=== PATIENT | female | born 1955 | race Caucasian/White ===

== ENCOUNTER → 2017-01-01 | Outpatient (CLI) | payer BC ==
[~2017-01-01] MED LIST: ALBU18002; ERGO500037 PO; GABA-113 PO; GABA1CAP5 PO; LISI-725 PO; METO100T14 PO; MOME200A INH; MULT-506 PO; NAPR1TAB9 PO
--- NOTE | 2017-01-01 17:14 | DIAGNOSTIC IMAGING REPORT ---
MRI OF THE CERVICAL SPINE WITHOUT IV CONTRAST CLINICAL HISTORY: Cervical radiculopathy. COMPARISON STUDY: No priors. TECHNIQUE: MRI of the cervical spine is performed utilizing various T1 and T2-weighted sequences in the axial and sagittal planes. IV contrast was not administered for this examination. FINDINGS: Cervical spine: Vertebral body height is maintained throughout the cervical spine. Alignment is preserved. There is straightening of cervical lordosis with reversal centered at C4-C5. Anterior osteophytes are seen throughout. The atlantodental articulation appears maintained. The spinous processes appear intact. Chronic degenerative endplate change is seen from C4-C5 through C6-C7. No destructive bony lesion is identified. Intervertebral discs: There is degenerative disc desiccation throughout the cervical spine. Mild loss of height is seen from C4-C5 through C6-C7. Spinal cord: The cervical spinal cord is normal in morphology. There is slightly increased signal within the cervical cord from C5-C7, likely representing mild edema secondary to spinal stenosis. C2-C3: Facet arthropathy is of no consequence. The central canal and neural foramina are patent. C3-C4: A posterior disc osteophyte complex eccentric to the left effaces the subarachnoid space. Uncovertebral and facet arthropathy cause moderate to severe left and mild to moderate right neural foraminal stenosis. C4-C5: A posterior disc osteophyte complex abuts the ventral cord. Uncovertebral and facet arthropathy cause severe left and mild to moderate right neural foraminal stenosis. C5-C6: A posterior disc osteophyte complex effaces the ventral cord. The minimum AP canal diameter at this level measures 5.5 mm. Uncovertebral and facet arthropathy cause severe bilateral neural foraminal stenosis, left greater than right. C6-C7: A posterior disc osteophyte complex effaces the ventral cord. Uncovertebral and facet arthropathy cause severe bilateral neural foraminal stenosis. C7-T1: Unremarkable. Soft tissues: The prevertebral and paraspinous soft tissues are normal as visualized. Brain parenchyma: Partially imaged brain parenchyma at the skull base is within normal limits. Trace fluid is noted within the sphenoid sinuses. IMPRESSION: 1. Multilevel cervical spondylosis as above, greatest at C5-C6 and C6-C7. See discussion for detailed level by level analysis. 2. There is slightly increased signal within the cervical cord from C5-C7. This likely represents mild cord edema secondary to severe spinal stenosis at this level. Orthopedic surgical follow-up is recommended. 3. No destructive bony lesion is identified. Dictated: 01/01/2017 4:44 PM Transcribed: 01/01/2017 5:13 PM [email or web address] Electronically signed by: Rickey Montoya M.D. 01/01/2017 5:22 PM Dictated Date/Time: 01/01/2017 4:44 PM
== END | disposition home or self-care (01) ==
LOC: C.MRI 16:03
DX: M54.12 Radiculopathy, cervical region (principal); M47.892 Other spondylosis, cervical region

== ENCOUNTER → 2017-10-17 | Outpatient (CLI) | payer BC ==
[~2017-10-17] MED LIST changes: -GABA-113 PO
== END | disposition home or self-care (01) ==
LOC: C.PATHSPEC 15:58
PROVIDERS: ATTEND Dentist Oral and Maxillofacial Pathology
DX: D18.09 Hemangioma of other sites (principal)

== ENCOUNTER 2018-03-15 21:11 | Emergency (ER) | payer BC, OTHER ==
[~2018-03-15] VITALS: Ht 165.1 cm; Wt 50.7 kg
[~2018-03-15 21:11] MED LIST changes: -ALBU18002; +ALBU18002 INH; +GABA-1220 PO; -GABA1CAP5 PO
[2018-03-15 21:16] VITALS: TEMP 36.8
[2018-03-15] MEDS ORDERED: SODIUM CHLORIDE 0.9% 1000ML 1,000 ML IV STA (21:32)
[2018-03-15] MEDS ORDERED: METOCLOPRAMIDE HCL INJ 5 MG/ML 2 ML VIAL IV STA (21:32)
[2018-03-15] MEDS ORDERED: DiphenhydrAMINE HCL 50 MG/ML VIAL IV STA (21:32)
[2018-03-15 21:43] VITALS: Ht 165.1 cm; Wt 50.7 kg
[2018-03-15 21:50] LABS: BASO % 0.2 %; BASO ABS # 0.01 K/uL (0-0.2); EOS % 2.8 %; EOS ABS # 0.16 K/uL (0-0.5); HEMATOCRIT 42.3 % (37-47); HEMOGLOBIN 14.9 g/dL (12.0-16.0); IG# 0.01 K/uL (0.00-0.02); LYMPH % 42.8 %; LYMPH ABS # 2.41 K/uL (1.2-3.4); MEAN CORPUSCULAR HEMOGLOBIN 35.6 pg (25-34); MEAN CORPUSCULAR HGB CONC 35.2 g/dl (32-36); MEAN PLATELET VOLUME 9.7 fL (7.4-10.4); MONO % 6.9 %; MONO ABS # 0.39 K/uL (0.11-0.59); NEUT % 47.1 %; NEUT ABS # 2.65 K/uL (1.4-6.5); PLATELET COUNT 203 K/uL (130-400); RED CELL DISTRIBUTION WIDTH CV 14.3 % (11.5-14.5); RED CELL DISTRIBUTION WIDTH SD 52.5 fL (36.4-46.3); WHITE BLOOD COUNT 5.63 K/uL (4.8-10.8)
[2018-03-15 21:58] LABS: ISTAT CREATININE 1.2 mg/dl (0.6-1.3); ISTAT IONIZED CALCIUM 1.1 mmol/l (1.12-1.32); ISTAT POTASSIUM 4.1 mEq/L (3.3-5.0)
--- NOTE | 2018-03-15 22:01 | DIAGNOSTIC IMAGING REPORT ---
HEAD WITHOUT CONTRAST (CT) CLINICAL HISTORY: 62 years-old Female presenting with fall, head/facial injury. TECHNIQUE: Multidetector CT imaging of the head was performed without the use of intravenous contrast. IV contrast: None. A dose lowering technique was used consistent with the principles of ALARA (as low as reasonably achievable). COMPARISON: None. CT DOSE (mGy.cm): The estimated cumulative dose is 1047.[address] scans. FINDINGS: Tobacco Cutter topogram: Unremarkable. Ventricles and sulci normal in size. Brain parenchyma normal in appearance with preserved morin-white differentiation. No mass effect or midline shift. No hemorrhage or acute territorial infarct. No extra-axial fluid collection. Opacification of the right maxillary sinus. Right orbital floor fracture. Gas in the right orbit. Extensive soft tissue emphysema along the right premaxillary region. Calvarium intact. IMPRESSION: 1. No acute intracranial abnormality. 2. Right orbital floor fracture with intraorbital gas and extensive soft tissue emphysema in the right premaxillary region. Calvarium intact. Electronically signed by: Colton Mcguire M.D. 03/15/2018 9:59 PM Dictated Date/Time: 03/15/2018 9:57 PM
[2018-03-15 22:03] LABS: INR 0.9 (0.9-1.1); PTT PATIENT 26.4 SECONDS (21.0-31.0)
--- NOTE | 2018-03-15 22:06 | DIAGNOSTIC IMAGING REPORT ---
CERVICAL SPINE W/O CLINICAL HISTORY: 62 years-old Female presenting with fall, head/facial injury. TECHNIQUE: Multidetector CT of the cervical spine was performed without the use of intravenous contrast. IV contrast: None. A dose lowering technique was used consistent with the principles of ALARA (as low as reasonably achievable). COMPARISON: MR from 01/01/2017. CT DOSE (mGy.cm): The estimated cumulative dose is 1047.69 mGy.cm. FINDINGS: Toby Maker topogram: Unremarkable. 3 mm of grade 1 anterolisthesis of C7 on T1 likely due to degenerative change. Otherwise normal cervical lordosis. No acute fracture or acute subluxation. Vertebral bodies maintain normal height and alignment. Intervertebral disc height loss noted mildly at C6-7. Small disc osteophyte complexes noted from C3-4 through C6-7. Facet arthropathy noted to varying degrees at multiple levels. Degenerative change results in osseous neural foraminal narrowing at C3-4, on the left at C4-5, the right at C5-6, and bilaterally at C6-7. No significant osseous spinal canal narrowing. Paraspinal soft tissues notable for soft tissue emphysema in the premaxillary region with hemorrhage in the right maxillary sinus and a right orbital floor fracture with intraorbital gas and herniation of fat. There is also slight contraction of the inferior rectus muscle which is drawn towards the orbital floor defect. IMPRESSION: 1. No acute osseous injury of the cervical spine. 2. Multilevel degenerative changes. 3. Right orbital floor fracture with herniation of fat and traction on the inferior rectus muscle. Correlate clinically for entrapment. 4. Right intraorbital gas. 5. Right maxillary sinus hemorrhage. Electronically signed by: Colton Mcguire M.D. 03/15/2018 10:04 PM Dictated Date/Time: 03/15/2018 9:59 PM
[2018-03-15 22:12] LABS: CREATININE 1.17 mg/dl (0.60-1.20)
--- NOTE | 2018-03-15 22:20 | DIAGNOSTIC IMAGING REPORT ---
FACIAL BONES-MXILLOFAC WITHOUT CLINICAL HISTORY: 62 years-old Female presenting with fall, head/facial injury. TECHNIQUE: Multidetector CT of the face was performed without the use of intravenous contrast. IV contrast: None. A dose lowering technique was used consistent with the principles of ALARA (as low as reasonably achievable). COMPARISON: None. CT DOSE (mGy.cm): The estimated cumulative dose is 1047.[address] scans. FINDINGS: Appliances Sample Maker topogram: Unremarkable. Acute fracture of the medial floor of the right orbit with herniation of orbital fat. There is also downward traction on the inferior rectus muscle, which is minimally pulled into the bony defect. The herniated soft tissue, however, is largely fat. Hemorrhage noted in the right maxillary sinus. Right intraorbital extraconal gas noted. Extensive soft tissue emphysema in the right periorbital and premaxillary region. A nondisplaced fracture of the lateral wall of the right orbit may also be present. The medial right orbital wall is intact. Mandible intact. Temporomandibular joints intact. IMPRESSION: Acute fracture of the floor of the right orbit with herniation of fat and traction on the inferior rectus muscle. Correlate clinically for entrapment. Additional nondisplaced fracture of the lateral right orbital wall suspected. Soft tissue and right intraorbital gas with right maxillary sinus hemorrhage. Electronically signed by: Colton Mcguire M.D. 03/15/2018 10:19 PM Dictated Date/Time: 03/15/2018 10:15 PM
[2018-03-15 22:22] LABS: TOTAL PROTEIN 7.7 gm/dl (6.4-8.2)
[2018-03-15] MEDS ORDERED: METO50TA16 PO (22:42)
[2018-03-15] MEDS ORDERED: NRN600 PO (22:42)
[2018-03-15] MEDS ORDERED: PANTOprazole SOD 40 MG TAB PO STA (22:43)
[2018-03-15] MEDS ORDERED: DOXYCYCLINE HYCLATE 100 MG CAP PO STA (22:43)
[2018-03-15 23:15] VITALS: BP 135/76; PULSE 68; O2SAT 96
[2018-03-15] MEDS ORDERED: PANT40TA PO (23:29)
[2018-03-15] MEDS ORDERED: DOXY100C2 PO (23:29)
--- NOTE | 2018-03-16 05:06 | EMERGENCY ROOM VISIT NOTE ---
History First contact with patient: 21:24 Chief Complaint: HEAD INJURY (MINOR) Stated Complaint: HEADACHE, DOUBLE VISION, NAUSEA History of Present Illness The patient is a 62 year old female who presents to the Emergency Room with complaints of headache, difficulty focusing and nausea for the past day who fell 2 days ago and hit her face off the end table who sustained a right orbital contusion. Patient states she has been drinking wine today but has not been overly intoxicated. She states she has a couple drinks a day. Patient does smoke. She describes the headache as throbbing, ranging in severity 5 out of 10 throughout the head. Nothing makes it better or worse. She complains of nausea without vomiting or diarrhea. Patient states she has increased pain with her eye when she moves it. Patient denies loss of vision, eyeball pain itself, chest pain, dyspnea, neck pain, sore throat, dental pain, abdominal pain or any other medical complaints. Review of Systems An 10 system review of systems was completed with positives and pertinent negatives listed in the HPI. Past Medical/Surgical History Hypertension, back pain, neck pain Social History Smoking Status: Current Every Day Smoker Alcohol Use: heavy Drug Use: none Marital Status: Occupation Status: employed Current/Historical Medications Scheduled Doxycycline Hyclate (Vibramycin), 100 MG PO BID Gabapentin (Gabapentin), 600 MG PO BID Metoprolol Tartrate (Lopressor) (Lopressor), 50 MG PO DAILY Multivitamin (Multivitamin), 1 TAB PO DAILY Pantoprazole (Protonix), 40 MG PO DAILY Scheduled PRN Albuterol Sulfate (Proair Respiclick), 2 PUFFS INH Q4H PRN for Shortness of Breath Naproxen (Aleve), 220 MG PO BID PRN for Pain Physical Exam Vital Signs Date Time Temp Pulse Resp B/P (MAP) Pulse Ox O2 Delivery O2 Flow Rate FiO2 03/15/18 23:15 68 16 135/76 96 Room Air 03/15/18 22:05 83 16 133/66 96 Room Air 86 135/78 72 109/73 03/15/18 22:05 67 03/15/18 21:43 Room Air 03/15/18 21:16 36.8 78 18 128/72 95 Room Air Physical Exam PHYSICAL EXAM: VITALS: Vitals are noted on the nurse's note and reviewed by myself. Vital signs stable. GENERAL: Pleasant female with EtOH odor, in no acute distress, nondiaphoretic, well-developed well-nourished. SKIN: Right orbital contusion, the rest of the skin was without obvious lacerations or abrasions. Capillary reflex less than 2 seconds. HEAD: Normocephalic. EARS: External auditory canals clear, tympanic membranes pearly morin without erythema or effusion bilaterally. No hemotympanums. No cade sign. No mastoid tenderness. EYES: Pupils equal round and reactive to light and accommodation. Right conjunctiva with hemorrhage to the right lower quadrant less than a fourth of the conjunctiva. Left conjunctivae with injection, sclerae without icterus. Extraocular movements intact but painful in all directions in the right eye. No pain with the left eye. NOSE: Patent, turbinates without inflammation or discharge. No sinus tenderness. No septal hematoma or bleeding. FACE: Right orbital facial bone tenderness. Full range of motion of the jaw without tenderness. MOUTH: Mucous membranes moist. Pharynx without erythema or exudate. Uvula midline. Airway patent. Tongue does not deviate. NECK: Supple without nuchal rigidity. Cervical spine is nontender. Full range of motion of the neck without tenderness. No JVD. HEART: Regular rate and rhythm without murmurs gallops or rubs. LUNGS: Clear to auscultation bilaterally without wheezes, rales or rhonchi. No dullness to percussion. No retractions or accessory muscle use. No chest wall tenderness. ABDOMEN: Positive bowel sounds x 4. Normal tympanic percussion. Soft, nontender, without masses or organomegaly. No guarding or rebound tenderness. MUSCULOSKELETAL: No tenderness of the thoracic or lumbar spine. No tenderness with pelvic rocking. Full range of motion without tenderness to palpation in all extremities. Normal gait. Strength 5/5 throughout. Peripheral pulses 2+. NEURO: Patient was alert and oriented to person place and time. Normal Mini- Mental status exam. Normal sensation to light and sharp touch. Negative Romberg and pronator drift. Cerebellar function intact. No focal neurological deficits. Medical Decision & Procedures Laboratory Results 03/15/18 21:38 Red Blood Count 4.19, Mean Corpuscular Volume 101.0, Mean Corpuscular Hemoglobin 35.6, Mean Corpuscular Hemoglobin Concent 35.2, Mean Platelet Volume 9.7, Neutrophils (%) (Auto) 47.1, Lymphocytes (%) (Auto) 42.8, Monocytes (%) ( Auto) 6.9, Eosinophils (%) (Auto) 2.8, Basophils (%) (Auto) 0.2, Neutrophils # ( Auto) 2.65, Lymphocytes # (Auto) 2.41, Monocytes # (Auto) 0.39, Eosinophils # ( Auto) 0.16, Basophils # (Auto) 0.01 03/15/18 21:38 Test 03/15/18 21:38 03/15/18 21:47 White Blood Count 5.63 K/uL (4.8-10.8) Red Blood Count 4.19 M/uL (4.2-5.4) Hemoglobin 14.9 g/dL (12.0-16.0) Hematocrit 42.3 % (37-47) Mean Corpuscular Volume 101.0 fL (80-100) Mean Corpuscular Hemoglobin 35.6 pg (25-34) Mean Corpuscular Hemoglobin Concent 35.2 g/dl (32-36) Platelet Count 203 K/uL (130-400) Mean Platelet Volume 9.7 fL (7.4-10.4) Neutrophils (%) (Auto) 47.1 % Lymphocytes (%) (Auto) 42.8 % Monocytes (%) (Auto) 6.9 % Eosinophils (%) (Auto) 2.8 % Basophils (%) (Auto) 0.2 % Neutrophils # (Auto) 2.65 K/uL (1.4-6.5) Lymphocytes # (Auto) 2.41 K/uL (1.2-3.4) Monocytes # (Auto) 0.39 K/uL (0.11-0.59) Eosinophils # (Auto) 0.16 K/uL (0-0.5) Basophils # (Auto) 0.01 K/uL (0-0.2) RDW Standard Deviation 52.5 fL (36.4-46.3) RDW Coefficient of Variation 14.3 % (11.5-14.5) Immature Granulocyte % (Auto) 0.2 % Immature Granulocyte # (Auto) 0.01 K/uL (0.00-0.02) Prothrombin Time 9.5 SECONDS (9.0-12.0) Prothromb Time International Ratio 0.9 (0.9-1.1) Activated Partial Thromboplast Time 26.4 SECONDS (21.0-31.0) Partial Thromboplastin Ratio 1.0 Est Creatinine Clear Calc Drug Dose 40.9 ml/min Estimated GFR () 58.7 Estimated GFR (Non- 50.6 BUN/Creatinine Ratio 16.7 (10-20) Calcium Level 9.0 mg/dl (8.5-10.1) Total Bilirubin 0.4 mg/dl (0.2-1) Direct Bilirubin 0.1 mg/dl (0-0.2) Aspartate Amino Transf (AST/SGOT) 28 U/L (15-37) Alanine Aminotransferase (ALT/SGPT) 29 U/L (12-78) Alkaline Phosphatase 87 U/L (45-117) Total Protein 7.7 gm/dl (6.4-8.2) Albumin 4.0 gm/dl (3.4-5.0) Thyroid Stimulating Hormone (TSH) 1.040 uIu/ml (0.300-4.500) Ethyl Alcohol mg/dL 173.6 mg/dl (0-3) Bedside Hemoglobin 15.3 g/dl (12.0-16.0) Bedside Hematocrit 45 % (37-47) Bedside Sodium 135 mEq/L (135-144) Bedside Potassium 4.1 mEq/L (3.3-5.0) Bedside Chloride 101 mEq/L (101-112) Bedside Total CO2 20 mEq/l (24-31) Anion Gap 19.0 mmol/L (16-25) Bedside Blood Urea Nitrogen 22 mg/dl (7-18) Bedside Creatinine 1.2 mg/dl (0.6-1.3) Bedside Glucose (other) 84 mg/dl (70-99) Bedside Ionized Calcium (Sebastian) 1.10 mmol/l (1.12-1.32) Medications Administered Medications (Trade) Dose Ordered Sig/Mary Route Start Time Stop Time Status Last Admin Dose Admin Sodium Chloride 1,000 ml @ 999 mls/hr Q1H1M STAT IV 03/15/18 21:32 03/15/18 22:32 DC 03/15/18 22:09 999 MLS/HR Metoclopramide HCl (Reglan Inj) 5 mg NOW STAT IV 03/15/18 21:32 03/15/18 21:34 DC 03/15/18 22:09 5 MG Diphenhydramine HCl (Benadryl Inj) 12.5 mg NOW STAT IV 03/15/18 21:32 03/15/18 21:34 DC 03/15/18 22:09 12.5 MG Doxycycline Hyclate (Vibramycin Cap) 100 mg NOW STAT PO 03/15/18 22:43 03/15/18 22:45 DC 03/15/18 23:09 100 MG Pantoprazole Sodium (Protonix Tab) 40 mg NOW STAT PO 03/15/18 22:43 03/15/18 22:45 DC 03/15/18 23:09 40 MG ED Course Prior records/ancillary studies reviewed. Triage Nursing notes reviewed. Additional history obtained from family The patient's history was concerning for traumatic head injury Differential diagnosis: Etiologies such as concussion, contusion, fracture, subdural hematoma, epidural hematoma, intraparenchymal hemorrhage, as well as other traumatic pathologies were entertained. Physical examination findings: As above. ER treatment provided: Doxycycline, Protonix On reassessment the patient felt better. Diagnostics interpreted by me: ECG: Normal sinus, normal intervals, no acute ST-T wave changes. Impression normal sinus rhythm interpreted by myself The labs revealed stable H&H. Elevated alcohol Imaging studies: FACIAL BONES-MXILLOFAC WITHOUT CLINICAL HISTORY: 62 years-old Female presenting with fall, head/facial injury. TECHNIQUE: Multidetector CT of the face was performed without the use of intravenous contrast. IV contrast: None. A dose lowering technique was used consistent with the principles of ALARA (as low as reasonably achievable). COMPARISON: None. CT DOSE (mGy.cm): The estimated cumulative dose is 1047.[address] scans. FINDINGS: Payroll Accountant topogram: Unremarkable. Acute fracture of the medial floor of the right orbit with herniation of orbital fat. There is also downward traction on the inferior rectus muscle, which is minimally pulled into the bony defect. The herniated soft tissue, however, is largely fat. Hemorrhage noted in the right maxillary sinus. Right intraorbital extraconal gas noted. Extensive soft tissue emphysema in the right periorbital and premaxillary region. A nondisplaced fracture of the lateral wall of the right orbit may also be present. The medial right orbital wall is intact. Mandible intact. Temporomandibular joints intact. IMPRESSION: Acute fracture of the floor of the right orbit with herniation of fat and traction on the inferior rectus muscle. Correlate clinically for entrapment. Additional nondisplaced fracture of the lateral right orbital wall suspected. Soft tissue and right intraorbital gas with right maxillary sinus hemorrhage. Electronically signed by: Colton Mcguire M.D. 03/15/2018 10:[address] negative for fracture or bleed per radiology Consultation: A consultation was placed with the commissions manager Dr. Ratliff who recommends follow-up with him and orofacial/ENT for the facial trauma. He also recommends no forceful blowing of the nose, elevating the head and do not withhold his knees. I consulted Dr. Rodas who states he does not do trauma and recommends referral to ENT who does trauma or to oral facial plastics. He does recommend that antibiotics are a good idea. The case was discussed and diagnostics were reviewed. It appears the patient has a concussion with orbital fracture with possible entrapment of the eye muscle but patient had full EOMI. patient was neurovascularly and neurologically intact. She was counseled on conservative measures for her facial injury and advised no withholding a sneeze, forceful blowing of her nose and to sleep with her head elevated at 45. She is advised no alcohol until her symptoms resolve and has finished antibiotics. She was allergic to penicillin so she is given doxycycline and advised to take Protonix with this. She is advised to stand up and take this with a full glass of water. She is advised to follow-up with ophthalmology and oral facial surgery this week for further evaluation treatment for her facial injuries. She is advised to follow-up concussion clinic of headache and head injury symptoms persist or here in the ER sooner for headache, fevers, confusion, vomiting, worsening signs or symptoms or as needed. Patient had no other injuries are noted. She is well-appearing. Injury happened 2 days ago. is willing to care for her feels comfortable taking her home. By the evaluation outlined above emergent etiologies such as fracture, subdural hematoma, epidural hematoma, intraparenchymal hemorrhage, as well as others were deemed relatively unlikely. The pt informed about the findings as listed above. All questions were answered and pleased with the treatment. Return instructions were outlined and the patient was discharged in stable condition. Outpatient Prescription Management: Doxycycline, Protonix Referral: The patient was referred ophthalmology and oral facial surgery for follow-up in 2 to 3 days for a recheck of the current condition. Case reviewed with my attending The chart was completed utilizing [employer] Speech voice recognition software. Grammatical errors, random word insertions, pronoun errors, and incomplete sentences are an occassional consequence of this system due to software limitations, ambient noise, and hardware issues. Any formal questions or concerns about the content, text, or information contained within the body of this dictation should be directly addressed to the physician business office assistant for clarification. Medical Decision As above Head Trauma GCS Score: 15 Medication Reconcilliation Current Medication List: was personally reviewed by me Blood Pressure Screening Patient's blood pressure: Normal blood pressure Impression Primary Impression: Right orbital fracture Additional Impressions: Subconjunctival hemorrhage of right eye Facial contusion Head injury Departure Information Dispostion Home / Self-Care Condition GOOD Prescriptions Pantoprazole (Protonix) 40 Mg Tab 40 MG PO DAILY for 14 Days, #14 TAB Prov: Madyson Deleon .HARDEEP 03/15/18 Doxycycline Hyclate (VIBRAMYCIN) 100 Mg Cap 100 MG PO BID for 10 Days, #20 CAP Prov: Madyson Deleon .HARDEEP 03/15/18 Referrals Chandler Augustine D.D.SJohnathan Armas D.O. Forms HOME CARE DOCUMENTATION FORM, Work Instructions, Return To Work: 3 days IMPORTANT VISIT INFORMATION Patient Instructions Subconjunctival Hemorrhage, My [facility], ED Fx Face, ED Head Injury Closed Additional Instructions Facial fracture: DO NOT drive, drink alcohol, operate machinery, or perform dangerous activities today. You were given medications in the ER that can affect your ability to safely function or operate a vehicle. Doxycycline 100mg: Take one pill twice daily for 10 days. Take with food, but avoid dairy. Avoid prolonged sun exposure since this medication makes you temporarily more susceptible to sunburns. All antibiotics can cause diarrhea. If this occurs and you feel worse or it does not resolve in 1-2 days follow up with your doctor or return to the Emergency Department as this could be signs of serious underlying problems. Any medication can cause an allergic reaction, stop the pills immediately and return to the ER for rash, hives, breathing difficulties, or swelling. Protonix 40 m tablet daily for the next 2 weeks. Acetaminophen(Tylenol) may be used for fever or pain. Use 1000mg every six hours as needed. Avoid using more than 3000mg in a 24 hour period. Recommend no alcohol until you finish all medications as above. Recommend that you take your medicine with a full glass of water standing up. Do not forcibly blow your nose, withhold a sneeze or increase any pressure to your face. You need to sleep with her head elevated at 45 until cleared by ophthalmology and orofacial surgery. Call oral facial surgery and ophthalmology tomorrow morning for follow-up appointment for a facial injuries. Return to ER sooner for headache, fevers, confusion, vomiting, vision problems, worsening signs or symptoms or as needed. Head injury: Read head injury handout and return for any symptoms. Tylenol 1000 mg as needed for pain (Maximum 3000 mg Tylenol in 24 hr period). Avoid alcohol and contact sports/activities for one week and follow up with family doctor prior to returning to these activities if still symptomatic. Ice and elevate head. If your symptoms persist more than a week then follow up with the concussion clinic. Call [phone]. Return to ER sooner for headache, fevers, confusion, worsening signs or symptoms or as needed. Work Instructions Return To Work: 3 days Problem Qualifiers Primary Impression: Right orbital fracture Encounter type: initial encounter Fracture type: closed Qualified Codes: S02.81XA - Fracture of other specified skull and facial bones, right side, initial encounter for closed fracture
== END 2018-03-15 23:47 | disposition home or self-care (01) ==
LOC: C.EDB 21:12 → C.EDC 23:47
DX: S02.81XA Fracture of other specified skull and facial bones, right side, initial encounter for closed fracture (principal); S06.0X9A Concussion with loss of consciousness of unspecified duration, initial encounter; W19.XXXA Unspecified fall, initial encounter; W22.09XA Striking against other stationary object, initial encounter; R78.0 Finding of alcohol in blood; F17.200 Nicotine dependence, unspecified, uncomplicated; Z88.0 Allergy status to penicillin

== ENCOUNTER → 2018-07-17 | Outpatient (CLI) | payer OTHER ==
[~2018-07-17] MED LIST changes: +DOXY100C2 PO; -ERGO500037 PO; -GABA-1220 PO; -LISI-725 PO; -METO100T14 PO; +METO50TA16 PO; -MOME200A INH; +NRN600 PO
--- NOTE | 2018-07-17 14:10 | DIAGNOSTIC IMAGING REPORT ---
(CHEST) THORAX WITHOUT CT DOSE: 209.79 mGy.cm HISTORY: Tobacco use CURRENT SMOKER, 1.5 PACKS PER DAY TECHNIQUE: Multiaxial CT images of the chest were performed without contrast. A dose lowering technique was utilized adhering to the principles of ALARA. COMPARISON: None. FINDINGS: Mild emphysematous change. Several small scattered calcified benign granulomas. Poorly defined 5 x 3 mm lateral aspect right upper lobe image 102. Nodular density lateral aspect right upper lobe transaxial image 102. Lungs otherwise appear clear. There are no focal infiltrates. There is no significant hilar or mediastinal adenopathy. Several small calcified mediastinal and/or hilar nodes are noted. IMPRESSION: 1. Poorly defined 5 x 3 mm linear nodular density right upper lobe image 102. 2. Lungs otherwise are clear with several benign scattered calcified granulomas. 3. Mild emphysematous change. 4. Follow-up per Fleischner criteria. Please refer to below summary of Fleischner criteria recommendations for follow-up of incidental CT nodules (Mila Mclaughlin, Guidelines for management of small pulmonary nodules detected on CT scans: A statement from the Fleischner Society, Radiology 237: [phone].) SOLID NODULES Solitary nodule size: <6 mm * low risk patients: no follow-up needed * high risk patients: optional CT at 12 months Solitary nodule size: 6-8 mm * low risk patients: follow-up at 6-12 months, then consider further follow-up at 18-24 months * high risk patients: initial follow-up CT at 6-12 months and then at 18-24 months if no change Solitary nodule size: >8 mm * either low or high risk patients - consider follow-up CT at 3 months, and/or CT-PET, and/or biopsy Multiple nodules size: <6 mm * low risk patients: no routine follow-up * high risk patients: optional CT at 12 months Multiple nodules size: 6-8 mm * low risk patients: follow-up at 3-6 months, then consider further follow-up at 18-24 months * high risk patients: follow-up at 3-6 months, then at 18-24 months if no change Multiple nodules size: >8 mm * low risk patients: follow-up at 3-6 months, then consider further follow-up at 18-24 months * high risk patients: follow-up at 3-6 months, then at 18-24 months if no change Note: newly detected indeterminate nodule in persons 35 years of age or older. * low risk patients: minimal or absent history of smoking and/or other known risk factors * high risk patients: history of smoking or of other known risk factors (e.g. first degree relative with lung cancer, or exposure to asbestos, radon, uranium) * if a nodule up to 8 mm is partly solid or is ground glass further follow-up is required after 24 months to exclude possible slow growing adenocarcinoma (DERRICK) SUBSOLID NODULES Solitary pure ground-glass nodule * nodule size <6 mm - no CT follow-up required * nodule size >=6 mm - follow-up CT at 6-12 months, then every 2 years until 5 years Solitary part-solid nodule * nodule size <6 mm - no CT follow-up required * nodule size >=6 mm - follow-up CT at 3-6 months. If unchanged, and solid component remains <6 mm, then annual follow-up for 5 years Multiple subsolid nodules * nodule size <6 mm - follow-up CT at 3-6 months, consider further follow-up at 2 and 4 years if stable * nodule size >=6 mm - follow-up CT at 3-6 months, subsequent management based on the most suspicious nodule(s) . The above report was generated using voice recognition software. It may contain grammatical, syntax or spelling errors. Electronically signed by: Juarez Guy M.D. 07/17/2018 2:09 PM Dictated Date/Time: 07/17/2018 2:04 PM
== END | disposition home or self-care (01) ==
LOC: C.CTS 13:43
DX: Z87.891 Personal history of nicotine dependence (principal); R91.8 Other nonspecific abnormal finding of lung field

== ENCOUNTER 2021-03-02 14:22 | Observation (INO) ==
[2021-03-02] MEDS ORDERED: SODIUM CHLORIDE 0.9% 1000ML 1,000 ML IV SCH (14:45)
--- NOTE | 2021-03-02 15:15 | Emergency Department Note ---
Impression & Plan Anemia, Acute kidney injury, SANDOVAL (dyspnea on exertion) ED Provider Note NAME: ARISTIDES STRATTON AGE: 65 SEX: F : 1955 ARRIVES VIA: Walk-In INFORMANT: Patient, ED PROVIDER(S): Gio Chavis DO CHIEF COMPLAINT: Weakness HPI: The patient is a 65-year-old female who was diagnosed with lung cancer at the beginning of the year. She has been receiving chemotherapy. She has been experiencing generalized weakness as well as shortness of breath with exertion. She did have a follow-up appointment with her primary oncologist this week. She had laboratory studies drawn and was found to have an elevation in her creatinine compared to baseline. She was also found to have significant anemia. She was called today by her oncologist and sent to the emergency department for further evaluation. The patient states that she is had no lower extremity swelling. She notices no rectal bleeding or black stool. She has been noticing some chest pain but this is consistent with her diagnosis of lung cancer. She does notice that she is very short of breath especially with any exertion. She denies having any abdominal pain. She is had no fever or cough. She states her symptoms are moderate and worsened with any exertion. The patient is also been noticing some degree of constipation. She states that she is been taking o [id number] stool softeners with some relief. ROS: See above HPI for pertinent positives & negatives. A total of 10 systems reviewed and were otherwise negative. PAST MEDICAL HISTORY: See Below PAST SURGICAL HISTORY: See Below FAMILY HISTORY: See Below SOCIAL HISTORY: See Below HOME MEDICATIONS: See Below ALLERGIES: See Below VITALS: See Below PHYSICAL EXAMINATION: GENERAL: The patient is awake and alert. The patient is nonanxious appearing. EYES: The conjunctivae are pale. The pupils are round and reactive. EARS, NOSE, MOUTH AND THROAT: The nose is without any evidence of any deformity. NECK: The neck is nontender and supple. RESPIRATORY: Shallow respirations were noted. There were diminished breath sounds in the left lung field. There was no tachypnea or conversational dyspnea. CARDIOVASCULAR: Regular rate and rhythm noted there no murmurs rubs or gallops normal S1 normal S2. GASTROINTESTINAL: The abdomen is soft. Abdomen is nontender. Rectal exam revealed brown stool which was heme-negative. MUSCULOSKELETAL/EXTREMITIES: There is no evidence of gross deformity full range of motion is noted in the hips and shoulders. SKIN: Skin is warm and dry. There is no significant pedal edema. NEUROLOGIC: Patient is awake alert and oriented x3. MEDICAL DECISION MAKING: The patient is a 65-year-old female who has a history of lung cancer who presented to the emergency department for an evaluation of shortness of breath with exertion. The patient is currently receiving chemotherapy. She had laboratory studies done by her primary oncologist recently. She was told to come to the emergency department because of worsening anemia. The patient is symptomatic with her anemia but also was noted to have an elevation in her creatinine compared to baseline. She was treated with IV fluids in the emergen cy department. She was ordered for transfusion in the emergency department. I discussed the patient's laboratory and radiographic studies with her. Case was discussed with the on-call [facility] group. They have agreed to evaluate the patient in the emergency department for further management and disposition. Triage Nursing notes reviewed. Prior medical records reviewed Vital Signs: reviewed and remarkable for low blood pressure. Differential diagnosis: Infection, dehydration, metabolic abnormality, hypo/hyperglycemia, electrolyte disturbance, anemia, hypoxia, cardiac sources, intracerebral event, toxicologic, neurologic, as well as other pathologies. ER treatment provided: See below Diagnostics interpreted by me: ECG: EKG was obtained in the emergency department. My interpretation is normal sinus rhythm at 77 bpm. There is no ectopy. There is no acute ST segment abnormalities noted. This was compared to a tracing from March 152017. No significant changes were noted. Cardiac Monitoring: An order was placed for continuous cardiac monitoring. The monitor shows a rate of 85 beats per with sinus rhythm. Laboratory studies: As stated above and show below. Imaging studies: See below Consultation(s): Dr. Rosario, the [facility]ist was notified about the patient. He will evaluate the patient in the emergency department for further management and disposition. Past Med/Surg History Medical History (Updated 03/02/21 @ 16:13 by Rolan Rosario MD) Abnormal CT scan of lung Arthritis Avascular necrosis of left femur COPD (chronic obstructive pulmonary disease) Degenerative disc disease Ectopic Facial contusion Hip fracture, left Hypertension Lung cancer Migraines Pulmonary nodule Right orbital fracture Subconjunctival hemorrhage of right eye Tobacco abuse Transient osteoporosis of hip Surgical History History of appendectomy History of bronchoscopy Family History Mother Heart disease Hypertension Kidney disease Father , 73yo Emphysema lung Alcoholism Brother No problems noted. Sister Myocardial infarction Son No problems noted. Son No problems noted. 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 [employer] Feels Safe at Home: Yes caffeine: Yes (1 cup/day;2 cups/day) during the past year weight has: remained stable Allergies Allergies Allergy/AdvReac Type Severity Reaction Status Date / Time budesonide Allergy Severe SHORTNESS Verified 01/22/21 13:19 OF BREATH formoterol Allergy Severe SHORTNESS Verified 01/22/21 13:19 OF BREATH Sulfa (Sulfonamide Allergy Severe HIVES Verified 01/22/21 13:19 Antibiotics) erythromycin base Allergy Intermediate CAUSES HER Verified 01/22/21 13:19 EYES TO BURN Penicillins Allergy Unknown HAPPENED Verified 01/22/21 13:19 A CHILD thimerosol Allergy burning Uncoded 01/22/21 13:19 eyes Home Meds Home Medications Medication Instructions Recorded Confirmed albuterol sulfate 90 mcg/actuation 2 inh INHALATION Q4H PRN g 11/03/20 01/15/21 aerosol inhaler amlodipine 5 mg tablet 5 mg PO DAILY 11/03/20 01/15/21 butalbital 50 mg-acetaminophen 300 1 cap PO Q6H PRN cap 11/03/20 01/15/21 mg-caffeine 40 mg-codeine 30 mg cap diazepam 5 mg tablet 5 mg PO Q6H PRN tab 11/03/20 01/15/21 fluticasone furoate 200 1 inh INHALATION DAILY 11/03/20 01/15/21 mcg-vilanterol 25 mcg/dose inhalation powder fluticasone propionate 50 2 spray INTRANASAL BID ml 11/03/20 01/15/21 mcg/actuation nasal spray,suspension gabapentin 600 mg tablet 600 mg PO BID 11/03/20 01/15/21 losartan 50 mg tablet 50 mg PO DAILY 11/03/20 01/15/21 metoprolol tartrate 100 mg tablet 100 mg PO DAILY 11/03/20 01/15/21 terconazole 0.4 % vaginal cream VAGINAL 11/03/20 01/15/21 triamcinolone acetonide 0.1 % 1 applic TOPICAL BID 11/03/20 01/15/21 topical cream cephalexin 500 mg capsule 1,000 mg PO BID PRN cap 11/21/20 01/15/21 vitamin E (dl, acetate) 400 unit 400 unit PO DAILY 11/21/20 01/15/21 capsule multivitamin 1 tab PO DAILY 01/01/21 01/15/21 olanzapine 2.5 mg tablet 2.5 mg PO .as directed tab 01/08/21 01/08/21 ondansetron HCl 8 mg tablet 8 mg PO Q8H PRN 01/08/21 01/08/21 prochlorperazine maleate 10 mg 10 mg PO Q6H PRN 01/08/21 01/08/21 tablet Magic Mouthwash 15 ml PO QID 01/22/21 01/22/21 Previous Rx's Medication Instructions Recorded benzonatate 100 mg capsule 100 mg PO TID PRN #60 cap 01/05/21 sucralfate 1 gram tablet 1 g PO Q6H #120 tab 01/22/21 Results & Data (ED) Vital Signs Vital Signs - 24 hr 03/02/21 14:31 03/02/21 14:56 03/02/21 15:00 Temperature 36.2 C L Temperature Source Oral Oral Pulse Rate 85 76 Respiratory Rate 20 18 Blood Pressure 81/51 L Blood Pressure Mean 61 Pulse Oximetry 97 99 Oxygen Delivery Method Room Air Room Air Sepsis Recent Fever Within 48 Hours No Sepsis New/Unexplained Change in Mental Status N/A Sepsis Action Taken by Nursing No Action Required 03/02/21 15:10 03/02/21 15:20 03/02/21 15:30 Temperature Temperature Source Pulse Rate 79 81 78 Respiratory Rate 17 18 17 Blood Pressure Blood Pressure Mean Pulse Oximetry 100 99 100 Oxygen Delivery Method Sepsis Recent Fever Within 48 Hours Sepsis New/Unexplained Change in Mental Status Sepsis Action Taken by Nursing 03/02/21 15:40 03/02/21 15:50 03/02/21 16:00 Temperature Temperature Source Pulse Rate 75 78 80 Respiratory Rate 15 22 20 Blood Pressure Blood Pressure Mean Pulse Oximetry Oxygen Delivery Method Sepsis Recent Fever Within 48 Hours Sepsis New/Unexplained Change in Mental Status Sepsis Action Taken by Skilled Nursing Medications Current Medication List: was personally reviewed by me Laboratory Data Attestation: I reviewed the patient's lab results. Result diagrams: 03/02/21 15:18 03/02/21 15:18 Lab Results 03/02/21 03/02/21 03/02/21 Range/Units 15:18 15:18 15:18 WBC 3.35 L (4.8-10.8) K/uL RBC 1.75 L (4.2-5.4) M/uL Hgb 6.6 L* (12.0-16.0) g/dL Hct 18.9 L* (37-47) % MCV 108.0 H (80-100) fL MCH 37.7 H (25-34) pg MCHC 34.9 (32-36) g/dL RDW Std Deviation 67.4 H (36.4-46.3) fL RDW Coeff of Kiara 17.4 H (11.5-14.5) % Plt Count 50 L (130-400) K/uL MPV 12.3 H (7.4-10.4) fL Immature Gran % (Auto) 1.2 % Neut % (Auto) 49.8 % Lymph % (Auto) 26.6 % Caswell % (Auto) 16.7 % Eos % (Auto) 5.4 % Baso % (Auto) 0.3 % Neut # (Auto) 1.67 (1.4-6.5) K/uL Lymph # (Auto) 0.89 L (1.2-3.4) K/uL Caswell # (Auto) 0.56 (0.11-0.59) K/uL Eos # (Auto) 0.18 (0-0.5) K/uL Baso # (Auto) 0.01 (0-0.2) K/uL Immature Gran # (Auto) 0.04 H (0.00-0.02) K/uL Absolute Nucleated RBC 0.02 H (0-0) K/uL Nucleated RBC % (auto) 0.7 % Toxic Granulation 2+ Dohle Bodies 1+ Polychromasia 1+ Anisocytosis Present PT 9.5 (9.0-12.0) Seconds INR 0.9 (0.9-1.1) APTT 21.1 (21.0-31.0) Seconds PTT Ratio 0.8 Sodium 132 L (136-145) mmol/L Potassium 4.7 (3.5-5.1) mmol/L Chloride 103 (98-107) mmol/L Carbon Dioxide 23 (21-32) mmol/L Anion Gap 7.0 (3-11) BUN 57 H (7-18) mg/dl Creatinine 2.73 H (0.6-1.2) mg/dl Est Cr Clr Drug Dosing 15.0 ml/min Est GFR ( Amer) 20.6 Est GFR (Non-Af Amer) 17.8 BUN/Creatinine Ratio 20.8 H (10-20) Glucose 107 H (70-99) mg/dl Calcium 9.3 (8.5-10.1) mg/dl Magnesium 1.4 L (1.8-2.4) mg/dl Total Bilirubin 0.3 (0.2-1) mg/dl AST 13 L (15-37) U/L ALT 11 L (12-78) U/L Alkaline Phosphatase 91 (45-117) U/L Troponin I < 0.015 (0-0.045) ng/ml Total Protein 6.9 (6.4-8.2) gm/dl Albumin 3.2 L (3.4-5.0) gm/dl Globulin 3.7 (2.5-4.0) gm/dl Albumin/Globulin Ratio 0.9 (0.9-2) TSH 0.984 (0.300-4.500) uIu/ml COVID-19 Eval Order Crossmatch 03/02/21 03/02/21 Range/Units 15:35 15:55 WBC (4.8-10.8) K/uL RBC (4.2-5.4) M/uL Hgb (12.0-16.0) g/dL Hct (37-47) % MCV (80-100) fL MCH (25-34) pg MCHC (32-36) g/dL RDW Std Deviation (36.4-46.3) fL RDW Coeff of Kiara (11.5-14.5) % Plt Count (130-400) K/uL MPV (7.4-10.4) fL Immature Gran % (Auto) % Neut % (Auto) % Lymph % (Auto) % Caswell % (Auto) % Eos % (Auto) % Baso % (Auto) % Neut # (Auto) (1.4-6.5) K/uL Lymph # (Auto) (1.2-3.4) K/uL Caswell # (Auto) (0.11-0.59) K/uL Eos # (Auto) (0-0.5) K/uL Baso # (Auto) (0-0.2) K/uL Immature Gran # (Auto) (0.00-0.02) K/uL Absolute Nucleated RBC (0-0) K/uL Nucleated RBC % (auto) % Toxic Granulation Dohle Bodies Polychromasia Anisocytosis PT (9.0-12.0) Seconds INR (0.9-1.1) APTT (21.0-31.0) Seconds PTT Ratio Sodium (136-145) mmol/L Potassium (3.5-5.1) mmol/L Chloride (98-107) mmol/L Carbon Dioxide (21-32) mmol/L Anion Gap (3-11) BUN (7-18) mg/dl Creatinine (0.6-1.2) mg/dl Est Cr Clr Drug Dosing ml/min Est GFR ( Amer) Est GFR (Non-Af Amer) BUN/Creatinine Ratio (10-20) Glucose (70-99) mg/dl Calcium (8.5-10.1) mg/dl Magnesium (1.8-2.4) mg/dl Total Bilirubin (0.2-1) mg/dl AST (15-37) U/L ALT (12-78) U/L Alkaline Phosphatase (45-117) U/L Troponin I (0-0.045) ng/ml Total Protein (6.4-8.2) gm/dl Albumin (3.4-5.0) gm/dl Globulin (2.5-4.0) gm/dl Albumin/Globulin Ratio (0.9-2) TSH (0.300-4.500) uIu/ml COVID-19 Eval Order CovFluRsv at [facility] Crossmatch See Detail Administered Medications Discontinued Medications Sodium Chloride (Nss 1000ml) 1,000 mls @ 999 mls/hr IV .Q1H1M MICHA Stop: 03/02/21 15:45 Last Admin: 03/02/21 15:30 Dose: 999 mls/hr Documented by: [id number] Imaging Data Radiologist's Impression: Chest X-Ray 03/02/21 14:37 XR chest 1V portable CLINICAL HISTORY: weakness COMPARISON STUDY: January 2012, CT scan dated 10/13/2020 FINDINGS: The cardiac and mediastinal contours are normal. There is no evidence of focal pulmonary consolidation. There is no evidence of failure. No pleural effusions are visualized.[There are a few scattered calcified granulomas present. There is pulmonary emphysema. There is an ill-defined opacity at the r ight medial lung apex. IMPRESSION: 1. Ill-defined opacity at the right medial lung apex, smaller than on the prior CT scan dated 10/13/2020 2. Pulmonary emphysema 3. No evidence of acute parenchymal consolidation ACT 112: Negative or not required by law. Electronically signed by: Francisco Chappell M.D. 03/02/2021 3:56 PM Discharge Plan Visit Data Chief Complaint: Referred by Doctor Stated Complaint: DR HANSON REFERRED ED Provider: Gio Chavis Discharge Problem: Anemia, Acute kidney injury, SANDOVAL (dyspnea on exertion) Patient Disposition: Being Evaluated by Hospitalist Condition: Good Forms Stand Alone Forms: My [employer] Prescriptions Prescriptions: No Action vitamin E (dl, acetate) 400 unit capsule 400 unit PO DAILY RF: 0 multivitamin Tablet 1 tab PO DAILY RF: 0 ondansetron HCl 8 mg tablet 8 mg PO Q8H PRN (Reason: nausea and vomiting) RF: 0 prochlorperazine maleate [Compazine] 10 mg tablet 10 mg PO Q6H PRNRF: 0 olanzapine [Zyprexa] 2.5 mg tablet 2.5 mg PO .as directed RF: 0 Magic Mouthwash 15 ml PO QID RF: 0 benzonatate [Tessalon Perles] 100 mg capsule 100 mg PO TID PRN (Reason: cough) Qty: 60 RF: 2 sucralfate [Carafate] 1 gram tablet 1 g PO Q6H Qty: 120 RF: 4 albuterol sulfate 90 mcg/actuation HFA aerosol inhaler 2 inh inhalation Q4H PRNRF: 0 amlodipine 5 mg tablet 5 mg PO DAILY RF: 0 [id number] [Fioricet with Codeine] 79-191-50-30 mg capsule 1 cap PO Q6H PRNRF: 0 diazepam 5 mg tablet 5 mg PO Q6H PRNRF: 0 Breo Ellipta 200-25 mcg/dose blister with device 1 inh inhalation DAILY RF: 0 fluticasone propionate 50 mcg/actuation spray,suspension 2 spray intranasal BID RF: 0 gabapentin 600 mg tablet 600 mg PO BID RF: 0 losartan 50 mg tablet 50 mg PO DAILY RF: 0 metoprolol tartrate 100 mg tablet 100 mg PO DAILY RF: 0 terconazole 0.4 % cream vaginal RF: 0 triamcinolone acetonide 0.1 % cream 1 applic topical BID RF: 0 cephalexin 500 mg capsule 1,000 mg PO BID PRNRF: 0 Referrals Referrals: Mario Rosales Jr, [Primary Care Provider] -
[2021-03-02 15:44] LABS: Hematocrit (blood only) 18.9 % (37-47); Hemoglobin 6.6 g/dL (12.0-16.0); Mean Corpuscular Hemoglobin 37.7 pg (25-34); Mean Corpuscular Hgb Conc 34.9 g/dL (32-36); Mean Platelet Volume 12.3 fL (7.4-10.4); Nucleated RBC # (auto) 0.02 K/uL (0-0); Nucleated RBC % (auto) 0.7 %; Platelet Count 50 K/uL (130-400); RDW Coefficient of Variation 17.4 % (11.5-14.5); RDW Standard Deviation 67.4 fL (36.4-46.3); Red Blood Count 1.75 M/uL (4.2-5.4); White Blood Count 3.35 K/uL (4.8-10.8)
[2021-03-02] MEDS ORDERED: SODIUM CHLORIDE 0.9% 250 ML IV PRN ×2 (15:44→19:43)
[2021-03-02 15:48] LABS: Alanine Aminotransferase 11 U/L (12-78); Albumin Level 3.2 gm/dl (3.4-5.0); Aspartate Aminotransferase 13 U/L (15-37); BUN Creatinine Ratio 20.8 (10-20); Blood Urea Nitrogen 57 mg/dl (7-18); Calcium 9.3 mg/dl (8.5-10.1); Carbon Dioxide 23 mmol/L (21-32); Chloride 103 mmol/L (98-107); Est GFR (African American) 20.6; Est GFR (Non-African American) 17.8; Glucose 107 mg/dl (70-99); INR 0.9 (0.9-1.1); Magnesium 1.4 mg/dl (1.8-2.4); Partial Thromboplastin Ratio 0.8; Partial Thromboplastin Time 21.1 Seconds (21.0-31.0); Potassium 4.7 mmol/L (3.5-5.1); Prothrombin Time 9.5 Seconds (9.0-12.0); Sodium 132 mmol/L (136-145)
[2021-03-02 15:49] LABS: Anisocytosis Present; Basophils # (auto) 0.01 K/uL (0-0.2); Basophils % (auto) 0.3 %; Dohle Bodies 1+; Eosinophils # (auto) 0.18 K/uL (0-0.5); Eosinophils % (auto) 5.4 %; Immature Granulocytes # (auto) 0.04 K/uL (0.00-0.02); Immature Granulocytes % (auto) 1.2 %; Lymphocytes # (auto) 0.89 K/uL (1.2-3.4); Lymphocytes % (auto) 26.6 %; Monocytes # (auto) 0.56 K/uL (0.11-0.59); Monocytes % (auto) 16.7 %; Neutrophils # (auto) 1.67 K/uL (1.4-6.5); Neutrophils % (auto) 49.8 %; Polychromasia 1+; Toxic Granulation 2+
--- NOTE | 2021-03-02 15:57 | XRay Report ---
XR chest 1V portable CLINICAL HISTORY: weakness COMPARISON STUDY: January 2012, CT scan dated 10/13/2020 FINDINGS: The cardiac and mediastinal contours are normal. There is no evidence of focal pulmonary co nsolidation. There is no evidence of failure. No pleural effusions are visualized.[There are a few sc attered calcified granulomas present. There is pulmonary emphysema. There is an ill-defined opacity a t the right medial lung apex. IMPRESSION: 1. Ill-defined opacity at the right medial lung apex, smaller than on the prior CT scan dated 020 2. Pulmonary emphysema 3. No evidence of acute parenchymal consolidation ACT 112: Negative or not required by law. Electronically signed by: Francisco Chappell M.D. 03/02/2021 3:56 PM
[2021-03-02 15:58] LABS: Albumin Globulin Ratio 0.9 (0.9-2); Alkaline Phosphatase 91 U/L (45-117); Bilirubin,Total 0.3 mg/dl (0.2-1); Globulin 3.7 gm/dl (2.5-4.0); Thyroid Stimulating Hormone 0.984 uIu/ml (0.300-4.500); Total Protein 6.9 gm/dl (6.4-8.2); Troponin I < 0.015 ng/ml (0-0.045)
--- NOTE | 2021-03-02 16:05 | History & Physical Report ---
Date of Service March 02, 2021 Assessment & Plan (1) Acute kidney injury: Suspect multifactorial with hypertension, anemia, cisplatin use. Strict I's and O's consult nephrology per oncology request Hold losratan and amlodipine to help with BP IV fluids - 1L NSS bolus given in ER, 2 units blood transfusion overnight, repeat BMP in AM for reassessment of need for IV fluids (2) Macrocytic anemia: Hemoglobin 6.6. Suspect cisplatin induced. Fecal occult blood negative. Transferrin sats 24% suggestive of no blood loss B12 and folate no deficiency Transfuse 2 units packed red blood cells Repeat CBC following this (3) Symptomatic anemia: As above (4) Pancytopenia due to chemotherapy: No significant neutropenia (>1) to suggest need for Neupogen Transfuse packed RBCs as above Repeat CBC in AM (5) Small cell lung cancer: Follow-up oncology as an outpatient (6) Degenerative disc disease: Gabapentin 600 mg p.o. twice daily (7) COPD (chronic obstructive pulmonary disease): No acute exacerbation suspected Continue Breo Ellipta or hospital formulary equivalent Albuterol PRN (8) Hypertension: Hold losartan and amlodipine due to relative hypotension. Continue metoprolol tartrate 100 mg p.o. daily (9) Nausea: Olanzapine at night Ondansetron 8mg PO Prochlorperazine Q6H twice a day Sucralfate suspension QID Hard to eat due to radiation as it hurt. Improving (10) Radiation-induced esophagitis: Discussed possibility of amber esophagitis given her previous thrush however she reports this is improving and no recurrent thrush after treatment subsequently discontinued. Recommend patient follows up with gastroenterology if not improving or oropharyngeal thrush reoccurs. (11) Severe protein-calorie malnutrition: Consult dietary (12) DVT prophylaxis: SCDs Chemical prophylaxis deferred on admission until bleed rule out and hemoglobin stable Admission and Anticipated Discharge Date Admission Date: March 02, 2021 History of Present Illness Chief Complaint: Abnormal outpatient labs Primary Care Provider: Mario Rosales Jr, DO Liza Schwartz is a 65-year-old female who presents to the ER on advice of her oncologist due to anemia and ASYA on outpatient labs. She is currently undergoing treatment for small cell lung cancer with cisplatin 4 cycles finished in mid January. She was seen by oncologist yesterday due to shortness of breath and outpatient labs showed hemoglobin 7.5 from 9.4 and creatinine 2.72 from baseline 1.14 therefore was advised to come to the ER today after unable to directly admit to hospital. Requested nephrology consult. She reports two weeks of generalized fatigue and loss of appetite. However more acutely over the last 3-4 days she has been increasingly more short of breath and dizzy. She denies any chest pain. No melena, change in bowels or right red blood in stool. No hip flexion pain. Additional odynophagia. She denies any dysphagia. Start with radiation treatment in mid December but she also had oropharyngeal thrush at that time. This was treated with nystatin but no oral fluconazole. She declines any GI consult regarding possible esophageal thrush at this time as she feels it is improving. In the ER hemoglobin now 6.6 from 7.5 yesterday. BP 80/41 treated with NSS 1L bolus. 2 units packed RBCs ordered to be transfused. She was referred to medicine for admission and ongoing management of anemia. Allergies Allergy/AdvReac Type Severity Reaction Status Date / Time budesonide Allergy Severe SHORTNESS Verified 03/02/21 17:13 OF BREATH formoterol Allergy Severe SHORTNESS Verified 03/02/21 17:13 OF BREATH Sulfa (Sulfonamide Allergy Severe HIVES Verified 03/02/21 17:13 Antibiotics) erythromycin base Allergy Intermediate CAUSES HER Verified 03/02/21 17:13 EYES TO BURN Penicillins Allergy Unknown HAPPENED Verified 03/02/21 17:13 A CHILD thimerosol Allergy burning Uncoded 03/02/21 17:13 eyes Home Medications Medication Instructions Recorded Confirmed Type albuterol sulfate 90 mcg/actuation 2 inh INHALATION Q4H PRN g 11/03/20 03/02/21 History aerosol inhaler amlodipine 5 mg tablet 5 mg PO HS 11/03/20 03/02/21 History diazepam 5 mg tablet 5 mg PO Q6H PRN tab 11/03/20 03/02/21 History fluticasone furoate 200 1 inh INHALATION DAILY 11/03/20 03/02/21 History mcg-vilanterol 25 mcg/dose inhalation powder fluticasone propionate 50 2 spray INTRANASAL BID ml 11/03/20 03/02/21 History mcg/actuation nasal spray,suspension gabapentin 600 mg tablet 600 mg PO BID 11/03/20 03/02/21 History losartan 50 mg tablet 50 mg PO HS 11/03/20 03/02/21 History metoprolol tartrate 100 mg tablet 100 mg PO HS 11/03/20 03/02/21 History terconazole 0.4 % vaginal cream 1 applic VAGINAL UD PRN 11/03/20 03/02/21 History triamcinolone acetonide 0.1 % 1 applic TOPICAL BID PRN 11/03/20 03/02/21 History topical cream cephalexin 500 mg capsule 1,000 mg PO BID PRN cap 11/21/20 03/02/21 History benzonatate 100 mg capsule 100 mg PO TID PRN #60 cap 01/05/21 03/02/21 Rx olanzapine 2.5 mg tablet 2.5 mg PO HS tab 01/08/21 03/02/21 History prochlorperazine maleate 10 mg 10 mg PO Q6H PRN 01/08/21 03/02/21 History tablet cholecalciferol (vitamin D3) 0 mcg PO HS 03/02/21 03/02/21 History [Vitamin D3] [id number] 1 cap PO Q6H PRN 03/02/21 03/02/21 History [Fiorinal-Codeine #3] Past Med/Surg History Medical History (Updated 03/03/21 @ 09:06 by Rolan Rosario MD) Abnormal CT scan of lung Arthritis Avascular necrosis of left femur COPD (chronic obstructive pulmonary disease) Degenerative disc disease Ectopic Facial contusion Hip fracture, left Hypertension Lung cancer Migraines Pulmonary nodule Right orbital fracture Subconjunctival hemorrhage of right eye Tobacco abuse Transient osteoporosis of hip Surgical History History of appendectomy History of bronchoscopy Family History Mother Heart disease Hypertension Kidney disease Father , 73yo Emphysema lung Alcoholism Brother No problems noted. Sister Myocardial infarction Son No problems noted. Son No problems noted. 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 Other Information That Helps Us Care for You: No Feels Safe at Home: Yes Safety Concerns: Feels Safe At This Time caffeine: Yes (1 cup/day;2 cups/day) during the past year weight has: remained stable Assistive Devices: Glasses Review of Systems Review of Systems: All systems reviewed & are unremarkable except as noted in HPI & below Gastrointestinal: + nausea (Comes out of the blue or with cough. Sometimes worse with food.) Physical Exam Constitutional: well developed and + thin; + not well nourished and no acute distress Eyes: + conjunctival abnormality (pale); normal pupil size ENMT: Mouth: + dry oral mucous membranes; no oropharynx abnormality (no thrush) Neck: trachea midline Respiratory: normal respiratory effort, lungs clear to auscultation Cardiovascular: RRR, no murmur, no edema Gastrointestinal (Abdomen): normal bowel sounds, soft, nontender, no hepatosplenomegaly Musculoskeletal: no cyanosis or clubbing, extremities motor strength 5/5 Skin: + pallor; no mottling Neurologic: moves all extremities and awake; not confused Psychiatric: A+Ox3, euthymic affect Results & Data Results & Data ([facility]) Vital Signs (Past 12 Hours) Vital Signs Temp Pulse Resp BP Pulse Ox 03/02/21 14:31 36.2 C L 85 20 81/51 L 97 Diagnostic Findings XR chest 1V portable IMPRESSION: 1. Ill-defined opacity at the right medial lung apex, smaller than on the prior CT scan dated 10/13/2020 2. Pulmonary emphysema 3. No evidence of acute parenchymal consolidation Medications Administered ER Medications given: NSS 1L bolus ECG Indication: SOB/dyspnea Rate (beats per minute): 77 Rhythm: normal sinus Comparison ECG Date: from (March 15, 2018) Change: no significant change Code Status & VTE Plan Code Status Full VTE Prophylaxis Plan VTE Prophylaxis will be ordered: Yes PG Care Time/CCT Total # of Minutes Spent Total Time Spent with Patient: Total time spent is greater than 50% in coordination of care (as documented) at patient's floor/unit and/or counseling patient: Coding Level of Care Code 06580 Initial Inpt Care Lvl 3 Diagnoses Acute kidney injury N17.9 Macrocytic anemia D53.9 Symptomatic anemia D64.9 Pancytopenia due to chemotherapy D61.810 Small cell lung cancer C34.90 Degenerative disc disease COPD (chronic obstructive pulmonary disease) J44.9 Hypertension I10 Nausea R11.0 Radiation-induced esophagitis K20.80; T66.XXXA Severe protein-calorie malnutrition E43 DVT prophylaxis Z29.9
--- NOTE | 2021-03-02 16:21 | Electrocardiogram Report ---
Test Reason : Blood Pressure : / mmHG Vent. Rate : 077 BPM Atrial Rate : 077 BPM P-R Int : 168 ms QRS Dur : 080 ms QT Int : 386 ms P-R-T Axes : 072 060 067 degrees QTc Int : 436 ms Normal sinus rhythm Normal ECG When compared with ECG of 15-MAR-2018 22:00, No significant change was found Confirmed by Gio Salmeron ([id number]) on 03/02/2021 4:21:05 PM Referred By: Nav Mehta Confirmed By:Gio Salmeron
[2021-03-02 16:41] LABS: Influenza A virus by PCR Negative (Neg); Influenza B virus by PCR Negative (Neg); RSV by PCR Negative (Neg); SARS CoV2 RNA(COVID-19) InHosp NEGATIVE (Negative)
[2021-03-02] MEDS ORDERED: SODIUM CHLORIDE 0.9% 1000ML 1,000 ML IV PRN (16:49)
[2021-03-02 17:28] LABS: Reticulocyte % 2.9 % (0.5-2.0); Reticulocytes # 0.05 10^6/uL (0.02-0.10)
[2021-03-02 17:38] LABS: Iron 92 mcg/dl (35-150); Transferrin 267 mg/dl (200-360); Transferrin Percent Saturation 24 % (15-50)
[2021-03-02 18:46] LABS: Folate (Folic Acid) 18.9 ng/ml (>5.38)
[2021-03-02] MEDS ORDERED: ONDANSETRON INJ 2 MG/ML 2 ML VIAL IV PRN (19:37)
[2021-03-02] MEDS ORDERED: ACETAMINOPHEN 325 MG TAB PO PRN (19:37)
[2021-03-02] MEDS ORDERED: PROCHLORPERAZINE MALEATE 10 MG TAB PO PRN (19:37)
[2021-03-02 19:57] LABS: Appearance Urine Clear (Clear); Bacteria Urine Automated Negative (Negative); Bilirubin Urine Negative (Negative); Blood Urine 1+ (Negative); Color Urine Yellow; Epithelial Cell Urine Auto >30 /lpf (0-5); Glucose Urine UA Negative (Negative); Ketones Urine Negative (Negative); Leukocyte Esterase Urine Negative (Negative); Nitrite Urine Negative (Negative); Protein Urine Negative (Negative); Specific Gravity Urine 1.012 (1.000-1.030); Urobilinogen Urine Negative (Negative); pH Urine 5.5 (4.5-7.5)
[2021-03-02] MEDS ORDERED: Nursing to Pharmacy Communication SCH (20:00)
[2021-03-02] MEDS ORDERED: ALBUTEROL HFA 8 GM INHALER INH PRN (20:37)
[2021-03-02] MEDS ORDERED: BENZONATATE 100 MG CAPSULE PO PRN ×2 (20:37→20:58)
[2021-03-02] MEDS: GABAPENTIN 600 MG TAB PO SCH (20:51)
[2021-03-02] MEDS: FLUTICASONE PROPIONATE NA SPR 16 GM BTL NAE SCH (20:52)
[2021-03-02] MEDS: SUCRALFATE 1 GM/10 ML UDC PO SCH (20:52)
[2021-03-02] MEDS: FLUTICASONE/VILANTEROL 200/25MCG 14 PUFFS/INHALER INH SCH (20:53)
[2021-03-02] MEDS ORDERED: CHOLECALCIFEROL 1,000 UNITS 25 MCG TAB PO SCH (21:00)
[2021-03-02] MEDS ORDERED: METOPROLOL TARTRATE 100 MG TAB PO SCH (21:00)
[2021-03-02] MEDS ORDERED: OLANZAPINE 2.5 MG TAB PO SCH (21:00)
[2021-03-02] MEDS ORDERED: BENZONATATE 100 MG CAPSULE PO STA (21:13)
[2021-03-03 06:26] LABS: Hematocrit (blood only) 28.9 % (37-47); Hemoglobin 9.9 g/dL (12.0-16.0); Mean Corpuscular Hemoglobin 33.8 pg (25-34); Mean Corpuscular Hgb Conc 34.3 g/dL (32-36); Mean Corpuscular Volume 98.6 fL (80-100); Mean Platelet Volume 10.8 fL (7.4-10.4); Platelet Count 36 K/uL (130-400); RDW Coefficient of Variation 20.7 % (11.5-14.5); RDW Standard Deviation 74.4 fL (36.4-46.3); Red Blood Count 2.93 M/uL (4.2-5.4); White Blood Count 2.47 K/uL (4.8-10.8)
[2021-03-03 06:28] LABS: Anisocytosis Present; Eosinophils # (auto) 0.11 K/uL (0-0.5); Eosinophils % (auto) 4.5 %; Immature Granulocytes # (auto) 0.03 K/uL (0.00-0.02); Immature Granulocytes % (auto) 1.2 %; Lymphocytes # (auto) 0.38 K/uL (1.2-3.4); Lymphocytes % (auto) 15.4 %; Monocytes # (auto) 0.78 K/uL (0.11-0.59); Monocytes % (auto) 31.6 %; Neutrophils # (auto) 1.17 K/uL (1.4-6.5); Neutrophils % (auto) 47.3 %; Platelet Estimate Decreased (Normal)
[2021-03-03 06:37] LABS: BUN Creatinine Ratio 21.1 (10-20); Calcium 8.2 mg/dl (8.5-10.1); Creatinine Clr Calc Pharmacy 19.3 ml/min; Est GFR (African American) 26.9; Est GFR (Non-African American) 23.2; Potassium 4.7 mmol/L (3.5-5.1)
[2021-03-03] MEDS: FLUTICASONE/VILANTEROL 200/25MCG 14 PUFFS/INHALER INH SCH (07:30)
[2021-03-03] MEDS: FLUTICASONE PROPIONATE NA SPR 16 GM BTL NAE SCH (07:30)
[2021-03-03] MEDS: SUCRALFATE 1 GM/10 ML UDC PO SCH ×2 (07:31→12:30)
[2021-03-03] MEDS: GABAPENTIN 600 MG TAB PO SCH (07:31)
[2021-03-03] MEDS ORDERED: FLUTICASONE/VILANTEROL 200/25MCG 14 PUFFS/INHALER INH SCH (09:00)
[2021-03-03] MEDS ORDERED: MAGNESIUM OXIDE 400 MG TAB PO SCH (09:00)
--- NOTE | 2021-03-03 11:12 | Nephrology Consultation ---
Date of Consultation March 03, 2021 Assessment & Plan (1) Acute kidney injury: * ASYA due to anemia and hypotension in the setting of ARB therapy. Recent cisplatin therapy may also have contributed. Patient reports UO. Cr is trending down following blood transfusion/stabilization of BP and stopping ARB * Urine microscopy was negative for cellular casts * Continue to hold Losartan and Amlodipine * Electrolyte balance is acceptable. No acute indication for HD at this time * Will order follow up PRP, urinalysis w/ microscopy for am * Consider renal US if renal recovery stalls * Recommend inpatient monitoring until Cr ~ 2.0 or less (2) Pancytopenia due to chemotherapy: * s/p 2 units PRBC * Advise checking FOBT and monitoring H&H (3) Small cell lung cancer: * 6.5 cm RUL mass. Histology c/w small cell CA. Patient has metastasis to subcarinal and L hilar lymph nodes. She has completed 4 cycles of etoposide and cisplatin 02/18. She has received radiation therapy History of Present Illness Reason for Consultation: ASYA Attending Physician: Pardeep Evans MD History of Present Illness Mrs. Schwartz is a 65 year old white female who is seen at the request of Dr. Evans for evaluation of ASYA. Medical records in the EMR were reviewed today and are summarized as follows: Ms. Schwartz has a h/o tobacco use, COPD, HTN, and small cell lung CA. She completed 4 cycles of cisplatin 02/18. Recently Dr. Mehta checked laboratory studies. Hgb had dropped from ~ 10 to 6.6 and Cr had risen from 1.1 to 2.7. ED evaluation was advised. In the ED SBP was ~ 80 mmHg. Mrs. Schwartz was transfused 2 units PRBC. Losartan and Amlodipine were stopped. She was admitted to the hospitalist service for ongoing medical management. This morning she is requesting discharge to home. Allergies Allergy/AdvReac Type Severity Reaction Status Date / Time budesonide Allergy Severe SHORTNESS Verified 03/02/21 17:13 OF BREATH formoterol Allergy Severe SHORTNESS Verified 03/02/21 17:13 OF BREATH Sulfa (Sulfonamide Allergy Severe HIVES Verified 03/02/21 17:13 Antibiotics) erythromycin base Allergy Intermediate CAUSES HER Verified 03/02/21 17:13 EYES TO BURN Penicillins Allergy Unknown HAPPENED Verified 03/02/21 17:13 A CHILD thimerosol Allergy burning Uncoded 04/02/21 17:13 eyes Home Medications Medication Instructions Recorded Confirmed Type albuterol sulfate 90 mcg/actuation 2 inh INHALATION Q4H PRN g 11/03/20 03/02/21 History aerosol inhaler amlodipine 5 mg tablet 5 mg PO HS 11/03/20 03/02/21 History diazepam 5 mg tablet 5 mg PO Q6H PRN tab 11/03/20 03/02/21 History fluticasone furoate 200 1 inh INHALATION DAILY 11/03/20 03/02/21 History mcg-vilanterol 25 mcg/dose inhalation powder fluticasone propionate 50 2 spray INTRANASAL BID ml 11/03/20 03/02/21 History mcg/actuation nasal spray,suspension gabapentin 600 mg tablet 600 mg PO BID 11/03/20 03/02/21 History losartan 50 mg tablet 50 mg PO HS 11/03/20 03/02/21 History metoprolol tartrate 100 mg tablet 100 mg PO HS 11/03/20 03/02/21 History terconazole 0.4 % vaginal cream 1 applic VAGINAL UD PRN 11/03/20 03/02/21 History triamcinolone acetonide 0.1 % 1 applic TOPICAL BID PRN 11/03/20 03/02/21 History topical cream cephalexin 500 mg capsule 1,000 mg PO BID PRN cap 11/21/20 03/02/21 History benzonatate 100 mg capsule 100 mg PO TID PRN #60 cap 01/05/21 03/02/21 Rx olanzapine 2.5 mg tablet 2.5 mg PO HS tab 01/08/21 03/02/21 History prochlorperazine maleate 10 mg 10 mg PO Q6H PRN 01/08/21 03/02/21 History tablet cholecalciferol (vitamin D3) 0 mcg PO HS 03/02/21 03/02/21 History [Vitamin D3] [id number]-caff 1 cap PO Q6H PRN 03/02/21 03/02/21 History [Fiorinal-Codeine #3] Patient History Medical History Abnormal CT scan of lung Arthritis Avascular necrosis of left femur COPD (chronic obstructive pulmonary disease) Degenerative disc disease Ectopic Facial contusion Hip fracture, left Hypertension Lung cancer Migraines Pulmonary nodule Right orbital fracture Subconjunctival hemorrhage of right eye Tobacco abuse Transient osteoporosis of hip Surgical History History of appendectomy History of bronchoscopy Family History Mother Heart disease Hypertension Kidney disease Father , 73yo Emphysema lung Alcoholism Brother No problems noted. Sister Myocardial infarction Son No problems noted. Son No problems noted. 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 Required: No Beliefs That Will Affect Care: None marital status: Current Living Situation: Spouse current occupational status: retired 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 [employer] Other Information That Helps Us Care for You: No Feels Safe at Home: Yes Safety Concerns: Feels Safe At This Time caffeine: Yes (1 cup/day;2 cups/day) during the past year weight has: remained stable Assistive Devices: Glasses Review of Systems Constitutional: no fever Eyes: no problem reported Ear, Nose, Mouth, Throat: no problem reported Respiratory: no cough and no dyspnea Cardiovascular: no chest pain, no palpitations and no edema Gastrointestinal: no abdominal pain, no vomiting and no diarrhea/loose stools Genitourinary: no dysuria and no hematuria Musculoskeletal: no back pain Integumentary: no rash Neurologic: no dizziness and no confusion Physical Exam Constitutional: + thin and + frail appearing Eyes: PERRL, conjunctivae normal, anicteric sclerae ENMT: external ear and nose normal, oropharynx normal Neck: trachea midline, no thyromegaly Respiratory: normal respiratory effort, lungs clear to auscultation Cardiovascular: RRR, no murmur, no edema Gastrointestinal (Abdomen): normal bowel sounds, soft, nontender, no hepatosplenomegaly Musculoskeletal: Extremities: no cyanosis Skin: no rashes, warm and dry Neurologic: awake; not confused Results & Data ([facility]) Vital Signs (Past 12 Hours) Vital Signs Temp Pulse Pulse Resp BP BP Pulse Ox 03/03/21 08:30 79 03/03/21 06:59 36.7 C 73 16 134/69 92 03/03/21 03:32 36.8 C 75 16 123/77 91 03/03/21 03:00 36.7 C 73 16 121/75 90 03/03/21 02:21 82 03/03/21 02:00 36.9 C 74 18 138/75 90 03/03/21 01:00 37.0 C 83 16 122/72 92 03/03/21 00:30 37.3 C 83 16 121/71 92 03/03/21 00:15 37.1 C 83 16 112/72 92 03/02/21 23:54 37.0 C 81 16 125/73 94 03/02/21 23:23 37.1 C 88 18 103/67 90 Laboratory Tests 02/05/21 02/12/21 02/12/21 11:54 11:34 11:34 WBC Hgb 10.2 L 9.4 L Hct Plt Count Sodium Potassium Chloride Carbon Dioxide BUN Creatinine 1.14 Glucose Calcium Transferrin % Sat Urine Color Urine Appearance Urine pH Ur Specific Christine Urine Protein Urine Glucose (UA) Urine Blood Urine RBC (Auto) U Hyaline Cast (Auto) 03/01/21 03/01/21 03/02/21 13:56 13:56 15:18 WBC Hgb 7.5 L 6.6 L* Hct Plt Count Sodium Potassium Chloride Carbon Dioxide BUN Creatinine 2.72 H Glucose Calcium Transferrin % Sat Urine Color Urine Appearance Urine pH Ur Specific Christine Urine Protein Urine Glucose (UA) Urine Blood Urine RBC (Auto) U Hyaline Cast (Auto) 03/02/21 03/02/21 03/02/21 15:18 15:18 19:21 WBC Hgb Hct Plt Count Sodium Potassium Chloride Carbon Dioxide BUN Creatinine 2.73 H Glucose Calcium Transferrin % Sat 24 Urine Color Yellow Urine Appearance Clear Urine pH 5.5 Ur Specific Christine 1.012 Urine Protein Negative Urine Glucose (UA) Negative Urine Blood 1+ H Urine RBC (Auto) 5-10 H U Hyaline Cast (Auto) 1-5 03/03/21 03/03/21 05:41 05:41 WBC 2.47 L Hgb 9.9 L D Hct 28.9 L Plt Count 36 L Sodium 138 Potassium 4.7 Chloride 109 H Carbon Dioxide 22 BUN 46 H Creatinine 2.19 H D Glucose 97 Calcium 8.2 L Transferrin % Sat Urine Color Urine Appearance Urine pH Ur Specific Christine Urine Protein Urine Glucose (UA) Urine Blood Urine RBC (Auto) U Hyaline Cast (Auto) PG Care Time/CCT Total # of Minutes Spent Total Time Spent with Patient: Total time spent is greater than 50% in coordination of care (as documented) at patient's floor/unit and/or counseling patient: Coding Level of Care Code 63619 Office/OBS Consult Lvl 5 Diagnoses Acute kidney injury N17.9 Pancytopenia due to chemotherapy D61.810 Small cell lung cancer C34.90
[2021-03-03 11:14] VITALS: PULSE 73; TEMP 98.4; O2SAT 90
[2021-03-03 14:38] VITALS: BP 112/65
--- NOTE | 2021-03-03 18:21 | Discharge Summary ---
Date of Service March 03, 2021 Admission HPI Per Admitting Provider Liza Schwartz is a 65-year-old female who presents to the ER on advice of her oncologist due to anemia and ASYA on outpatient labs. She is currently undergoing treatment for small cell lung cancer with cisplatin 4 cycles finished in mid January. She was seen by oncologist yesterday due to shortness of breath and outpatient labs showed hemoglobin 7.5 from 9.4 and creatinine 2.72 from baseline 1.14 therefore was advised to come to the ER today after unable to directly admit to hospital. Requested nephrology consult. She reports two weeks of generalized fatigue and loss of appetite. However more acutely over the last 3-4 days she has been increasingly more short of breath and dizzy. She denies any chest pain. No melena, change in bowels or right red blood in stool. No hip flexion pain. Additional odynophagia. She denies any dysphagia. Start with radiation treatment in mid December but she also had oropharyngeal thrush at that time. This was treated with nystatin but no oral fluconazole. She declines any GI consult regarding possible esophageal thrush at this time as she feels it is improving. In the ER hemoglobin now 6.6 from 7.5 yesterday. BP 80/41 treated with NSS 1L bolus. 2 units packed RBCs ordered to be transfused. She was referred to medicine for admission and ongoing management of anemia. Principal Diagnosis Chemotherapy-related anemia Acute kidney injury Discharge Exam Constitutional WD/WN, vitals as above Eyes EOM intact bilaterally; no conjunctival abnormality ENMT external ear and nose normal, oropharynx normal Neck trachea midline, no thyromegaly normal visual inspection Respiratory normal respiratory effort, lungs clear to auscultation no respiratory distress Cardiovascular RRR, no murmur, no edema Gastrointestinal (Abdomen) Inspection/Auscultation: abdomen normal to inspection; abdomen not distended Musculoskeletal no cyanosis or clubbing, extremities motor strength 5/5 Skin no rashes, warm and dry Neurologic moves all extremities and awake Psychiatric Orientation: alert, oriented to person and cooperative Discharge Data Allergies Allergy/AdvReac Type Severity Reaction Status Date / Time budesonide Allergy Severe SHORTNESS Verified 03/02/21 17:13 OF BREATH formoterol Allergy Severe SHORTNESS Verified 03/02/21 17:13 OF BREATH Sulfa (Sulfonamide Allergy Severe HIVES Verified 03/02/21 17:13 Antibiotics) erythromycin base Allergy Intermediate CAUSES HER Verified 03/02/21 17:13 EYES TO BURN Penicillins Allergy Unknown HAPPENED Verified 03/02/21 17:13 A CHILD thimerosol Allergy burning Uncoded 03/02/21 17:13 eyes Consultations 03/02/21 15:46 ED Decision to Admit Stat 03/02/21 19:37 Consult Nephrology Routine Hospital Course (1) Acute kidney injury: Suspect multifactorial with hypotension, anemia, cisplatin use, and dehydration. Baseline Cr appears to be ~1.1 - 1.5. - Hold losartan and amlodipine to help with BP - Cr was down to 2.2 from 2.7 on admission. Nephrology recommended further IV fluids and continued admission, but the patient reported she could not spend another night in the hospital. We discussed possible outcomes of leaving early, including worsening kidney function. We discussed red flag issues (darkening urine, loss of urine output, and inability to take in enough fluids to keep up urine OP) and that she would have to come back if those occurred. She was in agreement and still wanted to leave the hospital. - Will follow up with [facility] next week for a repeat BMP. (2) Macrocytic anemia: Hemoglobin 6.6. Suspect cisplatin-induced. Fecal occult blood negative. Transferrin sats 24% suggestive of no blood loss. B12 and folate no deficiency. - Transfused 2 units packed red blood cells - Hgb back to 9.9 on 03/03. As above, the patient requested discharge. (3) Symptomatic anemia: As above (4) Pancytopenia due to chemotherapy: No significant neutropenia (>1) to suggest need for Neupogen Transfuse packed RBCs as above Repeat CBC in AM (5) Small cell lung cancer: Follow-up oncology as an outpatient (6) Degenerative disc disease: Gabapentin 600 mg p.o. twice daily (7) COPD (chronic obstructive pulmonary disease): No acute exacerbation suspected Continue Breo Ellipta or hospital formulary equivalent Albuterol PRN (8) Hypertension: Hold losartan and amlodipine due to relative hypotension. Continue metoprolol tartrate 100 mg p.o. daily (9) Nausea: Olanzapine at night Ondansetron 8mg PO Prochlorperazine Q6H twice a day Sucralfate suspension QID Hard to eat due to radiation as it hurt. Improving (10) Radiation-induced esophagitis: Discussed possibility of amber esophagitis given her previous thrush however she reports this is improving and no recurrent thrush after treatment subsequently discontinued. Recommend patient follows up with gastroenterology if not improving or oropharyngeal thrush reoccurs. (11) Severe protein-calorie malnutrition: Consult dietary (12) DVT prophylaxis: SCDs Chemical prophylaxis deferred on admission until bleed rule out and hemoglobin stable Total Time Total Time Spent Total Time Spent (In Minutes): 35 Discharge Plan Discharge Items Patient Disposition: Home - Self-Care Reason For Visit: CHEMOTHERAPY-INDUCED ANEMIA, ASYA, HYPOTENSION Discharge Diagnosis: Same Condition on Discharge: Good Activity: Resume your previous activity Non-emergency contact: Primary Care Provider and Oncologist Call non-emergency contact if: your symptoms worsen and your temperature is above 101 Follow-up/Referrals: Nav Mehta V., [Physician] - (Please call [facility] on Friday to schedule an appointment next week.) Mario Rosales Jr, DO [Primary Care Provider] - Diet: Regular Addtl Attending Provider Instructions: You were admitted to the hospital with anemia related to your chemotherapy. After transfusion, you are doing well. Please continue to drink plenty of fluids (Pedialyte, as we discussed) to target light yellow urine which will help reassure us that you are adequately hydrated. Please hold both your amlodipine and your losartan until you are seen by Dr. Mehta and make sure your kidney function has returned to normal. Please see Dr. Mehta or another cancer provider this week for a test of your red blood cells as well as your kidney function. Pending Studies at Discharge: No Stand-Alone Forms: My [facility], Smoking Cessation Medications and DC Order Prescriptions: Continued prochlorperazine maleate [Compazine] 10 mg tablet 10 mg PO Q6H PRN (Reason: Nausea) RF: 0 olanzapine [Zyprexa] 2.5 mg tablet 2.5 mg PO HS RF: 0 benzonatate [Tessalon Perles] 100 mg capsule 100 mg PO TID PRN (Reason: cough) Qty: 60 RF: 2 albuterol sulfate 90 mcg/actuation HFA aerosol inhaler 2 inh inhalation Q4H PRN (Reason: Shortness Of Breath) RF: 0 diazepam 5 mg tablet 5 mg PO Q6H PRN (Reason: Anxiety) RF: 0 Breo Ellipta 200-25 mcg/dose blister with device 1 inh inhalation DAILY RF: 0 fluticasone propionate 50 mcg/actuation spray,suspension 2 spray intranasal BID RF: 0 gabapentin 600 mg tablet 600 mg PO BID RF: 0 metoprolol tartrate 100 mg tablet 100 mg PO HS RF: 0 terconazole 0.4 % cream 1 applic vaginal UD PRN (Reason: Unknown) RF: 0 triamcinolone acetonide 0.1 % cream 1 applic topical BID PRN (Reason: Skin Irritation) RF: 0 cephalexin 500 mg capsule 1,000 mg PO BID PRN (Reason: Prophylaxis) RF: 0 szszfmy-ejarrilizx-HRH-caff [id number] mg Capsule 1 cap PO Q6H PRN (Reason: Headache) RF: 0 cholecalciferol (vitamin D3) [Vitamin D3] 25 mcg (1,000 unit) Tablet 0 mcg PO HS RF: 0 Discontinued amlodipine 5 mg tablet 5 mg PO HS RF: 0 losartan 50 mg tablet 50 mg PO HS RF: 0 Discharge Orders: Discharge Order (Routine); Ordered 03/03/21 Ordered By: Pardeep Evans Admission Data Admit Date/Time: 03/02/21 16:01 Attending Provider: Pardeep Evans Admit Provider: Rolan Rosario Primary Care Provider: Mario Rosales Jr Other Providers: Chandler Loya ; Pardeep Evans Other Interventions: Discharge Summary Assessment (RN) Last Done: 03/03/21 14:36 Coding Level of Care Code D/C Day Management >30 mins Diagnoses Acute kidney injury N17.9 Macrocytic anemia D53.9 Symptomatic anemia D64.9 Pancytopenia due to chemotherapy D61.810 Small cell lung cancer C34.90 Degenerative disc disease COPD (chronic obstructive pulmonary disease) J44.9 Hypertension I10 Nausea R11.0 Radiation-induced esophagitis K20.80; T66.XXXA Severe protein-calorie malnutrition E43 DVT prophylaxis Z29.9
== END 2021-03-03 15:15 | disposition home or self-care (01) | DRG 682 ==
LOC: ED 14:22 → SUATTDRO 16:01 → 2N 16:01 → INTOOBSV 16:01 → 2N 19:10

== ENCOUNTER 2021-04-24 15:36 | Inpatient (IN) ==
[2021-04-24] MEDS ORDERED: CEFEPIME 2,000 MG/20 ML VIAL IV STA (16:13)
[2021-04-24] MEDS ORDERED: ONDANSETRON INJ 2 MG/ML 2 ML VIAL IV STA (16:13)
[2021-04-24] MEDS ORDERED: SODIUM CHLORIDE 0.9% 1000ML 1,000 ML IV SCH (16:15)
--- NOTE | 2021-04-24 16:21 | Emergency Department Note ---
Impression & Plan Hypotension, ASYA (acute kidney injury), Pneumonia, Flu-like symptoms ED Provider Note NAME: ARISTIDES STRATTON AGE: 65 SEX: F : 1955 ARRIVES VIA: Walk-In INFORMANT: [Patient][family] ED PROVIDER(S): [Rickey Tavarez MD] CHIEF COMPLAINT: Fever HISTORY OF PRESENT ILLNESS: The patient is a 65-year-old female presents to the ER with a fever and body aches. She states her temperature has been quite high and her aches have been severe. She actually feels somewhat better today compared to yesterday. She has not been more short of breath, there has been no increased cough. No sore throat or stuffy nose. She has had some vomiting but, this is pretty typical for her. She does have lung cancer. The patient has not had urinary complaints, no diarrhea. She does feel quite washed out. Of note, the patient is vaccinated for Covid. The patient has small cell lung cancer. She finished chemo in January, 2 months ago. The patient states that she is still receiving prophylactic brain radiation, the last dose was last Friday, 4 days ago. REVIEW OF SYSTEMS: See HPI for pertinent positives and negatives. A total of ten systems were reviewed and were otherwise negative. PMHx/PSHx: See Below SOCIAL HISTORY: See Below. PHYSICAL EXAM: GENERAL: Patient is in no acute distress. Thin and frail. HEENT: No acute trauma, normocephalic atraumatic, mucous membranes moist, no nasal congestion, no scleral icterus. NECK: No stridor, no adenopathy, no meningismus, trachea is midline. LUNGS: Clear to auscultation bilaterally but diminished bilaterally, no wheeze, no rhonchi, breath sounds equal. HEART: Without murmurs gallops or rubs, regular rate and rhythm. ABDOMEN: Soft, nontender, bowel sounds positive, no hernias, no peritonitis. EXTREMITIES: No cyanosis or edema, full range of motion of all the joints without pain or difficulty, no signs for acute trauma. NEUROLOGIC: Oriented x 3, no acute motor or sensory deficits, no focal weakness. SKIN: No rash, no jaundice, no diaphoresis. DIFFERENTIAL DIAGNOSIS: Sepsis, UTI, pneumonia, metabolic abnormality, electrolyte abnormalities, influenza, COVID-19, cardiac sources, cellulitis, UTI, bacteremia, intracerebral event, toxicologic etiology, neurologic event, as well as other pathologies. EMERGENCY DEPARTMENT COURSE/PROCEDURES: ECG: Indication was weakness. The ECG shows a normal sinus rhythm with a rate of 82. The QTc is 436. There is no ST elevation, no PVCs. Continuous Cardiac Monitoring: An order was placed for continuous cardiac monitoring. The monitor shows a rate of 92 with normal sinus rhythm. Critical Care Note: I have personally spent 39 minutes of critical care time in the direct management of this patient. This includes bedside care, interpretation of diagnostic studies, and testing, discussion with consultants, patient, and family members, and other required patient management activities. This 39 minutes is in excess of all separately billable procedures. MEDICAL DECISION MAKING: There is no leukocytosis. No worrisome anemia. Platelet count mildly low. There was no coagulopathy. Sodium was low at 130. Creatinine was high at 3.07, there was some acute kidney injury. Magnesium is somewhat low at 1.7. No w orrisome liver enzyme elevation. Lactic acid level was not elevated making severe sepsis less likely. ECG shows a sinus rhythm, no acute ischemia. Cardiac enzyme testing x1 is not consistent with acute cardiac injury. Influenza and Covid testing returned negative. Chest film does show a right s ided pneumonia. The patient presented hypotensive. She was given IV saline 1.5 L. She received IV Zofran for nausea. She was given IV cefepime as empiric antibiotic coverage. The patient presents with flulike symptoms. She appears to have pneumonia as the cause for her symptoms. She is dehydrated, hypotensive and suffering from acute kidney injury. The patient requires a hospital stay. Her blood pressure has improved with treatment here in the ED. I did speak with the patient and case management. The on-call hospitalist was consulted. Past Med/Surg History Medical History Abnormal CT scan of lung Arthritis Avascular necrosis of left femur COPD (chronic obstructive pulmonary disease) Degenerative disc disease Ectopic Facial contusion Hip fracture, left Hypertension Lung cancer Migraines Pulmonary nodule Right orbital fracture Subconjunctival hemorrhage of right eye Tobacco abuse Transient osteoporosis of hip Surgical History History of appendectomy History of bronchoscopy Family History Mother Heart disease Hypertension Kidney disease Father , 73yo Emphysema lung Alcoholism Brother No problems noted. Sister Myocardial infarction Son No problems noted. Son No problems noted. Social History Smoking Status: Current every day smoker Tobacco Type: Cigarettes packs per day: 2; Years Smoked: 40; Cigarettes Per Day: 30; Second Hand Exposure: Yes; Do You Dip or Chew Tobacco: No; Tobacco Cessation Education Requested by Patient: No Hx Alcohol Use: Yes Alcohol type: wine and hard liquor Hx Substance Use: No Preferred Language: Bulgarian Communication Ability: Effective Visual Impairment: No Limitations Hearing Ability: Normal Environment Coordinator Required: No Beliefs That Will Affect Care: None marital status: Current Living Situation: Spouse current occupational status: retired 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 Other Information That Helps Us Care for You: No Feels Safe at Home: Yes Safety Concerns: Feels Safe At This Time caffeine: Yes (1 cup/day;2 cups/day) during the past year weight has: remained stable Assistive Devices: Glasses Allergies Allergies Allergy/AdvReac Type Severity Reaction Status Date / Time budesonide Allergy Severe SHORTNESS Verified 04/24/21 18:31 OF BREATH formoterol Allergy Severe SHORTNESS Verified 04/24/21 18:31 OF BREATH Sulfa (Sulfonamide Allergy Severe HIVES Verified 04/24/21 18:31 Antibiotics) erythromycin base Allergy Intermediate CAUSES HER Verified 04/24/21 18:31 EYES TO BURN Penicillins Allergy Unknown HAPPENED Verified 04/24/21 18:31 A CHILD thimerosol Allergy burning Uncoded 04/24/21 18:31 eyes Home Meds Home Medications Medication Instructions Recorded Confirmed albuterol sulfate 90 mcg/actuation 2 inh INHALATION Q4H PRN g 11/03/20 04/24/21 aerosol inhaler diazepam 5 mg tablet 5 mg PO Q6H PRN tab 11/03/20 04/24/21 fluticasone furoate 200 1 inh INHALATION DAILY 11/03/20 04/24/21 mcg-vilanterol 25 mcg/dose inhalation powder fluticasone propionate 50 2 spray INTRANASAL BID ml 11/03/20 04/24/21 mcg/actuation nasal spray,suspension gabapentin 600 mg tablet 600 mg PO BID 12/04/20 05/25/21 metoprolol tartrate 100 mg tablet 100 mg PO HS 11/03/20 04/24/21 terconazole 0.4 % vaginal cream 1 applic VAGINAL UD PRN 11/03/20 04/24/21 triamcinolone acetonide 0.1 % 1 applic TOPICAL BID PRN 11/03/20 04/24/21 topical cream olanzapine 2.5 mg tablet 2.5 mg PO HS PRN tab 01/08/21 04/24/21 cholecalciferol (vitamin D3) 25 mcg PO HS 03/02/21 04/24/21 [Vitamin D3] losartan 50 mg tablet 50 mg PO DAILY 04/03/21 04/24/21 amlodipine 5 mg PO DAILY 04/24/21 04/24/21 bikxvasqzq-zvekfop-cocedeey 1 cap PO Q6 PRN 04/24/21 04/24/21 ondansetron 8 mg PO Q8 PRN 04/24/21 04/24/21 Previous Rx's Medication Instructions Recorded benzonatate 100 mg capsule 100 mg PO TID PRN #60 cap 01/05/21 Flutter Valve See Rx Instructions .ROUTE 04/13/21 .COMPLEX #1 ea guaifenesin 1,200 mg tablet, 1,200 mg PO BID #60 tab 04/13/21 extended release 12 hr sodium chloride 3.5 % for 4 ml INHALATION BID #240 ml 04/13/21 nebulization prochlorperazine maleate 10 mg 10 mg PO Q6H PRN #30 tab 04/16/21 tablet Results & Data (ED) Vital Signs Vital Signs - 24 hr 04/24/21 15:54 04/24/21 15:58 04/24/21 16:45 Temperature 36.7 C Temperature Source Temporal Artery Scan Pulse Rate 92 H 76 Pulse Rate from SpO2 Sensor 76 Pulse Rhythm Respiratory Rate 20 24 Respiratory Effort / Characteristics Non-Labored Spontaneous Respiratory Depth Normal Respiratory Pattern Regular Blood Pressure 74/50 L Blood Pressure [Left Arm] 70/47 L Blood Pressure Mean 58 Blood Pressure Mean [Left Arm] 54 Pulse Oximetry 95 95 Oxygen Delivery Method Room Air Room Air Sepsis Recent Fever Within 48 Hours Yes Sepsis New/Unexplained Change in Mental Status No Sepsis Action Taken by Nursing No Action Required 04/24/21 17:00 04/24/21 17:02 04/24/21 17:15 Temperature Temperature Source Pulse Rate 78 77 76 Pulse Rate from SpO2 Sensor 77 76 Pulse Rhythm Regular Respiratory Rate 22 22 20 Respiratory Effort / Characteristics Non-Labored Spontaneous Respiratory Depth Respiratory Pattern Blood Pressure 81/46 L 94/56 L Blood Pressure [Left Arm] Blood Pressure Mean 57 68 Blood Pressure Mean [Left Arm] Pulse Oximetry 96 96 95 Oxygen Delivery Method Room Air Room Air Sepsis Recent Fever Within 48 Hours Sepsis New/Unexplained Change in Mental Status Sepsis Action Taken by Nursing 04/24/21 17:30 04/24/21 17:45 04/24/21 17:53 Temperature 37.3 C Temperature Source Oral Pulse Rate 78 79 Pulse Rate from SpO2 Sensor 78 79 Pulse Rhythm Respiratory Rate 22 17 Respiratory Effort / Characteristics Respiratory Depth Respiratory Pattern Blood Pressure 98/60 L 95/60 L Blood Pressure [Left Arm] Blood Pressure Mean 72 71 Blood Pressure Mean [Left Arm] Pulse Oximetry 96 97 Oxygen Delivery Method Sepsis Recent Fever Within 48 Hours Sepsis New/Unexplained Change in Mental Status Sepsis Action Taken by Nursing 04/24/21 18:00 04/24/21 18:15 04/24/21 18:30 Temperature Temperature Source Pulse Rate 80 82 82 Pulse Rate from SpO2 Sensor 81 82 82 Pulse Rhythm Respiratory Rate 22 18 20 Respiratory Effort / Characteristics Respiratory Depth Respiratory Pattern Blood Pressure 94/60 L 89/54 L 92/55 L Blood Pressure [Left Arm] Blood Pressure Mean 71 65 67 Blood Pressure Mean [Left Arm] Pulse Oximetry 93 92 94 Oxygen Delivery Method Sepsis Recent Fever Within 48 Hours Sepsis New/Unexplained Change in Mental Status Sepsis Action Taken by Nursing 04/24/21 18:45 04/24/21 19:00 04/24/21 19:15 Temperature Temperature Source Pulse Rate 83 81 84 Pulse Rate from SpO2 Sensor 83 83 86 Pulse Rhythm Respiratory Rate 24 24 25 H Respiratory Effort / Characteristics Respiratory Depth Respiratory Pattern Blood Pressure 91/58 L 93/57 L 95/59 L Blood Pressure [Left Arm] Blood Pressure Mean 69 69 71 Blood Pressure Mean [Left Arm] Pulse Oximetry 91 89 L 92 Oxygen Delivery Method Sepsis Recent Fever Within 48 Hours Sepsis New/Unexplained Change in Mental Status Sepsis Action Taken by Jail Medications Current Medication List: was personally reviewed by me Laboratory Data Attestation: I reviewed the patient's lab results. Result diagrams: 04/24/21 16:29 04/24/21 16:29 Lab Results 04/24/21 04/24/21 04/24/21 Range/Units 16:29 16:29 16:29 WBC 6.83 (4.8-10.8) K/uL RBC 3.37 L (4.2-5.4) M/uL Hgb 11.8 L (12.0-16.0) g/dL Hct 35.0 L (37-47) % MCV 103.9 H (80-100) fL MCH 35.0 H (25-34) pg MCHC 33.7 (32-36) g/dL RDW Std Deviation 64.7 H (36.4-46.3) fL RDW Coeff of Kiara 16.8 H (11.5-14.5) % Plt Count 124 L (130-400) K/uL MPV 11.2 H (7.4-10.4) fL Immature Gran % (Auto) 0.0 % Neut % (Auto) 81.7 % Lymph % (Auto) 9.4 % Kidder % (Auto) 7.3 % Eos % (Auto) 1.5 % Baso % (Auto) 0.1 % Neut # (Auto) 5.58 (1.4-6.5) K/uL Lymph # (Auto) 0.64 L (1.2-3.4) K/uL Kidder # (Auto) 0.50 (0.11-0.59) K/uL Eos # (Auto) 0.10 (0-0.5) K/uL Baso # (Auto) 0.01 (0-0.2) K/uL Immature Gran # (Auto) 0.00 (0.00-0.02) K/uL PT 9.8 (9.0-12.0) Seconds INR 1.0 (0.9-1.1) APTT 28.1 (21.0-31.0) Seconds PTT Ratio 1.1 Sodium 130 L (136-145) mmol/L Potassium 4.2 (3.5-5.1) mmol/L Chloride 100 (98-107) mmol/L Carbon Dioxide 24 (21-32) mmol/L Anion Gap 6.0 (3-11) BUN 47 H (7-18) mg/dl Creatinine 3.07 H (0.6-1.2) mg/dl Est Cr Clr Drug Dosing 13.3 ml/min Est GFR ( Amer) 17.9 ml/min Est GFR (Non-Af Amer) 15.4 ml/min BUN/Creatinine Ratio 15.4 (10-20) Glucose 124 H (70-99) mg/dl Lactate (0.4-2.0) mmol/L Calcium 9.3 (8.5-10.1) mg/dl Magnesium 1.7 L (1.8-2.4) mg/dl Total Bilirubin 0.4 (0.2-1) mg/dl AST 14 L (15-37) U/L ALT 14 (12-78) U/L Alkaline Phosphatase 95 (45-117) U/L Troponin I < 0.015 (0-0.045) ng/ml Total Protein 7.8 (6.4-8.2) gm/dl Albumin 3.1 L (3.4-5.0) gm/dl Globulin 4.7 H (2.5-4.0) gm/dl Albumin/Globulin Ratio 0.7 L (0.9-2) Procalcitonin (0-0.5) ng/ml COVID-19 Eval Order SARS-CoV-2 (PCR) (Negative) Influ A Molecular Assay (Negative) Influ B Molecular Assay (Negative) 04/24/21 04/24/21 04/24/21 Range/Units 16:29 16:33 16:33 WBC (4.8-10.8) K/uL RBC (4.2-5.4) M/uL Hgb (12.0-16.0) g/dL Hct (37-47) % MCV (80-100) fL MCH (25-34) pg MCHC (32-36) g/dL RDW Std Deviation (36.4-46.3) fL RDW Coeff of Kiara (11.5-14.5) % Plt Count (130-400) K/uL MPV (7.4-10.4) fL Immature Gran % (Auto) % Neut % (Auto) % Lymph % (Auto) % Kidder % (Auto) % Eos % (Auto) % Baso % (Auto) % Neut # (Auto) (1.4-6.5) K/uL Lymph # (Auto) (1.2-3.4) K/uL Kidder # (Auto) (0.11-0.59) K/uL Eos # (Auto) (0-0.5) K/uL Baso # (Auto) (0-0.2) K/uL Immature Gran # (Auto) (0.00-0.02) K/uL PT (9.0-12.0) Seconds INR (0.9-1.1) APTT (21.0-31.0) Seconds PTT Ratio Sodium (136-145) mmol/L Potassium (3.5-5.1) mmol/L Chloride (98-107) mmol/L Carbon Dioxide (21-32) mmol/L Anion Gap (3-11) BUN (7-18) mg/dl Creatinine (0.6-1.2) mg/dl Est Cr Clr Drug Dosing ml/min Est GFR ( Amer) ml/min Est GFR (Non-Af Amer) ml/min BUN/Creatinine Ratio (10-20) Glucose (70-99) mg/dl Lactate 1.5 (0.4-2.0) mmol/L Calcium (8.5-10.1) mg/dl Magnesium (1.8-2.4) mg/dl Total Bilirubin (0.2-1) mg/dl AST (15-37) U/L ALT (12-78) U/L Alkaline Phosphatase (45-117) U/L Troponin I (0-0.045) ng/ml Total Protein (6.4-8.2) gm/dl Albumin (3.4-5.0) gm/dl Globulin (2.5-4.0) gm/dl Albumin/Globulin Ratio (0.9-2) Procalcitonin (0-0.5) ng/ml COVID-19 Eval Order Covid19 at [facility] SARS-CoV-2 (PCR) (Negative) Influ A Molecular Assay Negative (Negative) Influ B Molecular Assay Negative (Negative) 04/24/21 04/24/21 Range/Units 16:33 17:05 WBC (4.8-10.8) K/uL RBC (4.2-5.4) M/uL Hgb (12.0-16.0) g/dL Hct (37-47) % MCV (80-100) fL MCH (25-34) pg MCHC (32-36) g/dL RDW Std Deviation (36.4-46.3) fL RDW Coeff of Kiara (11.5-14.5) % Plt Count (130-400) K/uL MPV (7.4-10.4) fL Immature Gran % (Auto) % Neut % (Auto) % Lymph % (Auto) % Kidder % (Auto) % Eos % (Auto) % Baso % (Auto) % Neut # (Auto) (1.4-6.5) K/uL Lymph # (Auto) (1.2-3.4) K/uL Kidder # (Auto) (0.11-0.59) K/uL Eos # (Auto) (0-0.5) K/uL Baso # (Auto) (0-0.2) K/uL Immature Gran # (Auto) (0.00-0.02) K/uL PT (9.0-12.0) Seconds INR (0.9-1.1) APTT (21.0-31.0) Seconds PTT Ratio Sodium (136-145) mmol/L Potassium (3.5-5.1) mmol/L Chloride (98-107) mmol/L Carbon Dioxide (21-32) mmol/L Anion Gap (3-11) BUN (7-18) mg/dl Creatinine (0.6-1.2) mg/dl Est Cr Clr Drug Dosing ml/min Est GFR ( Amer) ml/min Est GFR (Non-Af Amer) ml/min BUN/Creatinine Ratio (10-20) Glucose (70-99) mg/dl Lactate (0.4-2.0) mmol/L Calcium (8.5-10.1) mg/dl Magnesium (1.8-2.4) mg/dl Total Bilirubin (0.2-1) mg/dl AST (15-37) U/L ALT (12-78) U/L Alkaline Phosphatase (45-117) U/L Troponin I (0-0.045) ng/ml Total Protein (6.4-8.2) gm/dl Albumin (3.4-5.0) gm/dl Globulin (2.5-4.0) gm/dl Albumin/Globulin Ratio (0.9-2) Procalcitonin 4.88 H (0-0.5) ng/ml COVID-19 Eval Order SARS-CoV-2 (PCR) NEGATIVE (Negative) Influ A Molecular Assay (Negative) Influ B Molecular Assay (Negative) Administered Medications Gabapentin (Gabapentin 600 Mg Tab) 600 mg PO BID MICHA Stop: 05/24/21 22:14 Last Admin: 04/24/21 22:50 Dose: 600 mg Documented by: [id number] Guaifenesin (Guaifenesin 600 Mg Tabcr) 1,200 mg PO BID MIHCA Stop: 05/24/21 20:59 Last Admin: 04/24/21 21:33 Dose: 1,200 mg Documented by: [id number] Heparin Sodium (Porcine) (Heparin Sod 5,000 Unit/0.5 Ml Vial) 5,000 units SQ Q8 MICHA Stop: 05/24/21 21:59 Last Admin: 04/24/21 21:34 Dose: 5,000 units Documented by: [id number] Vitamin D (Cholecalciferol 1,000 Units 25 Mcg Tab) 1,000 units PO HS MICHA Stop: 05/24/21 20:59 Last Admin: 04/24/21 21:34 Dose: 1,000 units Documented by: [id number] Discontinued Medications Sodium Chloride (Nss 1000ml) 1,000 mls @ 999 mls/hr IV .Q1H1M MICHA Stop: 04/24/21 17:15 Last Infusion: 04/24/21 19:15 Dose: 0 mls/hr Documented by: [id number] Admin: 04/24/21 16:50 Dose: 999 mls/hr Documented by: [id number] Cefepime HCl (Maxipime) 2,000 mg in 20 mls @ 5 mls/min IV NOW STA; Protocol Stop: 04/24/21 16:16 Last Admin: 04/24/21 17:45 Dose: 5 mls/min Documented by: [id number] Sodium Chloride (Nss 1000ml) 500 mls @ 999 mls/hr IV .Q31M ONE Stop: 04/24/21 18:49 Last Infusion: 04/24/21 20:05 Dose: 0 mls/hr Documented by: [id number] Admin: 04/24/21 19:13 Dose: 999 mls/hr Documented by: [id number] Ondansetron HCl (Ondansetron Inj 2 Mg/Ml 2 Ml Vial) 4 mg IV NOW STA Stop: 04/24/21 16:14 Last Admin: 04/24/21 19:04 Dose: Not Given Documented by: [id number] Imaging Data Radiologist's Impression: Chest X-Ray 04/24/21 16:13 XR chest 1V portable CLINICAL HISTORY: SEPSIS COMPARISON STUDY: 03/02/2021 FINDINGS: The cardiac and mediastinal contours remain stable.[Since the prior study, the patient has developed a right lung airspace opacities, most pronounced within the right apex. Pneumonia favored over radiation pneumonitis. Correlation with recent therapy márquez would be of benefit. There is no failure. There are no significant pleural effusions. IMPRESSION: 1. Interval development of right lung airspace opacities most pronounced in the right lung apex. Pneumonia favored over radiation pneumonitis. Clinical and radiographic follow-up are recommended. ACT 112: Negative or not required by law. Electronically signed by: Francisco Chappell M.D. 04/24/2021 5:14 PM Discharge Plan Visit Data Chief Complaint: Illness Stated Complaint: HEADACHE, FEVER, CHILLS, BODYACHES ED Provider: Rickey Tavarez Discharge Problem: Hypotension, ASYA (acute kidney injury), Pneumonia, Flu-like symptoms Patient Disposition: Admitted As Inpatient Condition: Fair Discharge Instructions Interventions: ED Discharge Assessment Last Done: 04/24/21 20:21 Discharge Problem: Hypotension Qualifiers: Hypotension type: unspecified hypotension type Qualified Code(s): I95.9 - Hypotension, unspecified Pneumonia Qualifiers: Pneumonia type: due to unspecified organism Laterality: right Lung location: unspecified part of lung Qualified Code(s): J18.9 - Pneumonia, unspecified organism
[2021-04-24 16:53] LABS: Partial Thromboplastin Ratio 1.1; Partial Thromboplastin Time 28.1 Seconds (21.0-31.0); Prothrombin Time 9.8 Seconds (9.0-12.0)
--- NOTE | 2021-04-24 17:15 | XRay Report ---
XR chest 1V portable CLINICAL HISTORY: SEPSIS COMPARISON STUDY: 03/02/2021 FINDINGS: The cardiac and mediastinal contours remain stable.[Since the prior study, the patient has developed a right lung airspace opacities, most pronounced within the right apex. Pneumonia favored o hernandez radiation pneumonitis. Correlation with recent therapy márquez would be of benefit. There is no fa ilure. There are no significant pleural effusions. IMPRESSION: 1. Interval development of right lung airspace opacities most pronounced in the right lung apex. Pneu monia favored over radiation pneumonitis. Clinical and radiographic follow-up are recommended. ACT 112: Negative or not required by law. Electronically signed by: Francisco Chappell M.D. 04/24/2021 5:14 PM
[2021-04-24 17:22] LABS: Alanine Aminotransferase 14 U/L (12-78); Albumin Globulin Ratio 0.7 (0.9-2); Albumin Level 3.1 gm/dl (3.4-5.0); Alkaline Phosphatase 95 U/L (45-117); BUN Creatinine Ratio 15.4 (10-20); Bilirubin,Total 0.4 mg/dl (0.2-1); Blood Urea Nitrogen 47 mg/dl (7-18); Calcium 9.3 mg/dl (8.5-10.1); Carbon Dioxide 24 mmol/L (21-32); Chloride 100 mmol/L (98-107); Creatinine Clr Calc Pharmacy 13.3 ml/min; Est GFR (African American) 17.9 ml/min; Est GFR (Non-African American) 15.4 ml/min; Globulin 4.7 gm/dl (2.5-4.0); Glucose 124 mg/dl (70-99); Sodium 130 mmol/L (136-145); Total Protein 7.8 gm/dl (6.4-8.2); Troponin I < 0.015 ng/ml (0-0.045)
[2021-04-24 17:31] LABS: Influenza A virus by PCR Negative (Negative); Influenza B virus by PCR Negative (Negative)
[2021-04-24 17:50] LABS: Aspartate Aminotransferase 14 U/L (15-37); Potassium 4.2 mmol/L (3.5-5.1)
[2021-04-24 17:51] LABS: Magnesium 1.7 mg/dl (1.8-2.4)
[2021-04-24 18:04] LABS: Basophils # (auto) 0.01 K/uL (0-0.2); Basophils % (auto) 0.1 %; Eosinophils % (auto) 1.5 %; Hemoglobin 11.8 g/dL (12.0-16.0); Lymphocytes # (auto) 0.64 K/uL (1.2-3.4); Lymphocytes % (auto) 9.4 %; Mean Corpuscular Hgb Conc 33.7 g/dL (32-36); Mean Corpuscular Volume 103.9 fL (80-100); Mean Platelet Volume 11.2 fL (7.4-10.4); Monocytes % (auto) 7.3 %; Neutrophils # (auto) 5.58 K/uL (1.4-6.5); Neutrophils % (auto) 81.7 %; Platelet Count 124 K/uL (130-400); RDW Coefficient of Variation 16.8 % (11.5-14.5); RDW Standard Deviation 64.7 fL (36.4-46.3); Red Blood Count 3.37 M/uL (4.2-5.4); White Blood Count 6.83 K/uL (4.8-10.8)
[2021-04-24] MEDS ORDERED: SODIUM CHLORIDE 0.9% 1000ML 500 ML IV ONE (18:19)
--- NOTE | 2021-04-24 18:58 | History & Physical Report ---
Date of Service April 24, 2021 Assessment & Plan (1) HCAP (healthcare-associated pneumonia): Likely source of her sepsis, present on admission Admit to a monitored bed Start broad-spectrum antibiotics with cefepime Blood and sputum cultures Albuterol nebs as needed PT/OT Will need assessment for home oxygen prior to discharge (2) Acute kidney injury: Likely secondary to dehydration, hypotension Gentle hydration with normal saline Okay for p.o. fluids ad brianna. Hold losartan Continue to monitor, if no improvement may need nephrology evaluation (3) Small cell lung cancer: Patient finished chemotherapy in January Currently receiving prophylactic brain radiation, can continue this once discharged (4) Hypertension: Hypotensive, will hold hypertensive meds for now including amlodipine, losartan, metoprolol (5) COPD (chronic obstructive pulmonary disease): O2 sat is 92% Continue as needed albuterol nebs Continue Breo History of Present Illness Chief Complaint: fever Primary Care Provider: Mario Rosales Jr, DO This is a 65-year-old female with past medical history of small cell lung carcinoma, finished chemotherapy 02/18 that presents today complaining of fever. Patient is accompanied by her and both very pleasant good historians. Patient states that she was doing well, had followed up with her windows security engineer on 04/13 without any issues. Reviewed that documentation and were no acute issues at that time. On Friday, 04/21, the patient and her spouse went to dinner at 7 else's house. At the time, the patient had bad chills and rigors. She denies any shortness of breath at that time. This persisted the next day she felt worse. The tried to get her to come to the hospital but the patient was stubborn. Today she continued to weaken and had high fever which prompted her to present to the emergency room. On presentation, her blood pressure was found to be 70/47. This is improved with fluids but still is in the mid 90s. Temp was 36.7 C. Patient was denying significant shortness of breath and seems to be comfortable on room air. Patient is now being admitted for likely right lower lobe pneumonia and sepsis, present on admission. Allergies Allergy/AdvReac Type Severity Reaction Status Date / Time budesonide Allergy Severe SHORTNESS Verified 04/24/21 18:31 OF BREATH formoterol Allergy Severe SHORTNESS Verified 04/24/21 18:31 OF BREATH Sulfa (Sulfonamide Allergy Severe HIVES Verified 04/24/21 18:31 Antibiotics) erythromycin base Allergy Intermediate CAUSES HER Verified 04/24/21 18:31 EYES TO BURN Penicillins Allergy Unknown HAPPENED Verified 04/24/21 18:31 A CHILD thimerosol Allergy burning Uncoded 04/24/21 18:31 eyes Home Medications Medication Instructions Recorded Confirmed Type albuterol sulfate 90 mcg/actuation 2 inh INHALATION Q4H PRN g 11/03/20 04/24/21 History aerosol inhaler diazepam 5 mg tablet 5 mg PO Q6H PRN tab 11/03/20 04/24/21 History fluticasone furoate 200 1 inh INHALATION DAILY 11/03/20 04/24/21 History mcg-vilanterol 25 mcg/dose inhalation powder fluticasone propionate 50 2 spray INTRANASAL BID ml 11/03/20 04/24/21 History mcg/actuation nasal spray,suspension gabapentin 600 mg tablet 600 mg PO BID 11/03/20 04/24/21 History metoprolol tartrate 100 mg tablet 100 mg PO HS 11/03/20 04/24/21 History terconazole 0.4 % vaginal cream 1 applic VAGINAL UD PRN 11/03/20 04/24/21 History triamcinolone acetonide 0.1 % 1 applic TOPICAL BID PRN 11/03/20 04/24/21 History topical cream benzonatate 100 mg capsule 100 mg PO TID PRN #60 cap 01/05/21 04/24/21 Rx olanzapine 2.5 mg tablet 2.5 mg PO HS PRN tab 01/08/21 04/24/21 History cholecalciferol (vitamin D3) 25 mcg PO HS 03/02/21 04/24/21 History [Vitamin D3] losartan 50 mg tablet 50 mg PO DAILY 04/03/21 04/24/21 History Flutter Valve See Rx Instructions .ROUTE 04/13/21 04/24/21 Rx .COMPLEX #1 ea guaifenesin 1,200 mg tablet, 1,200 mg PO BID #60 tab 04/13/21 04/24/21 Rx extended release 12 hr sodium chloride 3.5 % for 4 ml INHALATION BID #240 ml 04/13/21 04/24/21 Rx nebulization prochlorperazine maleate 10 mg 10 mg PO Q6H PRN #30 tab 04/16/21 04/24/21 Rx tablet amlodipine 5 mg PO DAILY 04/24/21 04/24/21 History kqksmecbue-ecvyyve-fcfjrsed 1 cap PO Q6 PRN 04/24/21 04/24/21 History ondansetron 8 mg PO Q8 PRN 04/24/21 04/24/21 History Past Med/Surg History Medical History Abnormal CT scan of lung Arthritis Avascular necrosis of left femur COPD (chronic obstructive pulmonary disease) Degenerative disc disease Ectopic Facial contusion Hip fracture, left Hypertension Lung cancer Migraines Pulmonary nodule Right orbital fracture Subconjunctival hemorrhage of right eye Tobacco abuse Transient osteoporosis of hip Surgical History History of appendectomy History of bronchoscopy Family History Mother Heart disease Hypertension Kidney disease Father , 73yo Emphysema lung Alcoholism Brother No problems noted. Sister Myocardial infarction Son No problems noted. Son No problems noted. 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 [employer] Feels Safe at Home: Yes caffeine: Yes (1 cup/day;2 cups/day) during the past year weight has: remained stable Assistive Devices: Glasses Review of Systems Constitutional: + fever, + chills, + body aches, + fatigue and + weakness; no weight loss, no weight gain and no increased appetite Respiratory: + dyspnea on exertion; no chest congestion, no pain on inspiration, no pain with cough, no stopping breathing during sleep and no sputum production Cardiovascular: no chest pain, no chest pain at rest, no radiating jaw, neck or arm pain, no dyspnea, no dyspnea on exertion and no orthopnea Gastrointestinal: no abdominal pain, no nausea, no vomiting, no constipation, no diarrhea/loose stools and no melena Genitourinary: no dysuria, no difficulty urinating, no urinary hesitancy and no urinary urgency Musculoskeletal: no back pain, no neck pain, no loss of height and no joint pain Integumentary: no rash and no lesions Neurologic: + generalized weakness; no unsteadiness and no falls Psychiatric: as per Subjective / HPI Physical Exam Constitutional: cooperative, comfortable and + underweight; no acute distress Neck: trachea midline, no thyromegaly Respiratory: normal respiratory effort Auscultation: + diminished lung sounds and + rales (bases) Cardiovascular: Rate/Rhythm: regular rate and regular rhythm Vessels: no JVD and no carotid bruit Extremities: no edema Gastrointestinal (Abdomen): normal bowel sounds, soft, nontender, no hepatosplenomegaly Musculoskeletal: no cyanosis or clubbing, extremities motor strength 5/5 Skin: no rashes, warm and dry Neurologic: PERRL, EOMI, accommodation nl, no face palsy, no dysarthria Results & Data Results & Data ([facility]) Vital Signs (Past 12 Hours) Vital Signs Temp Pulse Resp BP BP Pulse Ox 04/24/21 17:53 37.3 C 04/24/21 17:45 79 17 95/60 L 97 04/24/21 17:30 78 22 98/60 L 96 04/24/21 17:15 76 20 94/56 L 95 04/24/21 17:02 77 22 96 04/24/21 17:00 78 22 81/46 L 96 04/24/21 16:45 76 24 74/50 L 95 04/24/21 15:58 70/47 L 04/24/21 15:54 36.7 C 92 H 20 95 Diagnostic Findings XR chest 1V portable CLINICAL HISTORY: SEPSIS COMPARISON STUDY: 03/02/2021 FINDINGS: The cardiac and mediastinal contours remain stable.[Since the prior study, the patient has developed a right lung airspace opacities, most pronounced within the right apex. Pneumonia favored over radiation pneumonitis. Correlation with recent therapy márquez would be of benefit. There is no failure. There are no significant pleural effusions. IMPRESSION: 1. Interval development of right lung airspace opacities most pronounced in the right lung apex. Pneumonia favored over radiation pneumonitis. Clinical and radiographic follow-up are recommended. PG Care Time/CCT Total # of Minutes Spent Total Time Spent with Patient: Total time spent is greater than 50% in coordination of care (as documented) at patient's floor/unit and/or counseling patient: Coding Level of Care Code 46936 Initial Inpt Care Lvl 3 Diagnoses HCAP (healthcare-associated pneumonia) J18.9 Acute kidney injury N17.9 Small cell lung cancer C34.90 Hypertension I10 COPD (chronic obstructive pulmonary disease) J44.9
[2021-04-24] MEDS ORDERED: PROCHLORPERAZINE MALEATE 10 MG TAB PO PRN (20:47)
[2021-04-24] MEDS ORDERED: ALBUTEROL HFA 8 GM INHALER INH PRN (20:47)
[2021-04-24] MEDS ORDERED: ONDANSETRON INJ 2 MG/ML 2 ML VIAL IV PRN (20:47)
[2021-04-24] MEDS ORDERED: diazePAM 5 MG TABLET PO PRN (20:47)
[2021-04-24] MEDS ORDERED: OLANZAPINE 2.5 MG TAB PO PRN (20:47)
[2021-04-24] MEDS ORDERED: BENZONATATE 100 MG CAPSULE PO PRN (20:47)
[2021-04-24] MEDS ORDERED: GABAPENTIN 600 MG TAB PO SCH (21:00)
[2021-04-24] MEDS: guaiFENesin 600 MG TABCR PO SCH (21:33)
[2021-04-24] MEDS: CHOLECALCIFEROL 1,000 UNITS 25 MCG TAB PO SCH (21:34)
[2021-04-24] MEDS: HEPARIN SOD 5,000 UNIT/0.5 ML VIAL SQ SCH (21:34)
[2021-04-24] MEDS: GABAPENTIN 600 MG TAB PO SCH (22:50)
[2021-04-25] MEDS: HEPARIN SOD 5,000 UNIT/0.5 ML VIAL SQ SCH ×3 (05:44→21:19)
[2021-04-25 07:04] LABS: Hematocrit (blood only) 29.9 % (37-47); Hemoglobin 10.2 g/dL (12.0-16.0); Mean Corpuscular Hemoglobin 34.9 pg (25-34); Mean Corpuscular Hgb Conc 34.1 g/dL (32-36); Mean Corpuscular Volume 102.4 fL (80-100); RDW Coefficient of Variation 16.6 % (11.5-14.5); RDW Standard Deviation 63.2 fL (36.4-46.3); Red Blood Count 2.92 M/uL (4.2-5.4); White Blood Count 5.22 K/uL (4.8-10.8)
[2021-04-25 07:27] LABS: Calcium 8.6 mg/dl (8.5-10.1); Creatinine Clr Calc Pharmacy 19.5 ml/min; Est GFR (African American) 27.5 ml/min; Est GFR (Non-African American) 23.7 ml/min; Magnesium 1.5 mg/dl (1.8-2.4); Potassium 4.1 mmol/L (3.5-5.1)
[2021-04-25 07:33] LABS: Platelet Count 97 K/uL (130-400)
[2021-04-25 07:35] LABS: Basophils # (auto) 0.01 K/uL (0-0.2); Basophils % (auto) 0.2 %; Eosinophils # (auto) 0.35 K/uL (0-0.5); Eosinophils % (auto) 6.7 %; Lymphocytes # (auto) 0.59 K/uL (1.2-3.4); Lymphocytes % (auto) 11.3 %; Monocytes # (auto) 0.42 K/uL (0.11-0.59); Neutrophils # (auto) 3.85 K/uL (1.4-6.5); Neutrophils % (auto) 73.8 %; Platelet Estimate Decreased (Normal)
[2021-04-25] MEDS: GABAPENTIN 600 MG TAB PO SCH ×2 (08:12→21:19)
[2021-04-25] MEDS: guaiFENesin 600 MG TABCR PO SCH ×2 (08:12→21:19)
[2021-04-25] MEDS: FLUTICASONE/VILANTEROL 200/25MCG 14 PUFFS/INHALER INH SCH (08:13)
--- NOTE | 2021-04-25 10:51 | Hospitalist Progress Note ---
Date of Service April 25, 2021 Assessment & Plan (1) Pneumonia: Ms. Schwartz is a 65y/o F with PMH significant for recent small cell lung carcinoma s/p chemotherapy; who presented for concerns of chills and rigors found to have a new-onset pneumonia Pneumonia: -CXR concern for right upper lobe, however rhonchi noted over left lower lobe -new oxygen requirement from previous baseline of no requirement -procal elevated on admission -negative nasal MRSA -continue cefepime, with the addition of Doxycycline -continue to wean supplemental oxygen as required -may require supplemental oxygen at baseline given COPD and history of small cell lung carcinoma Acute Kidney Injury: -likely secondary to dehydration in the setting of pneumonia as above -improved Cr to 2.15 this AM -continue to monitor daily HTN: -holding home anti-hypertensives in the setting of hypotension COPD: -continue home inhaler regimen at this time -will require 2 step as infection continues to clear Code Status: Full code Diet: Regular DVT ppx: Heparin SQ (2) ASYA (acute kidney injury): (3) COPD (chronic obstructive pulmonary disease): (4) Hypertension: (5) Small cell lung cancer: Admission and Anticipated Discharge Date Admission Date: April 24, 2021 Supervising Physician Co-Signing Physician Notes I personally examined the patient and verified all mathis points of history and exam, discussed case, and agree with decision making with Dr Duron Feeling much better than when she came in. Breathing easier. Still weak, but improved. Answered all questions to the best my ability. Vitals noted, in general she is fatigued but no distress. HEENT normocephalic atraumatic mucous membranes moist. Lungs very quiet on the right some rhonchi on the left, no accessory muscle use good effort. Skin shows no rashes no pallor or icterus. Neuro shows no focal deficits. Severe pneumonia with severe sepsis (as manifested by her acute renal failure present on admission) and septic shock also present on admission-now improving. MRSA nares negative, continue cefepime. Given the diffuse appearance on x-ray, also will add atypical coverage, this will also likely help with the COPD portion of this. Is showing improvement, ongoing close vigilance current treatment and supportive care. DVT proph - SCDs for now, follow platelets, hopefully won't continue to drop - then would start SQ heparin Subjective Feeling ok this morning, just worn out. Has been unable to get off supplemental oxygen. Recognizes that she just waited too long before coming into the hospital for concerns about her breathing, but does feel better than she had the previous couple days. Review of Systems Review of Systems: All systems reviewed & are unremarkable except as noted in Subjective Physical Exam Constitutional: WD/WN, vitals as above Eyes: PERRL, conjunctivae normal, anicteric sclerae Respiratory: Auscultation: + rhonchi (Left lower lobe) and + wheezes (Mild whole field b/l); no crackles and no rales Cardiovascular: Rate/Rhythm: regular rate and regular rhythm Heart Sounds: normal S1 and normal S2; no gallop, no murmur and no cardiac rub Vessels: normal peripheral pulses; no JVD Extremities: no calf tenderness and no edema Gastrointestinal (Abdomen): normal bowel sounds, soft, nontender, no hepatosplenomegaly Neurologic: deep tendon reflexes 2+ bilaterally and moves all extremities Psychiatric: Orientation: alert and oriented x 3 Results & Data Results & Data ([facility]) Vital Signs (Past 12 Hours) Vital Signs Temp Pulse Pulse Resp BP Pulse Ox 04/25/21 08:24 37.3 C 90 20 105/64 87 L 04/25/21 08:18 91 04/25/21 08:15 89 04/25/21 04:00 37.2 C 94 H 18 97/56 L 91 04/25/21 01:10 89 04/24/21 23:46 37.1 C 84 18 99/58 L 91 Laboratory Results 04/25/21 04/25/21 04/25/21 Range/Units 13:45 09:15 06:33 WBC (4.8-10.8) K/uL RBC (4.2-5.4) M/uL Hgb (12.0-16.0) g/dL Hct (37-47) % MCV (80-100) fL MCH (25-34) pg MCHC (32-36) g/dL RDW Std Deviation (36.4-46.3) fL RDW Coeff of Kiara (11.5-14.5) % Plt Count (130-400) K/uL MPV (7.4-10.4) fL Immature Gran % (Auto) % Neut % (Auto) % Lymph % (Auto) % [place] % (Auto) % Eos % (Auto) % Baso % (Auto) % Neut # (Auto) (1.4-6.5) K/uL Lymph # (Auto) (1.2-3.4) K/uL [place] # (Auto) (0.11-0.59) K/uL Eos # (Auto) (0-0.5) K/uL Baso # (Auto) (0-0.2) K/uL Immature Gran # (Auto) (0.00-0.02) K/uL Platelet Estimate (Normal) PT (9.0-12.0) Seconds INR (0.9-1.1) APTT (21.0-31.0) Seconds PTT Ratio Sodium 137 D (136-145) mmol/L Potassium 4.1 (3.5-5.1) mmol/L Chloride 109 H (98-107) mmol/L Carbon Dioxide 19 L (21-32) mmol/L Anion Gap 9.0 (3-11) BUN 41 H (7-18) mg/dl Creatinine 2.15 H D (0.6-1.2) mg/dl Est Cr Clr Drug Dosing 19.5 ml/min Est GFR ( Amer) 27.5 ml/min Est GFR (Non-Af Amer) 23.7 ml/min BUN/Creatinine Ratio 19.0 (10-20) Glucose 95 (70-99) mg/dl Lactate (0.4-2.0) mmol/L Calcium 8.6 (8.5-10.1) mg/dl Magnesium 1.5 L (1.8-2.4) mg/dl Total Bilirubin (0.2-1) mg/dl AST (15-37) U/L ALT (12-78) U/L Alkaline Phosphatase (45-117) U/L Troponin I (0-0.045) ng/ml Total Protein (6.4-8.2) gm/dl Albumin (3.4-5.0) gm/dl Globulin (2.5-4.0) gm/dl Albumin/Globulin Ratio (0.9-2) Procalcitonin (0-0.5) ng/ml Urine Color Yellow Urine Appearance Clear (Clear) Urine pH 5.0 (4.5-7.5) Ur Specific [place] 1.015 (1.000-1.030) Urine Protein Trace H (Negative) Urine Glucose (UA) Negative (Negative) Urine Ketones Negative (Negative) Urine Blood Negative (Negative) Urine Nitrite Negative (Negative) Urine Bilirubin Negative (Negative) Urine Urobilinogen Negative (Negative) Ur Leukocyte Esterase Trace H (Negative) Urine WBC (Auto) 5-10 H (0-5) /hpf Urine RBC (Auto) 0-4 (0-4) /hpf U Hyaline Cast (Auto) 1-5 (0-5) /lpf U Epithel Cells (Auto) >30 H (0-5) /lpf Urine Bacteria (Auto) Negative (Negative) Nasal Screen MRSA (PCR) Negative (Negative) COVID-19 Eval Order SARS-CoV-2 (PCR) (Negative) Influ A Molecular Assay (Negative) Influ B Molecular Assay (Negative) 04/25/21 04/24/21 04/24/21 Range/Units 06:33 17:05 16:33 WBC 5.22 (4.8-10.8) K/uL RBC 2.92 L (4.2-5.4) M/uL Hgb 10.2 L (12.0-16.0) g/dL Hct 29.9 L (37-47) % MCV 102.4 H (80-100) fL MCH 34.9 H (25-34) pg MCHC 34.1 (32-36) g/dL RDW Std Deviation 63.2 H (36.4-46.3) fL RDW Coeff of Kiara 16.6 H (11.5-14.5) % Plt Count 97 L (130-400) K/uL MPV 11.0 H (7.4-10.4) fL Immature Gran % (Auto) 0.0 % Neut % (Auto) 73.8 % Lymph % (Auto) 11.3 % [place] % (Auto) 8.0 % Eos % (Auto) 6.7 % Baso % (Auto) 0.2 % Neut # (Auto) 3.85 (1.4-6.5) K/uL Lymph # (Auto) 0.59 L (1.2-3.4) K/uL [place] # (Auto) 0.42 (0.11-0.59) K/uL Eos # (Auto) 0.35 (0-0.5) K/uL Baso # (Auto) 0.01 (0-0.2) K/uL Immature Gran # (Auto) 0.00 (0.00-0.02) K/uL Platelet Estimate Decreased L (Normal) PT (9.0-12.0) Seconds INR (0.9-1.1) APTT (21.0-31.0) Seconds PTT Ratio Sodium (136-145) mmol/L Potassium (3.5-5.1) mmol/L Chloride (98-107) mmol/L Carbon Dioxide (21-32) mmol/L Anion Gap (3-11) BUN (7-18) mg/dl Creatinine (0.6-1.2) mg/dl Est Cr Clr Drug Dosing ml/min Est GFR ( Amer) ml/min Est GFR (Non-Af Amer) ml/min BUN/Creatinine Ratio (10-20) Glucose (70-99) mg/dl Lactate (0.4-2.0) mmol/L Calcium (8.5-10.1) mg/dl Magnesium (1.8-2.4) mg/dl Total Bilirubin (0.2-1) mg/dl AST (15-37) U/L ALT (12-78) U/L Alkaline Phosphatase (45-117) U/L Troponin I (0-0.045) ng/ml Total Protein (6.4-8.2) gm/dl Albumin (3.4-5.0) gm/dl Globulin (2.5-4.0) gm/dl Albumin/Globulin Ratio (0.9-2) Procalcitonin 4.88 H (0-0.5) ng/ml Urine Color Urine Appearance (Clear) Urine pH (4.5-7.5) Ur Specific [place] (1.000-1.030) Urine Protein (Negative) Urine Glucose (UA) (Negative) Urine Ketones (Negative) Urine Blood (Negative) Urine Nitrite (Negative) Urine Bilirubin (Negative) Urine Urobilinogen (Negative) Ur Leukocyte Esterase (Negative) Urine WBC (Auto) (0-5) /hpf Urine RBC (Auto) (0-4) /hpf U Hyaline Cast (Auto) (0-5) /lpf U Epithel Cells (Auto) (0-5) /lpf Urine Bacteria (Auto) (Negative) Nasal Screen MRSA (PCR) (Negative) COVID-19 Eval Order SARS-CoV-2 (PCR) NEGATIVE (Negative) Influ A Molecular Assay (Negative) Influ B Molecular Assay (Negative) 04/24/21 04/24/21 04/24/21 Range/Units 16:33 16:33 16:29 WBC (4.8-10.8) K/uL RBC (4.2-5.4) M/uL Hgb (12.0-16.0) g/dL Hct (37-47) % MCV (80-100) fL MCH (25-34) pg MCHC (32-36) g/dL RDW Std Deviation (36.4-46.3) fL RDW Coeff of Kiara (11.5-14.5) % Plt Count (130-400) K/uL MPV (7.4-10.4) fL Immature Gran % (Auto) % Neut % (Auto) % Lymph % (Auto) % [place] % (Auto) % Eos % (Auto) % Baso % (Auto) % Neut # (Auto) (1.4-6.5) K/uL Lymph # (Auto) (1.2-3.4) K/uL [place] # (Auto) (0.11-0.59) K/uL Eos # (Auto) (0-0.5) K/uL Baso # (Auto) (0-0.2) K/uL Immature Gran # (Auto) (0.00-0.02) K/uL Platelet Estimate (Normal) PT (9.0-12.0) Seconds INR (0.9-1.1) APTT (21.0-31.0) Seconds PTT Ratio Sodium (136-145) mmol/L Potassium (3.5-5.1) mmol/L Chloride (98-107) mmol/L Carbon Dioxide (21-32) mmol/L Anion Gap (3-11) BUN (7-18) mg/dl Creatinine (0.6-1.2) mg/dl Est Cr Clr Drug Dosing ml/min Est GFR ( Amer) ml/min Est GFR (Non-Af Amer) ml/min BUN/Creatinine Ratio (10-20) Glucose (70-99) mg/dl Lactate 1.5 (0.4-2.0) mmol/L Calcium (8.5-10.1) mg/dl Magnesium (1.8-2.4) mg/dl Total Bilirubin (0.2-1) mg/dl AST (15-37) U/L ALT (12-78) U/L Alkaline Phosphatase (45-117) U/L Troponin I (0-0.045) ng/ml Total Protein (6.4-8.2) gm/dl Albumin (3.4-5.0) gm/dl Globulin (2.5-4.0) gm/dl Albumin/Globulin Ratio (0.9-2) Procalcitonin (0-0.5) ng/ml Urine Color Urine Appearance (Clear) Urine pH (4.5-7.5) Ur Specific [place] (1.000-1.030) Urine Protein (Negative) Urine Glucose (UA) (Negative) Urine Ketones (Negative) Urine Blood (Negative) Urine Nitrite (Negative) Urine Bilirubin (Negative) Urine Urobilinogen (Negative) Ur Leukocyte Esterase (Negative) Urine WBC (Auto) (0-5) /hpf Urine RBC (Auto) (0-4) /hpf U Hyaline Cast (Auto) (0-5) /lpf U Epithel Cells (Auto) (0-5) /lpf Urine Bacteria (Auto) (Negative) Nasal Screen MRSA (PCR) (Negative) COVID-19 Eval Order Covid19 at [facility] SARS-CoV-2 (PCR) (Negative) Influ A Molecular Assay Negative (Negative) Influ B Molecular Assay Negative (Negative) 04/24/21 04/24/21 04/24/21 Range/Units 16:29 16:29 16:29 WBC 6.83 (4.8-10.8) K/uL RBC 3.37 L (4.2-5.4) M/uL Hgb 11.8 L (12.0-16.0) g/dL Hct 35.0 L (37-47) % MCV 103.9 H (80-100) fL MCH 35.0 H (25-34) pg MCHC 33.7 (32-36) g/dL RDW Std Deviation 64.7 H (36.4-46.3) fL RDW Coeff of Kiara 16.8 H (11.5-14.5) % Plt Count 124 L (130-400) K/uL MPV 11.2 H (7.4-10.4) fL Immature Gran % (Auto) 0.0 % Neut % (Auto) 81.7 % Lymph % (Auto) 9.4 % [place] % (Auto) 7.3 % Eos % (Auto) 1.5 % Baso % (Auto) 0.1 % Neut # (Auto) 5.58 (1.4-6.5) K/uL Lymph # (Auto) 0.64 L (1.2-3.4) K/uL [place] # (Auto) 0.50 (0.11-0.59) K/uL Eos # (Auto) 0.10 (0-0.5) K/uL Baso # (Auto) 0.01 (0-0.2) K/uL Immature Gran # (Auto) 0.00 (0.00-0.02) K/uL Platelet Estimate (Normal) PT 9.8 (9.0-12.0) Seconds INR 1.0 (0.9-1.1) APTT 28.1 (21.0-31.0) Seconds PTT Ratio 1.1 Sodium 130 L (136-145) mmol/L Potassium 4.2 (3.5-5.1) mmol/L Chloride 100 (98-107) mmol/L Carbon Dioxide 24 (21-32) mmol/L Anion Gap 6.0 (3-11) BUN 47 H (7-18) mg/dl Creatinine 3.07 H (0.6-1.2) mg/dl Est Cr Clr Drug Dosing 13.3 ml/min Est GFR ( Amer) 17.9 ml/min Est GFR (Non-Af Amer) 15.4 ml/min BUN/Creatinine Ratio 15.4 (10-20) Glucose 124 H (70-99) mg/dl Lactate (0.4-2.0) mmol/L Calcium 9.3 (8.5-10.1) mg/dl Magnesium 1.7 L (1.8-2.4) mg/dl Total Bilirubin 0.4 (0.2-1) mg/dl AST 14 L (15-37) U/L ALT 14 (12-78) U/L Alkaline Phosphatase 95 (45-117) U/L Troponin I < 0.015 (0-0.045) ng/ml Total Protein 7.8 (6.4-8.2) gm/dl Albumin 3.1 L (3.4-5.0) gm/dl Globulin 4.7 H (2.5-4.0) gm/dl Albumin/Globulin Ratio 0.7 L (0.9-2) Procalcitonin (0-0.5) ng/ml Urine Color Urine Appearance (Clear) Urine pH (4.5-7.5) Ur Specific [place] (1.000-1.030) Urine Protein (Negative) Urine Glucose (UA) (Negative) Urine Ketones (Negative) Urine Blood (Negative) Urine Nitrite (Negative) Urine Bilirubin (Negative) Urine Urobilinogen (Negative) Ur Leukocyte Esterase (Negative) Urine WBC (Auto) (0-5) /hpf Urine RBC (Auto) (0-4) /hpf U Hyaline Cast (Auto) (0-5) /lpf U Epithel Cells (Auto) (0-5) /lpf Urine Bacteria (Auto) (Negative) Nasal Screen MRSA (PCR) (Negative) COVID-19 Eval Order SARS-CoV-2 (PCR) (Negative) Influ A Molecular Assay (Negative) Influ B Molecular Assay (Negative) Resident Activity Tracking Resident Involvement: Resident Care Provided Care Provided: Adult Hospital Medicine (1) Pneumonia Laterality: right Lung location: unspecified part of lung Pneumonia type: due to unspecified organism Qualified Code(s): J18.9 - Pneumonia, unspecified organism
--- NOTE | 2021-04-25 13:23 | Electrocardiogram Report ---
Test Reason : Blood Pressure : / mmHG Vent. Rate : 082 BPM Atrial Rate : 082 BPM P-R Int : 158 ms QRS Dur : 084 ms QT Int : 374 ms P-R-T Axes : 070 064 065 degrees QTc Int : 436 ms Poor data quality, interpretation may be adversely affected Normal sinus rhythm Possible Left atrial enlargement Borderline ECG When compared with ECG of 02-MAR-2021 15:23, No significant change was found Confirmed by Gio Salmeron ([id number]) on 04/25/2021 1:23:31 PM Referred By: REFERRED SELF Confirmed By:Gio Salmeron
[2021-04-25 14:58] LABS: Appearance Urine Clear (Clear); Bacteria Urine Automated Negative (Negative); Bilirubin Urine Negative (Negative); Blood Urine Negative (Negative); Color Urine Yellow; Epithelial Cell Urine Auto >30 /lpf (0-5); Glucose Urine UA Negative (Negative); Ketones Urine Negative (Negative); Leukocyte Esterase Urine Trace (Negative); Nitrite Urine Negative (Negative); Protein Urine Trace (Negative); RBC Urine Automated 0-4 /hpf (0-4); Specific Gravity Urine 1.015 (1.000-1.030); Urobilinogen Urine Negative (Negative)
[2021-04-25] MEDS: DOXYCYCLINE HYCLATE 100 MG in DEXTROSE 5% 100 ML IV SCH (15:34)
[2021-04-25] MEDS ORDERED: CEFEPIME 2,000 MG in SYRINGE 0 ML IV SCH (18:00)
--- NOTE | 2021-04-25 18:26 | Billing Data ---
Date of Service April 25, 2021 Coding Level of Care Code 73188 Subseq Hosp Care Lvl 3
[2021-04-25] MEDS: CHOLECALCIFEROL 1,000 UNITS 25 MCG TAB PO SCH (21:19)
[2021-04-26] MEDS: ACETAMINOPHEN 325 MG TAB PO PRN ×3 (03:25→12:43)
[2021-04-26] MEDS: DOXYCYCLINE HYCLATE 100 MG in DEXTROSE 5% 100 ML IV SCH (03:25)
[2021-04-26] MEDS: HEPARIN SOD 5,000 UNIT/0.5 ML VIAL SQ SCH (06:25)
[2021-04-26 06:58] LABS: Eosinophils % (auto) 9.3 %; Hematocrit (blood only) 28.6 % (37-47); Hemoglobin 9.7 g/dL (12.0-16.0); Lymphocytes # (auto) 0.46 K/uL (1.2-3.4); Lymphocytes % (auto) 10.7 %; Mean Corpuscular Hemoglobin 34.9 pg (25-34); Mean Corpuscular Hgb Conc 33.9 g/dL (32-36); Mean Corpuscular Volume 102.9 fL (80-100); Mean Platelet Volume 11.2 fL (7.4-10.4); Monocytes # (auto) 0.22 K/uL (0.11-0.59); Monocytes % (auto) 5.1 %; Neutrophils # (auto) 3.22 K/uL (1.4-6.5); Neutrophils % (auto) 74.9 %; Platelet Count 107 K/uL (130-400); RDW Coefficient of Variation 16.5 % (11.5-14.5); RDW Standard Deviation 63.1 fL (36.4-46.3); Red Blood Count 2.78 M/uL (4.2-5.4)
[2021-04-26 07:28] LABS: BUN Creatinine Ratio 21.4 (10-20); Calcium 9.4 mg/dl (8.5-10.1); Creatinine Clr Calc Pharmacy 26.7 ml/min; Est GFR (African American) 40.6 ml/min; Magnesium 1.4 mg/dl (1.8-2.4); Phosphorus 3.3 mg/dl (2.5-4.9); Potassium 4.1 mmol/L (3.5-5.1)
--- NOTE | 2021-04-26 07:43 | Hospitalist Progress Note ---
Date of Service April 26, 2021 Assessment & Plan (1) Pneumonia: Ms. Schwartz is a 65y/o F with PMH significant for recent small cell lung carcinoma s/p chemotherapy; who presented for concerns of chills and rigors found to have a new-onset pneumonia Pneumonia: -CXR concern for right upper lobe, however rhonchi noted over left lower lobe -new oxygen requirement from previous baseline of no requirement -procal elevated on admission -negative nasal MRSA -continue cefepime, with the addition of Doxycycline -continue to wean supplemental oxygen as required -may require supplemental oxygen at baseline given COPD and history of small cell lung carcinoma Acute Kidney Injury: -likely secondary to dehydration in the setting of pneumonia as above -improved Cr to 2.15 this AM -continue to monitor daily HTN: -holding home anti-hypertensives in the setting of hypotension COPD: -continue home inhaler regimen at this time -will require 2 step as infection continues to clear Code Status: Full code Diet: Regular DVT ppx: Heparin SQ (2) ASYA (acute kidney injury): (3) COPD (chronic obstructive pulmonary disease): (4) Hypertension: (5) Small cell lung cancer: Admission and Anticipated Discharge Date Admission Date: April 24, 2021 Review of Systems Review of Systems: All systems reviewed & are unremarkable except as noted in Subjective Physical Exam Constitutional: WD/WN, vitals as above Eyes: PERRL, conjunctivae normal, anicteric sclerae Respiratory: Auscultation: + rhonchi (Left lower lobe) and + wheezes (Mild whole field b/l); no crackles and no rales Cardiovascular: Rate/Rhythm: regular rate and regular rhythm Heart Sounds: normal S1 and normal S2; no gallop, no murmur and no cardiac rub Vessels: normal peripheral pulses; no JVD Extremities: no calf tenderness and no edema Gastrointestinal (Abdomen): normal bowel sounds, soft, nontender, no hepatosplenomegaly Neurologic: deep tendon reflexes 2+ bilaterally and moves all extremities Psychiatric: Orientation: alert and oriented x 3 Results & Data Results & Data ([facility]) Vital Signs (Past 12 Hours) Vital Signs Temp Pulse Pulse Resp BP Pulse Ox 04/26/21 07:10 36.6 C 73 20 98/60 L 94 04/26/21 03:40 37.0 C 79 20 105/61 94 04/25/21 23:26 81 04/25/21 23:25 37.0 C 86 20 101/59 L 92 (1) Pneumonia Laterality: right Lung location: unspecified part of lung Pneumonia type: due to unspecified organism Qualified Code(s): J18.9 - Pneumonia, unspecified organism
[2021-04-26] MEDS: FLUTICASONE/VILANTEROL 200/25MCG 14 PUFFS/INHALER INH SCH (08:07)
[2021-04-26] MEDS: guaiFENesin 600 MG TABCR PO SCH (08:08)
[2021-04-26] MEDS: GABAPENTIN 600 MG TAB PO SCH (08:08)
[2021-04-26] MEDS: MAGNESIUM SULFATE / D5W 1 GM/100 ML BAG IV SCH ×2 (08:38→10:31)
[2021-04-26 11:35] VITALS: BP 82/52; PULSE 85; TEMP 97.5; O2SAT 91
[2021-04-26] MEDS ORDERED: levoFLOXacin 750 MG TAB PO ONE (12:00)
--- NOTE | 2021-04-26 12:40 | Discharge Summary ---
Date of Service April 26, 2021 Admission HPI Per Admitting Provider This is a 65-year-old female with past medical history of small cell lung carcinoma, finished chemotherapy 02/18 that presents today complaining of fever. Patient is accompanied by her and both very pleasant good historians. Patient states that she was doing well, had followed up with her christian science healer on 04/13 without any issues. Reviewed that documentation and were no acute issues at that time. On Friday, 04/21, the patient and her spouse went to dinner at 7 else's house. At the time, the patient had bad chills and rigors. She denies any shortness of breath at that time. This persisted the next day she felt worse. The tried to get her to come to the hospital but the patient was stubborn. Today she continued to weaken and had high fever which prompted her to present to the emergency room. On presentation, her blood pressure was found to be 70/47. This is improved with fluids but still is in the mid 90s. Temp was 36.7 C. Patient was denying significant shortness of breath and seems to be comfortable on room air. Patient is now being admitted for likely right lower lobe pneumonia and sepsis, present on admission. Principal Diagnosis Pneumonia Discharge Exam Constitutional WD/WN, vitals as above Eyes PERRL, conjunctivae normal, anicteric sclerae Respiratory Auscultation: + rhonchi (Left lower lobe) and + wheezes (Mild whole field b/l); no crackles and no rales Cardiovascular Rate/Rhythm: regular rate and regular rhythm Heart Sounds: normal S1 and normal S2; no gallop, no murmur and no cardiac rub Vessels: normal peripheral pulses; no JVD Extremities: no calf tenderness and no edema Gastrointestinal (Abdomen) normal bowel sounds, soft, nontender, no hepatosplenomegaly Neurologic deep tendon reflexes 2+ bilaterally and moves all extremities Psychiatric Orientation: alert and oriented x 3 Discharge Data Allergies Allergy/AdvReac Type Severity Reaction Status Date / Time budesonide Allergy Severe SHORTNESS Verified 04/24/21 18:31 OF BREATH formoterol Allergy Severe SHORTNESS Verified 04/24/21 18:31 OF BREATH Sulfa (Sulfonamide Allergy Severe HIVES Verified 04/24/21 18:31 Antibiotics) erythromycin base Allergy Intermediate CAUSES HER Verified 04/24/21 18:31 EYES TO BURN Penicillins Allergy Unknown HAPPENED Verified 04/24/21 18:31 A CHILD thimerosol Allergy burning Uncoded 04/24/21 18:31 eyes Hospital Course (1) Pneumonia: Ms. Schwartz is a 65y/o F with PMH significant for recent small cell lung carcinoma s/p chemotherapy; who presented for concerns of chills and rigors found to have a new-onset pneumonia Pneumonia: -CXR concern for right upper lobe, however rhonchi noted over left lower lobe -new oxygen requirement from previous baseline of no requirement -procal elevated on admission -negative nasal MRSA -blood cultures with no growth at 36 hours -received Levofloxacin 750mg x1 prior to discharge as transition from Cefepime/Doxycycline -continue levofloxacin 500mg q48h for 14 additional days (7 additional doses) based off renal dosing Acute Kidney Injury: -likely secondary to dehydration in the setting of pneumonia as above -improved Cr to 1.56 this AM -encourage oral fluid intake HTN: -hold anti-hypertensives (amlodipine 5mg, Losartan 50mg, and metoprolol tartrate 100mg) in the setting of hypotension -likely secondary to infection, however patient asymptomatic and tolerated 6 minute walk without difficulty -encouraged oral fluid intake of at least 60 ounces daily -recheck BP over the next week and restart COPD: -continue home inhaler regimen at this time -2 Step Oxygen test demonstrated no maintained oxygen requirement (2) ASYA (acute kidney injury): (3) COPD (chronic obstructive pulmonary disease): (4) Hypertension: (5) Small cell lung cancer: Total Time Total Time Spent Total Time Spent (In Minutes): <30 Discharge Plan Discharge Items Patient Disposition: Home - Self-Care Reason For Visit: PNEUMONIA Discharge Diagnosis: Pneumonia Condition on Discharge: Fair Activity: Per Instructions section Non-emergency contact: Primary Care Provider Call non-emergency contact if: you have any medication questions, your symptoms worsen, your pain is worsening and you have a fever Follow-up/Referrals: Mario Rosales Jr, [Primary Care Provider] - 05/02/21 11:00 am Diet: Regular Fluids: 2000ml (8 cups) Addtl Attending Provider Instructions: You were seen and admitted for concerns of fevers and chills, and ultimately found to have a pneumonia that had created a larger/systemic infection. Fortunately you continued to have improvement following the start of antibiotics, and we were able to test that you do not require additional oxygen support going forward. With your infection, it will be important that you be continued on antibiotics over the next two weeks; the main stay of your continued treatment will be through an antibiotic called levofloxacin that you will take every other day. We are holding your blood pressure medications for the time being, as your blood pressure as a result of the infection you are dealing with. Over the next week you should have your blood pressure measured in order to have conversations on restarting your medications. Pending Studies at Discharge: No Stand-Alone Forms: [facility], Smoking Cessation Medications and DC Order Prescriptions: New levofloxacin 500 mg tablet 500 mg PO Q48H 14 Days Qty: 7 RF: 0 Continued olanzapine [Zyprexa] 2.5 mg tablet 2.5 mg PO HS PRN (Reason: Nausea) RF: 0 benzonatate [Tessalon Perles] 100 mg capsule 100 mg PO TID PRN (Reason: cough) Qty: 60 RF: 2 prochlorperazine maleate [Compazine] 10 mg tablet 10 mg PO Q6H PRN (Reason: Nausea) Qty: 30 RF: 3 Flutter Valve Device See Rx Instructions .ROUTE .COMPLEX Qty: 1 RF: 0 Hyper-Flako 3.5 % solution for nebulization 4 ml inhalation BID Qty: 240 RF: 3 Mucinex 1,200 mg tablet extended release 12hr 1,200 mg PO BID Qty: 60 RF: 0 albuterol sulfate 90 mcg/actuation HFA aerosol inhaler 2 inh inhalation Q4H PRN (Reason: Shortness Of Breath) RF: 0 diazepam 5 mg tablet 5 mg PO Q6H PRN (Reason: Anxiety) RF: 0 Breo Ellipta 200-25 mcg/dose blister with device 1 inh inhalation DAILY RF: 0 fluticasone propionate 50 mcg/actuation spray,suspension 2 spray intranasal BID RF: 0 gabapentin 600 mg tablet 600 mg PO BID RF: 0 terconazole 0.4 % cream 1 applic vaginal UD PRN (Reason: Unknown) RF: 0 triamcinolone acetonide 0.1 % cream 1 applic topical BID PRN (Reason: Skin Irritation) RF: 0 cholecalciferol (vitamin D3) [Vitamin D3] 25 mcg (1,000 unit) Tablet 25 mcg PO HS RF: 0 ondansetron 8 mg tablet,disintegrating 8 mg PO Q8 PRN (Reason: Nausea And Vomiting) RF: 0 ymmxlgaiqv-bnzrzcz-phdduhog 50-325-40 mg capsule 1 cap PO Q6 PRN (Reason: Headache) RF: 0 Discontinued losartan 50 mg tablet 50 mg PO DAILY RF: 0 metoprolol tartrate 100 mg tablet 100 mg PO HS RF: 0 amlodipine 5 mg tablet 5 mg PO DAILY RF: 0 Discharge Orders: Discharge Order (Routine); Ordered 04/26/21 Ordered By: Alexandro Duron Admission Data Admit Date/Time: 04/24/21 19:18 Attending Provider: Carlos Godfrey Admit Provider: Nile Lee Primary Care Provider: Mario Rosales Jr Other Interventions: Discharge Summary Assessment (RN) Last Done: 04/26/21 11:58 Supervising Physician Co-Signing Physician Notes I personally examined the patient and verified all mathis points of history and exam, discussed case, and agree with decision making with Dr Duron Feeling better and wants to go home. Now on room air. Not feeling lightheaded weak or dizzy at all with ambulation. Vitals noted, in general she is fatigued but no distress. HEENT normocephalic atraumatic mucous membranes moist. Breathing unlabored no accessory muscle use good effort. Skin shows no rashes no pallor or icterus. Neuro shows no focal deficits. Severe pneumonia with severe sepsis (as manifested by her acute renal failure present on admission) and septic shock also present on admission-now improving. MRSA nares negative, improved nicely on cefepime. Was also on doxycycline for atypical coveragegiven the need for ongoing antipseudomonal level gram-negative coveragewe will send home on Levaquin, this will suffice for atypical coverage as well. Discussed risks/benefits and what to watch out for, discussed outpatient follow-up, stable for home. DVT proph - SCDs Outpatient follow-up Resident Activity Tracking Resident Involvement: Resident Care Provided Care Provided: Adult Hospital Medicine
--- NOTE | 2021-04-26 20:18 | Billing Data ---
Date of Service April 26, 2021 Coding Level of Care Code D/C Day Management <30 mins
== END 2021-04-26 13:44 | disposition home or self-care (01) | DRG 871 ==
LOC: ED 15:36 → SUATTDRO 19:18 → 2W 19:18

== ENCOUNTER 2023-05-01 10:52 | Inpatient (IN) ==
[2023-05-01] MEDS ORDERED: SODIUM CHLORIDE 0.9% 1000ML 500 ML IV ONE ×2 (11:43→12:44)
[2023-05-01 12:03] LABS: Hematocrit (blood only) 34.2 % (37.0-47.0); Mean Corpuscular Hemoglobin 34.1 pg (25.0-34.0); Mean Corpuscular Hgb Conc 35.1 g/dL (32.0-36.0); Mean Corpuscular Volume 97.2 fL (80.0-100.0); Mean Platelet Volume 10.1 fL (9.4-12.4); Platelet Count 333 K/uL (130-400); RDW Standard Deviation 53.8 fL (36.4-46.3); Red Blood Count 3.52 M/uL (4.20-5.40); White Blood Count 25.55 K/ul (4.8-10.8)
[2023-05-01 12:16] LABS: Albumin Globulin Ratio 0.8 (0.9-2); Albumin Level 2.8 gm/dl (3.4-5.0); Bilirubin,Total 0.3 mg/dl (0.2-1.0); Calcium 8.8 mg/dl (8.6-10.3); Creatinine Clr Calc Pharmacy 29.8 ml/min; Est GFR (African American) 52.3 ml/min; Est GFR (Non-African American) 45.1 ml/min; Globulin 3.5 gm/dl (2.5-4.0); Magnesium 1.1 mg/dl (1.7-2.4); Potassium 3.8 mmol/L (3.5-5.1); Total Protein 6.3 gm/dl (6.0-8.3)
[2023-05-01 12:21] LABS: Troponin I High Sensitivity 26.6 pg/ml (0-14)
[2023-05-01 12:22] LABS: Basophils % (auto) 0.4 %; Echinocytes 1+; Eosinophils # (auto) 0.02 K/uL (0-0.50); Eosinophils % (auto) 0.1 %; Immature Granulocytes % (auto) 1.6 %; Lymphocytes # (auto) 0.45 K/uL (1.2-3.4); Lymphocytes % (auto) 1.8 %; Monocytes # (auto) 1.72 K/uL (0.11-0.59); Monocytes % (auto) 6.7 %; Neutrophils # (auto) 22.86 K/uL (1.40-6.50); Neutrophils % (auto) 89.4 %; Polychromasia 1+
[2023-05-01] MEDS ORDERED: VANCOMYCIN CONSULT ACTIVE PRN (12:44)
[2023-05-01] MEDS ORDERED: VANCOMYCIN HCL 750 MG in SODIUM CHLORIDE 0.9% 500 ML IV ONE (12:44)
[2023-05-01] MEDS ORDERED: CEFEPIME 2,000 MG/20 ML VIAL IV STA (12:44)
--- NOTE | 2023-05-01 12:50 | XRay Report ---
XR chest 1V portable CLINICAL HISTORY: Dyspnea TECHNIQUE: Single frontal radiograph of the chest was obtained. Comparison: Comparison is made to chest radiograph 04/16/2023 FINDINGS: No lines and tubes are seen. Calcified aortic knob is seen. Right lower lung airspace opacity is seen . Density in the left upper lung is somewhat decreased compatible with resolution of postbiopsy hemor rhage. No evidence of pleural effusion or pneumothorax. IMPRESSION: 1. Right lower lung airspace opacity likely represents pneumonia or aspiration with or without super imposed atelectasis. 2. Partial visualization of left upper lobe mass. ACT 112: Negative or not required by law. Electronically signed by: Eduardo Ford M.D. 05/01/2023 12:48 PM
--- NOTE | 2023-05-01 13:08 | History & Physical Report ---
Date of Service May 01, 2023 Assessment & Plan (1) Sepsis: Plan: -Admit to the PCU on tele and continuous pulse oximetry -Currently stable on 2L NC and hemodynamically stable -Was noted to be hypotensive, hypoxic, and tachycardic on ED arrival, significant leukocytosis with left shift -Lactate WNL, source appears to be right middle lobe pneumonia, will follow UA when resulted -S/P 1L total NSS bolus in the ED, will give a 250 mL LR bolus STAT to complete her sepsis bolus then continue on maintenance LR until eating consistently -Full respiratory biofire negative -Will obtain STAT procal, MRSA swab, sputum cutlure w/gram stain, urine legionella, for further evaluation -Given one dose of Cefepime and Vanc in the ED, add flagyl and continue with Vanc and Cefepime for now >If MRSA swab is negative will DC vanc and continue with Cefepime/Flagyl due to her immunocompromised state and concern for aspiration with right love pna -Prn O2 to keep SpO2 between 88-92% -Speech therapy consult placed -Do not think she is in a COPD exacerbation as she is moving air well and without wheezing -Incentive spirometry, flutter therapy, scheduled antitussive -BL SCD's and SQ lovenox for DVT PPX -AM CBC, CMP, Mag -Regular diet (2) Acute respiratory failure with hypoxia: Plan: -See sepsis -Not on O2 at baseline -Wean to RA as able (3) Pneumonia: Plan: -Aspiration precautions, Minced and moist diet for now -Speech consult placed -Rest of care per Sepsis plan (4) COPD (chronic obstructive pulmonary disease): Plan: -Continue prn albuterol and home Breo Ellipta (5) Hypomagnesemia: Plan: -Noted to be 1.1 today -Patient and explain this is a chronic issue as PO magnesium has given her severe diarrhea in the past, no issues with IV mag -Likely due to malnutrition -Will give 2gm IV mag-sulfate in the ED and 3 additional bags of IV mag-sulfate on transfer -Continue to monitor am mag levels as it will likely take multiple days to fully replete her levels -Continue tele (6) Hypertension: Plan: -Stable, not currently on therapy -Continue to monitor (7) Small cell lung cancer: Plan: -[facility] -Still getting atezolizumab infusions q21d with last infusion 2 days ago (8) Elevated troponin: Plan: -Initial high sen trop elevated at 26 -No acute ST segment or T-wave changes -She is experiencing right-sided chest pain but this is at the site of her pneumonia and occurs with coughing -Likely due to demand from acute illness and hypoxia -Will repeat a STAT 2 hour high sen trop now, continue to monitor on tele (9) Tobacco abuse: Plan: -Still smoking 1 PPD -Continue to encourage cessation -Nictoine patches ordered Plan The patient was discussed with Dr. Rosario at the time of the admission History of Present Illness Chief Complaint: SOB Primary Care Provider: Gali Cruz MD Liza is a 67 year old female with a PMH significant for SCLL S/P chemo and radiation currently on maintenance Tecentriq, current tobacco abuse, HTN, malnutrition, and COPD (follows with Dr. Laws) who presented to the [facility] ED on 05/01/23 with a chief complaint of worsening SOB. In the ED the patient was noted to be saturating at 88% on RA, HR of 118, and BP of 96/67, and respirations of 26 . Labs were significant for a leukocytosis of 25 with left shift of 22, lymphopenia of 0.45, Cr of 1.25 (baseline is near 1.1), sodium of 133, mag of 1.1, initial high sen trop of 26, lactate WNL, and full respiratory biofire negative. Chest xray was read as 1. Right lower lung airspace opacity likely represents pneumonia or aspiration with or without superimposed atelectasis. 2. Partial visualization of left upper lobe mass.. Prior to admission the patient was given 1000 mL NSS, a dose of Cefepime, and a dose of Vancomycin. At the time of the exam the patient was sitting in bed in no acute distress with her sitting bedside. She states that she started to develop increased SOB compared to baseline, worsening SANDOVAL, and increased sputum production with sputum color change from clear/white to brown/green over the past week. She does not use O2 at baseline and checks her SpO2 at home. Her states that over the past 24 hours the patient's SpO2 has been running in the mid-low 80's. She is still smoking 1PDD but trying to wean down, she wo uld be interested in nicotine patches. She is experiencing right mid chest pain with cough and deep inspiration, she describes the pain as dull/achy and denies radiation of the pain. She denies recent fever, chills, abd pain, nausea, vomiting, diarrhea, dysuria, hematuria, melena, LE swelling and recent trauma. Her last infusion of Tecentriq was on 04/29 and was without compilation. She feels improved compared to arrival. When I turned her O2 off the patient desaturated into the mid 80's on RA during my exam. She is a full code and would want her to make medical decisions for her if she could not make them herself. Please refer to Dr. Hunter's attestation for any changes to the treatment plan Allergies Allergy/AdvReac Type Severity Reaction Status Date / Time budesonide Allergy Severe SHORTNESS Verified 01/22/23 13:59 OF BREATH formoterol Allergy Severe SHORTNESS Verified 01/22/23 13:59 OF BREATH Sulfa (Sulfonamide Allergy Severe HIVES Verified 01/22/23 13:59 Antibiotics) erythromycin base Allergy Intermediate CAUSES HER Verified 01/22/23 13:59 EYES TO BURN Penicillins Allergy Unknown HAPPENED Verified 01/22/23 13:59 A CHILD magnesium AdvReac Severe severe Verified 01/22/23 13:59 diarrhea thimerosol Allergy burning Uncoded 01/22/23 13:59 eyes Home Medications Medication Instructions Recorded Confirmed Type fluticasone propionate 50 2 spray intranasal BID 11/03/20 05/01/23 History mcg/actuation nasal spray,suspension terconazole 0.4 % vaginal cream 1 applic vaginal UD PRN Unknown 11/03/20 05/01/23 History triamcinolone acetonide 0.1 % 1 applic topical BID PRN Skin 11/03/20 05/01/23 History topical cream Irritation Flutter Valve See Rx Instructions .Route 04/13/21 05/01/23 Rx .COMPLEX #1 ea prochlorperazine maleate 10 mg 10 mg PO Q6H PRN Nausea #30 tabs 04/16/21 05/01/23 Rx tablet (Compazine) atezolizumab 1,200 mg/20 mL (60 mg IV ONCE 08/10/21 02/25/23 History mg/mL) intravenous solution (Tecentriq) imuevufghz-eboclyx-cuegjnye 50 1 cap PO .COMPLEX PRN Headache #13 10/28/22 05/01/23 Rx mg-325 mg-40 mg capsule caps gabapentin 600 mg tablet 600 mg PO BID #60 tabs 01/29/23 05/01/23 Rx benzonatate 100 mg capsule 100 mg PO TID PRN cough #180 caps 03/13/23 05/01/23 Rx albuterol sulfate 90 mcg/actuation 2 inh inhalation Q4H PRN Shortness 04/21/23 05/01/23 Rx aerosol inhaler Of Breath #8.5 grams fluticasone furoate 200 2 inh inhalation HS 05/01/23 05/01/23 History mcg-vilanterol 25 mcg/dose inhalation powder (Breo Ellipta) Past Med/Surg History Medical History (Updated 05/01/23 @ 17:38 by Jeffrey Garcia MD) Abnormal CT scan of lung Arthritis Avascular necrosis of left femur Chronic kidney disease COPD (chronic obstructive pulmonary disease) Degenerative disc disease Ectopic Facial contusion HCAP (healthcare-associated pneumonia) Hip fracture, left Hypertension Lung cancer Migraines Pulmonary nodule Right orbital fracture Subconjunctival hemorrhage of right eye Tobacco abuse Transient osteoporosis of hip Surgical History History of appendectomy History of bronchoscopy Family History Mother Heart disease Hypertension Kidney disease Father Emphysema lung Alcoholism Brother No problems noted. Sister Myocardial infarction Son No problems noted. Son No problems noted. 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 [employer] How many Children do You have: 2 How many Children do You have Comment: 2 biological, 4 step children Other Information That Helps Us Care for You: No Feels Safe at Home: Yes Safety Concerns: Feels Safe At This Time Childhood Exposure to Second-Hand Smoke: Yes Diet: regular caffeine: Yes (1 cup/day;2 cups/day) during the past year weight has: remained stable Dental Care, Regularly: Yes Physical Activity Frequency: Does not Exercise Seatbelt Use: always Sunscreen Use: Yes Assistive Devices: None Physical Exam Physical Exam: Physical Exam: General: In no acute distress, older than stated age, malnourished and ill appearing but non-toxic HEENT: Normocephalic, atraumatic, no scleral icterus, pupils around round, symmetrical, and reactive to light, moist mucus membranes, trachea midline, no thyromegaly Chest/Pulm: No respiratory distress, symmetrical chest expansion, rhonchi noted in the RLL and RLM, otherwise CTA throughout Cardiac: RRR, no murmurs noted Abdomen: Negative for ascites and bruising, normoactive bowel sounds, soft, non-tender to palpation throughout Musculoskeletal: Symmetrical and without signs of acute trauma, upper and lower extremities with full ROM, no atrophy, spasticity, or flaccidity Extremities: Radial, dorsalis pedis, and posterior tibial pulses are intact and symmetrical, no edema noted in the BL LE's Skin: Warm, dry, no rashes , lesions, or scars noted Neuro: Alert and oriented to person, place, month, year, and president, no focal defects, no tremors noted Psych: No acute distress, calm and cooperative during the exam Results & Data Results & Data Vital Signs (Past 12 Hours) Vital Signs Temp Pulse Resp BP Pulse Ox O2 Del Method O2 Flow Rate 05/01/23 11:43 Nasal Cannula 3 05/01/23 10:52 94 H 26 H 96/67 L 95 Nasal Cannula 3 05/01/23 11:31 102 H 05/01/23 11:26 88 L Nasal Cannula 0 05/01/23 11:06 36.6 C 118 H 26 H 66/45 L 90 Room Air Laboratory Results Abnormal lab results 05/01/23 05/01/23 05/01/23 Range/Units 11:36 11:36 12:12 WBC 25.55 H (4.8-10.8) K/ul RBC 3.52 L (4.20-5.40) M/uL Hct 34.2 L (37.0-47.0) % MCH 34.1 H (25.0-34.0) pg RDW Std Deviation 53.8 H (36.4-46.3) fL RDW Coeff of Kiara 15.0 H (11.5-14.5) % Neut # (Auto) 22.86 H (1.40-6.50) K/uL Lymph # (Auto) 0.45 L (1.2-3.4) K/uL [place] # (Auto) 1.72 H (0.11-0.59) K/uL Immature Gran # (Auto) 0.40 H (0.01-0.20) K/uL Sodium 133 L (136-145) mmol/L BUN 35 H (6-23) mg/dl Creatinine 1.25 H (0.6-1.2) mg/dl BUN/Creatinine Ratio 28.0 H (10-20) Glucose 124 H (70-99(Fasting)) mg/dl Magnesium 1.1 L (1.7-2.4) mg/dl Troponin I High Sens 26.6 H (0-14) pg/ml B-Natriuretic Peptide 229 H (0-100) pg/ml Albumin 2.8 L (3.4-5.0) gm/dl Albumin/Globulin Ratio 0.8 L (0.9-2) Diagnostic Findings Chest X-Ray 05/01/23 11:43 XR chest 1V portable CLINICAL HISTORY: Dyspnea TECHNIQUE: Single frontal radiograph of the chest was obtained. Comparison: Comparison is made to chest radiograph 04/16/2023 FINDINGS: No lines and tubes are seen. Calcified aortic knob is seen. Right lower lung airspace opacity is seen. Density in the left upper lung is somewhat decreased compatible with resolution of postbiopsy hemorrhage. No evidence of pleural effusion or pneumothorax. IMPRESSION: 1. Right lower lung airspace opacity likely represents pneumonia or aspiration with or without superimposed atelectasis. 2. Partial visualization of left upper lobe mass. ACT 112: Negative or not required by law. Electronically signed by: Eduardo Frod M.D. 05/01/2023 12:48 PM ECG Additional Comments: Sinus rhythm with Premature atrial complexes Otherwise normal ECG When compared with ECG of 24-APR-2021 16:09, Premature atrial complexes are now Present Code Status & VTE Plan Code Status Full code VTE Prophylaxis Plan VTE Prophylaxis will be ordered: Yes Supervising Physician Co-Signing Physician Notes I personally saw and examined the patient. I verified all mathis points and agree with Mikael Batres PA-C with the following exceptions and/or additions: 67 year old female current smoker with COPD, small cell lung cancer presents to the ER with shortness of breath, productive cough. Patient and unclear of duration of symptoms but at best guess going on for the last week. O/E A&Ox3, HS RRR, no murmurs, Chest right basal coarse crackles, using accessory muscles for breathing, Abdo SNT, cachetic appearing A/P Sepsis/PNA - "allergy to penicillin" therefore will use cefepime and metronidazole to cover for aspiration pneumonia (broad spectrum due to immunocompromised state). SLT consulted. No need for atypical coverage given typical appearing consolidation. Lactate 1.1. Aggressive fluid resuscitation not required. COPD - no wheezing on exam to suggest exacerbation Penicillin allergy - recommend she follows up with superintendent plant to have this formally tested as limiting her antibiotic choice Otherwise as above PG Care Time/CCT Total # of Minutes Spent Total Time Spent with Patient: Total time spent is greater than 50% in coordination of care (as documented) at patient's floor/unit and/or counseling patient: Coding [place] [address] INT INP/OBS CARE 3/75MIN Patient Type Established Medical Decision Making High Complexity Diagnoses Sepsis A41.9 Acute respiratory failure with hypoxia J96.01 Pneumonia J18.9 COPD (chronic obstructive pulmonary disease) J44.9 Hypomagnesemia E83.42 Hypertension I10 Small cell lung cancer C34.90 Elevated troponin R77.8 Tobacco abuse Z72.0
[2023-05-01 13:34] LABS: Adenovirus PCR Not Detected (NotDetected); Bordetella parapertussis PCR Not Detected (NotDetected); Bordetella pertussis PCR Not Detected (NotDetected); Chlamydia pneumoniae PCR Not Detected (NotDetected); Coronavirus 229E PCR Not Detected (NotDetected); Coronavirus CoV-2 (COVID19)PCR Not Detected (NotDetected); Coronavirus HKU1 PCR Not Detected (NotDetected); Coronavirus NL63 PCR Not Detected (NotDetected); Coronavirus OC43PCR Not Detected (NotDetected); Human Metapneumovirus PCR Not Detected (NotDetected); Influenza A PCR Not Detected (NotDetected); Influenza B PCR Not Detected (NotDetected); Mycoplasma pneumoniae PCR Not Detected (NotDetected); Parainfluenza Virus 1 PCR Not Detected (NotDetected); Parainfluenza Virus 2 PCR Not Detected (NotDetected); Parainfluenza Virus 3 PCR Not Detected (NotDetected); Parainfluenza Virus 4 PCR Not Detected (NotDetected); Respiratory Syncytial VirusPCR Not Detected (NotDetected); Rhinovirus/Enterovirus PCR Not Detected (NotDetected)
[2023-05-01] MEDS ORDERED: metroNIDAZOLE 500 MG/100 ML BAG IV STA (13:37)
[2023-05-01] MEDS ORDERED: LACTATED RINGER'S 250 ML IV ONE (13:43)
[2023-05-01] MEDS ORDERED: guaiFENesin/DEXTROM SYRUP 200MG/20MG 10ML UDC PO STA (13:48)
[2023-05-01 14:13] LABS: Appearance Urine Clear (Clear); Bacteria Urine Automated Negative (Negative); Bilirubin Urine Negative (Negative); Blood Urine Negative (Negative); Color Urine Yellow; Epithelial Cell Urine Auto >30 /lpf (0-5); Glucose Urine UA Negative (Negative); Ketones Urine Negative (Negative); Leukocyte Esterase Urine Negative (Negative); Nitrite Urine Negative (Negative); Protein Urine 1+ (Negative); RBC Urine Automated 0-4 /hpf (0-4); Specific Gravity Urine 1.013 (1.000-1.030); Urobilinogen Urine Negative (Negative); pH Urine 5.5 (4.5-7.5)
[2023-05-01] MEDS: MAGNESIUM SULFATE / D5W 1 GM/100 ML BAG IV SCH ×5 (14:16→21:44)
[2023-05-01] MEDS ORDERED: ENOXAPARIN INJ 40 MG/0.4 ML SYR SQ SCH (15:38)
[2023-05-01] MEDS ORDERED: PROCHLORPERAZINE MALEATE 10 MG TAB PO PRN (15:38)
[2023-05-01] MEDS ORDERED: ACETAMINOPHEN 325 MG TAB PO PRN (15:38)
--- NOTE | 2023-05-01 17:26 | Electrocardiogram Report ---
Test Reason : Blood Pressure : / mmHG Vent. Rate : 099 BPM Atrial Rate : 099 BPM P-R Int : 126 ms QRS Dur : 084 ms QT Int : 340 ms P-R-T Axes : 085 085 081 degrees QTc Int : 436 ms Sinus rhythm with Premature atrial complexes Otherwise normal ECG When compared with ECG of 24-APR-2021 16:09, Premature atrial complexes are now Present Confirmed by Enrique Reilly ([id number]) on 05/01/2023 5:25:46 PM Referred By: Confirmed By:Enrique Reilly
--- NOTE | 2023-05-01 17:38 | Emergency Department Note ---
Impression & Plan Pneumonia, Sepsis ED Provider Note INFORMANT: Patient and significant other ED PROVIDER(S): Jeffrey Garcia MD CHIEF COMPLAINT: Shortness of breath PLAN: Disposition: Admitted Condition: Guarded Outpatient prescription management: none Referral: None MEDICAL DECISION MAKING: Patient presented because of shortness of breath. She was hypoxic and had low blood pressure. Patient was started on IV fluids. Lactate performed and was negative. Patient was found to have a significant white blood cell count elevation and a right lower lobe infiltrate on chest x-ray concerning for pneumonia. Patient's blood pressure did improve. She was treated with broad- spectrum antibiotics as well as adequate IV fluids to cover her for sepsis. Further management in the hospital will be necessary. [facility] Patient was evaluated in the ER and admitted for further management. Discussed with quality compliance manager After review of the information above and other included data, I feel the patient requires admission. Triage Nursing notes reviewed and agree them. Vital Signs: reviewed and remarkable for hypoxia and hypotension Prior /Outside records reviewed: Prior PCP record reviewed. Differential diagnosis: Reactive airway disease, pneumonia, pneumothorax, COPD, CHF, infections, cardiac ischemia, pulmonary embolism, musculoskeletal, gastrointestinal, as well as other pathologies. Diagnostics, as interpreted by me: ECG: Sinus rhythm with PACs at [address] elevation or depression. Cardiac Monitoring: Cardiac monitoring ordered by me: The patient was placed on continuous cardiac monitoring and observed. It revealed a normal sinus rhythm at 86 bpm. Medical decision rules: none Imaging studies: Chest x-ray concerning for right-sided infiltrate HPI: The patient is a 67 year old female who presents to the Emergency Room with complaints of shortness of breath. This started few days ago and is worsening. The patient also notes the following associated symptoms, cough, congestion, generalized weakness, low oxygen levels at home. The patient has found no relieving factors. Current pain is rated as 0/10. Patient has history of lung cancer. Currently receiving immunotherapy. Pt denies LOC, headache, fevers, chills, diaphoresis, visual changes, neck pain, chest pain, nausea, vomiting, abdominal pain, back pain, melena, hematochezia, urinary symptoms, numbness, lymphadenopathy, rash, or other complaints. PAST MEDICAL HISTORY: See Below, lung cancer PAST SURGICAL HISTORY: See Below, SOCIAL HISTORY: See Below, HOME MEDICATIONS: See Below ALLERGIES: See Below VITALS: See Below PHYSICAL EXAMINATION: GENERAL: Awake, alert, frail-appearing, in no distress HENT: Normocephalic, atraumatic. Oropharynx unremarkable. EYES: Normal conjunctiva. Sclera non-icteric. NECK: Inspection normal. Non-tender. Supple. No nuchal rigidity. FROM. No masses. RESPIRATORY: No wheezes. Right lower lung rales. Increased respiratory effort. CARDIAC: Normal rate. Normal rhythm. No murmurs. No rubs. Extremities warm and well perfused. Pulses equal. No JVD. GI: Soft, non-distended. No tenderness to palpation. No rebound or guarding. No masses. RECTAL: Deferred. MUSCULOSKELETAL: Atraumatic. Chest examination reveals no tenderness. The back is symmetrical on inspection without obvious abnormality. There is no CVA tenderness to palpation. No joint edema. LOWER EXTREMITIES: Calves are equal size bilaterally and non-tender. No edema. No discoloration. NEURO: Normal sensorium. No sensory or motor deficits noted. SKIN: No rash or jaundice noted. CRITICAL CARE: I have personally spent greater than 30 minutes of critical care time in the direct management of this patient. This includes bedside care, interpretation of diagnostic studies, and testing, discussion with consultants, patient, and family members, and other required patient management activities. These minutes are in excess of all separately billable procedures. Past Med/Surg History Medical History (Updated 05/01/23 @ 17:38 by Jeffrey Garcia MD) Abnormal CT scan of lung Arthritis Avascular necrosis of left femur Chronic kidney disease COPD (chronic obstructive pulmonary disease) Degenerative disc disease Ectopic Facial contusion HCAP (healthcare-associated pneumonia) Hip fracture, left Hypertension Lung cancer Migraines Pulmonary nodule Right orbital fracture Subconjunctival hemorrhage of right eye Tobacco abuse Transient osteoporosis of hip Surgical History History of appendectomy History of bronchoscopy Family History Mother Heart disease Hypertension Kidney disease Father Emphysema lung Alcoholism Brother No problems noted. Sister Myocardial infarction Son No problems noted. Son No problems noted. 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 [employer] How many Children do You have: 2 How many Children do You have Comment: 2 biological, 4 step children Other Information That Helps Us Care for You: No Feels Safe at Home: Yes Safety Concerns: Feels Safe At This Time Childhood Exposure to Second-Hand Smoke: Yes Diet: regular caffeine: Yes (1 cup/day;2 cups/day) during the past year weight has: remained stable Dental Care, Regularly: Yes Physical Activity Frequency: Does not Exercise Seatbelt Use: always Sunscreen Use: Yes Assistive Devices: None Allergies Allergies Allergy/AdvReac Type Severity Reaction Status Date / Time budesonide Allergy Severe SHORTNESS Verified 01/22/23 13:59 OF BREATH formoterol Allergy Severe SHORTNESS Verified 01/22/23 13:59 OF BREATH Sulfa (Sulfonamide Allergy Severe HIVES Verified 01/22/23 13:59 Antibiotics) erythromycin base Allergy Intermediate CAUSES HER Verified 01/22/23 13:59 EYES TO BURN Penicillins Allergy Unknown HAPPENED Verified 01/22/23 13:59 A CHILD magnesium AdvReac Severe severe Verified 01/22/23 13:59 diarrhea thimerosol Allergy burning Uncoded 01/22/23 13:59 eyes Home Meds Home Medications Medication Instructions Recorded Confirmed fluticasone propionate 50 2 spray intranasal BID 11/03/20 05/01/23 mcg/actuation nasal spray,suspension terconazole 0.4 % vaginal cream 1 applic vaginal UD PRN Unknown 11/03/20 05/01/23 triamcinolone acetonide 0.1 % 1 applic topical BID PRN Skin 11/03/20 05/01/23 topical cream Irritation atezolizumab 1,200 mg/20 mL (60 mg IV ONCE 08/10/21 02/25/23 mg/mL) intravenous solution ([place]) fluticasone furoate 200 2 inh inhalation HS 05/01/23 05/01/23 mcg-vilanterol 25 mcg/dose inhalation powder (Breo Ellipta) Previous Rx's Medication Instructions Recorded Flutter Valve See Rx Instructions .Route 04/13/21 .COMPLEX #1 ea prochlorperazine maleate 10 mg 10 mg PO Q6H PRN Nausea #30 tabs 04/16/21 tablet (Compazine) eesezpibyg-[id number] 50 1 cap PO .COMPLEX PRN Headache #13 10/28/22 mg-325 mg-40 mg capsule caps gabapentin 600 mg tablet 600 mg PO BID #60 tabs 01/29/23 benzonatate 100 mg capsule 100 mg PO TID PRN cough #180 caps 03/13/23 albuterol sulfate 90 mcg/actuation 2 inh inhalation Q4H PRN Shortness 04/21/23 aerosol inhaler Of Breath #8.5 grams Results & Data (ED) Vital Signs Vital Signs - 24 hr 05/01/23 11:06 05/01/23 11:26 05/01/23 11:31 Temperature 36.6 C Temperature Source Temporal Artery Scan Pulse Rate 118 H 102 H Respiratory Rate 26 H Respiratory Effort / Characteristics Non-Labored Respiratory Depth Normal Blood Pressure 66/45 L Blood Pressure Mean 52 Pulse Oximetry 90 88 L Oxygen Delivery Method Room Air Nasal Cannula Oxygen Flow Rate 0 Sepsis Recent Fever Within 48 Hours No Sepsis New/Unexplained Change in Mental Status N/A Sepsis Action Taken by Nursing No Action Required Oxygen Flow Rate - Titration 3 Pulse Oximetry Post Tiitration 95 05/01/23 10:52 05/01/23 11:43 Temperature Temperature Source Pulse Rate 94 H Respiratory Rate 26 H Respiratory Effort / Characteristics Respiratory Depth Blood Pressure 96/67 L Blood Pressure Mean 76 Pulse Oximetry 95 Oxygen Delivery Method Nasal Cannula Nasal Cannula Oxygen Flow Rate 3 3 Sepsis Recent Fever Within 48 Hours Sepsis New/Unexplained Change in Mental Status Sepsis Action Taken by Nursing Oxygen Flow Rate - Titration Pulse Oximetry Post Tiitration Laboratory Data 05/01/23 11:36 05/01/23 11:36 Lab Results 05/01/23 05/01/23 05/01/23 Range/Units 11:36 11:36 12:00 WBC 25.55 H (4.8-10.8) K/ul RBC 3.52 L (4.20-5.40) M/uL Hgb 12.0 (12.0-16.0) g/dl Hct 34.2 L (37.0-47.0) % MCV 97.2 (80.0-100.0) fL MCH 34.1 H (25.0-34.0) pg MCHC 35.1 (32.0-36.0) g/dL RDW Std Deviation 53.8 H (36.4-46.3) fL RDW Coeff of Kiara 15.0 H (11.5-14.5) % Plt Count 333 (130-400) K/uL MPV 10.1 (9.4-12.4) fL Immature Gran % (Auto) 1.6 % Neut % (Auto) 89.4 % Lymph % (Auto) 1.8 % [place] % (Auto) 6.7 % Eos % (Auto) 0.1 % Baso % (Auto) 0.4 % Neut # (Auto) 22.86 H (1.40-6.50) K/uL Lymph # (Auto) 0.45 L (1.2-3.4) K/uL [place] # (Auto) 1.72 H (0.11-0.59) K/uL Eos # (Auto) 0.02 (0-0.50) K/uL Baso # (Auto) 0.10 (0-0.2) K/uL Immature Gran # (Auto) 0.40 H (0.01-0.20) K/uL Polychromasia 1+ Echinocytes 1+ Sodium 133 L (136-145) mmol/L Potassium 3.8 (3.5-5.1) mmol/L Chloride 99 (98-107) mmol/L Carbon Dioxide 23 (21-32) mmol/L Anion Gap 11 (3-11) BUN 35 H (6-23) mg/dl Creatinine 1.25 H (0.6-1.2) mg/dl Est Cr Clr Drug Dosing 29.8 ml/min Est GFR ( Amer) 52.3 ml/min Est GFR (Non-Af Amer) 45.1 ml/min BUN/Creatinine Ratio 28.0 H (10-20) Glucose 124 H (70-99(Fasting)) mg/dl Lactate 1.1 (0.4-2.0) mmol/L Calcium 8.8 (8.6-10.3) mg/dl Magnesium 1.1 L (1.7-2.4) mg/dl Total Bilirubin 0.3 (0.2-1.0) mg/dl AST 23 (13-39) U/L ALT 32 (7-52) U/L Alkaline Phosphatase 101 (34-104) U/L Troponin I High Sens 26.6 H (0-14) pg/ml B-Natriuretic Peptide (0-100) pg/ml Total Protein 6.3 (6.0-8.3) gm/dl Albumin 2.8 L (3.4-5.0) gm/dl Globulin 3.5 (2.5-4.0) gm/dl Albumin/Globulin Ratio 0.8 L (0.9-2) Adenovirus (PCR) (NotDetected) B. pertussis DNA (PCR) (NotDetected) B.parapertussis DNA PCR (NotDetected) C. pneumoniae DNA (PCR) (NotDetected) Coronavirus OC43 (PCR) (NotDetected) Coronavirus HKU1 (PCR) (NotDetected) Coronavirus 229E (PCR) (NotDetected) SARS-CoV-2 (PCR) (NotDetected) Coronavirus NL63 (PCR) (NotDetected) Human Metapneumovir PCR (NotDetected) Influenza Type A (PCR) (NotDetected) Influenza Type B (PCR) (NotDetected) M. pneumoniae (PCR) (NotDetected) Parainfluenza 1 (PCR) (NotDetected) Parainfluenza 2 (PCR) (NotDetected) Parainfluenza 3 (PCR) (NotDetected) Parainfluenza 4 (PCR) (NotDetected) RSV (PCR) (NotDetected) Entero/Rhino (PCR) (NotDetected) 05/01/23 05/01/23 Range/Units 12:06 12:12 WBC (4.8-10.8) K/ul RBC (4.20-5.40) M/uL Hgb (12.0-16.0) g/dl Hct (37.0-47.0) % MCV (80.0-100.0) fL MCH (25.0-34.0) pg MCHC (32.0-36.0) g/dL RDW Std Deviation (36.4-46.3) fL RDW Coeff of Kiara (11.5-14.5) % Plt Count (130-400) K/uL MPV (9.4-12.4) fL Immature Gran % (Auto) % Neut % (Auto) % Lymph % (Auto) % [place] % (Auto) % Eos % (Auto) % Baso % (Auto) % Neut # (Auto) (1.40-6.50) K/uL Lymph # (Auto) (1.2-3.4) K/uL [place] # (Auto) (0.11-0.59) K/uL Eos # (Auto) (0-0.50) K/uL Baso # (Auto) (0-0.2) K/uL Immature Gran # (Auto) (0.01-0.20) K/uL Polychromasia Echinocytes Sodium (136-145) mmol/L Potassium (3.5-5.1) mmol/L Chloride (98-107) mmol/L Carbon Dioxide (21-32) mmol/L Anion Gap (3-11) BUN (6-23) mg/dl Creatinine (0.6-1.2) mg/dl Est Cr Clr Drug Dosing ml/min Est GFR ( Amer) ml/min Est GFR (Non-Af Amer) ml/min BUN/Creatinine Ratio (10-20) Glucose (70-99(Fasting)) mg/dl Lactate (0.4-2.0) mmol/L Calcium (8.6-10.3) mg/dl Magnesium (1.7-2.4) mg/dl Total Bilirubin (0.2-1.0) mg/dl AST (13-39) U/L ALT (7-52) U/L Alkaline Phosphatase (34-104) U/L Troponin I High Sens (0-14) pg/ml B-Natriuretic Peptide 229 H (0-100) pg/ml Total Protein (6.0-8.3) gm/dl Albumin (3.4-5.0) gm/dl Globulin (2.5-4.0) gm/dl Albumin/Globulin Ratio (0.9-2) Adenovirus (PCR) Not Detected (NotDetected) B. pertussis DNA (PCR) Not Detected (NotDetected) B.parapertussis DNA PCR Not Detected (NotDetected) C. pneumoniae DNA (PCR) Not Detected (NotDetected) Coronavirus OC43 (PCR) Not Detected (NotDetected) Coronavirus HKU1 (PCR) Not Detected (NotDetected) Coronavirus 229E (PCR) Not Detected (NotDetected) SARS-CoV-2 (PCR) Not Detected (NotDetected) Coronavirus NL63 (PCR) Not Detected (NotDetected) Human Metapneumovir PCR Not Detected (NotDetected) Influenza Type A (PCR) Not Detected (NotDetected) Influenza Type B (PCR) Not Detected (NotDetected) M. pneumoniae (PCR) Not Detected (NotDetected) Parainfluenza 1 (PCR) Not Detected (NotDetected) Parainfluenza 2 (PCR) Not Detected (NotDetected) Parainfluenza 3 (PCR) Not Detected (NotDetected) Parainfluenza 4 (PCR) Not Detected (NotDetected) RSV (PCR) Not Detected (NotDetected) Entero/Rhino (PCR) Not Detected (NotDetected) Administered Medications Magnesium Sulfate/Dextrose (Magnesium Sulfate / D5w) 1 gm in 100 mls @ 50 mls/hr IV Q2H MICHA Stop: 05/01/23 17:44 Last Admin: 05/01/23 16:11 Dose: 50 mls/hr Documented By: Infusion: 05/01/23 16:11 Dose: 50 mls/hr Documented By: Admin: 05/01/23 14:16 Dose: 50 mls/hr Documented By: MMZ Discontinued Medications Enoxaparin Sodium (Enoxaparin Inj 40 Mg/0.4 Ml Syr) 40 mg SQ Q24H MICHA Stop: 05/31/23 15:37 Last Admin: 05/01/23 16:12 Dose: Not Given Documented By: FELICITAS Guaifenesin/Dextromethorphan (Guaifenesin/Dextrom Syrup 200mg/20mg 10ml Udc) 10 ml PO NOW STA Stop: 05/01/23 13:49 Last Admin: 05/01/23 16:12 Dose: 10 ml Documented By: FELICITAS Sodium Chloride (Nss 1000ml) 500 mls @ 999 mls/hr IV .Q31M ONE Stop: 05/01/23 12:13 Last Infusion: 05/01/23 13:58 Dose: 0 mls/hr Documented By: Admin: 05/01/23 12:01 Dose: 999 mls/hr Documented By: CHIDI Sodium Chloride (Nss 1000ml) 500 mls @ 999 mls/hr IV .Q31M ONE Stop: 05/01/23 13:14 Last Infusion: 05/01/23 13:58 Dose: 0 mls/hr Documented By: Admin: 05/01/23 13:04 Dose: 999 mls/hr Documented By: CHIDI Vancomycin HCl 750 mg/ Sodium (Chloride) 515 mls @ 200 mls/hr IV NOW ONE Stop: 05/01/23 15:18 Last Admin: 05/01/23 13:46 Dose: 200 mls/hr Documented By: CHIDI Cefepime HCl (Maxipime) 2,000 mg in 20 mls @ 5 mls/min IV NOW STA; Protocol Stop: 05/01/23 12:47 Last Admin: 05/01/23 13:04 Dose: 5 mls/min Documented By: CHIDI Metronidazole (Flagyl) 500 mg in 100 mls @ 100 mls/hr IV NOW STA; Protocol Stop: 05/01/23 14:36 Last Infusion: 05/01/23 15:57 Dose: 0 mls/hr Documented By: Admin: 05/01/23 14:16 Dose: 100 mls/hr Documented By: TEJA Lactated Ringer's (Lr) 250 mls @ 999 mls/hr IV .Q16M ONE Stop: 05/01/23 13:58 Last Admin: 05/01/23 16:16 Dose: Not Given Documented By: FELICITAS Imaging Data Radiologist's Impression: Chest X-Ray 05/01/23 11:43 XR chest 1V portable CLINICAL HISTORY: Dyspnea TECHNIQUE: Single frontal radiograph of the chest was obtained. Comparison: Comparison is made to chest radiograph 04/16/2023 FINDINGS: No lines and tubes are seen. Calcified aortic knob is seen. Right lower lung airspace opacity is seen. Density in the left upper lung is somewhat decreased compatible with resolution of postbiopsy hemorrhage. No evidence of pleural effusion or pneumothorax. IMPRESSION: 1. Right lower lung airspace opacity likely represents pneumonia or aspiration with or without superimposed atelectasis. 2. Partial visualization of left upper lobe mass. ACT 112: Negative or not required by law. Electronically signed by: Eduardo Ford M.D. 05/01/2023 12:48 PM Discharge Plan Visit Data Chief Complaint: Shortness of Breath/Dyspnea Stated Complaint: SHORTNESS OF BREATH ED Provider: Jeffrey Garcia Discharge Problem: Pneumonia, Sepsis Patient Disposition: Admitted As Inpatient Discharge Instructions Interventions: ED Discharge Assessment Last Done: 05/01/23 15:03
[2023-05-01] MEDS: NICOTINE 21 MG/24 HR TDSY TD SCH (18:02)
[2023-05-01] MEDS: FLUTICASONE/VILANTEROL 200/25MCG 14 PUFFS/INHALER INH SCH (20:01)
[2023-05-01] MEDS: FLUTICASONE PROPIONATE NA SPR 16 GM BTL SCH (20:01)
[2023-05-01] MEDS: GABAPENTIN 600 MG TAB PO SCH (20:02)
[2023-05-01] MEDS: HEPARIN SOD 5,000 UNIT/0.5 ML VIAL SC SCH (20:02)
[2023-05-01] MEDS: guaiFENesin/DEXTROM SYRUP 200MG/20MG 10ML UDC PO SCH (20:03)
[2023-05-01] MEDS ORDERED: CEFEPIME 2,000 MG in SYRINGE 0 ML IV SCH (21:00)
[2023-05-01] MEDS: metroNIDAZOLE 500 MG/100 ML BAG IV SCH (21:40)
[2023-05-01] MEDS: CEFEPIME 1,000 MG in SYRINGE 0 ML IV SCH (23:35)
[2023-05-02] MEDS: guaiFENesin/DEXTROM SYRUP 200MG/20MG 10ML UDC PO SCH ×4 (02:57→19:54)
[2023-05-02] MEDS: metroNIDAZOLE 500 MG/100 ML BAG IV SCH ×3 (06:04→22:35)
--- NOTE | 2023-05-02 07:18 | Hospitalist Progress Note ---
Date of Service May 02, 2023 Assessment & Plan (1) Sepsis: Plan: -Secondary to pulmonary source of right lower lobe pneumonia -Was noted to be hypotensive, hypoxic, and tachycardic on ED arrival, significant leukocytosis with left shift Status post volume resuscitation -Full respiratory biofire negative sputum culture w/gram stain, urine legionella, for further evaluation Remains on cefepime and Flagyl patient will not be continued on MRSA coverage as MRSA swab is negative Speech therapy consults placed easy to chew diet Patient has history of lung cancer status postresection continuing to smoke [facility] -Still getting atezolizumab infusions q21d with last infusion 2 days ago (2) Elevated troponin: Plan: -Initial high sen trop elevated at 26 repeated 25 likely demand ischemia -No acute ST segment or T-wave changes - (3) Hypomagnesemia: Plan: Hypokalemia will be repleted with additional bags of magnesium to supplement and promote repletion (4) Tobacco abuse: Plan: -Still smoking 1 PPD -Continue to encourage cessation -Nictoine patches ordered Admission and Anticipated Discharge Date Admission Date: May 01, 2023 Subjective Feels slightly better after antibiotics she still short of breath shows a productive cough still very weak Physical Exam Physical Exam: Pulm examination reveals rhonchi to the right base Card exam is regular I cannot hear a systolic murmur Abdomen NABS soft and nontender Results & Data Results & Data Vital Signs (Past 12 Hours) Vital Signs Temp Pulse Pulse Resp BP Pulse Ox O2 Del Method 05/02/23 07:08 97.9 F 73 22 129/71 92 Nasal Cannula 05/02/23 02:55 99.0 F 76 18 123/66 91 Nasal Cannula 05/01/23 23:33 99.3 F 80 16 111/58 L 91 Nasal Cannula 05/01/23 23:00 83 05/01/23 20:00 Nasal Cannula 05/01/23 19:17 98.6 F 92 H 22 122/66 91 Nasal Cannula O2 Flow Rate 05/02/23 07:08 2 05/02/23 02:55 2 05/01/23 23:33 2 05/01/23 23:00 05/01/23 20:00 05/01/23 19:17 2 Laboratory Results Reviewed CBC reviewed chemistry PG Care Time/CCT Total # of Minutes Spent Total Time Spent with Patient: Total time spent is greater than 50% in coordination of care (as documented) at patient's floor/unit and/or counseling patient: Coding Level of Care Code 84987 SUB INP/OBS CARE 3/50MIN Diagnoses Sepsis A41.9 Elevated troponin R77.8 Hypomagnesemia E83.42 Tobacco abuse Z72.0
[2023-05-02 07:44] LABS: Albumin Globulin Ratio 0.8 (0.9-2); Albumin Level 2.5 gm/dl (3.4-5.0); BUN Creatinine Ratio 26.6 (10-20); Bilirubin,Total 0.3 mg/dl (0.2-1.0); Calcium 8.4 mg/dl (8.6-10.3); Est GFR (African American) 61.7 ml/min; Est GFR (Non-African American) 53.2 ml/min; Globulin 3.2 gm/dl (2.5-4.0); Potassium 3.3 mmol/L (3.5-5.1); Total Protein 5.7 gm/dl (6.0-8.3)
[2023-05-02 07:51] LABS: Basophils # (auto) 0.02 K/uL (0-0.2); Basophils % (auto) 0.1 %; Eosinophils # (auto) 0.01 K/uL (0-0.50); Eosinophils % (auto) 0.1 %; Hematocrit (blood only) 31.3 % (37.0-47.0); Hemoglobin 10.9 g/dl (12.0-16.0); Immature Granulocytes # (auto) 0.14 K/uL (0.01-0.20); Lymphocytes # (auto) 0.36 K/uL (1.2-3.4); Lymphocytes % (auto) 2.5 %; Mean Corpuscular Hemoglobin 33.6 pg (25.0-34.0); Mean Corpuscular Hgb Conc 34.8 g/dL (32.0-36.0); Mean Corpuscular Volume 96.6 fL (80.0-100.0); Mean Platelet Volume 10.3 fL (9.4-12.4); Monocytes # (auto) 0.68 K/uL (0.11-0.59); Monocytes % (auto) 4.8 %; Neutrophils # (auto) 12.95 K/uL (1.40-6.50); Neutrophils % (auto) 91.5 %; Platelet Count 284 K/uL (130-400); RDW Standard Deviation 53.7 fL (36.4-46.3); Red Blood Count 3.24 M/uL (4.20-5.40); White Blood Count 14.16 K/ul (4.8-10.8)
[2023-05-02] MEDS: FLUTICASONE PROPIONATE NA SPR 16 GM BTL SCH ×2 (08:38→19:54)
[2023-05-02] MEDS: GABAPENTIN 600 MG TAB PO SCH ×2 (08:39→19:55)
[2023-05-02] MEDS: HEPARIN SOD 5,000 UNIT/0.5 ML VIAL SC SCH ×2 (08:39→19:55)
[2023-05-02] MEDS: NICOTINE 21 MG/24 HR TDSY TD SCH (09:07)
[2023-05-02] MEDS: CEFEPIME 1,000 MG in SYRINGE 0 ML IV SCH ×2 (13:49→23:31)
--- NOTE | 2023-05-02 15:24 | Fluoroscopy Report ---
FL video swallow CLINICAL HISTORY: assess for aspiration/silent aspiration TECHNIQUE: Video fluoroscopy of the pharyngeal region was performed as barium mixtures of varying con sistencies were administered to the patient by the speech pathologist. A formal esophagram was not pe rformed. Comparison: None available at the time of this dictation. FINDINGS: Total fluoroscopy time: 1.37 minutes. Radiation dose: 7.23 mGy. Penetration is seen with thin liquids. There was no laryngeal vestibular penetration or yifan trachea l aspiration. Pooling of barium was noted in the bilateral piriform sinuses and valleculae. IMPRESSION: Penetration is seen without yifan aspiration. Please see the speech pathology report for further details. ACT 112: Negative or not required by law. Electronically signed by: Eduardo Ford M.D. 05/02/2023 3:22 PM
[2023-05-02] MEDS ORDERED: MAGNESIUM SULFATE / D5W 1 GM/100 ML BAG IV ONE (18:59)
--- NOTE | 2023-05-02 19:17 | Hospitalist Progress Note ---
Date of Service May 02, 2023 Assessment & Plan (1) Sepsis: Plan: -Secondary to pulmonary source of right lower lobe pneumonia, possible gram negative or aspiration pneumonia -Was noted to be hypotensive, hypoxic, and tachycardic on ED arrival, significant leukocytosis with left shift Status post volume resuscitation -Full respiratory biofire negative sputum culture w/gram stain, urine legionella, for further evaluation Remains on cefepime and Flagyl patient will not be continued on MRSA coverage as MRSA swab is negative Speech therapy consults placed easy to chew diet Patient has history of lung cancer status postresection continuing to smoke [facility] -Still getting atezolizumab infusions q21d with last infusion 2 days ago (2) Elevated troponin: Plan: -Initial high sen trop elevated at 26 repeated 25 likely demand ischemia -No acute ST segment or T-wave changes - (3) Hypomagnesemia: Plan: Hypokalemia will be repleted with additional bags of magnesium to supplement and promote repletion (4) Tobacco abuse: Plan: -Still smoking 1 PPD -Continue to encourage cessation -Nictoine patches ordered Admission and Anticipated Discharge Date Admission Date: May 01, 2023 Results & Data Results & Data Vital Signs (Past 12 Hours) Vital Signs Temp Pulse Resp BP Pulse Ox Pulse Ox O2 Del Method 05/02/23 08:00 Nasal Cannula 05/02/23 15:38 90 05/02/23 15:42 98.6 F 82 18 122/59 L 90 Nasal Cannula 05/02/23 11:56 98.1 F 77 24 137/76 92 Nasal Cannula O2 Flow Rate O2 Flow Rate 05/02/23 08:00 2 05/02/23 15:38 2 05/02/23 15:42 05/02/23 11:56 2 PG Care Time/CCT Total # of Minutes Spent Total Time Spent with Patient: Total time spent is greater than 50% in coordination of care (as documented) at patient's floor/unit and/or counseling patient: Coding Level of Care Code None Diagnoses Sepsis A41.9 Elevated troponin R77.8 Hypomagnesemia E83.42 Tobacco abuse Z72.0
[2023-05-02] MEDS: FLUTICASONE/VILANTEROL 200/25MCG 14 PUFFS/INHALER INH SCH (19:54)
[2023-05-02] MEDS: POTASSIUM CHLORIDE CRTAB 20 MEQ TABCR PO SCH (20:31)
[2023-05-03] MEDS: guaiFENesin/DEXTROM SYRUP 200MG/20MG 10ML UDC PO SCH ×4 (03:13→20:39)
[2023-05-03] MEDS: metroNIDAZOLE 500 MG/100 ML BAG IV SCH ×3 (05:48→21:29)
[2023-05-03 06:18] LABS: Hematocrit (blood only) 31.5 % (37.0-47.0); Mean Corpuscular Hemoglobin 33.5 pg (25.0-34.0); Mean Corpuscular Hgb Conc 34.9 g/dL (32.0-36.0); Mean Platelet Volume 10.1 fL (9.4-12.4); Platelet Count 283 K/uL (130-400); RDW Coefficient of Variation 14.5 % (11.5-14.5); RDW Standard Deviation 51.3 fL (36.4-46.3); Red Blood Count 3.28 M/uL (4.20-5.40); White Blood Count 14.35 K/ul (4.8-10.8)
[2023-05-03 06:43] LABS: Basophils # (auto) 0.02 K/uL (0-0.2); Basophils % (auto) 0.1 %; Eosinophils # (auto) 0.03 K/uL (0-0.50); Eosinophils % (auto) 0.2 %; Immature Granulocytes # (auto) 0.18 K/uL (0.01-0.20); Immature Granulocytes % (auto) 1.3 %; Lymphocytes # (auto) 0.52 K/uL (1.2-3.4); Lymphocytes % (auto) 3.6 %; Monocytes # (auto) 0.63 K/uL (0.11-0.59); Monocytes % (auto) 4.4 %; Neutrophils # (auto) 12.97 K/uL (1.40-6.50); Neutrophils % (auto) 90.4 %
[2023-05-03 06:53] LABS: Albumin Globulin Ratio 0.8 (0.9-2); Albumin Level 2.5 gm/dl (3.4-5.0); BUN Creatinine Ratio 29.2 (10-20); Bilirubin,Total 0.3 mg/dl (0.2-1.0); Calcium 8.8 mg/dl (8.6-10.3); Creatinine Clr Calc Pharmacy 42.4 ml/min; Est GFR (African American) 78.8 ml/min; Globulin 3.2 gm/dl (2.5-4.0); Magnesium 1.7 mg/dl (1.7-2.4); Potassium 4.1 mmol/L (3.5-5.1); Total Protein 5.7 gm/dl (6.0-8.3)
--- NOTE | 2023-05-03 08:00 | Hospitalist Progress Note ---
Date of Service May 03, 2023 Assessment & Plan (1) Pneumonia: Plan: Right lower lobe pneumonia concerning for aspiration Day #3 of cefepime and Flagyl Procalcitonin was 3.11 Last chest x-ray 05/01/2023 (2) Hypomagnesemia: Plan: Patient was 2.0 yesterday. Now at 1.7 2 g of magnesium sulfate ordered Follow serial labs Potassium is 4.1 (3) Tobacco abuse: Plan: Continues to smoke as an outpatient Currently receiving NicoDerm 21 mg daily. Remove each night (4) Acute respiratory failure with hypoxia: Plan: Patient has not required supplemental oxygen at home before We will attempt to increase pulmonary toileting with hypertonic saline, nebulizer treatments, and flutter valve Also advised patient to be out of bed to chair as often as possible and begin to increase ambulation Incentive spirometry technique taught to patient as she was encouraged to use it several times per hour (5) Chronic kidney disease: Plan: Creatinine is improving. Continues a slightly elevated BUN Patient reports that oral intake is beginning to improve Follow serial labs (6) Atelectasis: Plan: Patient follows with Dr. Laws in the outpatient clinic Continue with incentive spirometry (7) COPD (chronic obstructive pulmonary disease): Plan: Follows with Dr. Laws in the outpatient clinic Continue with Breo Ellipta and Flonase Patient continues to smoke Further management as an outpatient (8) Small cell lung cancer: Plan: [facility] and receives chemotherapy every 21 days with Tecentriq. She did complete cranial prophylaxis and follows with radiation oncology every 6 months. Last infusion reported is 04/30/2023. (9) Elevated troponin: Plan: Appears to be demand ischemia Continue monitoring on telemetry Admission and Anticipated Discharge Date Admission Date: May 01, 2023 Subjective Attending: Dr. Her This is a 67 year old female current smoker with COPD, small cell lung cancer presents to the ER with shortness of breath, productive cough. Patient was admitted 05/01/2023. Patient has a history of history and is receiving atezolizumab infusions every 21 days. Last infusion appears to have been 04/30/2023. Current event seems to be secondary to right lower lobe pneumonia with questionable aspiration. Continues leukocytosis with WBC of 14.35 and elevated neutrophils at 12.97. Procalcitonin 05/01/2023 was 3.11. Today is day #3 of cefepime 1 g every 12 hours. Sputum reveals moderate normal harvey. Blood cultures are negative x2 since admission. Potassium has been repleted and is 4.1 mmol/L today. Magnesium is is 1.7. 2 g of magnesium sulfate have been ordered. Patient continues with cough and some scant sputum. She states that she is having difficulty with clearance. She denies any chest pain or tightness. She denies any fever. Review of Systems Review of Systems: A total of 10 systems was reviewed and is negative other than as listed in the HPI Physical Exam Physical Exam: GENERAL : No acute distress EYES: No icterus, gaze conjugate NOSE: No evidence of epistaxis MOUTH: No lesions or candidiasis NECK: Supple LUNGS: Decreased breath sounds at the bases. Some scattered wheezes HEART: Regular, rate controlled ABDOMEN: Soft, NT, ND, BS Present EXTREMITIES: No LE edema, pedal pulses intact NEURO: A&OX3 Results & Data Results & Data Vital Signs (Past 12 Hours) Vital Signs Temp Pulse Pulse Resp BP Pulse Ox O2 Del Method 05/03/23 03:00 36.9 C 70 16 129/73 92 Nasal Cannula 05/02/23 23:00 69 05/02/23 22:26 36.8 C 73 22 129/80 95 Nasal Cannula 05/02/23 20:00 Nasal Cannula 05/02/23 19:50 36.4 C L 70 21 127/66 94 Nasal Cannula O2 Flow Rate 05/03/23 03:00 3 05/02/23 23:00 05/02/23 22:26 2 05/02/23 20:00 05/02/23 19:50 2 Critical Care Results & Data Vital Signs (Past 12 Hours) Vital Signs Temp Pulse Pulse Resp BP Pulse Ox O2 Del Method 05/03/23 03:00 36.9 C 70 16 129/73 92 Nasal Cannula 05/02/23 23:00 69 05/02/23 22:26 36.8 C 73 22 129/80 95 Nasal Cannula 05/02/23 20:00 Nasal Cannula O2 Flow Rate 05/03/23 03:00 3 05/02/23 23:00 05/02/23 22:26 2 05/02/23 20:00 Lab & Micro Results (Past 24 Hours) RBC 3.28 M/uL (4.20-5.40) L 05/03/23 WBC 14.35 K/ul (4.8-10.8) H 05/03/23 Hgb 11.0 g/dl (12.0-16.0) L 05/03/23 Hct 31.5 % (37.0-47.0) L 05/03/23 MCV 96.0 fL (80.0-100.0) 05/03/23 MCH 33.5 pg (25.0-34.0) 05/03/23 MCHC 34.9 g/dL (32.0-36.0) 05/03/23 RDW Standard Deviation 51.3 fL (36.4-46.3) H 05/03/23 RDW Coefficient of Variation 14.5 % (11.5-14.5) 05/03/23 Plt Count 283 K/uL (130-400) 05/03/23 MPV 10.1 fL (9.4-12.4) 05/03/23 Neutrophils (%) (Auto) 90.4 % 05/03/23 Lymphocytes (%) (Auto) 3.6 % 05/03/23 Monocytes # (Auto) 0.63 K/uL (0.11-0.59) H 05/03/23 Eosinophils # (Auto) 0.03 K/uL (0-0.50) 05/03/23 Immature Granulocyte % (Auto) 1.3 % 05/03/23 Neutrophils # (Auto) 12.97 K/uL (1.40-6.50) H 05/03/23 Lymphocytes # (Auto) 0.52 K/uL (1.2-3.4) L 05/03/23 Monocytes # (Auto) 0.63 K/uL (0.11-0.59) H 05/03/23 Eosinophils # (Auto) 0.03 K/uL (0-0.50) 05/03/23 Basophils # (Auto) 0.02 K/uL (0-0.2) 05/03/23 Immature Granulocyte # (Auto) 0.18 K/uL (0.01-0.20) 3 Na 136 mmol/L (136-145) 05/03/23 K 4.1 mmol/L (3.5-5.1) 05/03/23 Cl 104 mmol/L (98-107) 05/03/23 CO2 26 mmol/L (21-32) 05/03/23 Anion Gap 6 (3-11) 05/03/23 BUN 26 mg/dl (6-23) H 05/03/23 Creatinine 0.89 mg/dl (0.6-1.2) 05/03/23 Estimated GFR ( Amer) 78.8 ml/min 05/03/23 Estimated GFR (Non-Af Amer) 68.0 ml/min 05/03/23 BUN/Creatinine Ratio 29.2 (10-20) H 05/03/23 Glu 70 mg/dl (70-99(Fasting)) 05/03/23 Ca 8.8 mg/dl (8.6-10.3) 05/03/23 Total Bilirubin 0.3 mg/dl (0.2-1.0) 05/03/23 AST 13 U/L (13-39) 05/03/23 ALT 22 U/L (7-52) 05/03/23 Alkaline Phosphatase 91 U/L (34-104) 05/03/23 TP 5.7 gm/dl (6.0-8.3) L 05/03/23 Albumin 2.5 gm/dl (3.4-5.0) L 05/03/23 Globulin 3.2 gm/dl (2.5-4.0) 05/03/23 Albumin/Globulin Ratio 0.8 (0.9-2) L 05/03/23 Mg 1.7 mg/dl (1.7-2.4) 05/03/23 05:35 Calcium Level 8.8 mg/dl (8.6-10.3) 05/03/23 05:35 Microbiology 05/01/23 12:00 Aerobic Blood Culture - Preliminary Blood No growth in Aerobic bottle after 24 hours. Anaerobic Blood Culture - Preliminary No growth in Anaerobic bottle after 24 hours. 05/01/23 12:12 Aerobic Blood Culture - Preliminary Blood No growth in Aerobic bottle after 24 hours. Anaerobic Blood Culture - Preliminary No growth in Anaerobic bottle after 24 hours. 05/01/23 14:55 Gram Stain - Final Sputum, Expectorated Sputum Culture - Preliminary Moderate normal harvey present, final report to follow. Diagnostic Findings (Past 24 Hours) Videofluoroscopic Swallow 05/02/23 11:30 FL video swallow CLINICAL HISTORY: assess for aspiration/silent aspiration TECHNIQUE: Video fluoroscopy of the pharyngeal region was performed as barium mixtures of varying consistencies were administered to the patient by the speech pathologist. A formal esophagram was not performed. Comparison: None available at the time of this dictation. FINDINGS: Total fluoroscopy time: 1.37 minutes. Radiation dose: 7.23 mGy. Penetration is seen with thin liquids. There was no laryngeal vestibular penetration or yifan tracheal aspiration. Pooling of barium was noted in the bilateral piriform sinuses and valleculae. IMPRESSION: Penetration is seen without yifan aspiration. Please see the speech pathology report for further details. ACT 112: Negative or not required by law. Electronically signed by: Eduardo Ford M.D. 05/02/2023 3:22 PM I & O Totals 24 Hours 05/02/23 05/03/23 05/04/23 06:59 06:59 06:59 Intake Total 1878.333 / 8121.175 5446 / 1150 Balance 1878.333 / 4923.282 3850 / 1150 Cumulative 05/01/23 10:52 thru 05/03/23 06:51 Intake Total 3028.333 Balance 3028.333 RT Ventilator Mngmt (Last Documented) Ventilator Ordered Settings Respiratory Rate 16 05/03/23 03:00 Ventilator - PT Measurements Respiratory Rate 16 PG Care Time/CCT Total # of Minutes Spent Total Time Spent with Patient: Total time spent is greater than 50% in coordination of care (as documented) at patient's floor/unit and/or counseling patient:30 Coding Level of Care Code 90607 SUB INP/OBS CARE 3/50MIN Diagnoses Pneumonia J18.9 Hypomagnesemia E83.42 Tobacco abuse Z72.0 Acute respiratory failure with hypoxia J96.01 Chronic kidney disease N18.9 Atelectasis J98.11 COPD (chronic obstructive pulmonary disease) J44.9 Small cell lung cancer C34.90 Elevated troponin R77.8 Time Spent (min) 30
[2023-05-03] MEDS: FLUTICASONE PROPIONATE NA SPR 16 GM BTL SCH ×2 (08:13→20:21)
[2023-05-03] MEDS: NICOTINE 21 MG/24 HR TDSY TD SCH (08:13)
[2023-05-03] MEDS: POTASSIUM CHLORIDE CRTAB 20 MEQ TABCR PO SCH ×2 (08:13→20:21)
[2023-05-03] MEDS: HEPARIN SOD 5,000 UNIT/0.5 ML VIAL SC SCH ×2 (08:14→20:21)
[2023-05-03] MEDS: GABAPENTIN 600 MG TAB PO SCH ×2 (08:14→20:21)
[2023-05-03] MEDS: MAGNESIUM SULFATE / D5W 1 GM/100 ML BAG IV SCH ×2 (11:06→13:15)
[2023-05-03] MEDS: CEFEPIME 1,000 MG in SYRINGE 0 ML IV SCH ×2 (14:11→23:48)
[2023-05-03] MEDS: SODIUM CHLOR 7% 4 ML NEB NEB SCH (18:57)
[2023-05-03] MEDS: FLUTICASONE/VILANTEROL 200/25MCG 14 PUFFS/INHALER INH SCH (20:21)
[2023-05-04] MEDS: guaiFENesin/DEXTROM SYRUP 200MG/20MG 10ML UDC PO SCH ×4 (02:16→20:07)
[2023-05-04] MEDS: metroNIDAZOLE 500 MG/100 ML BAG IV SCH ×3 (05:26→22:12)
[2023-05-04] MEDS ORDERED: IBUPROFEN 200 MG TAB PO STA ×2 (05:35→20:11)
[2023-05-04 06:28] LABS: Basophils # (auto) 0.02 K/uL (0-0.2); Basophils % (auto) 0.1 %; Eosinophils # (auto) 0.07 K/uL (0-0.50); Eosinophils % (auto) 0.5 %; Hematocrit (blood only) 31.3 % (37.0-47.0); Hemoglobin 11.1 g/dl (12.0-16.0); Immature Granulocytes # (auto) 0.19 K/uL (0.01-0.20); Immature Granulocytes % (auto) 1.3 %; Lymphocytes # (auto) 0.37 K/uL (1.2-3.4); Lymphocytes % (auto) 2.6 %; Mean Corpuscular Hemoglobin 33.9 pg (25.0-34.0); Mean Corpuscular Hgb Conc 35.5 g/dL (32.0-36.0); Mean Corpuscular Volume 95.7 fL (80.0-100.0); Mean Platelet Volume 10.3 fL (9.4-12.4); Monocytes % (auto) 5.6 %; Neutrophils # (auto) 12.75 K/uL (1.40-6.50); Neutrophils % (auto) 89.9 %; Platelet Count 271 K/uL (130-400); RDW Coefficient of Variation 14.6 % (11.5-14.5); RDW Standard Deviation 51.2 fL (36.4-46.3); Red Blood Count 3.27 M/uL (4.20-5.40)
[2023-05-04 06:39] LABS: Albumin Globulin Ratio 0.8 (0.9-2); Albumin Level 2.5 gm/dl (3.4-5.0); BUN Creatinine Ratio 25.7 (10-20); Bilirubin,Total 0.4 mg/dl (0.2-1.0); Calcium 8.5 mg/dl (8.6-10.3); Creatinine Clr Calc Pharmacy 52.5 ml/min; Est GFR (African American) 105.4 ml/min; Est GFR (Non-African American) 90.9 ml/min; Globulin 3.1 gm/dl (2.5-4.0); Magnesium 1.4 mg/dl (1.7-2.4); Potassium 4.1 mmol/L (3.5-5.1); Total Protein 5.6 gm/dl (6.0-8.3)
[2023-05-04] MEDS: SODIUM CHLOR 7% 4 ML NEB NEB SCH ×2 (07:13→19:42)
--- NOTE | 2023-05-04 08:14 | XRay Report ---
XR chest 1V portable HISTORY: 67 years-old Female Pneumonia acute shortness of breath COMPARISON: Chest radiograph 05/01/2023, PET/CT 03/27/2023 TECHNIQUE: AP view of the chest FINDINGS: Cardiomediastinal and hilar silhouettes are unchanged. Severe emphysema with chronic interstitial coa rsening. Irregular nodular consolidation of the lung apices again noted. Layering right pleural effus ion with progressive right basilar consolidation. Degenerative changes of the shoulders and spine. IMPRESSION: 1. Progressive right basilar consolidation suggestive of pneumonia with associated parapneumonic effu librado. 2. Severe emphysema with chronic interstitial coarsening. 3. Irregular nodular areas of consolidation within the lung apices are again seen, better characteriz ed on the comparison PET/CT. ACT 112: Negative or not required by law. The above report was generated using voice recognition software. It may contain grammatical, syntax o r spelling errors. Electronically signed by: Esdras Oliver M.D. 05/04/2023 8:13 AM
[2023-05-04] MEDS: HEPARIN SOD 5,000 UNIT/0.5 ML VIAL SC SCH ×2 (08:25→20:07)
[2023-05-04] MEDS: FLUTICASONE PROPIONATE NA SPR 16 GM BTL SCH ×2 (08:25→20:07)
[2023-05-04] MEDS: GABAPENTIN 600 MG TAB PO SCH ×2 (08:26→20:07)
[2023-05-04] MEDS: NICOTINE 21 MG/24 HR TDSY TD SCH (08:26)
--- NOTE | 2023-05-04 11:37 | Hospitalist Progress Note ---
Date of Service May 04, 2023 Assessment & Plan (1) Pneumonia: Plan: Right lower lobe pneumonia concerning for aspiration On IV cefepime and Flagyl We will discharge on p.o. Keflex and Flagyl to complete the course She is still on 2 L of oxygen, does not use oxygen at home Encouraged ambulation and incentive spirometry We will order rest and exercise tomorrow Likely discharge tomorrow (2) Hypomagnesemia: Plan: Magnesium is low at 1.4 today Ordered more magnesium IV (3) Tobacco abuse: Plan: Continues to smoke as an outpatient Currently receiving NicoDerm 21 mg daily. Remove each night (4) Acute respiratory failure with hypoxia: Plan: Patient has not required supplemental oxygen at home before We will attempt to increase pulmonary toileting with hypertonic saline, nebulizer treatments, and flutter valve Also advised patient to be out of bed to chair as often as possible and begin to increase ambulation Incentive spirometry technique taught to patient as she was encouraged to use it several times per hour (5) Chronic kidney disease: Plan: Mild ASYA on CKD Resolved creatinine is improving. Patient reports that oral intake is beginning to improve Follow serial labs (6) Atelectasis: Plan: Patient follows with Dr. Laws in the outpatient clinic Continue with incentive spirometry (7) COPD (chronic obstructive pulmonary disease): Plan: Follows with Dr. Laws in the outpatient clinic Continue with Breo Ellipta and Flonase Patient continues to smoke Further management as an outpatient (8) Small cell lung cancer: Plan: [facility] and receives chemotherapy every 21 days with Tecentriq. She did complete cranial prophylaxis and follows with radiation oncology every 6 months. Last infusion reported is 04/30/2023. (9) Elevated troponin: Plan: Appears to be demand ischemia Continue monitoring on telemetry Plan Likely discharge tomorrow Check rest and exercise tomorrow Encouraged ambulation, mobilization, incentive spirometry Admission and Anticipated Discharge Date Admission Date: May 01, 2023 Subjective Patient feels well overall. Says that the magnesium is giving her diarrhea. She denies any shortness of breath, chest pain Review of Systems Review of Systems: All systems reviewed & are unremarkable except as noted in Subjective Physical Exam Physical Exam: General: Awake, conversant Heart: S1, S2/regular rate and rhythm, no murmur rubs or gallops Lungs: Clear to auscultation bilaterally. Normal effort Abdomen: Soft/nontender/nondistended. No hepatosplenomegaly Extremities: No clubbing/cyanosis. No edema Behavior: Appropriate, cooperative Results & Data Results & Data Vital Signs (Past 12 Hours) Vital Signs Temp Pulse Resp BP Pulse Ox O2 Del Method O2 Flow Rate 05/04/23 07:45 Nasal Cannula 2 05/04/23 07:22 36.8 C 86 20 148/82 H 98 Nasal Cannula 2.0 05/04/23 07:13 78 16 93 Nasal Cannula 2 05/04/23 03:21 36.7 C 75 17 150/76 H 94 Nasal Cannula 3 Laboratory Results Abnormal lab results 05/04/23 05/04/23 Range/Units 05:43 05:43 WBC 14.20 H (4.8-10.8) K/ul RBC 3.27 L (4.20-5.40) M/uL Hgb 11.1 L (12.0-16.0) g/dl Hct 31.3 L (37.0-47.0) % RDW Std Deviation 51.2 H (36.4-46.3) fL RDW Coeff of Kiara 14.6 H (11.5-14.5) % Neut # (Auto) 12.75 H (1.40-6.50) K/uL Lymph # (Auto) 0.37 L (1.2-3.4) K/uL [place] # (Auto) 0.80 H (0.11-0.59) K/uL Sodium 133 L (136-145) mmol/L BUN/Creatinine Ratio 25.7 H (10-20) Calcium 8.5 L (8.6-10.3) mg/dl Magnesium 1.4 L (1.7-2.4) mg/dl AST 10 L (13-39) U/L Total Protein 5.6 L (6.0-8.3) gm/dl Albumin 2.5 L (3.4-5.0) gm/dl Albumin/Globulin Ratio 0.8 L (0.9-2) Diagnostic Findings Chest X-Ray 05/04/23 07:00 XR chest 1V portable HISTORY: 67 years-old Female Pneumonia acute shortness of breath COMPARISON: Chest radiograph 05/01/2023, PET/CT 03/27/2023 TECHNIQUE: AP view of the chest FINDINGS: Cardiomediastinal and hilar silhouettes are unchanged. Severe emphysema with chronic interstitial coarsening. Irregular nodular consolidation of the lung apices again noted. Layering right pleural effusion with progressive right basilar consolidation. Degenerative changes of the shoulders and spine. IMPRESSION: 1. Progressive right basilar consolidation suggestive of pneumonia with associated parapneumonic effusion. 2. Severe emphysema with chronic interstitial coarsening. 3. Irregular nodular areas of consolidation within the lung apices are again seen, better characterized on the comparison PET/CT. ACT 112: Negative or not required by law. The above report was generated using voice recognition software. It may contain grammatical, syntax or spelling errors. Electronically signed by: Esdras Oliver M.D. 05/04/2023 8:13 AM PG Care Time/CCT Total # of Minutes Spent Total Time Spent with Patient: Total time spent is greater than 50% in coordination of care (as documented) at patient's floor/unit and/or counseling patient: Coding Level of Care Code 62459 SUB INP/OBS CARE 2/35MIN Diagnoses Pneumonia J18.9 Hypomagnesemia E83.42 Tobacco abuse Z72.0 Acute respiratory failure with hypoxia J96.01 Chronic kidney disease N18.9 Atelectasis J98.11 COPD (chronic obstructive pulmonary disease) J44.9 Small cell lung cancer C34.90 Elevated troponin R77.8
[2023-05-04] MEDS: MAGNESIUM SULFATE / D5W 1 GM/100 ML BAG IV SCH ×4 (15:21→20:39)
[2023-05-04] MEDS: CEFEPIME 1,000 MG in SYRINGE 0 ML IV SCH (15:23)
[2023-05-04] MEDS: FLUTICASONE/VILANTEROL 200/25MCG 14 PUFFS/INHALER INH SCH (20:08)
[2023-05-05] MEDS: CEFEPIME 1,000 MG in SYRINGE 0 ML IV SCH (00:19)
[2023-05-05] MEDS: guaiFENesin/DEXTROM SYRUP 200MG/20MG 10ML UDC PO SCH ×3 (03:20→16:12)
[2023-05-05] MEDS: metroNIDAZOLE 500 MG/100 ML BAG IV SCH (05:11)
[2023-05-05 06:38] LABS: Hematocrit (blood only) 33.9 % (37.0-47.0); Hemoglobin 11.8 g/dl (12.0-16.0); Mean Corpuscular Hemoglobin 33.7 pg (25.0-34.0); Mean Corpuscular Hgb Conc 34.8 g/dL (32.0-36.0); Mean Corpuscular Volume 96.9 fL (80.0-100.0); Mean Platelet Volume 10.2 fL (9.4-12.4); Platelet Count 289 K/uL (130-400); RDW Coefficient of Variation 14.5 % (11.5-14.5); RDW Standard Deviation 51.2 fL (36.4-46.3); White Blood Count 13.98 K/ul (4.8-10.8)
[2023-05-05 07:01] LABS: BUN Creatinine Ratio 23.3 (10-20); Calcium 8.4 mg/dl (8.6-10.3); Creatinine Clr Calc Pharmacy 53.1 ml/min; Est GFR (African American) 100.2 ml/min; Est GFR (Non-African American) 86.4 ml/min; Magnesium 1.9 mg/dl (1.7-2.4); Potassium 3.6 mmol/L (3.5-5.1)
[2023-05-05] MEDS: SODIUM CHLOR 7% 4 ML NEB NEB SCH (07:14)
[2023-05-05 07:42] VITALS: TEMP 98.1
[2023-05-05] MEDS: FLUTICASONE PROPIONATE NA SPR 16 GM BTL SCH (08:13)
[2023-05-05] MEDS: GABAPENTIN 600 MG TAB PO SCH (08:14)
[2023-05-05] MEDS: NICOTINE 21 MG/24 HR TDSY TD SCH (08:16)
[2023-05-05] MEDS: HEPARIN SOD 5,000 UNIT/0.5 ML VIAL SC SCH (08:16)
[2023-05-05] MEDS ORDERED: AMOXICILLIN/CLAVULANATE 875 MG TAB PO SCH (09:30)
[2023-05-05 11:15] VITALS: BP 124/63; PULSE 80; O2SAT 93
--- NOTE | 2023-05-05 11:54 | Discharge Summary ---
Date of Service May 05, 2023 Admission HPI Per Admitting Provider Liza is a 67 year old female with a PMH significant for SCLL S/P chemo and radiation currently on maintenance Tecentriq, current tobacco abuse, HTN, malnutrition, and COPD (follows with Dr. Laws) who presented to the [facility] ED on 05/01/23 with a chief complaint of worsening SOB. In the ED the patient was noted to be saturating at 88% on RA, HR of 118, and BP of 96/67, and respirations of 26 . Labs were significant for a leukocytosis of 25 with left shift of 22, lymphopenia of 0.45, Cr of 1.25 (baseline is near 1.1), sodium of 133, mag of 1.1, initial high sen trop of 26, lactate WNL, and full respiratory biofire n egative. Chest xray was read as 1. Right lower lung airspace opacity likely represents pneumonia or aspiration with or without superimposed atelectasis. 2. Partial visualization of left upper lobe mass.. Prior to admission the patient was given 1000 mL NSS, a dose of Cefepime, and a dose of Vancomycin. At the time of the exam the patient was sitting in bed in no acute distress with her sitting bedside. She states that she started to develop increased SOB compared to baseline, worsening SANDOVAL, and increased sputum production with sputum color change from clear/white to brown/green over the past week. She does not use O2 at baseline and checks her SpO2 at home. Her states that over the past 24 hours the patient's SpO2 has been running in the mid-low 80's. She is still smoking 1PDD but trying to wean down, she would be interested in nicotine patches. She is experiencing right mid chest pain with cough and deep inspiration, she describes the pain as dull/achy and denies radiation of the pain. She denies recent fever, chills, abd pain, nausea, vomiting, diarrhea, dysuria, hematuria, melena, LE swelling and recent trauma. Her last infusion of Tecentriq was on 04/29 and was without compilation. She feels improved compared to arrival. When I turned her O2 off the patient desaturated into the mid 80's on RA during my exam. She is a full code and would want her to make medical decisions for her if she could not make them herself. Please refer to Dr. Hunter's attestation for any changes to the treatment plan Admission Exam Per Admitting Provider General:In no acute distress, older than stated age, malnourished and ill ap pearing but non-toxic HEENT:Normocephalic, atraumatic, no scleral icterus, pupils around round, symmetrical, and reactive to light, moist mucus membranes, trachea midline, no thyromegaly Chest/Pulm:No respiratory distress, symmetrical chest expansion, rhonchi noted in the RLL and RLM, otherwise CTA throughout Cardiac:RRR, no murmurs noted Abdomen:Negative for ascites and bruising, normoactive bowel sounds, soft, non-tender to palpation throughout Musculoskeletal:Symmetrical and without signs of acute trauma, upper and lower extremities with full ROM, no atrophy, spasticity, or flaccidity Extremities:Radial, dorsalis pedis, and posterior tibial pulses are intact and symmetrical, no edema noted in the BL LE's Skin:Warm, dry, no rashes , lesions, or scars noted Neuro:Alert and oriented to person, place, month, year, and president, no focal defects, no tremors noted Psych:No acute distress, calm and cooperative during the exam Principal Diagnosis Pneumonia, sepsis Acute hypoxic respiratory failure secondary to the above Mild acute kidney injury, resolved Discharge Exam General: Awake, conversant Heart: S1, S2/regular rate and rhythm, no murmur rubs or gallops Lungs: Clear to auscultation bilaterally. Normal effort Abdomen: Soft/nontender/nondistended. No hepatosplenomegaly Extremities: No clubbing/cyanosis. No edema Behavior: Appropriate, cooperative Discharge Data Allergies Allergy/AdvReac Type Severity Reaction Status Date / Time budesonide Allergy Severe SHORTNESS Verified 01/22/23 13:59 OF BREATH formoterol Allergy Severe SHORTNESS Verified 01/22/23 13:59 OF BREATH Sulfa (Sulfonamide Allergy Severe HIVES Verified 01/22/23 13:59 Antibiotics) erythromycin base Allergy Intermediate CAUSES HER Verified 01/22/23 13:59 EYES TO BURN Penicillins Allergy Unknown HAPPENED Verified 01/22/23 13:59 A CHILD magnesium AdvReac Severe severe Verified 01/22/23 13:59 diarrhea thimerosol Allergy burning Uncoded 01/22/23 13:59 eyes Ordered Studies 05/02/23 11:30 FL video swallow Routine Hospital Course (1) Pneumonia: Right lower lobe pneumonia concerning for aspiration On IV cefepime and Flagyl. Switch to Augmentin p.o. Rest and exercise completed, she is needing 4 L on exertion and 2 L at rest Home oxygen arranged for Discharge today (2) Hypomagnesemia: Resolved (3) Tobacco abuse: Continues to smoke as an outpatient Currently receiving NicoDerm 21 mg daily. Remove each night (4) Acute respiratory failure with hypoxia: Patient has not required supplemental oxygen at home before Discharged on home oxygen Secondary to pneumonia, underlying COPD, small cell lung cancer (5) Chronic kidney disease: Mild ASYA on CKD Resolved creatinine is improving. Patient reports that oral intake is beginning to improve Follow serial labs (6) Atelectasis: Patient follows with Dr. Laws in the outpatient clinic Continue with incentive spirometry (7) COPD (chronic obstructive pulmonary disease): Follows with Dr. Laws in the outpatient clinic Continue with Breo Ellipta and Flonase Patient continues to smoke Further management as an outpatient (8) Small cell lung cancer: [facility] and receives chemotherapy every 21 days with Tecentriq. She did complete cranial prophylaxis and follows with radiation oncology every 6 months. Last infusion reported is 04/30/2023. (9) Elevated troponin: Appears to be demand ischemia Continue monitoring on telemetry Plan Discharge today Total Time Total Time Spent Total Time Spent (In Minutes): 35 Discharge Plan Discharge Items Patient Disposition: Home - Self-Care Reason For Visit: SOB Discharge Diagnosis: Pneumonia, sepsis Acute hypoxic respiratory failure Activity: As commented below Activity Comment: As tolerated Non-emergency contact: Primary Care Provider Call non-emergency contact if: you have any medication questions and your symptoms worsen Follow-up/Referrals: Gali Cruz MD [Primary Care Provider] - 05/12/23 3:20 pm [facility] May 12, [facility] @ 3:20) Diet: Regular Addtl Attending Provider Instructions: Advised to follow-up with PCP in 1 week Note that you are being discharged with oxygen, 2 L at rest and 4 L on exertion Advised to continue Augmentin to complete a 7-day course Pending Studies at Discharge: No Stand-Alone Forms: [employer], Smoking Cessation Medications and DC Order Prescriptions: New amoxicillin-pot clavulanate 875-125 mg Tablet 1 tab PO BIDM 5 Days Qty: 10 0RF Continued Tecentriq 1,200 mg/20 mL (60 mg/mL) solution IV ONCE Patient Comments: every 21 days prochlorperazine maleate [Compazine] 10 mg tablet 10 mg PO Q6H PRN (Reason: Nausea) Qty: 30 3RF xfqdncoobl-phpqwjv-barhxvjr 50-325-40 mg capsule 1 cap PO .COMPLEX PRN (Reason: Headache) Qty: 13 0RF Rx Instructions: 1 cap orally every other day x 2wks, then 1 cap 3 times a wk x 2 wks. PRN; gabapentin 600 mg tablet 600 mg PO BID Qty: 60 5RF benzonatate 100 mg capsule 100 mg PO TID PRN (Reason: cough) Qty: 180 2RF Rx Instructions: One or two pearls three times a day as needed. albuterol sulfate 90 mcg/actuation HFA aerosol inhaler 2 inh inhalation Q4H PRN (Reason: Shortness Of Breath) Qty: 8.5 2RF Flutter Valve Device See Rx Instructions .ROUTE .COMPLEX Qty: 1 0RF Rx Instructions: Use 10 to 15 x 2 to 3 times a day; fluticasone propionate 50 mcg/actuation spray,suspension 2 spray intranasal BID Rx Instructions: administer into each nostril terconazole 0.4 % cream 1 applic vaginal UD PRN (Reason: Unknown) triamcinolone acetonide 0.1 % cream 1 applic topical BID PRN (Reason: Skin Irritation) fluticasone furoate-vilanterol [Breo Ellipta] 200-25 mcg/dose blister with device 2 inh inhalation HS Discharge Orders: Discharge Order (Routine); Ordered 05/05/23 Ordered By: Oskar Rosales Admission Data Admit Date/Time: 05/01/23 13:14 Attending Provider: Oskar Rosales Admit Provider: Rolan Rosario Primary Care Provider: Gali Cruz Other Interventions: Discharge Summary Assessment (RN) Last Done: 05/05/23 14:01 Coding Level of Care Code 48196 INP/OBS DISCH >30 MIN Diagnoses Pneumonia J18.9 Hypomagnesemia E83.42 Tobacco abuse Z72.0 Acute respiratory failure with hypoxia J96.01 Chronic kidney disease N18.9 Atelectasis J98.11 COPD (chronic obstructive pulmonary disease) J44.9 Small cell lung cancer C34.90 Elevated troponin R77.8
--- NOTE | 2023-05-09 14:34 | Coding Query ---
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 Please assist us with the question(s) below: Coding Question(s): Please specify if there is a specific type of concerning aspiration. Speech/Language consult was placed with recommendations of Minced and moist diet but the documentation is vague as to why type of aspiration is in attempt to prevent. Physician's Response(s): Thank you Ora Lopez Principal Diagnosis: "that condition established after study, to be chiefly responsible for occasioning the admission of the patient to the hospital for care." Co-Existing Principal Diagnosis: "when two or more diagnoses equally meet the criteria for principal diagnosis as determined by the circumstances of admission, diagnostic work up, and/or therapy provided, and the Alphabetic Index, Tabular List, or another coding guideline does not provide sequencing direction, any one of the diagnoses may be sequenced first." "When the physician has documented what appears to be a current diagnosis in the body of the record, but has not included the diagnosis in the final diagnostic statement, the physician should be asked whether the diagnosis should be added." ([facility] 2 QTR90. p3-4) MILAGROS
--- NOTE | 2023-05-22 14:45 | Coding Query ---
CODING QUERY To promote full compliance with coding requirements relating to patient care, provider participation is requested in all cases of tobacco cutter uncertainty. Please assist us with the question(s) below: Coding Question(s): Please specify the concerning aspiration mentioned throughout the stay. Speech/Language consult was placed with recommendations of Minced and moist diet but the documentation is unclear to the type of aspiration. Physician's Response(s): ( ) Aspiration food or foreign body ( ) Aspiration vomit ( ) Aspiration pneumonia ( ) other, please specify Principal Diagnosis: "that condition established after study, to be chiefly responsible for occasioning the admission of the patient to the hospital for care." Co-Existing Principal Diagnosis: "when two or more diagnoses equally meet the criteria for principal diagnosis as determined by the circumstances of admission, diagnostic work up, and/or therapy provided, and the Alphabetic Index, Tabular List, or another coding guideline does not provide sequencing direction, any one of the diagnoses may be sequenced first." "When the physician has documented what appears to be a current diagnosis in the body of the record, but has not included the diagnosis in the final diagnostic statement, the physician should be asked whether the diagnosis should be added." ([facility] 2 QTR90. p3-4) MILAGROS
== END 2023-05-05 17:47 | disposition home or self-care (01) | DRG 871 ==
LOC: ED 10:52 → SUATTDRO 13:14 → 2E 13:14

== ENCOUNTER 2023-07-30 10:41 | Inpatient (IN) ==
[2023-07-30] MEDS ORDERED: ONDANSETRON INJ 2 MG/ML 2 ML VIAL IV STA (11:17)
--- NOTE | 2023-07-30 11:19 | Emergency Department Note ---
Impression & Plan Chest pain, Shortness of breath, Necrotizing pneumonia, Generalized weakness ED Provider Note HISTORY OF PRESENT ILLNESS: Patient is a 68-year-old female presenting with chest pain and shortness of breath. Patient reportedly has been having left-sided chest pain that radiates into her back for the last few days. She has also been having increasing shortness of breath. She wears a baseline 4 L nasal cannula. Reportedly in the last few days she has been increasing to 5L secondary to her shortness of breath. No reported fevers. No abdominal pain, nausea or vomiting. Denies any DVT or PE history. reports the patient was too weak to get up out of bed today. Patient has a history of lung cancer and is currently on immunotherapy. Denies any recent antibiotic or steroid use. ROS: as above PHYSICAL EXAM: Constitutional: Patient appears in no acute distress. HENT: Head: Normocephalic and atraumatic. Eyes: EOMI, PERRL Mouth/Throat: Mucous membranes moist. Neck: Trachea midline. Neck supple. Cardiovascular: Tachycardic with regular rhythm. No murmurs, rubs or gallops. Intact distal pulses. Pulmonary/Chest: No respiratory distress. Breath sounds clear and equal bilaterally. No wheezes or rales. Abdominal: Abdomen soft, no tenderness, rebound or guarding. Musculoskeletal: No edema, tenderness or deformity noted. Skin: Warm and dry. No rash, erythema, pallor or cyanosis Psychiatric: Appropriate mood and affect for situation. Neurological: Alert and keenly responsive. CN II-XII grossly intact, moving all extremities equally and fully. MDM: - Vitals signs showed tachycardia. - History obtained via patient. Patient presents with chest pain and shortness of breath. Patient reports that the having left-sided chest pain that radiates into her back for the last few days. Has been having increasing shortness of breath. She wears 4 L nasal cannula at baseline has been increasing up to 5 L secondary to her shortness of breath. Denies any fevers. Reports she was too weak to get up out of bed this morning and her had to assist her. - Chronic conditions affecting care: COPD; HTN; lung cancer - Differential diagnoses include, but are not limited to: Congestive heart failure; acute coronary syndrome; COPD/asthma exacerbation; pulmonary edema; pulmonary embolism; pneumonia; pneumothorax; viral syndrome - Order placed for continuous cardiac monitoring. At this time, monitor showed rate of 85 bpm with normal sinus rhythm, per my interpretation. - External medical records reviewed. - EKG reviewed by myself showed normal sinus rhythm. Rate 105 bpm. QTc 446. No acute ischemic changes. - Laboratory workup interpreted by myself showed leukocytosis (WBC 15.41) with left shift; hyponatremia (Na 133); normal troponin; elevated dimer (6160); normal lactate - CXR shows consolidation in right apex, which has been present on previous CXRs per my interpretation - VBG normal - Viral respiratory panel negative - CT PE showed multi focal cavitary opacities concerning for necrotizing pneumonia, possibly related to aspiration. Also noted to have a small, loculated right pleural effusion - Blood cultures obtained - Started on IV vancomycin and cefepime - Discussion was had with social work professor about patient's case and need for admission. - Hospitalist consulted for admission - [facility] ASSESSMENT AND PLAN: Diagnosis: chest pain; shortness of breath; necrotizing pneumonia; generalized weakness Plan: admit Past Med/Surg History Medical History (Updated 07/30/23 @ 15:10 by Marysol Cho MD) Abnormal CT scan of lung Arthritis Atelectasis Avascular necrosis of left femur Chronic kidney disease COPD (chronic obstructive pulmonary disease) Degenerative disc disease Ectopic Elevated troponin Facial contusion HCAP (healthcare-associated pneumonia) Hip fracture, left Hypertension Hypomagnesemia Lung cancer Migraines Pulmonary nodule Right orbital fracture Subconjunctival hemorrhage of right eye Tobacco abuse Transient osteoporosis of hip Surgical History History of appendectomy History of bronchoscopy Family History Mother Heart disease Hypertension Kidney disease Father Emphysema lung Alcoholism Brother No problems noted. Sister Myocardial infarction Son No problems noted. Son No problems noted. 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 [employer] How many Children do You have: 2 How many Children do You have Comment: 2 biological, 4 step children Feels Safe at Home: Yes Childhood Exposure to Second-Hand Smoke: Yes Diet: regular caffeine: Yes (1 cup/day;2 cups/day) during the past year weight has: remained stable Dental Care, Regularly: Yes Physical Activity Frequency: Does not Exercise Seatbelt Use: always Sunscreen Use: Yes Assistive Devices: None Allergies Allergies Allergy/AdvReac Type Severity Reaction Status Date / Time budesonide Allergy Severe SHORTNESS Verified 07/21/23 15:25 OF BREATH formoterol Allergy Severe SHORTNESS Verified 07/21/23 15:25 OF BREATH Sulfa (Sulfonamide Allergy Severe HIVES Verified 07/21/23 15:25 Antibiotics) erythromycin base Allergy Intermediate CAUSES HER Verified 07/21/23 15:25 EYES TO BURN Penicillins Allergy Unknown HAPPENED Verified 07/21/23 15:25 A CHILD magnesium AdvReac Severe severe Verified 07/21/23 15:25 diarrhea thimerosol Allergy burning Uncoded 07/21/23 15:25 eyes Home Meds Home Medications Medication Instructions Recorded Confirmed fluticasone propionate 50 2 spray intranasal BID 11/03/20 07/30/23 mcg/actuation nasal spray,suspension pantoprazole 40 mg tablet,delayed 40 mg PO DAILY 07/30/23 07/30/23 release terconazole 0.4 % vaginal cream 1 applic vaginal PM PRN Other 07/30/23 07/30/23 Previous Rx's Medication Instructions Recorded Flutter Valve See Rx Instructions .Route 04/13/21 .COMPLEX #1 ea [id number] 50 1 cap PO .COMPLEX PRN Headache #13 10/28/22 mg-325 mg-40 mg capsule caps triamcinolone acetonide 0.1 % 1 applic topical BID PRN Skin 05/06/23 topical cream Irritation #15 grams albuterol sulfate 90 mcg/actuation 2 inh inhalation Q4H PRN Shortness 05/21/23 aerosol inhaler Of Breath #8.5 grams gabapentin 600 mg tablet 600 mg PO BID #60 tabs 05/26/23 miscellaneous medical supply 1 ea miscellaneous DAILY shortness 05/26/23 of breath #1 ea prochlorperazine maleate 10 mg 10 mg PO Q6H PRN Nausea #90 tabs 05/26/23 tablet (Compazine) benzonatate 100 mg capsule 100 mg PO TID PRN cough #180 caps 06/10/23 fluticasone furoate 200 2 inh inhalation HS #60 ea 06/10/23 mcg-vilanterol 25 mcg/dose inhalation powder (Breo Ellipta) Results & Data (ED) Vital Signs Vital Signs - 24 hr 07/30/23 10:47 07/30/23 10:56 07/30/23 11:04 Temperature 36.5 C Temperature Source Temporal Artery Scan Pulse Rate 112 H Pulse Rate [Apical] 99 H Pulse Rhythm [Apical] Regular Respiratory Rate 20 16 Respiratory Effort / Characteristics Non-Labored Non-Labored Respiratory Depth Normal Normal Blood Pressure 109/66 Blood Pressure [Right Arm] 124/74 Blood Pressure Mean 80 Blood Pressure Mean [Right Arm] 90 Pulse Oximetry 95 99 99 Oxygen Delivery Method Room Air Room Air Nasal Cannula Oxygen Flow Rate 4 Sepsis Recent Fever Within 48 Hours No Sepsis New/Unexplained Change in Mental Status N/A Sepsis Action Taken by Nursing No Action Required 07/30/23 11:31 07/30/23 12:52 07/30/23 13:18 Temperature Temperature Source Pulse Rate 91 H Pulse Rate [Apical] 88 86 Pulse Rhythm [Apical] Regular Respiratory Rate 16 18 Respiratory Effort / Characteristics Non-Labored Spontaneous Respiratory Depth Normal Blood Pressure Blood Pressure [Right Arm] 112/71 115/59 L Blood Pressure Mean Blood Pressure Mean [Right Arm] 84 77 Pulse Oximetry 94 96 Oxygen Delivery Method Nasal Cannula Nasal Cannula Oxygen Flow Rate 4 4 Sepsis Recent Fever Within 48 Hours Sepsis New/Unexplained Change in Mental Status Sepsis Action Taken by Nursing 07/30/23 15:00 07/30/23 15:41 Temperature Temperature Source Pulse Rate 77 Pulse Rate [Apical] 77 Pulse Rhythm [Apical] Regular Respiratory Rate 16 Respiratory Effort / Characteristics Non-Labored Spontaneous Respiratory Depth Normal Blood Pressure Blood Pressure [Right Arm] 113/64 Blood Pressure Mean Blood Pressure Mean [Right Arm] 80 Pulse Oximetry 99 Oxygen Delivery Method Nasal Cannula Oxygen Flow Rate 4 Sepsis Recent Fever Within 48 Hours Sepsis New/Unexplained Change in Mental Status Sepsis Action Taken by Nursing Laboratory Data 07/30/23 11:30 Lab Results 07/30/23 07/30/23 07/30/23 Range/Units 11:30 11:30 11:30 WBC 15.41 H (4.8-10.8) K/ul RBC 3.26 L (4.20-5.40) M/uL Hgb 9.7 L (12.0-16.0) g/dl Hct 30.1 L (37.0-47.0) % MCV 92.3 (80.0-100.0) fL MCH 29.8 (25.0-34.0) pg MCHC 32.2 (32.0-36.0) g/dL RDW Std Deviation 49.9 H (36.4-46.3) fL RDW Coeff of Kiara 14.7 H (11.5-14.5) % Plt Count 434 H (130-400) K/uL MPV 9.5 (9.4-12.4) fL Immature Gran % (Auto) 0.5 % Neut % (Auto) 89.6 % Lymph % (Auto) 2.7 % [place] % (Auto) 6.6 % Eos % (Auto) 0.3 % Baso % (Auto) 0.3 % Neut # (Auto) 13.82 H (1.40-6.50) K/uL Lymph # (Auto) 0.41 L (1.20-3.40) K/uL [place] # (Auto) 1.01 H (0.11-0.59) K/uL Eos # (Auto) 0.05 (0.00-0.50) K/uL Baso # (Auto) 0.04 (0.00-0.20) K/uL Immature Gran # (Auto) 0.08 (0.01-0.20) K/uL D-Dimer 6160 H* (0-500) ug/L FEU VBG pH (7.36-7.41) VBG pCO2 (38-50) mmHg VBG pO2 mmHg VBG HCO3 mmol/L VBG O2 Saturation % VBG Base Excess mEq/L Sodium 133 L (136-145) mmol/L Potassium 4.0 (3.5-5.1) mmol/L Chloride 97 L (98-107) mmol/L Carbon Dioxide 27 (21-32) mmol/L Anion Gap 9 (3-11) BUN 25 H (6-23) mg/dl Creatinine 1.06 (0.6-1.2) mg/dl Est Cr Clr Drug Dosing Not Reportable Est GFR ( Amer) 63.4 ml/min Est GFR (Non-Af Amer) 54.7 ml/min BUN/Creatinine Ratio 23.6 H (10-20) Glucose 145 H (70-99(Fasting)) mg/dl Lactate (0.4-2.0) mmol/L Calcium 9.7 (8.6-10.3) mg/dl Total Bilirubin 0.4 (0.2-1.0) mg/dl AST 18 (13-39) U/L ALT 19 (7-52) U/L Alkaline Phosphatase 100 (34-104) U/L Troponin I High Sens 10.6 (0-14) pg/ml Total Protein 7.0 (6.0-8.3) gm/dl Albumin 3.2 L (3.4-5.0) gm/dl Globulin 3.8 (2.5-4.0) gm/dl Albumin/Globulin Ratio 0.8 L (0.9-2) Lipase < 3 L (11-82) U/L Adenovirus (PCR) (NotDetected) B. pertussis DNA (PCR) (NotDetected) B.parapertussis DNA PCR (NotDetected) C. pneumoniae DNA (PCR) (NotDetected) Coronavirus OC43 (PCR) (NotDetected) Coronavirus HKU1 (PCR) (NotDetected) Coronavirus 229E (PCR) (NotDetected) SARS-CoV-2 (PCR) (NotDetected) Coronavirus NL63 (PCR) (NotDetected) Human Metapneumovir PCR (NotDetected) Influenza Type A (PCR) (NotDetected) Influenza Type B (PCR) (NotDetected) M. pneumoniae (PCR) (NotDetected) Parainfluenza 1 (PCR) (NotDetected) Parainfluenza 2 (PCR) (NotDetected) Parainfluenza 3 (PCR) (NotDetected) Parainfluenza 4 (PCR) (NotDetected) RSV (PCR) (NotDetected) Entero/Rhino (PCR) (NotDetected) 07/30/23 07/30/23 07/30/23 Range/Units 11:30 11:30 12:00 WBC (4.8-10.8) K/ul RBC (4.20-5.40) M/uL Hgb (12.0-16.0) g/dl Hct (37.0-47.0) % MCV (80.0-100.0) fL MCH (25.0-34.0) pg MCHC (32.0-36.0) g/dL RDW Std Deviation (36.4-46.3) fL RDW Coeff of Kiara (11.5-14.5) % Plt Count (130-400) K/uL MPV (9.4-12.4) fL Immature Gran % (Auto) % Neut % (Auto) % Lymph % (Auto) % [place] % (Auto) % Eos % (Auto) % Baso % (Auto) % Neut # (Auto) (1.40-6.50) K/uL Lymph # (Auto) (1.20-3.40) K/uL [place] # (Auto) (0.11-0.59) K/uL Eos # (Auto) (0.00-0.50) K/uL Baso # (Auto) (0.00-0.20) K/uL Immature Gran # (Auto) (0.01-0.20) K/uL D-Dimer (0-500) ug/L FEU VBG pH 7.37 (7.36-7.41) VBG pCO2 50 (38-50) mmHg VBG pO2 33 mmHg VBG HCO3 29 mmol/L VBG O2 Saturation < 60.0 % VBG Base Excess 2.9 mEq/L Sodium (136-145) mmol/L Potassium (3.5-5.1) mmol/L Chloride (98-107) mmol/L Carbon Dioxide (21-32) mmol/L Anion Gap (3-11) BUN (6-23) mg/dl Creatinine (0.6-1.2) mg/dl Est Cr Clr Drug Dosing Est GFR ( Amer) ml/min Est GFR (Non-Af Amer) ml/min BUN/Creatinine Ratio (10-20) Glucose (70-99(Fasting)) mg/dl Lactate 1.6 (0.4-2.0) mmol/L Calcium (8.6-10.3) mg/dl Total Bilirubin (0.2-1.0) mg/dl AST (13-39) U/L ALT (7-52) U/L Alkaline Phosphatase (34-104) U/L Troponin I High Sens (0-14) pg/ml Total Protein (6.0-8.3) gm/dl Albumin (3.4-5.0) gm/dl Globulin (2.5-4.0) gm/dl Albumin/Globulin Ratio (0.9-2) Lipase (11-82) U/L Adenovirus (PCR) Not Detected (NotDetected) B. pertussis DNA (PCR) Not Detected (NotDetected) B.parapertussis DNA PCR Not Detected (NotDetected) C. pneumoniae DNA (PCR) Not Detected (NotDetected) Coronavirus OC43 (PCR) Not Detected (NotDetected) Coronavirus HKU1 (PCR) Not Detected (NotDetected) Coronavirus 229E (PCR) Not Detected (NotDetected) SARS-CoV-2 (PCR) Not Detected (NotDetected) Coronavirus NL63 (PCR) Not Detected (NotDetected) Human Metapneumovir PCR Not Detected (NotDetected) Influenza Type A (PCR) Not Detected (NotDetected) Influenza Type B (PCR) Not Detected (NotDetected) M. pneumoniae (PCR) Not Detected (NotDetected) Parainfluenza 1 (PCR) Not Detected (NotDetected) Parainfluenza 2 (PCR) Not Detected (NotDetected) Parainfluenza 3 (PCR) Not Detected (NotDetected) Parainfluenza 4 (PCR) Not Detected (NotDetected) RSV (PCR) Not Detected (NotDetected) Entero/Rhino (PCR) Not Detected (NotDetected) Administered Medications Vancomycin HCl 750 mg/ Sodium (Chloride) 515 mls @ 200 mls/hr IV NOW ONE Stop: 07/30/23 17:36 Last Admin: 07/30/23 15:30 Dose: 200 mls/hr Documented By: SOL Discontinued Medications Cefepime HCl (Maxipime) 2,000 mg in 20 mls @ 5 mls/min IV NOW STA; Protocol Stop: 07/30/23 15:05 Last Admin: 07/30/23 15:16 Dose: 5 mls/min Documented By: SOL Ondansetron HCl (Ondansetron Inj 2 Mg/Ml 2 Ml Vial) 4 mg IV NOW STA Stop: 07/30/23 11:18 Last Admin: 07/30/23 11:32 Dose: 4 mg Documented By: SOL Imaging Data Radiologist's Impression: Chest X-Ray 07/30/23 11:01 SINGLE VIEW CHEST CLINICAL HISTORY: Atypical chest pain. FINDINGS: 2 AP, portable, upright chest radiographs are compared to chest x-ray and chest CT dated 06/24/2023. The examination is degraded by portable technique and patient rotation. The cardiomediastinal silhouette is unremarkable noting atherosclerotic calcification of the thoracic aorta. Advanced emphysema and chronic interstitial thickening is similar to previous. Again seen is masslike consolidation at the left apex. There is progressive masslike consolidation/fibrosis at the right apex with cavitation and loculated fluid. There is patchy airspace consolidation in the right lower lung. There are scattered calcified granulomas. Foci of scarring are seen throughout both lungs. There is a small right pleural effusion. No pneumothorax is seen. The skeletal structures are osteopenic the bony thorax is grossly intact. IMPRESSION: 1. Advanced emphysema and changes of chronic lung disease. 2. There is increasing masslike consolidation with cavitation and loculated fluid at the right apex. Correlate clinically for evidence of a superimposed infectious/inflammatory pneumonitis. 3. Masslike consolidation at the left apex is similar to previous. 4. Milder airspace consolidation is seen in the right lower lung and there is a small right pleural effusion. ACT 112: Negative or not required by law. Electronically signed by: Rickey Montoya M.D. 07/30/2023 11:50 AM Chest CTA 07/30/23 11:56 CT ANGIOGRAPHY OF THE CHEST, PULMONARY EMBOLUS PROTOCOL CLINICAL HISTORY: Chest pain and cough. Lung cancer. COMPARISON STUDY: Chest CT June 24, 2023 and chest radiograph July 30, 2023. PET/CT March 27, 2023. TECHNIQUE: Following IV administration of 118 mL of Optiray, helical axial images of the chest were obtained utilizing the pulmonary embolus protocol. Maximal intensity projections and sagittal and coronal reformats were viewed on an independent 3D workstation. IV contrast was administered without complication. Automated exposure control was utilized for the study. A dose lowering technique was utilized adhering to the principles of ALARA. CT DOSE: 243.52 mGy.cm FINDINGS: No pulmonary emboli are identified. No pathologically enlarged thorac ic lymph nodes are present. There is no pericardial effusion. Severe emphysema is again noted. There is no pneumothorax. A small loculated right pleural effusion has increased in size since exam of June 24, 2023. A 4.8 cm mass-like density within left upper lobe on image 190 of 235 is similar to prior chest CT and PET/CT. This remains indeterminate. Left apical cavitary opacity has slightly progressed. Extensive multifocal cavitary opacities within the right lung have significantly progressed since chest CT of June 24, 2023. There is suspected necrotizing pneumonia within the right lung apex as well as within the superior segment of the right lower lobe. Extensive secretions within the right bronchial tree are noted. No central obstructing mass is identified. Visualized portions of the upper abdomen are unremarkable. IMPRESSION: 1. No pulmonary emboli identified. 2. Progression of extensive multifocal cavitary opacities, greater within the right lung, since chest CT of June 24, 2023. The findings suggest necrotizing pneumonia, possibly related to aspiration. 3. Increase in size of a small, loculated right pleural effusion. 4. Severe emphysema. 5. No change in a 4.8 cm mass-like density within the left upper lobe since PET /CT of March 27, 2023. This remains indeterminate and can be assessed on follow- up exams. ACT 112: Negative or not required by law. Electronically signed by: Kaiden Cortes M.D. 07/30/2023 1:57 PM Discharge Plan Visit Data Chief Complaint: Chest Pain Stated Complaint: SOB, CHEST PAIN, MUSCLE WEAKNESS ED Provider: Marysol Cho Discharge Problem: Chest pain, Shortness of breath, Necrotizing pneumonia, Generalized weakness Forms Stand Alone Forms: [employer] Prescriptions Prescriptions: No Action [id number]-[id number] 50-325-40 mg capsule 1 cap PO .COMPLEX PRN (Reason: Headache) Qty: 13 0RF Rx Instructions: 1 cap orally every other day x 2wks, then 1 cap 3 times a wk x 2 wks. PRN; triamcinolone acetonide 0.1 % cream 1 applic topical BID PRN (Reason: Skin Irritation) Qty: 15 2RF albuterol sulfate 90 mcg/actuation HFA aerosol inhaler 2 inh inhalation Q4H PRN (Reason: Shortness Of Breath) Qty: 8.5 2RF gabapentin 600 mg tablet 600 mg PO BID Qty: 60 5RF miscellaneous medical supply Misc 1 ea miscellaneous DAILY Qty: 1 0RF Rx Instructions: Portable o2 concentrator Length of Need: 99 years prochlorperazine maleate [Compazine] 10 mg tablet 10 mg PO Q6H PRN (Reason: Nausea) Qty: 90 3RF benzonatate 100 mg capsule 100 mg PO TID PRN (Reason: cough) Qty: 180 1RF Rx Instructions: One or two pearls three times a day as needed. fluticasone furoate-vilanterol [Breo Ellipta] 200-25 mcg/dose blister with device 2 inh inhalation HS Qty: 60 5RF Flutter Valve Device See Rx Instructions .ROUTE .COMPLEX Qty: 1 0RF Rx Instructions: Use 10 to 15 x 2 to 3 times a day; fluticasone propionate 50 mcg/actuation spray,suspension 2 spray intranasal BID Rx Instructions: administer into each nostril pantoprazole 40 mg tablet,delayed release (DR/EC) 40 mg PO DAILY terconazole 0.4 % cream 1 applic vaginal PM PRN (Reason: Other) Referrals Referrals: Gali Cruz MD [Primary Care Provider] -
[2023-07-30 11:45] LABS: Base Excess VBG 2.9 mEq/L; HCO3 VBG 29 mmol/L; Oxygen Saturation VBG < 60.0 %; PCO2 VBG 50 mmHg (38-50); PO2 VBG 33 mmHg; pH VBG 7.37 (7.36-7.41)
--- NOTE | 2023-07-30 11:51 | XRay Report ---
SINGLE VIEW CHEST CLINICAL HISTORY: Atypical chest pain. FINDINGS: 2 AP, portable, upright chest radiographs are compared to chest x-ray and chest CT dated . The examination is degraded by portable technique and patient rotation. The cardiomediastin al silhouette is unremarkable noting atherosclerotic calcification of the thoracic aorta. Advanced em physema and chronic interstitial thickening is similar to previous. Again seen is masslike consolidat ion at the left apex. There is progressive masslike consolidation/fibrosis at the right apex with cav itation and loculated fluid. There is patchy airspace consolidation in the right lower lung. There ar e scattered calcified granulomas. Foci of scarring are seen throughout both lungs. There is a small r ight pleural effusion. No pneumothorax is seen. The skeletal structures are osteopenic the bony thora x is grossly intact. IMPRESSION: 1. Advanced emphysema and changes of chronic lung disease. 2. There is increasing masslike consolidation with cavitation and loculated fluid at the right apex. Correlate clinically for evidence of a superimposed infectious/inflammatory pneumonitis. 3. Masslike consolidation at the left apex is similar to previous. 4. Milder airspace consolidation is seen in the right lower lung and there is a small right pleural e ffusion. ACT 112: Negative or not required by law. Electronically signed by: Rickey Montoya M.D. 07/30/2023 11:50 AM
[2023-07-30 11:52] LABS: Basophils # (auto) 0.04 K/uL (0.00-0.20); Basophils % (auto) 0.3 %; Eosinophils # (auto) 0.05 K/uL (0.00-0.50); Eosinophils % (auto) 0.3 %; Hematocrit (blood only) 30.1 % (37.0-47.0); Hemoglobin 9.7 g/dl (12.0-16.0); Immature Granulocytes # (auto) 0.08 K/uL (0.01-0.20); Immature Granulocytes % (auto) 0.5 %; Lymphocytes # (auto) 0.41 K/uL (1.20-3.40); Lymphocytes % (auto) 2.7 %; Mean Corpuscular Hemoglobin 29.8 pg (25.0-34.0); Mean Corpuscular Hgb Conc 32.2 g/dL (32.0-36.0); Mean Corpuscular Volume 92.3 fL (80.0-100.0); Mean Platelet Volume 9.5 fL (9.4-12.4); Monocytes # (auto) 1.01 K/uL (0.11-0.59); Monocytes % (auto) 6.6 %; Neutrophils # (auto) 13.82 K/uL (1.40-6.50); Neutrophils % (auto) 89.6 %; Platelet Count 434 K/uL (130-400); RDW Coefficient of Variation 14.7 % (11.5-14.5); RDW Standard Deviation 49.9 fL (36.4-46.3); Red Blood Count 3.26 M/uL (4.20-5.40); White Blood Count 15.41 K/ul (4.8-10.8)
[2023-07-30 12:08] LABS: Anion Gap 9 (3-11); BUN Creatinine Ratio 23.6 (10-20); Blood Urea Nitrogen 25 mg/dl (6-23); Calcium 9.7 mg/dl (8.6-10.3); Carbon Dioxide 27 mmol/L (21-32); Chloride 97 mmol/L (98-107); Est GFR (African American) 63.4 ml/min; Est GFR (Non-African American) 54.7 ml/min; Glucose 145 mg/dl (70-99(Fasting)); Sodium 133 mmol/L (136-145)
[2023-07-30 12:14] LABS: Troponin I High Sensitivity 10.6 pg/ml (0-14)
[2023-07-30 12:29] LABS: Alanine Aminotransferase 19 U/L (7-52); Albumin Globulin Ratio 0.8 (0.9-2); Albumin Level 3.2 gm/dl (3.4-5.0); Alkaline Phosphatase 100 U/L (34-104); Aspartate Aminotransferase 18 U/L (13-39); Bilirubin,Total 0.4 mg/dl (0.2-1.0); Globulin 3.8 gm/dl (2.5-4.0); Lipase < 3 U/L (11-82)
[2023-07-30 12:48] LABS: D Dimer 6160 ug/L FEU (0-500)
[2023-07-30 13:01] LABS: Adenovirus PCR Not Detected (NotDetected); Bordetella parapertussis PCR Not Detected (NotDetected); Bordetella pertussis PCR Not Detected (NotDetected); Chlamydia pneumoniae PCR Not Detected (NotDetected); Coronavirus 229E PCR Not Detected (NotDetected); Coronavirus CoV-2 (COVID19)PCR Not Detected (NotDetected); Coronavirus HKU1 PCR Not Detected (NotDetected); Coronavirus NL63 PCR Not Detected (NotDetected); Coronavirus OC43PCR Not Detected (NotDetected); Human Metapneumovirus PCR Not Detected (NotDetected); Influenza A PCR Not Detected (NotDetected); Influenza B PCR Not Detected (NotDetected); Mycoplasma pneumoniae PCR Not Detected (NotDetected); Parainfluenza Virus 1 PCR Not Detected (NotDetected); Parainfluenza Virus 2 PCR Not Detected (NotDetected); Parainfluenza Virus 3 PCR Not Detected (NotDetected); Parainfluenza Virus 4 PCR Not Detected (NotDetected); Respiratory Syncytial VirusPCR Not Detected (NotDetected); Rhinovirus/Enterovirus PCR Not Detected (NotDetected)
[2023-07-30] MEDS ORDERED: IOVERSOL 350 MG 125mL Prefilled Syringe IV ONE (13:09)
--- NOTE | 2023-07-30 13:59 | CT Scan Report ---
CT ANGIOGRAPHY OF THE CHEST, PULMONARY EMBOLUS PROTOCOL CLINICAL HISTORY: Chest pain and cough. Lung cancer. COMPARISON STUDY: Chest CT June 24, 2023 and chest radiograph July 30, 2023. PET/CT March 27, 2023 . TECHNIQUE: Following IV administration of 118 mL of Optiray, helical axial images of the chest were o btained utilizing the pulmonary embolus protocol. Maximal intensity projections and sagittal and cor onal reformats were viewed on an independent 3D workstation. IV contrast was administered without co mplication. Automated exposure control was utilized for the study. A dose lowering technique was ut ilized adhering to the principles of ALARA. CT DOSE: 243.52 mGy.cm FINDINGS: No pulmonary emboli are identified. No pathologically enlarged thoracic lymph nodes are pr esent. There is no pericardial effusion. Severe emphysema is again noted. There is no pneumothorax. A small loculated right pleural effusion has increased in size since exam of June 24, 2023. A 4.8 cm m ass-like density within left upper lobe on image 190 of 235 is similar to prior chest CT and PET/CT. This remains indeterminate. Left apical cavitary opacity has slightly progressed. Extensive multifoca l cavitary opacities within the right lung have significantly progressed since chest CT of June 24 023. There is suspected necrotizing pneumonia within the right lung apex as well as within the superi or segment of the right lower lobe. Extensive secretions within the right bronchial tree are noted. N o central obstructing mass is identified. Visualized portions of the upper abdomen are unremarkable. IMPRESSION: 1. No pulmonary emboli identified. 2. Progression of extensive multifocal cavitary opacities, greater within the right lung, since chest CT of June 24, 2023. The findings suggest necrotizing pneumonia, possibly related to aspiration. 3. Increase in size of a small, loculated right pleural effusion. 4. Severe emphysema. 5. No change in a 4.8 cm mass-like density within the left upper lobe since PET/CT of March 27, 2023. This remains indeterminate and can be assessed on follow-up exams. ACT 112: Negative or not required by law. Electronically signed by: Kaiden Cortes M.D. 07/30/2023 1:57 PM
[2023-07-30] MEDS ORDERED: VANCOMYCIN HCL 750 MG in SODIUM CHLORIDE 0.9% 500 ML IV ONE (15:02)
[2023-07-30] MEDS ORDERED: VANCOMYCIN CONSULT ACTIVE PRN ×3 (15:02→19:02)
[2023-07-30] MEDS ORDERED: CEFEPIME 2,000 MG/20 ML VIAL IV STA (15:02)
[2023-07-30 16:17] LABS: Magnesium 1.4 mg/dl (1.7-2.4)
--- NOTE | 2023-07-30 17:04 | History & Physical Report ---
Date of Service July 30, 2023 Assessment & Plan (1) Abnormal CT scan of lung: Plan: Patient presents with worsening of cough and shortness of breath in previously treated pneumonia as well as in the setting of maintenance therapy with Tecentriq and chemo/radiation for Small Cell Lung Cancer. - Concern at this time is for necrotizing pneumonia, myoplasm pneumonia/myoplasm TB vs. Worsening of underlying cancer vs. pulmonary toxicity from Tecentriq - She is with Leucocytosis, opacities, biapical necrotizing lesions, PCT 1.02 and increased oxygen use- favoring infectious etiology - Sputum with gram stain and culture - Blood cultures x2 already done - Zosyn 4.5 GM IV q8m, Vancomycin, Doxycycline 100mg IV q12 - Respiratory isolation for cavitary lesions- Quantiferon gold pending, Bronchoscopy for AFB in AM - Pulmonary consultation for bronchoscopy appreciated- Anesthesia consultation placed as well - Her oxygen demand is at her baseline currently, however reports increase to 5LNC with activity. (2) Small cell lung cancer: Plan: Small Cell lung cancer from path review- metastatic noted on previous path - as above await bronchoscopy with possible biopsy for evaluation of prgression of disease (3) Acute respiratory failure with hypoxia: Plan: Acute on Chronic hypoxia with exertion - Supportive care as above - nebulizers prn - oxygen for spo2 88-92% (4) COPD (chronic obstructive pulmonary disease): Plan: Hx of - not acute exacerbation at this time - Continue home inhalers and nebulizer as needed (5) Dysphagia: Plan: Previously evaluated in May 2023 admission - IDDSI 7 Moist diet, alternate solids and liquids (6) Hypomagnesemia: Plan: Mag 1.4- likely from poor oral intake - Replete IV- check in AM History of Present Illness Primary Care Provider: Gali Cruz MD 68 YOF with medical history of: Smoking (continues 1/2-1/ ppd), home oxygen use, COPD, Lung Cancer- [facility], bi-apical cavitary lung lesions. Patient presents with worsening cough and dyspnea in the setting of hx of lung cancer. Patient had previously been treated with Levauin in March noting cavitary lesions/nodules- concern was for necrotizing pneumonia/abscess or worsening of disease. She completed chemo/radiation in March and was on Tecentriq. Patient was recently admitted in May 2023 for a pneumonia that was initially thought to be aspiration- she had a CT scan performed by [facility] in May 2023 that noted worsening infiltrates with concern of some necrotizing areas in the right > left upper lobes. At that time her Tecentriq was held as well as she continued course of Augmentin. She was evaluated by Pulmonology at that time, where she was improving in symptoms as well as was on antibiotics- so bronchoscopy was deferred, she was to follow up in 6 weeks for repeat imaging. As above she returned to [facility] today for worsening cough and hypoxia- she denies fevers or chest pain. She is coughing up thick green sputum without blood. In the EMD the patient had repeat CTA as well as routine labs to include blood cultures and PCT, and respiratory BIOfire/COVID 19. Her BIOfire was negative. Her CTA of the chest was negative for PE, but has show on progression of cavitary opacities as above RT>LT, as well as 4.8 CM density in [facility]. Patient was given dose of Cefepime in the EMD and Vancomycin. Patient will be brought in for evaluation of her pneumonia, will keep on respiratory isolation until myoplasm TB ruled out, place on Zosyn, Vancomycin, and Doxycycline. Appreciate Pulmonary evaluation for consideration of bronchoscopy. CODE: FULL COVID19 NEGATIVE Allergies Allergy/AdvReac Type Severity Reaction Status Date / Time budesonide Allergy Severe SHORTNESS Verified 07/21/23 15:25 OF BREATH formoterol Allergy Severe SHORTNESS Verified 07/21/23 15:25 OF BREATH Sulfa (Sulfonamide Allergy Severe HIVES Verified 07/21/23 15:25 Antibiotics) erythromycin base Allergy Intermediate CAUSES HER Verified 07/21/23 15:25 EYES TO BURN Penicillins Allergy Unknown HAPPENED Verified 07/21/23 15:25 A CHILD magnesium AdvReac Severe severe Verified 07/21/23 15:25 diarrhea thimerosol Allergy burning Uncoded 07/21/23 15:25 eyes Home Medications Medication Instructions Recorded Confirmed Type fluticasone propionate 50 2 spray intranasal BID 11/03/20 07/30/23 History mcg/actuation nasal spray,suspension Flutter Valve See Rx Instructions .Route 04/13/21 07/30/23 Rx .COMPLEX #1 ea urxxsnrwhw-iwpbuha-iistayyd 50 1 cap PO .COMPLEX PRN Headache #13 10/28/22 07/30/23 Rx mg-325 mg-40 mg capsule caps triamcinolone acetonide 0.1 % 1 applic topical BID PRN Skin 05/06/23 07/30/23 Rx topical cream Irritation #15 grams albuterol sulfate 90 mcg/actuation 2 inh inhalation Q4H PRN Shortness 05/21/23 07/30/23 Rx aerosol inhaler Of Breath #8.5 grams gabapentin 600 mg tablet 600 mg PO BID #60 tabs 05/26/23 07/30/23 Rx miscellaneous medical supply 1 ea miscellaneous DAILY shortness 05/26/23 07/21/23 Rx of breath #1 ea prochlorperazine maleate 10 mg 10 mg PO Q6H PRN Nausea #90 tabs 05/26/23 07/30/23 Rx tablet (Compazine) benzonatate 100 mg capsule 100 mg PO TID PRN cough #180 caps 06/10/23 07/30/23 Rx fluticasone furoate 200 2 inh inhalation HS #60 ea 06/10/23 07/30/23 Rx mcg-vilanterol 25 mcg/dose inhalation powder (Breo Ellipta) pantoprazole 40 mg tablet,delayed 40 mg PO DAILY 07/30/23 07/30/23 History release terconazole 0.4 % vaginal cream 1 applic vaginal PM PRN Other 07/30/23 07/30/23 History Past Med/Surg History Medical History Abnormal CT scan of lung Arthritis Atelectasis Avascular necrosis of left femur Chronic kidney disease COPD (chronic obstructive pulmonary disease) Degenerative disc disease Ectopic Elevated troponin Facial contusion HCAP (healthcare-associated pneumonia) Hip fracture, left Hypertension Hypomagnesemia Lung cancer Migraines Pulmonary nodule Right orbital fracture Subconjunctival hemorrhage of right eye Tobacco abuse Transient osteoporosis of hip Surgical History History of appendectomy History of bronchoscopy Family History Mother Heart disease Hypertension Kidney disease Father , 73yo Emphysema lung Alcoholism Brother No problems noted. Sister Myocardial infarction Son No problems noted. Son No problems noted. 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 [employer] How many Children do You have: 2 How many Children do You have Comment: 2 biological, 4 step children Other Information That Helps Us Care for You: No Feels Safe at Home: Yes Safety Concerns: Feels Safe At This Time Childhood Exposure to Second-Hand Smoke: Yes Diet: regular caffeine: Yes (1 cup/day;2 cups/day) during the past year weight has: remained stable Dental Care, Regularly: Yes Physical Activity Frequency: Does not Exercise Seatbelt Use: always Sunscreen Use: Yes Assistive Devices: Glasses and Oxygen - Continuous Review of Systems Review of Systems: REVIEW OF SYSTEMS: Constitutional: No fever, sweats or chills Eyes: No diplopia, no worsening or blurred vision ENT: normal hearing, no trouble swallowing Respiratory: (+) cough, sputum, dyspnea at rest or on exertion Cardiovascular: No chest pain, tightness or palpitations Abdomen: (+) decreased appetite, No pain, nausea, vomiting, diarrhea or constipation Musculoskeletal: No joint pain, calf pain, swelling Neurologic: No weakness, numbness/tingling, or balance problems Psychiatric: No anxiety or depression Skin: No rash or itch Physical Exam Physical Exam: PHYSICAL EXAM: General: awake, alert, cachectic appearance Head: Normocephalic, atraumatic ENT: PERRL, EOMI, no pharyngeal exudate, mucous membranes dry Neuro: AAO x 3, speech clear and appropriate, strength intact bilaterally 5/5, sensation intact and equal all extremities and dermatomes, no pronator drift Chest: equal rise and fall of the chest, no accessory muscle use, no heaves or thrills, decreased throughout with rhonchi and expiratory wheeze- on 3LNC Cardiac: Regular rate and rhythm, telemetry reviewed- NSR, skin warm dry, cap refill <3 seconds, peripheral pulses +2 no JVD, no murmur, no JVD, no edema GI: NABS x 4 quadrants, soft, nontender to palpation, no rebound, guarding or tenderness : Spontaneously voiding, no pain, no CVA tenderness, Extremities: Normal inspection, no peripheral edema or erythema, calfs nontender to palpation Psych: Normal mood and affect Skin: no rash or erythema Results & Data Results & Data Vital Signs (Past 12 Hours) Vital Signs Temp Pulse Pulse Resp BP BP Pulse Ox 07/30/23 15:41 77 07/30/23 15:00 77 16 113/64 99 07/30/23 13:18 86 18 115/59 L 96 07/30/23 12:52 88 16 112/71 94 07/30/23 11:31 91 H 07/30/23 11:04 99 H 16 124/74 99 07/30/23 10:56 99 07/30/23 10:47 36.5 C 112 H 20 109/66 95 O2 Del Method O2 Flow Rate 07/30/23 15:41 07/30/23 15:00 Nasal Cannula 4 07/30/23 13:18 Nasal Cannula 4 07/30/23 12:52 Nasal Cannula 4 07/30/23 11:31 07/30/23 11:04 Nasal Cannula 4 07/30/23 10:56 Room Air 07/30/23 10:47 Room Air Laboratory Results Abnormal lab results 07/30/23 07/30/23 07/30/23 Range/Units 11:30 11:30 11:30 WBC 15.41 H (4.8-10.8) K/ul RBC 3.26 L (4.20-5.40) M/uL Hgb 9.7 L (12.0-16.0) g/dl Hct 30.1 L (37.0-47.0) % RDW Std Deviation 49.9 H (36.4-46.3) fL RDW Coeff of Kiara 14.7 H (11.5-14.5) % Plt Count 434 H (130-400) K/uL Neut # (Auto) 13.82 H (1.40-6.50) K/uL Lymph # (Auto) 0.41 L (1.20-3.40) K/uL Cache # (Auto) 1.01 H (0.11-0.59) K/uL D-Dimer 6160 H* (0-500) ug/L FEU Sodium 133 L (136-145) mmol/L Chloride 97 L (98-107) mmol/L BUN 25 H (6-23) mg/dl BUN/Creatinine Ratio 23.6 H (10-20) Glucose 145 H (70-99(Fasting)) mg/dl Magnesium 1.4 L (1.7-2.4) mg/dl Albumin 3.2 L (3.4-5.0) gm/dl Albumin/Globulin Ratio 0.8 L (0.9-2) Lipase < 3 L (11-82) U/L Procalcitonin (0-0.5) ng/ml 07/30/23 Range/Units 15:17 WBC (4.8-10.8) K/ul RBC (4.20-5.40) M/uL Hgb (12.0-16.0) g/dl Hct (37.0-47.0) % RDW Std Deviation (36.4-46.3) fL RDW Coeff of Kiara (11.5-14.5) % Plt Count (130-400) K/uL Neut # (Auto) (1.40-6.50) K/uL Lymph # (Auto) (1.20-3.40) K/uL Cache # (Auto) (0.11-0.59) K/uL D-Dimer (0-500) ug/L FEU Sodium (136-145) mmol/L Chloride (98-107) mmol/L BUN (6-23) mg/dl BUN/Creatinine Ratio (10-20) Glucose (70-99(Fasting)) mg/dl Magnesium (1.7-2.4) mg/dl Albumin (3.4-5.0) gm/dl Albumin/Globulin Ratio (0.9-2) Lipase (11-82) U/L Procalcitonin 1.02 H (0-0.5) ng/ml Diagnostic Findings Chest X-Ray 07/30/23 11:01 SINGLE VIEW CHEST CLINICAL HISTORY: Atypical chest pain. FINDINGS: 2 AP, portable, upright chest radiographs are compared to chest x-ray and chest CT dated 06/24/2023. The examination is degraded by portable technique and patient rotation. The cardiomediastinal silhouette is unremarkable noting atherosclerotic calcification of the thoracic aorta. Advanced emphysema and chronic interstitial thickening is similar to previous. Again seen is masslike consolidation at the left apex. There is progressive masslike consolidation/fibrosis at the right apex with cavitation and loculated fluid. There is patchy airspace consolidation in the right lower lung. There are scattered calcified granulomas. Foci of scarring are seen throughout both lungs. There is a small right pleural effusion. No pneumothorax is seen. The skeletal structures are osteopenic the bony thorax is grossly intact. IMPRESSION: 1. Advanced emphysema and changes of chronic lung disease. 2. There is increasing masslike consolidation with cavitation and loculated fluid at the right apex. Correlate clinically for evidence of a superimposed infectious/inflammatory pneumonitis. 3. Masslike consolidation at the left apex is similar to previous. 4. Milder airspace consolidation is seen in the right lower lung and there is a small right pleural effusion. ACT 112: Negative or not required by law. Electronically signed by: Rickey Montoya M.D. 07/30/2023 11:50 AM Chest CTA 07/30/23 11:56 CT ANGIOGRAPHY OF THE CHEST, PULMONARY EMBOLUS PROTOCOL CLINICAL HISTORY: Chest pain and cough. Lung cancer. COMPARISON STUDY: Chest CT June 24, 2023 and chest radiograph July 30, 2023. PET/CT March 27, 2023. TECHNIQUE: Following IV administration of 118 mL of Optiray, helical axial images of the chest were obtained utilizing the pulmonary embolus protocol. Maximal intensity projections and sagittal and coronal reformats were viewed on an independent 3D workstation. IV contrast was administered without complication. Automated exposure control was utilized for the study. A dose lowering technique was utilized adhering to the principles of ALARA. CT DOSE: 243.52 mGy.cm FINDINGS: No pulmonary emboli are identified. No pathologically enlarged thoracic lymph nodes are present. There is no pericardial effusion. Severe emphysema is again noted. There is no pneumothorax. A small loculated right pleural effusion has increased in size since exam of June 24, 2023. A 4.8 cm mass-like density within left upper lobe on image 190 of 235 is similar to prior chest CT and PET/CT. This remains indeterminate. Left apical cavitary opacity has slightly progressed. Extensive multifocal cavitary opacities within the right lung have significantly progressed since chest CT of June 24, 2023. There is suspected necrotizing pneumonia within the right lung apex as well as within the superior segment of the right lower lobe. Extensive secretions within the right bronchial tree are noted. No central obstructing mass is identified. Visualized portions of the upper abdomen are unremarkable. IMPRESSION: 1. No pulmonary emboli identified. 2. Progression of extensive multifocal cavitary opacities, greater within the right lung, since chest CT of June 24, 2023. The findings suggest necrotizing pneumonia, possibly related to aspiration. 3. Increase in size of a small, loculated right pleural effusion. 4. Severe emphysema. 5. No change in a 4.8 cm mass-like density within the left upper lobe since PET/CT of March 27, 2023. This remains indeterminate and can be assessed on follow-up exams. ACT 112: Negative or not required by law. Electronically signed by: Kaiden Cortes M.D. 07/30/2023 1:57 PM Medications Administered Home Medications fluticasone propionate 50 mcg/actuation nasal spray,suspension 2 spray intranasal BID 11/03/20 [History Confirmed 07/30/23] Flutter Valve See Rx Instructions .Route .COMPLEX #1 ea 04/13/21 [Rx Confirmed 07/30/23] drlvxcsmof-kwqyrjq-bdpcwepn 50 mg-325 mg-40 mg capsule 1 cap PO .COMPLEX PRN Headache #13 caps 10/28/22 [Rx Confirmed 07/30/23] triamcinolone acetonide 0.1 % topical cream 1 applic topical BID PRN Skin Irritation #15 grams 05/06/23 [Rx Confirmed 07/30/23] albuterol sulfate 90 mcg/actuation aerosol inhaler 2 inh inhalation Q4H PRN Shortness Of Breath #8.5 grams 05/21/23 [Rx Confirmed 07/30/23] gabapentin 600 mg tablet 600 mg PO BID #60 tabs 05/26/23 [Rx Confirmed 07/30/23] miscellaneous medical supply 1 ea miscellaneous DAILY shortness of breath #1 ea 05/26/23 [Rx Confirmed 07/21/23] prochlorperazine maleate 10 mg tablet (Compazine) 10 mg PO Q6H PRN Nausea #90 tabs 05/26/23 [Rx Confirmed 07/30/23] benzonatate 100 mg capsule 100 mg PO TID PRN cough #180 caps 06/10/23 [Rx Confirmed 07/30/23] fluticasone furoate 200 mcg-vilanterol 25 mcg/dose inhalation powder (Breo Ellipta) 2 inh inhalation HS #60 ea 06/10/23 [Rx Confirmed 07/30/23] pantoprazole 40 mg tablet,delayed release 40 mg PO DAILY 07/30/23 [History Conf irmed 07/30/23] terconazole 0.4 % vaginal cream 1 applic vaginal PM PRN Other 07/30/23 [History Confirmed 07/30/23] Active Medications Vancomycin HCl 750 mg/ Sodium (Chloride) 515 mls @ 200 mls/hr IV NOW ONE Stop: 07/30/23 17:36 Last Admin: 07/30/23 15:30 Dose: 200 mls/hr Miscellaneous Information (Vancomycin Consult Active) 1 each N/A UD PRN PRN Reason: Consult Stop: 08/29/23 15:01 ECG Additional Comments: Sinus tachycardia Otherwise normal ECG When compared with ECG of 01-MAY-2023 11:39, Premature atrial complexes are no longer Present Code Status & VTE Plan VTE Prophylaxis Plan VTE Prophylaxis will be ordered: Yes Supervising Physician Co-Signing Physician Notes I personally saw and examined the patient. I verified all mathis points and agree with ANDRES James with the following exceptions and/or additions: 68 year old female with small cell lung cancer presents to the ER with worsening cough, shortness of breath. No fever or chills. O/E Frail appearing, cachectic, HS RRR, no murmurs, Chest with reduced breath sounds on right, crackles without wheezing on left, Abdo SNT, no pedal edema A/P Abnormal CT - concerning for necrotizing infection vs. cancer vs. reaction to her chemotherapy. Had planned on repeat CT after antibiotics by pulmonology as an outpatient at which point bronchoscopy would be consider. Given worsening findings and symptoms recommend broad spectrum antibiotics (despite penicillin allergy she tolerated Augmentin previously therefore will give Zosyn) with vancomycin, Zosyn and doxycycline. Consult pulmonology to consider bronchopscopy. Highly recommended stopping smoking.Agree with quantiferon gold and respiratory isolation pending results of this. PG Care Time/CCT Total # of Minutes Spent Total Time Spent with Patient: Total time spent is greater than 50% in coordination of care (as documented) at patient's floor/unit and/or counseling patient: Coding Level of Care Code 41439 INT INP/OBS CARE 75MIN Diagnoses Abnormal CT scan of lung R91.8 Small cell lung cancer C34.90 Acute respiratory failure with hypoxia J96.01 COPD (chronic obstructive pulmonary disease) J44.9 Dysphagia R13.10 Hypomagnesemia E83.42
[2023-07-30] MEDS ORDERED: ALBUTEROL HFA 8 GM INHALER INH PRN (19:02)
[2023-07-30] MEDS ORDERED: BENZONATATE 100 MG CAPSULE PO PRN (19:02)
[2023-07-30] MEDS ORDERED: ALBUTEROL 0.083% NEBU SOLN 3 ML VIAL NEB PRN (19:02)
[2023-07-30] MEDS ORDERED: PROCHLORPERAZINE MALEATE 10 MG TAB PO PRN (19:02)
[2023-07-30] MEDS ORDERED: PIPERACILLIN/TAZOBACTAM 4.5 GM in DEXTROSE 5% 100 ML IV SCH (19:02)
[2023-07-30] MEDS ORDERED: VANCOMYCIN HCL 500 MG in SODIUM CHLORIDE 0.9% 500 ML IV SCH (19:02)
[2023-07-30] MEDS ORDERED: PIPERACILLIN/TAZOBACTAM 4.5 GM in DEXTROSE 5% 100 ML IV ONE (19:30)
--- NOTE | 2023-07-30 19:41 | Pharmacy Report ---
Pharmacy PK ABX Note - Date of Service July 30, 2023 - Assessment and Plan Assessment 68 year old F receiving vanocmycin/doxycycline/zosyn empiric therapy for treatment of possible necrotizing pneumonia on CT. Pertinent microbiologic data includes: negative MRSA nasal swab, blood cultures pending. Patient is on maintenance therapy with Tecentriq and chemo/radiation for Small Cell Lung Cancer. Procal is 1.02, WBC 15, afebrile Plan Vancomycin * Loading dose: 750 mg IV x 1 * Maintenance dose: 500 mg IV every 12 hours * Regimen is predicted to achieve target AUC/HIMANSHU of 400-600 mg/L.hr * Random level ordered with 9/1 AM labs Pharmacy will continue to follow and will adjust dose/frequency as necessary. Thank you. Pharmacy has transitioned to AUC monitoring for vancomycin. AUC/HIMANSHU is the preferred PK/PD target and is associated with decreased risk of nephrotoxicity compared to traditional trough targets.
[2023-07-30] MEDS: NICOTINE 7 MG/24 HR TDSY TD SCH (20:00)
[2023-07-30] MEDS: DOXYCYCLINE HYCLATE 100 MG in DEXTROSE 5% 100 ML IV SCH (20:50)
[2023-07-30] MEDS ORDERED: FLUTICASONE/VILANTEROL 200/25MCG 14 PUFFS/INHALER INH SCH (21:00)
[2023-07-30] MEDS: HEPARIN SOD 5,000 UNIT/0.5 ML VIAL SQ SCH (21:50)
[2023-07-30] MEDS: ACETAMINOPHEN 325 MG TAB PO PRN (21:50)
[2023-07-30] MEDS: VANCOMYCIN HCL 500 MG in NSS 100mL IV SCH (22:55)
[2023-07-30] MEDS: MAGNESIUM SULFATE / D5W 1 GM/100 ML BAG IV SCH (23:53)
[2023-07-31] MEDS: MAGNESIUM SULFATE / D5W 1 GM/100 ML BAG IV SCH ×2 (01:53→03:53)
[2023-07-31] MEDS: PIPERACILLIN/TAZOBACTAM 4.5 GM in DEXTROSE 5% 100 ML IV SCH ×3 (02:03→19:20)
[2023-07-31 07:41] LABS: Creatinine Clr Calc Pharmacy 37.3 ml/min; Est GFR (Non-African American) 58.7 ml/min
[2023-07-31] MEDS: DOXYCYCLINE HYCLATE 100 MG in DEXTROSE 5% 100 ML IV SCH ×2 (07:53→19:44)
[2023-07-31] MEDS: VANCOMYCIN HCL 500 MG in NSS 100mL IV SCH ×2 (07:53→19:43)
--- NOTE | 2023-07-31 08:49 | Anesthesiology Consultation ---
Date of Service July 31, 2023 Assessment & Plan (1) Encounter for pre-operative examination: Chart Review Chart Review: Acceptable Risk for Surgery (if felt to be urgent) patient is on respiratory isolation so will need to be done in a negative pressure room History Height/Weight Height: 5 ft 3 in Weight: 42.7 kg Allergies Allergy/AdvReac Type Severity Reaction Status Date / Time budesonide Allergy Severe SHORTNESS Verified 07/21/23 15:25 OF BREATH formoterol Allergy Severe SHORTNESS Verified 07/21/23 15:25 OF BREATH Sulfa (Sulfonamide Allergy Severe HIVES Verified 07/21/23 15:25 Antibiotics) erythromycin base Allergy Intermediate CAUSES HER Verified 07/21/23 15:25 EYES TO BURN Penicillins Allergy Unknown HAPPENED Verified 07/21/23 15:25 A CHILD magnesium AdvReac Severe severe Verified 07/21/23 15:25 diarrhea thimerosol Allergy burning Uncoded 07/21/23 15:25 eyes Medications Home Medications Medication Instructions Recorded Confirmed Last Taken fluticasone propionate 50 2 spray intranasal BID 11/03/20 07/30/23 03/02/21 mcg/actuation nasal spray,suspension Flutter Valve See Rx Instructions .Route 04/13/21 07/30/23 Unknown .COMPLEX #1 ea [id number] 50 1 cap PO .COMPLEX PRN Headache #13 10/28/22 07/30/23 Unknown mg-325 mg-40 mg capsule caps triamcinolone acetonide 0.1 % 1 applic topical BID PRN Skin 05/06/23 07/30/23 Unknown topical cream Irritation #15 grams albuterol sulfate 90 mcg/actuation 2 inh inhalation Q4H PRN Shortness 05/21/23 07/30/23 Unknown aerosol inhaler Of Breath #8.5 grams gabapentin 600 mg tablet 600 mg PO BID #60 tabs 05/26/23 07/30/23 Unknown miscellaneous medical supply 1 ea miscellaneous DAILY shortness 05/26/23 07/21/23 Unknown of breath #1 ea prochlorperazine maleate 10 mg 10 mg PO Q6H PRN Nausea #90 tabs 05/26/23 07/30/23 Unknown tablet (Compazine) benzonatate 100 mg capsule 100 mg PO TID PRN cough #180 caps 06/10/23 07/30/23 Unknown fluticasone furoate 200 2 inh inhalation HS #60 ea 06/10/23 07/30/23 Unknown mcg-vilanterol 25 mcg/dose inhalation powder (Breo Ellipta) pantoprazole 40 mg tablet,delayed 40 mg PO DAILY 07/30/23 07/30/23 Unknown release terconazole 0.4 % vaginal cream 1 applic vaginal PM PRN Other 07/30/23 07/30/23 Unknown Active Medications Generic Name Dose Route Start Last Admin Trade Name Freq PRN Reason Stop Dose Admin Acetaminophen 650 mg 07/30/23 19:02 07/30/23 21:50 Acetaminophen 325 Mg Tab PO 08/29/23 19:01 650 mg Q4H PRN Administration Pain or Fever Heparin Sodium (Porcine) 5,000 units 07/30/23 21:00 07/31/23 09:11 Heparin Sod 5,000 Unit/0.5 Ml Vial SQ 08/29/23 20:59 5,000 units Q12 MICHA Administration Doxycycline Hyclate 100 mg/ 110 mls @ 50 mls/hr 07/30/23 20:00 07/31/23 09:08 Dextrose IV 08/06/23 19:59 Infused Q12H MICHA Infusion Vancomycin HCl 500 mg/ Sodium 110 mls @ 132 mls/hr 07/30/23 20:00 07/31/23 09:09 Chloride IV 08/06/23 19:59 Infused Q12H MICHA Infusion Piperacillin Sod/Tazobactam 120 mls @ 30 mls/hr 07/31/23 02:00 07/31/23 06:03 Sod 4.5 gm/ Dextrose IV 08/07/23 01:59 Infused Q8H MICHA Infusion Protocol Miscellaneous 1 each 07/31/23 08:59 07/31/23 09:09 Remove Nicoderm Patch N/A 08/30/23 08:58 1 each DAILY@0859 MICHA Administration Nicotine 7 mg 07/30/23 19:15 07/31/23 09:10 Nicotine 7 Mg/24 Hr Tdsy TD 08/29/23 19:14 7 mg QAM MICHA Administration Past Medical History Medical History Abnormal CT scan of lung Arthritis Atelectasis Avascular necrosis of left femur Chronic kidney disease COPD (chronic obstructive pulmonary disease) Degenerative disc disease Ectopic Elevated troponin Facial contusion HCAP (healthcare-associated pneumonia) Hip fracture, left Hypertension Hypomagnesemia Lung cancer Migraines Pulmonary nodule Right orbital fracture Subconjunctival hemorrhage of right eye Tobacco abuse Transient osteoporosis of hip Past Family History Family History Mother Heart disease Hypertension Kidney disease Father , 73yo Emphysema lung Alcoholism Brother No problems noted. Sister Myocardial infarction Son No problems noted. Son No problems noted. Past Surgical History Surgical History History of appendectomy History of bronchoscopy Social History Smoking Status: Current every day smoker tobacco type: cigarettes Smoking cigarettes per day: 30 Do You Dip or Chew Tobacco: No Hx Alcohol Use: No Alcohol type: hard liquor alcohol intake frequency: a few times a week Hx Substance Use: No substance use type: does not use Physical Exam Vital Signs Last Vital Signs Temp 36.6 C 07/31/23 03:00 Pulse 79 07/31/23 08:09 Resp 19 07/31/23 03:00 BP 116/63 07/31/23 03:00 Pulse Ox 97 07/31/23 03:00 O2 Del Method Nasal Cannula 07/31/23 03:00 O2 Flow Rate 4 07/30/23 22:55 Testing Laboratory Results 07/30/23 11:30 07/31/23 07:03 Laboratory Tests 07/30/23 11:30 Potassium 4.0 Electrocardiogram Date: 07/30/23 Findings: + ST @ (105) Chest X-Ray Date: 07/30/23 consolidation both apices including a cavitary lesion - also one milder consolidation right lower with mild effusion right
[2023-07-31] MEDS ORDERED: PANTOprazole 40 MG TAB PO SCH (09:00)
[2023-07-31] MEDS: NICOTINE 7 MG/24 HR TDSY TD SCH (09:10)
[2023-07-31] MEDS: HEPARIN SOD 5,000 UNIT/0.5 ML VIAL SQ SCH ×2 (09:11→21:54)
[2023-07-31 09:50] LABS: Basophils # (auto) 0.03 K/uL (0.00-0.20); Basophils % (auto) 0.4 %; Eosinophils # (auto) 0.54 K/uL (0.00-0.50); Eosinophils % (auto) 6.3 %; Hematocrit (blood only) 26.2 % (37.0-47.0); Hemoglobin 8.5 g/dl (12.0-16.0); Immature Granulocytes # (auto) 0.04 K/uL (0.01-0.20); Immature Granulocytes % (auto) 0.5 %; Lymphocytes # (auto) 0.15 K/uL (1.20-3.40); Lymphocytes % (auto) 1.8 %; Mean Corpuscular Hgb Conc 32.4 g/dL (32.0-36.0); Mean Corpuscular Volume 92.6 fL (80.0-100.0); Mean Platelet Volume 9.9 fL (9.4-12.4); Monocytes # (auto) 0.51 K/uL (0.11-0.59); Platelet Count 386 K/uL (130-400); RDW Coefficient of Variation 14.7 % (11.5-14.5); RDW Standard Deviation 49.7 fL (36.4-46.3); Red Blood Count 2.83 M/uL (4.20-5.40); White Blood Count 8.57 K/ul (4.8-10.8)
[2023-07-31] MEDS: ACETAMINOPHEN 325 MG TAB PO PRN (10:05)
[2023-07-31] MEDS ORDERED: LIDOCAINE 2% 2 ML VIAL/AMP(20MG/ML) INFIL ONE (10:09)
[2023-07-31] MEDS ORDERED: DEXAMETHASONE SOD INJ 4 MG/ML VIAL ONE (10:09)
[2023-07-31] MEDS ORDERED: ONDANSETRON INJ 2 MG/ML 2 ML VIAL ONE (10:09)
[2023-07-31] MEDS ORDERED: SUCCINYLCHOLINE 100MG/5ML SYR IV ONE (10:09)
[2023-07-31] MEDS ORDERED: PROPOFOL IV EMULSION 10 MG/ML 20 ML VIAL IV ONE (10:09)
[2023-07-31] MEDS ORDERED: fentaNYL citrate PF 100 MCG/2 ML VIAL ONE (10:10)
[2023-07-31 10:33] LABS: BUN Creatinine Ratio 22.8 (10-20); Creatinine Clr Calc Pharmacy 36.9 ml/min; Est GFR (African American) 67.2 ml/min; Magnesium 2.3 mg/dl (1.7-2.4); Potassium 4.2 mmol/L (3.5-5.1)
--- NOTE | 2023-07-31 10:33 | Pulmonary Consultation ---
Date of Consultation July 31, 2023 Assessment & Plan (1) Abnormal CT scan of lung: Patient presents with worsening of cough and shortness of breath in previously treated pneumonia as well as in the setting of maintenance therapy with Tecentriq and chemo/radiation for Small Cell Lung Cancer. - Concern at this time is for necrotizing pneumonia, myoplasm pneumonia/myoplasm TB vs. Worsening of underlying cancer vs. pulmonary toxicity from Tecentriq - She is with Leucocytosis, opacities, biapical necrotizing lesions, PCT 1.02 and increased oxygen use- favoring infectious etiology - Sputum with gram stain and culture - Blood cultures x2 already done - Zosyn 4.5 GM IV q8m, Vancomycin, Doxycycline 100mg IV q12 - Respiratory isolation for cavitary lesions- Quantiferon gold pending, Bronchoscopy for AFB in AM - Pulmonary consultation for bronchoscopy appreciated- Anesthesia consultation placed as well - Her oxygen demand is at her baseline currently, however reports increase to 5LNC with activity. (2) Small cell lung cancer: (3) Tobacco abuse: (4) Shortness of breath: (5) COPD (chronic obstructive pulmonary disease): (6) Necrotizing pneumonia: Plan Assessment/plan: 1. Abnormal Chest CT scan -progressive multiple cavities throughout right lung -severe emphysematous changes -stable 4.8 cm density to KASSIE -Consider: mycobacterial, fungal, malignancy progression, aspiration -cefepime/doxycycline -bronchoscopy 2. Lung Cancer-small cell type -completed chemo/XRT -Tencetriq -serial PET/CT scans -followed by Oncology 3. Severe Emphysema -tobacco Abuse -Duonebs -smoking cessation -flutter valve -expectorant 4. Tobacco Abuse -consider nicotine patch -smoking cessation 5. PCM -dietary evaluation 6. CKD -coontinue home medications -avoid nephrotoxic agents History of Present Illness Reason for Consultation: Abnormal chest CT scan with persistent dyspnea Requesting Physician: Toyin Schaefer MD Attending Physician: Toyin Schaefer MD History of Present Illness Ms. Schwartz is a 68-year-old woman with a past medical history of smoking up to 2 packs/day for 35+ years now down to half a pack most recently and home oxygen with an underlying history of COPD and lung cancer per [facility] and biapical cavitary lesions presents with a worsening cough and shortness of breath over the last 4 to [address] scan was performed showing significant opacifications throughout the entire right lung as compared to the left. She is currently in isolation while Aspergillus and Mycobacterium cultures are being performed. Patient did complete chemotherapy and radiation in March and was on Tecentriq. She was recently admitted to local hospital in May 2023 for pneumonia thought to be aspiration. At that time her Tecentriq was held and she was placed on a course of Augmentin which she did complete patient currently using cefepime and doxycycline. And primary service has asked us for consideration of bronchoscopy in view of her recent abnormalities on her chest CT scan. Patient denies any night sweats any fever or chills at this time. Denies any hemoptysis. Allergies Allergy/AdvReac Type Severity Reaction Status Date / Time budesonide Allergy Severe SHORTNESS Verified 07/21/23 15:25 OF BREATH formoterol Allergy Severe SHORTNESS Verified 07/21/23 15:25 OF BREATH Sulfa (Sulfonamide Allergy Severe HIVES Verified 07/21/23 15:25 Antibiotics) erythromycin base Allergy Intermediate CAUSES HER Verified 07/21/23 15:25 EYES TO BURN Penicillins Allergy Unknown HAPPENED Verified 07/21/23 15:25 A CHILD magnesium AdvReac Severe severe Verified 07/21/23 15:25 diarrhea thimerosol Allergy burning Uncoded 07/21/23 15:25 eyes Home Medications Medication Instructions Recorded Confirmed Type fluticasone propionate 50 2 spray intranasal BID 11/03/20 07/30/23 History mcg/actuation nasal spray,suspension Flutter Valve See Rx Instructions .Route 04/13/21 07/30/23 Rx .COMPLEX #1 ea [id number]-svbztky-xmlbmozj 50 1 cap PO .COMPLEX PRN Headache #13 10/28/22 07/30/23 Rx mg-325 mg-40 mg capsule caps triamcinolone acetonide 0.1 % 1 applic topical BID PRN Skin 05/06/23 07/30/23 Rx topical cream Irritation #15 grams albuterol sulfate 90 mcg/actuation 2 inh inhalation Q4H PRN Shortness 05/21/23 07/30/23 Rx aerosol inhaler Of Breath #8.5 grams gabapentin 600 mg tablet 600 mg PO BID #60 tabs 05/26/23 07/30/23 Rx miscellaneous medical supply 1 ea miscellaneous DAILY shortness 05/26/23 07/21/23 Rx of breath #1 ea prochlorperazine maleate 10 mg 10 mg PO Q6H PRN Nausea #90 tabs 05/26/23 07/30/23 Rx tablet (Compazine) benzonatate 100 mg capsule 100 mg PO TID PRN cough #180 caps 06/10/23 07/30/23 Rx fluticasone furoate 200 2 inh inhalation HS #60 ea 06/10/23 07/30/23 Rx mcg-vilanterol 25 mcg/dose inhalation powder (Breo Ellipta) pantoprazole 40 mg tablet,delayed 40 mg PO DAILY 07/30/23 07/30/23 History release terconazole 0.4 % vaginal cream 1 applic vaginal PM PRN Other 07/30/23 07/30/23 History Patient History Medical History Abnormal CT scan of lung Arthritis Atelectasis Avascular necrosis of left femur Chronic kidney disease COPD (chronic obstructive pulmonary disease) Degenerative disc disease Ectopic Elevated troponin Facial contusion HCAP (healthcare-associated pneumonia) Hip fracture, left Hypertension Hypomagnesemia Lung cancer Migraines Pulmonary nodule Right orbital fracture Subconjunctival hemorrhage of right eye Tobacco abuse Transient osteoporosis of hip Surgical History History of appendectomy History of bronchoscopy Family History Mother Heart disease Hypertension Kidney disease Father , 73yo Emphysema lung Alcoholism Brother No problems noted. Sister Myocardial infarction Son No problems noted. Son No problems noted. 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 How many Children do You have: 2 How many Children do You have Comment: 2 biological, 4 step children Other Information That Helps Us Care for You: No Feels Safe at Home: Yes Safety Concerns: Feels Safe At This Time Childhood Exposure to Second-Hand Smoke: Yes Diet: regular caffeine: Yes (1 cup/day;2 cups/day) during the past year weight has: remained stable Dental Care, Regularly: Yes Physical Activity Frequency: Does not Exercise Seatbelt Use: always Sunscreen Use: Yes Assistive Devices: Glasses and Oxygen - Continuous Review of Systems Review of Systems: REVIEW OF SYSTEMS: Constitutional: No fever, sweats or chills Eyes: No diplopia, no worsening or blurred vision ENT: normal hearing, no trouble swallowing Respiratory: (+) cough, sputum, dyspnea at rest or on exertion Cardiovascular: No chest pain, tightness or palpitations Abdomen: (+) decreased appetite, No pain, nausea, vomiting, diarrhea or constipation Musculoskeletal: No joint pain, calf pain, swelling Neurologic: No weakness, numbness/tingling, or balance problems Psychiatric: No anxiety or depression Skin: No rash or itch Physical Exam Constitutional: WD/WN, vitals as above Quite cachectic in appearance but no acute cardiac or respiratory distress Eyes: PERRL, conjunctivae normal, anicteric sclerae Patient wears glasses ENMT: external ear and nose normal, oropharynx normal Neck: trachea midline, no thyromegaly Respiratory: Diminished breath sounds to the bases without coughing. No wheezing. Recent chest CT scan from yesterday shows no pulmonary emboli identified. Severe emphysema, small loculated right pleural effusion. 4.8 cm masslike density of the left upper lobe stable from PET CT scan from March 27, 2023. Progression of extensive multifocal cavitary opacities greater in the right lung than left as compared to chest CT scan June 24, 2023. Cardiovascular: Rate/Rhythm: regular rate and regular rhythm Gastrointestinal (Abdomen): normal bowel sounds, soft, nontender, no hepatosplenomegaly Musculoskeletal: Full range of motion, no peripheral edema, no cyanosis or clubbing. Bony deformities to knees feet and hands consistent with arthritis. Skin: no rashes, warm and dry No rashes hives tears or abrasions. Neurologic: patellar DTR's 2+ bilat, sensation intact and PERRL, EOMI, accommodation nl, no face palsy, no dysarthria Psychiatric: Patient has a rather flat affect with monotonic speech. Results & Data Results & Data Vital Signs (Past 12 Hours) Vital Signs Temp Pulse Pulse Resp BP Pulse Ox O2 Del Method 07/31/23 09:07 37 C 84 20 116/62 96 Nasal Cannula 07/31/23 08:09 79 07/31/23 03:00 36.6 C 75 19 116/63 97 Nasal Cannula 07/30/23 22:55 36.5 C 83 19 105/63 96 Nasal Cannula O2 Flow Rate 07/31/23 09:07 4 07/31/23 08:09 07/31/23 03:00 07/30/23 22:55 4 Laboratory Results Laboratory Results WBC 8.57 K/ul (4.8-10.8) 07/31/23 09:07 RBC 2.83 M/uL (4.20-5.40) L 07/31/23 09:07 Hgb 8.5 g/dl (12.0-16.0) L 07/31/23 09:07 Hct 26.2 % (37.0-47.0) L 07/31/23 09:07 MCV 92.6 fL (80.0-100.0) 07/31/23 09:07 MCH 30.0 pg (25.0-34.0) 07/31/23 09:07 MCHC 32.4 g/dL (32.0-36.0) 07/31/23 09:07 RDW Std Deviation 49.7 fL (36.4-46.3) H 07/31/23 09:07 RDW Coeff of Kiara 14.7 % (11.5-14.5) H 07/31/23 09:07 Plt Count 386 K/uL (130-400) 07/31/23 09:07 MPV 9.9 fL (9.4-12.4) 07/31/23 09:07 Immature Gran % (Auto) 0.5 % 07/31/23 09:07 Neut % (Auto) 85.0 % 07/31/23 09:07 Lymph % (Auto) 1.8 % 07/31/23 09:07 [place] % (Auto) 6.0 % 07/31/23 09:07 Eos % (Auto) 6.3 % 07/31/23 09:07 Baso % (Auto) 0.4 % 07/31/23 09:07 Neut # (Auto) 7.30 K/uL (1.40-6.50) H 07/31/23 09:07 Lymph # (Auto) 0.15 K/uL (1.20-3.40) L 07/31/23 09:07 [place] # (Auto) 0.51 K/uL (0.11-0.59) 07/31/23 09:07 Eos # (Auto) 0.54 K/uL (0.00-0.50) H 07/31/23 09:07 Baso # (Auto) 0.03 K/uL (0.00-0.20) 07/31/23 09:07 Immature Gran # (Auto) 0.04 K/uL (0.01-0.20) 07/31/23 09:07 D-Dimer 6160 ug/L FEU (0-500) H* 07/30/23 11:30 VBG pH 7.37 (7.36-7.41) 07/30/23 11:30 VBG pCO2 50 mmHg (38-50) 07/30/23 11:30 VBG pO2 33 mmHg 07/30/23 11:30 VBG HCO3 29 mmol/L 07/30/23 11:30 VBG O2 Saturation < 60.0 % 07/30/23 11:30 VBG Base Excess 2.9 mEq/L 07/30/23 11:30 Sodium 133 mmol/L (136-145) L 07/30/23 11:30 Potassium 4.0 mmol/L (3.5-5.1) 07/30/23 11:30 Chloride 97 mmol/L (98-107) L 07/30/23 11:30 Carbon Dioxide 27 mmol/L (21-32) 07/30/23 11:30 Anion Gap 9 (3-11) 07/30/23 11:30 BUN 25 mg/dl (6-23) H 07/30/23 11:30 Creatinine 1.00 mg/dl (0.6-1.2) 07/31/23 07:03 Est Cr Clr Drug Dosing 37.3 ml/min 07/31/23 07:03 Est GFR ( Amer) 68.0 ml/min 07/31/23 07:03 Est GFR (Non-Af Amer) 58.7 ml/min 07/31/23 07:03 BUN/Creatinine Ratio 23.6 (10-20) H 07/30/23 11:30 Glucose 145 mg/dl (70-99(Fasting)) H 07/30/23 11:30 Lactate 1.6 mmol/L (0.4-2.0) 07/30/23 11:30 Calcium 9.7 mg/dl (8.6-10.3) 07/30/23 11:30 Magnesium 1.4 mg/dl (1.7-2.4) L 07/30/23 11:30 Total Bilirubin 0.4 mg/dl (0.2-1.0) 07/30/23 11:30 AST 18 U/L (13-39) 07/30/23 11:30 ALT 19 U/L (7-52) 07/30/23 11:30 Alkaline Phosphatase 100 U/L (34-104) 07/30/23 11:30 Troponin I High Sens 10.6 pg/ml (0-14) 07/30/23 11:30 Total Protein 7.0 gm/dl (6.0-8.3) 07/30/23 11:30 Albumin 3.2 gm/dl (3.4-5.0) L 07/30/23 11:30 Globulin 3.8 gm/dl (2.5-4.0) 07/30/23 11:30 Albumin/Globulin Ratio 0.8 (0.9-2) L 07/30/23 11:30 Lipase < 3 U/L (11-82) L 07/30/23 11:30 Procalcitonin 1.02 ng/ml (0-0.5) H 07/30/23 15:17 Nasal Screen MRSA (PCR) Negative (Negative) 07/30/23 16:07 Adenovirus (PCR) Not Detected (NotDetected) 07/30/23 12:00 B. pertussis DNA (PCR) Not Detected (NotDetected) 07/30/23 12:00 B.parapertussis DNA PCR Not Detected (NotDetected) 07/30/23 12:00 C. pneumoniae DNA (PCR) Not Detected (NotDetected) 07/30/23 12:00 Coronavirus OC43 (PCR) Not Detected (NotDetected) 07/30/23 12:00 Coronavirus HKU1 (PCR) Not Detected (NotDetected) 07/30/23 12:00 Coronavirus 229E (PCR) Not Detected (NotDetected) 07/30/23 12:00 SARS-CoV-2 (PCR) Not Detected (NotDetected) 07/30/23 12:00 Coronavirus NL63 (PCR) Not Detected (NotDetected) 07/30/23 12:00 Human Metapneumovir PCR Not Detected (NotDetected) 07/30/23 12:00 Influenza Type A (PCR) Not Detected (NotDetected) 07/30/23 12:00 Influenza Type B (PCR) Not Detected (NotDetected) 07/30/23 12:00 M. pneumoniae (PCR) Not Detected (NotDetected) 07/30/23 12:00 Parainfluenza 1 (PCR) Not Detected (NotDetected) 07/30/23 12:00 Parainfluenza 2 (PCR) Not Detected (NotDetected) 07/30/23 12:00 Parainfluenza 3 (PCR) Not Detected (NotDetected) 07/30/23 12:00 Parainfluenza 4 (PCR) Not Detected (NotDetected) 07/30/23 12:00 RSV (PCR) Not Detected (NotDetected) 07/30/23 12:00 Entero/Rhino (PCR) Not Detected (NotDetected) 07/30/23 12:00 Impressions Chest X-Ray 07/30/23 11:01 SINGLE VIEW CHEST CLINICAL HISTORY: Atypical chest pain. FINDINGS: 2 AP, portable, upright chest radiographs are compared to chest x-ray and chest CT dated 06/24/2023. The examination is degraded by portable technique and patient rotation. The cardiomediastinal silhouette is unremarkable noting atherosclerotic calcification of the thoracic aorta. Advanced emphysema and chronic interstitial thickening is similar to previous. Again seen is masslike consolidation at the left apex. There is progressive masslike consolidation/fibrosis at the right apex with cavitation and loculated fluid. There is patchy airspace consolidation in the right lower lung. There are scattered calcified granulomas. Foci of scarring are seen throughout both lungs. There is a small right pleural effusion. No pneumothorax is seen. The skeletal structures are osteopenic the bony thorax is grossly intact. IMPRESSION: 1. Advanced emphysema and changes of chronic lung disease. 2. There is increasing masslike consolidation with cavitation and loculated fluid at the right apex. Correlate clinically for evidence of a superimposed infectious/inflammatory pneumonitis. 3. Masslike consolidation at the left apex is similar to previous. 4. Milder airspace consolidation is seen in the right lower lung and there is a small right pleural effusion. ACT 112: Negative or not required by law. Electronically signed by: Rickey Montoya M.D. 07/30/2023 11:50 AM Chest CTA 07/30/23 11:56 CT ANGIOGRAPHY OF THE CHEST, PULMONARY EMBOLUS PROTOCOL CLINICAL HISTORY: Chest pain and cough. Lung cancer. COMPARISON STUDY: Chest CT June 24, 2023 and chest radiograph July 30, 2023. PET/CT March 27, 2023. TECHNIQUE: Following IV administration of 118 mL of Optiray, helical axial images of the chest were obtained utilizing the pulmonary embolus protocol. Maximal intensity projections and sagittal and coronal reformats were viewed on an independent 3D workstation. IV contrast was administered without complication. Automated exposure control was utilized for the study. A dose lowering technique was utilized adhering to the principles of ALARA. CT DOSE: 243.52 mGy.cm FINDINGS: No pulmonary emboli are identified. No pathologically enlarged thoracic lymph nodes are present. There is no pericardial effusion. Severe emphysema is again noted. There is no pneumothorax. A small loculated right pleural effusion has increased in size since exam of June 24, 2023. A 4.8 cm mass-like density within left upper lobe on image 190 of 235 is similar to prior chest CT and PET/CT. This remains indeterminate. Left apical cavitary opacity has slightly progressed. Extensive multifocal cavitary opacities within the right lung have significantly progressed since chest CT of June 24, 2023. There is suspected necrotizing pneumonia within the right lung apex as well as within the superior segment of the right lower lobe. Extensive secretions within the right bronchial tree are noted. No central obstructing mass is identified. Visualized portions of the upper abdomen are unremarkable. IMPRESSION: 1. No pulmonary emboli identified. 2. Progression of extensive multifocal cavitary opacities, greater within the right lung, since chest CT of June 24, 2023. The findings suggest necrotizing pneumonia, possibly related to aspiration. 3. Increase in size of a small, loculated right pleural effusion. 4. Severe emphysema. 5. No change in a 4.8 cm mass-like density within the left upper lobe since PE T/CT of March 27, 2023. This remains indeterminate and can be assessed on follow-up exams. ACT 112: Negative or not required by law. Electronically signed by: Kaiden Cortes M.D. 07/30/2023 1:57 PM Medications Administered Home Medications Medication Instructions Recorded Confirmed Last Taken fluticasone propionate 50 2 spray intranasal BID 11/03/20 07/30/23 03/02/21 mcg/actuation nasal spray,suspension Flutter Valve See Rx Instructions .Route 04/13/21 07/30/23 Unknown .COMPLEX #1 ea nvtmxomkgn-qxaapuk-cnhiaodx 50 1 cap PO .COMPLEX PRN Headache #13 10/28/22 07/30/23 Unknown mg-325 mg-40 mg capsule caps triamcinolone acetonide 0.1 % 1 applic topical BID PRN Skin 05/06/23 07/30/23 Unknown topical cream Irritation #15 grams albuterol sulfate 90 mcg/actuation 2 inh inhalation Q4H PRN Shortness 05/21/23 07/30/23 Unknown aerosol inhaler Of Breath #8.5 grams gabapentin 600 mg tablet 600 mg PO BID #60 tabs 05/26/23 07/30/23 Unknown miscellaneous medical supply 1 ea miscellaneous DAILY shortness 05/26/23 07/21/23 Unknown of breath #1 ea prochlorperazine maleate 10 mg 10 mg PO Q6H PRN Nausea #90 tabs 05/26/23 07/30/23 Unknown tablet (Compazine) benzonatate 100 mg capsule 100 mg PO TID PRN cough #180 caps 06/10/23 07/30/23 Unknown fluticasone furoate 200 2 inh inhalation HS #60 ea 06/10/23 07/30/23 Unknown mcg-vilanterol 25 mcg/dose inhalation powder (Breo Ellipta) pantoprazole 40 mg tablet,delayed 40 mg PO DAILY 07/30/23 07/30/23 Unknown release terconazole 0.4 % vaginal cream 1 applic vaginal PM PRN Other 07/30/23 07/30/23 Unknown Active Medications Generic Name Dose Route Start Last Admin Trade Name Freq PRN Reason Stop Dose Admin Acetaminophen 650 mg 07/30/23 19:02 07/31/23 10:05 Acetaminophen 325 Mg Tab PO 08/29/23 19:01 650 mg Q4H PRN Administration Pain or Fever Heparin Sodium (Porcine) 5,000 units 07/30/23 21:00 07/31/23 09:11 Heparin Sod 5,000 Unit/0.5 Ml Vial SQ 08/29/23 20:59 5,000 units Q12 MICHA Administration Doxycycline Hyclate 100 mg/ 110 mls @ 50 mls/hr 07/30/23 20:00 07/31/23 09:08 Dextrose IV 08/06/23 19:59 Infused Q12H MICHA Infusion Vancomycin HCl 500 mg/ Sodium 110 mls @ 132 mls/hr 07/30/23 20:00 07/31/23 09:09 Chloride IV 08/06/23 19:59 Infused Q12H MICHA Infusion Piperacillin Sod/Tazobactam 120 mls @ 30 mls/hr 07/31/23 02:00 07/31/23 10:02 Sod 4.5 gm/ Dextrose IV 08/07/23 01:59 30 mls/hr Q8H MICHA Administration Protocol Miscellaneous 1 each 07/31/23 08:59 07/31/23 09:09 Remove Nicoderm Patch N/A 08/30/23 08:58 1 each DAILY@0859 MICHA Administration Nicotine 7 mg 07/30/23 19:15 07/31/23 09:10 Nicotine 7 Mg/24 Hr Tdsy TD 08/29/23 19:14 7 mg QAM MICHA Administration Pantoprazole Sodium 40 mg 07/31/23 09:00 07/31/23 10:06 Pantoprazole 40 Mg Tab PO 08/30/23 08:59 40 mg DAILY MICHA Administration PG Care Time/CCT Total # of Minutes Spent Total Time Spent with Patient: Total time spent is greater than 50% in coordination of care (as documented) at patient's floor/unit and/or counseling patient: Total pulmonary time spent speaking to patient examining patient, reviewing all of her diagnostic studies discussing her pulmonary management with the pulmonary team, including Milad Mar PA-C exclusive any invasive procedures or family conferences today was 60 minutes on 07/31/2023. Coding Level of Care Code 09183 IN/OBS CONSULT LVL 4,60M Diagnoses Abnormal CT scan of lung R91.8 Small cell lung cancer C34.90 Tobacco abuse Z72.0 Shortness of breath R06.02 COPD (chronic obstructive pulmonary disease) J44.9 Necrotizing pneumonia J85.0
[2023-07-31] MEDS ORDERED: ONDANSETRON INJ 2 MG/ML 2 ML VIAL IV PRN (12:09)
[2023-07-31] MEDS ORDERED: fentaNYL citrate PF 100 MCG/2 ML VIAL IV PRN (12:09)
[2023-07-31] MEDS ORDERED: ATROPINE SULFATE 0.1 MG/ML 10ML SYR IV PRN (12:09)
[2023-07-31] MEDS ORDERED: PHENYLEPHRINE HCL 10 MG/ML VIAL ONE (13:15)
[2023-07-31] MEDS ORDERED: MIDAZOLAM HCL 1 MG/ML 2ML VIAL ONE (13:15)
[2023-07-31] MEDS ORDERED: PHENYLEPHRINE 100MCG/ML 5ML SYR ONE (13:15)
--- NOTE | 2023-07-31 13:32 | Procedure Note ---
Procedure Note: Bronchoscopy Procedure Procedure: Fiberoptic bronchoscopy with bronchial lavage, endobronchial brushings and transbronchial biopsies Provider: Jeffrey Pablo DO Consent: Signed by patient and timeout verified prior to procedure. Sedation start: 11:38 AM Sedation end: 12:13 PM so Provided by anesthesia with patient being intubated. Procedure: Patient was brought to the bronchoscopy suite. Consent was verified. Appropriate radiographic studies had been reviewed prior to the procedure. Standard monitoring was applied. Oxygen was administered. Patient was intubated with a 7.5 mm endotracheal tube by anesthesia who provided the sedation and continued monitoring. The Olympus bronchoscope was passed through the into tracheal tube to the level of the olimpia which revealed both the left and right mainstem bronchi to be patent with increased white to clear secretions emanating from the left mainstem bronchus. The secretions were easily washed and suctioned. Additional examination of all segments and subsegments to the right lung was performed revealing significant mucoid secretions emanating from patient's right lower lobe easily lavaged and suctioned. There was narrowing to the anterior and posterior subsegment of the right upper lobe extrinsically in addition to the subsegments of the right middle lobe extrinsically and right lower lobe also. This narrowing could coincide with the increase opacifications and multiple cavitary fibrotic lesions seen on patient's chest x-ray throughout her right lung. The endotracheal tube was retracted approximately 1 cm to allow the bronchoscope now to enter to the left mainstem bronchus at which time all segments and subsegments to the left up per lobe were examined in sequential order found to be patent without any significant secretions, bleeding or endobronchial lesions. The bronchoscope was retracted somewhat and now passed into the left lower lobe at which time all segments and subsegments were examined in sequential order found to be patent without any significant secretions, bleeding or endobronchial lesions noted. The bronchoscope was retracted to the olimpia and now entered into the right mainstem once again at this time multiple aliquots of sterile saline were administered to the right lower lobe and all its segments and subsegments then suctioned and collected for bronchial lavage and sent for the appropriate diagnostic studies. The bronchoscope was retracted and now entered into the right upper lobe at which time endobronchial brushing specimens were taken from the posterior segment and sent for the appropriate diagnostic criteria. Approximately 5 cc of 1% epinephrine was instilled to the right upper lobe along with cold saline as preparation for transbronchial biopsies, several transbronchial biopsies were taken from the posterior and anterior segment of the right upper lobe with minimal to moderate bleeding. No segments of subsegments of the right upper lobe continued to bleed at this time and did not require further instillation of epinephrine or cold saline. Patient maintained an oxygen saturation of greater then 94% throughout the procedure with [employer] and anesthesia continuing to monitor her vital signs including her oxygen saturation throughout the bronchoscopy. I was assisted throughout the bronchoscopy with RT, Malaika. Following bronchoscopy stat portable chest x-ray was ordered along with other diagnostic studies to the lavage, brushing and biopsy samples taken. Impression: 1 Extensive progression of multifocal cavitary opacifications to right lung particularly right upper and right lower lobe. Worsening since previous chest CT scan June 24, 2023. - consideration for atypical pneumonia: Mycobacterial infection, fungal infection (i.e. Aspergillus), viral infection (i.e. RSV, herpes) -Progression of patient's original carcinoma: Small cell lung cancer -Progression of patient's bullous emphysema 2. Small cell lung cancer with metastasispatient completed chemo and radiation therapy. 3. Tobacco abuse35+ years in which patient continues to smoke now 1/2 to 1/4 pack/day 4. Failure to thrive with protein calorie malnutrition 5. Severe bullous emphysema 6. Migraine history 7. History of left hip fracture 8. CKD 9. Avascular necrosis of left femur by history Complications: Following bronchoscopy patient was extubated by anesthesia, however, patient immediately developed respiratory distress with associated diaphoresis, unresponsiveness and tachycardia although patient was advanced to 100% nonrebreather with oxygen saturations of 94 to 95% the decision was made to reintubate the patient of which anesthesia was able to reintubate her place her on mechanical ventilation and she was transferred over to the ICU from the PACU. Patient is a full code at this time. Will call and notify patient's of all complications and procedure itself. [facility] Procedure Codes (Charges) Pulmonary/Thoracic Procedure 1: Pulmonary and Thoracic: 69479 Dx bronchoscopy/brush Procedure 2: Pulmonary and Thoracic: 53372 Dx bronchoscopy/BAL Procedure 3: Pulmonary and Thoracic: 82599 Bronchoscopy w/ transbronchial lung bx
--- NOTE | 2023-07-31 13:38 | XRay Report ---
XR chest 1V portable CLINICAL HISTORY: s/p bronch - currently in PACU 19 TECHNIQUE: Single frontal radiograph of the chest was obtained. Comparison: Comparison is made to right chest radiograph 07/30/2023 FINDINGS: Endotracheal tube tip is 3.7 cm from the olimpia. The cardiomediastinal silhouette is normal. Right pao ng opacities are seen with left airspace opacities, unchanged from prior exam. There is a moderate ri ght pleural effusion, increased from prior exam. IMPRESSION: Interval increase in right pleural effusion, parenchymal abnormalities are unchanged from prior exam. Within the limits of a supine exam, no evidence of pneumothorax. ACT 112: Negative or not required by law. Electronically signed by: Eduardo Ford M.D. 07/31/2023 1:36 PM
[2023-07-31] MEDS ORDERED: ROCURONIUM BROMIDE 10 MG/ML 5 ML VIAL IV ONE (13:39)
[2023-07-31] MEDS ORDERED: fentaNYL citrate 2,500 MCG/250 ML BAG IV ONE (13:52)
[2023-07-31] MEDS ORDERED: STAT IV Infusion **Titration per Protocol STA ×3 (13:56→23:03)
[2023-07-31] MEDS ORDERED: fentaNYL citrate 2,500 MCG/250 ML BAG IV SCH (14:00)
[2023-07-31 14:33] LABS: Eosinophil Body Fluid Man 1 %; Fluid Mono/Macrophage 1 %; Lymphocyte Body Fluid Man 1 %; Neutrophil Body Fluid Man 97 %
--- NOTE | 2023-07-31 15:15 | Communication Note ---
Date of Service: July 31, 2023 I was able to call and speak to Mrs. Schwartz , Gray, to provide him with the description of the bronchoscopy procedure and unfortunately her comp lication respiratory distress following the bronchoscopy requiring reintubation with mechanical ventilation at this time and eventual transfer to the ICU. He explained to me that her diagnosis of small cell lung carcinoma was original approximately 2 and half years ago and he has followed up with oncology here at [facility] since that time where she has completed her rounds of both chemotherapy and radiation. Patient was taking tecentriq following completion of her chemotherapy and radiation which is just recently been stopped due to recurrence of various infections for which she received both Augmentin and Levaquin. There are notes on her chart that states patient has metastatic small cell lung cancer although her , Gray, explained to me that at no time did oncology tell him or his that she had metastatic lung cancer. I explained to Gray that the next 24 hours are very critical and serious in regards to whether she will be successfully extubated due to her severe emphysema and recent history of lung cancer at which time we may have further serious discussion in regards to her aggressive management and resuscitative measures. He understood my explanation of the bronchoscopy and the unfortunate circumstances regarding her complication and stated that he would come to visit her in the ICU and I did explain to him that if there were any acute changes in the future that we would notify him immediately.
[2023-07-31] MEDS ORDERED: NOREPINEPHRINE/D5W 4 MG/250 ML IV ONE (15:49)
[2023-07-31] MEDS: NOREPINEPHRINE/D5W 4 MG/250 ML PLCT IV SCH (16:03)
[2023-07-31 16:07] LABS: iSTAT Allen Test Pass; iSTAT Art Bld Gas pCO2 Correct 46 mmHg (35-46); iSTAT Art Bld Gas pH Corrected 7.327 (7.35-7.45); iSTAT Arterial Blood Gas HCO3 24 meg/L (19-24); iSTAT Arterial Blood Gas pCO2 47 mmHg (35-46); iSTAT Arterial Blood Gas pH 7.32 (7.35-7.45); iSTAT Arterial Blood Gas pO2 78 mmHg (80-95); iSTAT Arterial Blood Gas pO2 C 76; iSTAT Carbon Dioxide 26 mmol/L (24-31); iSTAT FiO2 50 %; iSTAT Hematocrit 26 % (37-47); iSTAT Hemoglobin 8.8 g/dl (12.0-16.0); iSTAT Potassium 4.5 mmol/L (3.3-5.0); iSTAT Site R Radial; iSTAT Sodium 129 mmol/L (135-144)
[2023-07-31] MEDS ORDERED: ICU Protocol for HYPERglycemia SCH ×2 (16:30→18:00)
--- NOTE | 2023-07-31 17:45 | Anesthesiology Progress Note ---
Date of Service July 31, 2023 Anesthesia Post Procedure Vital Signs Vital Signs: Temp Pulse Pulse Resp BP BP Pulse Ox 07/31/23 13:40 07/31/23 16:00 18 07/31/23 13:52 36.7 C 122 H 16 100/65 95 07/31/23 13:42 36.8 C 119 H 16 83/59 L 97 07/31/23 14:10 19 07/31/23 08:00 07/31/23 12:35 127 H 16 94 07/31/23 13:23 07/31/23 11:13 36.9 C 74 20 115/57 L 100 07/31/23 09:07 37 C 84 20 116/62 96 07/31/23 08:09 79 07/31/23 03:00 36.6 C 75 19 116/63 97 07/30/23 19:30 07/30/23 21:58 82 07/30/23 18:37 94 H 07/30/23 22:55 36.5 C 83 19 105/63 96 07/30/23 19:02 07/30/23 20:19 36.9 C 105 H 19 126/69 93 07/30/23 19:02 36.9 C 105 H 20 126/69 93 Pulse Ox O2 Del Method O2 Del Method O2 Flow Rate O2 Flow Rate FiO2 07/31/23 13:40 Mechanical Vent 50 07/31/23 16:00 50 07/31/23 13:52 Mechanical Vent 50 07/31/23 13:42 Mechanical Vent 50 07/31/23 14:10 50 07/31/23 08:00 Nasal Cannula 4 07/31/23 12:35 Other 100 07/31/23 13:23 Mechanical Vent 07/31/23 11:13 Nasal Cannula 4 07/31/23 09:07 Nasal Cannula 4 07/31/23 08:09 07/31/23 03:00 Nasal Cannula 07/30/23 19:30 Nasal Cannula 4 07/30/23 21:58 07/30/23 18:37 07/30/23 22:55 Nasal Cannula 4 07/30/23 19:02 93 Nasal Cannula 4 07/30/23 20:19 Nasal Cannula 4 07/30/23 19:02 Nasal Cannula Pain Intensity Chest: Pain Intensity: 6 Transfer of Care Handoff Completed per policy Notes Mental Status: see notes below Patient Amnestic to Procedure: Yes Nausea / Vomiting: adequately controlled Pain: adequately controlled Airway Patency, RR, SpO2: see Notes below BP & HR: see Notes below Hydration State: stable & adequate Anesthetic Complications: see Notes below Notes: Patient had bronchoscopy done in isolation room given concern for pneumonia/TB/cavitary lesion in setting of lung cancer. Patient was intubated for procedure and was extubation upon procedure end. [employer] SECRETARY remained with patient and noted she became increasing tachycardic, tachypneic and appeared to be struggling to breathe. CXR, ECG and duoneb completed along with increasing amounts of supplemental oxygen. ICU attending/pulmonolgist was reinvolved and decision was made to reintubate patient and transfer to ICU for further management and care. Patient taken to ICU on ambu bag with oxygen and on STD ASA monitors.
--- NOTE | 2023-07-31 17:54 | Communication Note ---
Date of Service: July 31, 2023 Called to bedside by patient's bedside nurse, Kannan, who noted patient's left pupil now dilated and unreactive to light at this time. Confirmed left pupil dilatation at bedside without pupillary reaction although patient able to move all extremities and reacts to pain. in room stated that patient did respond when he began speaking to her while she is on mechanical ventilation and she is now experiencing spontaneous respirations herself.
--- NOTE | 2023-07-31 18:44 | CT Scan Report ---
CT head/brain wo con CLINICAL HISTORY: unresponsive post res distress Technique: Contiguous axial CT images of the head were acquired from the base of the skull to the hernandez danilo without intravenous contrast administration. Images were viewed in brain, subdural and bone [facility]. Automated dose lowering techniques and/or adjustment according to patient size were utilized for this exam. Comparison: Comparison is made to CT radiation therapy 04/09/2021 Findings: Areas of decreased attenuation are present in the periventricular and subcortical white matter bilate rally consistent with small vessel ischemic disease. Generalized cerebral atrophy with commensurate e nlargement of the ventricles, sulci, and cisterns is also present. There is no acute intracranial hem orrhage or evidence of acute territorial infarction. No shift of the midline structures, mass effect, or extra-axial abnormalities are shown. Atherosclerotic calcifications are present in the intracran ial segments of the internal carotid arteries. Imaged portions of the paranasal sinuses and mastoid air cells are clear. The orbits appear normal. There are no acute fractures of the calvaria or scalp swelling. Impression: No acute intracranial hemorrhage, no evidence of acute territorial infarction or other acute intracra nial disease process. ACT 112: Negative or not required by law. Electronically signed by: Eduardo Ford M.D. 07/31/2023 6:43 PM
[2023-07-31] MEDS: PLASMA-LYTE A 1,000 ML IV SCH (19:21)
--- NOTE | 2023-07-31 20:16 | Hospitalist Progress Note ---
Date of Service July 31, 2023 Assessment & Plan (1) Abnormal CT scan of lung: Plan: Patient presents with worsening of cough and shortness of breath in previously treated pneumonia as well as in the setting of maintenance therapy with Tecentriq and chemo/radiation for Small Cell Lung Cancer. CT CHest with extensive bilateral necrotizing PNA vs tumor burden - Concern at this time is for necrotizing pneumonia, myoplasm pneumonia/myoplasm TB vs. Worsening of underlying cancer vs. pulmonary toxicity from Tecentriq - She is with Leucocytosis, opacities, biapical necrotizing lesions, PCT 1.02 and increased oxygen use- favoring infectious etiology s/p bronchoscopy 07/31 and had post-procedure respiratory failure requiring intubation and mechanical ventilation--> transferred to ICU - Sputum with gram stain and culture, bronch lavages and AFB all collected-f ollow - Blood cultures x2 NGTD-follow - continue Zosyn 4.5 GM IV q8m, Vancomycin, Doxycycline 100mg IV q12 - Respiratory isolation for cavitary lesions- Quantiferon gold pending - vent management as per ICU -follow CXR (2) Small cell lung cancer: Plan: Small Cell lung cancer from path review- metastatic noted on previous path has had chemo and radiation, then on Tecentriq for 2 years (3) Acute respiratory failure with hypoxia: Plan: Acute on Chronic hypoxia now ventilator dependent (4) COPD (chronic obstructive pulmonary disease): Plan: Hx of - not acute exacerbation at this time - Continue home inhalers and nebulizer as needed (5) Dysphagia: Plan: Previously evaluated in May 2023 admission - IDDSI 7 Moist diet, alternate solids and liquids once tolerating po (6) Hypomagnesemia: Plan: Mag 1.4- likely from poor oral intake on admission - Replete IV-repeat level now normal Plan DVT proph- SQ heparin, SCDs Dispo-transferred to ICU, remains on TB precautions Admission and Anticipated Discharge Date Admission Date: July 30, 2023 Subjective Pt seen after intubated post-bronchoscopy. She was sedated and on ventilator Discussed care with PULBernard HEIN and theology professor ICU TIANA Tele with NSR normal rates Physical Exam Constitutional: + thin and + mechanically ventilated Results & Data Results & Data Vital Signs (Past 12 Hours) Vital Signs Temp Pulse Pulse Resp BP BP BP 07/31/23 16:00 07/31/23 19:00 82 18 110/70 07/31/23 18:54 107/69 07/31/23 18:49 84 18 107/69 07/31/23 18:49 107/70 07/31/23 18:44 111/70 07/31/23 18:34 94 H 17 136/84 07/31/23 18:27 95 H 19 126/78 07/31/23 18:26 93 H 18 111/75 07/31/23 18:24 97 H 19 116/73 07/31/23 17:50 92 H 18 90/70 L 07/31/23 17:45 91 H 18 103/71 07/31/23 17:26 92 H 18 82/59 L 07/31/23 17:05 94 H 18 94/66 L 07/31/23 16:50 94 H 18 83/64 L 07/31/23 16:35 94 H 18 84/61 L 07/31/23 16:20 94 H 18 83/59 L 07/31/23 18:25 95 H 19 07/31/23 16:05 93 H 18 82/64 L 07/31/23 15:55 96 H 18 62/45 L 07/31/23 15:45 95 H 19 67/54 L 07/31/23 15:43 74/50 L 07/31/23 15:32 95 H 16 64/50 L 07/31/23 15:21 101 H 16 70/53 L 07/31/23 14:50 121 H 16 132/82 07/31/23 14:35 124 H 16 131/81 07/31/23 14:20 120 H 16 109/69 07/31/23 14:00 121 H 16 96/65 L 07/31/23 13:40 07/31/23 16:00 18 07/31/23 13:52 36.7 C 122 H 16 100/65 07/31/23 13:42 36.8 C 119 H 16 83/59 L 07/31/23 14:10 19 07/31/23 12:35 127 H 16 07/31/23 13:23 07/31/23 11:13 36.9 C 74 20 115/57 L 07/31/23 09:07 37 C 84 20 116/62 Pulse Ox O2 Del Method O2 Flow Rate FiO2 07/31/23 16:00 503 07/31/23 19:00 100 07/31/23 18:54 07/31/23 18:49 100 07/31/23 18:49 07/31/23 18:44 07/31/23 18:34 100 07/31/23 18:27 100 07/31/23 18:26 99 07/31/23 18:24 99 07/31/23 17:50 100 07/31/23 17:45 99 07/31/23 17:26 96 07/31/23 17:05 99 07/31/23 16:50 100 07/31/23 16:35 99 07/31/23 16:20 98 07/31/23 18:25 99 50 07/31/23 16:05 99 07/31/23 15:55 97 07/31/23 15:45 97 07/31/23 15:43 07/31/23 15:32 96 07/31/23 15:21 97 07/31/23 14:50 96 07/31/23 14:35 95 07/31/23 14:20 94 07/31/23 14:00 95 07/31/23 13:40 Mechanical Vent 50 07/31/23 16:00 50 07/31/23 13:52 95 Mechanical Vent 50 07/31/23 13:42 97 Mechanical Vent 50 07/31/23 14:10 50 07/31/23 12:35 94 Other 100 07/31/23 13:23 Mechanical Vent 07/31/23 11:13 100 Nasal Cannula 4 07/31/23 09:07 96 Nasal Cannula 4 Laboratory Results CBC, BMP, bronchoscopy lavage cxs, AFB all reviewed PG Care Time/CCT Total # of Minutes Spent Total Time Spent with Patient: Total time spent is greater than 50% in coordination of care (as documented) at patient's floor/unit and/or counseling patient: Coding Level of Care Code 87690 SUB INP/OBS CARE 25MIN Diagnoses Abnormal CT scan of lung R91.8 Small cell lung cancer C34.90 Acute respiratory failure with hypoxia J96.01 COPD (chronic obstructive pulmonary disease) J44.9 Dysphagia R13.10 Hypomagnesemia E83.42
[2023-07-31] MEDS ORDERED: GLUCOSE 40% GEL 15 GM TUBE PO PRN (20:20)
[2023-07-31] MEDS ORDERED: GLUCOSE 10 TAB/TUBE PO PRN (20:20)
[2023-07-31] MEDS ORDERED: DEXTROSE 50% 50 ML SYRINGE IV PRN (20:20)
[2023-07-31] MEDS ORDERED: CARBOHYDRATES FOR HYPOGLYCEMIA PO PRN (20:20)
[2023-07-31] MEDS ORDERED: GLUCAGON FOR INJ 1 MG VIAL SQ PRN (20:20)
[2023-07-31] MEDS: GABAPENTIN 600 MG TAB PO SCH (20:37)
[2023-07-31] MEDS: FLUTICASONE/VILANTEROL 200/25MCG 14 PUFFS/INHALER INH SCH (20:37)
[2023-07-31] MEDS ORDERED: INSULIN ASPART PER UNIT CHARGE SC SCH (21:00)
[2023-07-31] MEDS ORDERED: fentaNYL BOLUS from BAG IV PRN (23:11)
[2023-07-31] MEDS: dexMEDEtomidine 200 MCG/50 ML BAG IV SCH (23:15)
[2023-08-01] MEDS: INSULIN ASPART PER UNIT CHARGE SC SCH ×5 (00:21→21:19)
[2023-08-01] MEDS: PIPERACILLIN/TAZOBACTAM 4.5 GM in DEXTROSE 5% 100 ML IV SCH ×3 (02:02→17:50)
[2023-08-01] MEDS: NOREPINEPHRINE/D5W 4 MG/250 ML PLCT IV SCH ×2 (02:03→10:43)
[2023-08-01] MEDS: dexMEDEtomidine 200 MCG/50 ML BAG IV SCH ×3 (04:39→19:27)
[2023-08-01 04:43] LABS: iSTAT Allen Test Pass; iSTAT Art Bld Gas pCO2 Correct 49 mmHg (35-46); iSTAT Art Bld Gas pH Corrected 7.324 (7.35-7.45); iSTAT Arterial Blood Gas HCO3 26 meg/L (19-24); iSTAT Arterial Blood Gas pCO2 50 mmHg (35-46); iSTAT Arterial Blood Gas pH 7.32 (7.35-7.45); iSTAT Arterial Blood Gas pO2 52 mmHg (80-95); iSTAT Arterial Blood Gas pO2 C 50; iSTAT Carbon Dioxide 27 mmol/L (24-31); iSTAT FiO2 40 %; iSTAT Hematocrit 25 % (37-47); iSTAT Hemoglobin 8.5 g/dl (12.0-16.0); iSTAT Potassium 4.7 mmol/L (3.3-5.0); iSTAT Site L Radial; iSTAT Sodium 128 mmol/L (135-144)
[2023-08-01 05:21] LABS: Hematocrit (blood only) 25.7 % (37.0-47.0); Hemoglobin 8.4 g/dl (12.0-16.0); Mean Corpuscular Hemoglobin 30.2 pg (25.0-34.0); Mean Corpuscular Hgb Conc 32.7 g/dL (32.0-36.0); Mean Corpuscular Volume 92.4 fL (80.0-100.0); Mean Platelet Volume 9.6 fL (9.4-12.4); Platelet Count 479 K/uL (130-400); RDW Coefficient of Variation 14.1 % (11.5-14.5); RDW Standard Deviation 47.8 fL (36.4-46.3); Red Blood Count 2.78 M/uL (4.20-5.40); White Blood Count 18.27 K/ul (4.8-10.8)
[2023-08-01 05:25] LABS: BUN Creatinine Ratio 24.2 (10-20); Calcium 8.4 mg/dl (8.6-10.3); Creatinine Clr Calc Pharmacy 26.8 ml/min; Est GFR (African American) 52.4 ml/min; Est GFR (Non-African American) 45.2 ml/min; Potassium 4.6 mmol/L (3.5-5.1)
[2023-08-01 05:30] LABS: Albumin Level 2.9 gm/dl (3.4-5.0); Bilirubin Direct 0.1 mg/dl (0-0.2); Bilirubin,Total 0.3 mg/dl (0.2-1.0); Creatinine Clr Calc Pharmacy 26.8 ml/min; Est GFR (African American) 52.4 ml/min; Est GFR (Non-African American) 45.2 ml/min; Total Protein 6.3 gm/dl (6.0-8.3)
[2023-08-01 05:44] LABS: Basophils # (auto) 0.01 K/uL (0.00-0.20); Basophils % (auto) 0.1 %; Eosinophils # (auto) 0.02 K/uL (0.00-0.50); Eosinophils % (auto) 0.1 %; Immature Granulocytes # (auto) 0.12 K/uL (0.01-0.20); Immature Granulocytes % (auto) 0.7 %; Lymphocytes # (auto) 0.26 K/uL (1.20-3.40); Lymphocytes % (auto) 1.4 %; Monocytes # (auto) 0.74 K/uL (0.11-0.59); Monocytes % (auto) 4.1 %; Neutrophils # (auto) 17.12 K/uL (1.40-6.50); Neutrophils % (auto) 93.6 %; RBC Morphology Unremarkable
[2023-08-01] MEDS: PLASMA-LYTE A 1,000 ML IV SCH ×2 (06:09→17:50)
[2023-08-01] MEDS: NICOTINE 7 MG/24 HR TDSY TD SCH (07:54)
[2023-08-01] MEDS: HEPARIN SOD 5,000 UNIT/0.5 ML VIAL SQ SCH ×2 (07:54→21:19)
[2023-08-01] MEDS: DOXYCYCLINE HYCLATE 100 MG in DEXTROSE 5% 100 ML IV SCH ×2 (07:54→21:12)
[2023-08-01] MEDS: GABAPENTIN 600 MG TAB PO SCH ×2 (07:55→21:19)
[2023-08-01] MEDS ORDERED: VANCOMYCIN HCL 750 MG in SODIUM CHLORIDE 0.9% 250 ML IV SCH (09:00)
[2023-08-01 09:03] LABS: iSTAT Allen Test Pass; iSTAT Art Bld Gas pCO2 Correct 50 mmHg (35-46); iSTAT Arterial Blood Gas HCO3 25 meg/L (19-24); iSTAT Arterial Blood Gas pCO2 49 mmHg (35-46); iSTAT Arterial Blood Gas pH 7.31 (7.35-7.45); iSTAT Arterial Blood Gas pO2 55 mmHg (80-95); iSTAT Arterial Blood Gas pO2 C 56; iSTAT Carbon Dioxide 26 mmol/L (24-31); iSTAT FiO2 40 %; iSTAT Hematocrit 25 % (37-47); iSTAT Hemoglobin 8.5 g/dl (12.0-16.0); iSTAT Potassium 4.5 mmol/L (3.3-5.0); iSTAT Site L Radial; iSTAT Sodium 129 mmol/L (135-144)
[2023-08-01] MEDS: PANTOprazole 40 MG in SYRINGE 0 ML IV SCH (10:53)
--- NOTE | 2023-08-01 15:02 | Critical Care Progress Note ---
Date of Service August 01, 2023 Assessment & Plan (1) Abnormal CT scan of lung: Plan: Patient presents with worsening of cough and shortness of breath in previously treated pneumonia as well as in the setting of maintenance therapy with Tecentriq and chemo/radiation for Small Cell Lung Cancer. - Concern at this time is for necrotizing pneumonia, myoplasm pneumonia/myoplasm TB vs. Worsening of underlying cancer vs. pulmonary toxicity from Tecentriq - She is with Leucocytosis, opacities, biapical necrotizing lesions, PCT 1.02 and increased oxygen use- favoring infectious etiology - Sputum with gram stain and culture - Blood cultures x2 already done - Zosyn 4.5 GM IV q8m, Vancomycin, Doxycycline 100mg IV q12 - Respiratory isolation for cavitary lesions- Quantiferon gold pending, Bronchoscopy for AFB in AM - Pulmonary consultation for bronchoscopy appreciated- Anesthesia consultation placed as well - Her oxygen demand is at her baseline currently, however reports increase to 5LNC with activity. (2) Small cell lung cancer: (3) Tobacco abuse: (4) Shortness of breath: (5) COPD (chronic obstructive pulmonary disease): (6) Necrotizing pneumonia: Plan Assessment/plan: 1. Abnormal Chest CT scan -progressive multiple cavities throughout right lung -severe emphysematous changes -stable 4.8 cm density to KASSIE -Consider: mycobacterial, fungal, malignancy progression, aspiration -cefepime/doxycycline -bronchoscopy performed yesterday on 07/31/2023 -Results of brushing and transbronchial biopsies did not reveal any evidence of malignancy at this time. AFB and fungal stains are also negative. 1a. Acute respiratory distress post bronchoscopy -Patient required reintubation on 07/31/2023 -Neurologic status intact, head CT scan negative -Extubated today on 08/01/2023 -Initiate DuoNebs and continue antibiotics 2. Lung Cancer-small cell type -completed chemo/XRT -Tencetriq -serial PET/CT scans -followed by Oncology 3. Severe Emphysema -tobacco Abuse -Duonebs -smoking cessation -flutter valve -expectorant 4. Tobacco Abuse -consider nicotine patch -smoking cessation 5. PCM -dietary evaluation 6. CKD -coontinue home medications -avoid nephrotoxic agents CRITICAL CARE TIME - I have personally spent 53 minutes of critical care time in the direct managem ent of this patient. This is a life/limb threatening event. This includes time spent evaluating patient, direct bedside care, chart review, placing orders, interpretation of diagnostic studies, discussion with consultants, patient, and family members, as well as other required patient management activities. This time is exclusive of all separately billable procedures, and teaching time and separate from and in addition to any other critical care service time. Admission and Anticipated Discharge Date Admission Date: July 30, [address] scan yesterday for evaluation of any hypoxic injury or cerebral infarction due to left dilated pupil did not reveal any acute abnormalities, patient is currently much more awake and responsive today as her fentanyl drip has been held and she is on low-dose Precedex at this time. Morning ABGs were acceptable therefore patient was extubated now in the room communicating with her and her norepinephrine and Precedex drips have been discontinued and we will begin to feed patient. Review of Systems Review of Systems: Other Unable to perform due to patient being intubated. Physical Exam Constitutional: WD/WN, vitals as above Eyes: PERRL, conjunctivae normal, anicteric sclerae ENMT: external ear and nose normal, oropharynx normal Neck: trachea midline, no thyromegaly Respiratory: Diminished breath sounds at the bases with poor airflow, patient getting good exhaled tidal volumes on mechanical ventilation. No increased oral or ET tube secretions. Today's chest x-ray does show increased clearing to both right upper lobe and right lower lobe opacifications. Cardiovascular: Rate/Rhythm: regular rate and regular rhythm Gastrointestinal (Abdomen): normal bowel sounds, soft, nontender, no hepatosplenomegaly Musculoskeletal: Significant bony deformities to shoulders elbows wrists hands and feet consistent with rheumatoid arthritis. No peripheral edema cyanosis or clubbing. Skin: no rashes, warm and dry Neurologic: patellar DTR's 2+ bilat, sensation intact and PERRL, EOMI, accommodation nl, no face palsy, no dysarthria Results & Data Results & Data Vital Signs (Past 12 Hours) Vital Signs Pulse Resp BP Pulse Ox Pulse Ox O2 Del Method O2 Del Method 08/01/23 14:00 78 16 97 08/01/23 14:00 99/54 L 08/01/23 13:45 76 18 99 08/01/23 13:45 99/56 L 08/01/23 13:30 90 22 97 08/01/23 13:30 114/64 08/01/23 13:15 91 H 26 H 93 08/01/23 13:15 111/62 08/01/23 13:00 75 13 99 08/01/23 13:00 100/56 L 08/01/23 12:45 73 15 100 08/01/23 12:45 99/59 L 08/01/23 12:30 75 14 98 08/01/23 12:30 94/54 L 08/01/23 12:15 74 19 99 08/01/23 12:15 103/56 L 08/01/23 12:00 79 19 97 08/01/23 12:00 111/58 L 08/01/23 11:45 86 16 93 08/01/23 11:45 111/63 08/01/23 11:30 81 17 93 08/01/23 11:30 101/58 L 08/01/23 11:15 84 20 95 08/01/23 11:15 112/59 L 08/01/23 11:00 92 H 26 H 96 08/01/23 11:00 114/68 08/01/23 10:45 93 H 20 99 08/01/23 10:45 117/57 L 08/01/23 10:30 89 20 94 08/01/23 10:30 109/58 L 08/01/23 10:15 76 16 100 08/01/23 10:15 96/56 L 08/01/23 10:00 78 13 98 08/01/23 10:00 102/57 L 08/01/23 09:45 84 20 91 08/01/23 09:45 90/53 L 08/01/23 09:30 80 20 100 08/01/23 09:30 104/58 L 08/01/23 09:15 84 16 95 08/01/23 09:15 100/56 L 08/01/23 09:00 84 18 95 08/01/23 09:00 109/63 08/01/23 08:45 83 17 94 08/01/23 08:45 122/68 08/01/23 08:39 107/71 08/01/23 08:39 85 23 96 08/01/23 08:32 81/52 L 08/01/23 08:32 70 12 93 08/01/23 08:30 70 12 93 08/01/23 08:30 84/48 L 08/01/23 08:16 68 14 94 08/01/23 08:16 80/50 L 08/01/23 08:15 65 12 94 08/01/23 08:15 79/49 L 08/01/23 08:00 82 20 95 08/01/23 08:00 125/76 08/01/23 07:45 65 20 98 08/01/23 07:45 93/54 L 08/01/23 07:30 86 23 97 08/01/23 07:30 117/68 08/01/23 07:15 65 20 99 08/01/23 07:00 65 20 99 08/01/23 09:13 85 95 08/01/23 08:00 08/01/23 08:00 Mechanical Vent 08/01/23 08:00 76 08/01/23 08:00 100 Mechanical Vent 08/01/23 08:06 76 17 95 08/01/23 07:00 08/01/23 04:35 20 FiO2 08/01/23 14:00 08/01/23 14:00 08/01/23 13:45 08/01/23 13:45 08/01/23 13:30 08/01/23 13:30 08/01/23 13:15 08/01/23 13:15 08/01/23 13:00 08/01/23 13:00 08/01/23 12:45 08/01/23 12:45 08/01/23 12:30 08/01/23 12:30 08/01/23 12:15 08/01/23 12:15 08/01/23 12:00 08/01/23 12:00 08/01/23 11:45 08/01/23 11:45 08/01/23 11:30 08/01/23 11:30 08/01/23 11:15 08/01/23 11:15 08/01/23 11:00 08/01/23 11:00 08/01/23 10:45 08/01/23 10:45 08/01/23 10:30 08/01/23 10:30 08/01/23 10:15 08/01/23 10:15 08/01/23 10:00 08/01/23 10:00 08/01/23 09:45 08/01/23 09:45 08/01/23 09:30 08/01/23 09:30 08/01/23 09:15 08/01/23 09:15 08/01/23 09:00 08/01/23 09:00 08/01/23 08:45 08/01/23 08:45 08/01/23 08:39 08/01/23 08:39 08/01/23 08:32 08/01/23 08:32 08/01/23 08:30 08/01/23 08:30 08/01/23 08:16 08/01/23 08:16 08/01/23 08:15 08/01/23 08:15 08/01/23 08:00 08/01/23 08:00 08/01/23 07:45 08/01/23 07:45 08/01/23 07:30 08/01/23 07:30 08/01/23 07:15 08/01/23 07:00 08/01/23 09:13 08/01/23 08:00 40 08/01/23 08:00 08/01/23 08:00 08/01/23 08:00 08/01/23 08:06 40 08/01/23 07:00 50 08/01/23 04:35 50 Laboratory Results Laboratory Results WBC 18.27 K/ul (4.8-10.8) H 08/01/23 04:35 RBC 2.78 M/uL (4.20-5.40) L 08/01/23 04:35 Hgb 8.4 g/dl (12.0-16.0) L 08/01/23 04:35 POC Hgb 8.5 g/dl (12.0-16.0) L 08/01/23 08:48 Hct 25.7 % (37.0-47.0) L 08/01/23 04:35 POC Hct 25 % (37-47) L 08/01/23 08:48 MCV 92.4 fL (80.0-100.0) 08/01/23 04:35 MCH 30.2 pg (25.0-34.0) 08/01/23 04:35 MCHC 32.7 g/dL (32.0-36.0) 08/01/23 04:35 RDW Std Deviation 47.8 fL (36.4-46.3) H 08/01/23 04:35 RDW Coeff of Kiara 14.1 % (11.5-14.5) 08/01/23 04:35 Plt Count 479 K/uL (130-400) H 08/01/23 04:35 MPV 9.6 fL (9.4-12.4) 08/01/23 04:35 Immature Gran % (Auto) 0.7 % 08/01/23 04:35 Neut % (Auto) 93.6 % 08/01/23 04:35 Lymph % (Auto) 1.4 % 08/01/23 04:35 Mcduffie % (Auto) 4.1 % 08/01/23 04:35 Eos % (Auto) 0.1 % 08/01/23 04:35 Baso % (Auto) 0.1 % 08/01/23 04:35 Neut # (Auto) 17.12 K/uL (1.40-6.50) H 08/01/23 04:35 Lymph # (Auto) 0.26 K/uL (1.20-3.40) L 08/01/23 04:35 Mcduffie # (Auto) 0.74 K/uL (0.11-0.59) H 08/01/23 04:35 Eos # (Auto) 0.02 K/uL (0.00-0.50) 08/01/23 04:35 Baso # (Auto) 0.01 K/uL (0.00-0.20) 08/01/23 04:35 Immature Gran # (Auto) 0.12 K/uL (0.01-0.20) 08/01/23 04:35 RBC Morphology Unremarkable 08/01/23 04:35 D-Dimer 6160 ug/L FEU (0-500) H* 07/30/23 11:30 Sample Site L Radial 08/01/23 08:48 POC pH 7.31 (7.35-7.45) L 08/01/23 08:48 POC pCO2 49 mmHg (35-46) H 08/01/23 08:48 POC pO2 55 mmHg (80-95) L 08/01/23 08:48 POC HCO3 25 cathy/L (19-24) H 08/01/23 08:48 POC Total CO2 26 mmol/L (24-31) 08/01/23 08:48 POC Base Excess -1.0 cathy/L (-9-1.8) 08/01/23 08:48 ABG pH (Temp Correct) 7.310 (7.35-7.45) L 08/01/23 08:48 ABG pCO2 (Temp Corrct 50 mmHg (35-46) H 08/01/23 08:48 POC ABG pO2 at Pt Temp 56 08/01/23 08:48 POC ABG O2 Sat 85.0 % (90-95) L 08/01/23 08:48 Cristian Test Pass 08/01/23 08:48 VBG pH 7.37 (7.36-7.41) 07/30/23 11:30 VBG pCO2 50 mmHg (38-50) 07/30/23 11:30 VBG pO2 33 mmHg 07/30/23 11:30 VBG HCO3 29 mmol/L 07/30/23 11:30 VBG O2 Saturation < 60.0 % 07/30/23 11:30 VBG Base Excess 2.9 mEq/L 07/30/23 11:30 O2 Delivery Device Ventilator 08/01/23 08:48 POC O2 Rate 18 08/01/23 04:28 POC FiO2 40 % 08/01/23 08:48 Tidal Volume 315 08/01/23 04:28 PEEP 5 08/01/23 08:48 POC Sodium 129 mmol/L (135-144) L 08/01/23 08:48 Sodium 130 mmol/L (136-145) L 08/01/23 04:35 POC Potassium 4.5 mmol/L (3.3-5.0) 08/01/23 08:48 Potassium 4.6 mmol/L (3.5-5.1) 08/01/23 04:35 Chloride 95 mmol/L (98-107) L 08/01/23 04:35 Carbon Dioxide 24 mmol/L (21-32) 08/01/23 04:35 Anion Gap 11 (3-11) 08/01/23 04:35 BUN 30 mg/dl (6-23) H 08/01/23 04:35 Creatinine 1.24 mg/dl (0.6-1.2) H 08/01/23 04:35 Creatinine 1.24 mg/dl (0.6-1.2) H 08/01/23 04:35 Est Cr Clr Drug Dosing 26.8 ml/min 08/01/23 04:35 Est Cr Clr Drug Dosing 26.8 ml/min 08/01/23 04:35 Est GFR ( Amer) 52.4 ml/min 08/01/23 04:35 Est GFR ( Amer) 52.4 ml/min 08/01/23 04:35 Est GFR (Non-Af Amer) 45.2 ml/min 08/01/23 04:35 Est GFR (Non-Af Amer) 45.2 ml/min 08/01/23 04:35 BUN/Creatinine Ratio 24.2 (10-20) H 08/01/23 04:35 Glucose 100 mg/dl (70-99(Fasting)) H 08/01/23 04:35 POC Glucose 131 mg/dl (70-99) H 08/01/23 11:07 Lactate 1.6 mmol/L (0.4-2.0) 07/30/23 11:30 Calcium 8.4 mg/dl (8.6-10.3) L 08/01/23 04:35 Magnesium 2.3 mg/dl (1.7-2.4) 07/31/23 07:08 Total Bilirubin 0.3 mg/dl (0.2-1.0) 08/01/23 04:35 Direct Bilirubin 0.1 mg/dl (0-0.2) 08/01/23 04:35 AST 16 U/L (13-39) 08/01/23 04:35 ALT 19 U/L (7-52) 08/01/23 04:35 Alkaline Phosphatase 185 U/L (34-104) H 08/01/23 04:35 Troponin I High Sens 10.6 pg/ml (0-14) 07/30/23 11:30 Total Protein 6.3 gm/dl (6.0-8.3) 08/01/23 04:35 Albumin 2.9 gm/dl (3.4-5.0) L 08/01/23 04:35 Globulin 3.8 gm/dl (2.5-4.0) 07/30/23 11:30 Albumin/Globulin Ratio 0.8 (0.9-2) L 07/30/23 11:30 Lipase < 3 U/L (11-82) L 07/30/23 11:30 Procalcitonin 1.02 ng/ml (0-0.5) H 07/30/23 15:17 Fluid Neutrophils % 97 % 07/31/23 13:30 Fluid Lymphocytes % 1 % 07/31/23 13:30 Fluid Eosinophils % 1 % 07/31/23 13:30 Fl Monocyt/Macrophag % 1 % 07/31/23 13:30 Fluid Comment 07/31/23 13:30 Nasal Screen MRSA (PCR) Negative (Negative) 07/30/23 16:07 Random Vancomycin 16.2 mcg/ml (10-20) 07/31/23 14:35 Adenovirus (PCR) Not Detected (NotDetected) 07/30/23 12:00 B. pertussis DNA (PCR) Not Detected (NotDetected) 07/30/23 12:00 B.parapertussis DNA PCR Not Detected (NotDetected) 07/30/23 12:00 C. pneumoniae DNA (PCR) Not Detected (NotDetected) 07/30/23 12:00 Coronavirus OC43 (PCR) Not Detected (NotDetected) 07/30/23 12:00 Coronavirus HKU1 (PCR) Not Detected (NotDetected) 07/30/23 12:00 Coronavirus 229E (PCR) Not Detected (NotDetected) 07/30/23 12:00 SARS-CoV-2 (PCR) Not Detected (NotDetected) 07/30/23 12:00 Coronavirus NL63 (PCR) Not Detected (NotDetected) 07/30/23 12:00 Human Metapneumovir PCR Not Detected (NotDetected) 07/30/23 12:00 Influenza Type A (PCR) Not Detected (NotDetected) 07/30/23 12:00 Influenza Type B (PCR) Not Detected (NotDetected) 07/30/23 12:00 Legionella Source Cancelled 07/31/23 13:30 Legionella Culture Cancelled 07/31/23 13:30 Urine Legionella Ag SEE NOTE 07/31/23 02:08 M. pneumoniae (PCR) Not Detected (NotDetected) 07/30/23 12:00 Parainfluenza 1 (PCR) Not Detected (NotDetected) 07/30/23 12:00 Parainfluenza 2 (PCR) Not Detected (NotDetected) 07/30/23 12:00 Parainfluenza 3 (PCR) Not Detected (NotDetected) 07/30/23 12:00 Parainfluenza 4 (PCR) Not Detected (NotDetected) 07/30/23 12:00 RSV (PCR) Not Detected (NotDetected) 07/30/23 12:00 Resp Virus Cult Rapid Cancelled 07/31/23 13:30 Entero/Rhino (PCR) Not Detected (NotDetected) 07/30/23 12:00 Viral Specimen Source Cancelled 07/31/23 13:30 Impressions Chest CTA 07/30/23 11:56 CT ANGIOGRAPHY OF THE CHEST, PULMONARY EMBOLUS PROTOCOL CLINICAL HISTORY: Chest pain and cough. Lung cancer. COMPARISON STUDY: Chest CT June 24, 2023 and chest radiograph July 30, 2023. PET/CT March 27, 2023. TECHNIQUE: Following IV administration of 118 mL of Optiray, helical axial images of the chest were obtained utilizing the pulmonary embolus protocol. Maximal intensity projections and sagittal and coronal reformats were viewed on an independent 3D workstation. IV contrast was administered without complication. Automated exposure control was utilized for the study. A dose lowering technique was utilized adhering to the principles of ALARA. CT DOSE: 243.52 mGy.cm FINDINGS: No pulmonary emboli are identified. No pathologically enlarged thoracic lymph nodes are present. There is no pericardial effusion. Severe emphysema is again noted. There is no pneumothorax. A small loculated right pleural effusion has increased in size since exam of June 24, 2023. A 4.8 cm mass-like density within left upper lobe on image 190 of 235 is similar to prior chest CT and PET/CT. This remains indeterminate. Left apical cavitary opacity has slightly progressed. Extensive multifocal cavitary opacities within the right lung have significantly progressed since chest CT of June 24, 2023. There is suspected necrotizing pneumonia within the right lung apex as well as within the superior segment of the right lower lobe. Extensive secretions within the right bronchial tree are noted. No central obstructing mass is identified. Visualized portions of the upper abdomen are unremarkable. IMPRESSION: 1. No pulmonary emboli identified. 2. Progression of extensive multifocal cavitary opacities, greater within the right lung, since chest CT of June 24, 2023. The findings suggest necrotizing pneumonia, possibly related to aspiration. 3. Increase in size of a small, loculated right pleural effusion. 4. Severe emphysema. 5. No change in a 4.8 cm mass-like density within the left upper lobe since PET/CT of March 27, 2023. This remains indeterminate and can be assessed on follow-up exams. ACT 112: Negative or not required by law. Electronically signed by: Kaiden Cortes M.D. 07/30/2023 1:57 PM Chest X-Ray 07/31/23 12:04 XR chest 1V portable CLINICAL HISTORY: s/p bronch - currently in PACU 19 TECHNIQUE: Single frontal radiograph of the chest was obtained. Comparison: Comparison is made to right chest radiograph 07/30/2023 FINDINGS: Endotracheal tube tip is 3.7 cm from the olimpia. The cardiomediastinal silhouette is normal. Right lung opacities are seen with left airspace opacities, unchanged from prior exam. There is a moderate right pleural effusion, increased from prior exam. IMPRESSION: Interval increase in right pleural effusion, parenchymal abnormalities are unchanged from prior exam. Within the limits of a supine exam, no evidence of pneumothorax. ACT 112: Negative or not required by law. Electronically signed by: Eduardo Ford M.D. 07/31/2023 1:[address] 07/31/23 17:51 CT head/brain wo con CLINICAL HISTORY: unresponsive post res distress Technique: Contiguous axial CT images of the head were acquired from the base of the skull to the vertex without intravenous contrast administration. Images were viewed in brain, subdural and bone windows. Automated dose lowering techniques and/or adjustment according to patient size were utilized for this exam. Comparison: Comparison is made to CT radiation therapy 04/09/2021 Findings: Areas of decreased attenuation are present in the periventricular and subcortical white matter bilaterally consistent with small vessel ischemic disease. Generalized cerebral atrophy with commensurate enlargement of the ventricles, sulci, and cisterns is also present. There is no acute intracranial hemorrhage or evidence of acute territorial infarction. No shift of the midline structures, mass effect, or extra-axial abnormalities are shown. Atherosclerotic calcifications are present in the intracranial segments of the internal carotid arteries. Imaged portions of the paranasal sinuses and mastoid air cells are clear. The orbits appear normal. There are no acute fractures of the calvaria or scalp swelling. Impression: No acute intracranial hemorrhage, no evidence of acute territorial infarction or other acute intracranial disease process. ACT 112: Negative or not required by law. Electronically signed by: Eduardo Ford M.D. 07/31/2023 6:43 PM Medications Administered Home Medications Medication Instructions Recorded Confirmed Last Taken fluticasone propionate 50 2 spray intranasal BID 11/03/20 07/30/23 03/02/21 mcg/actuation nasal spray,suspension Flutter Valve See Rx Instructions .Route 04/13/21 07/30/23 Unknown .COMPLEX #1 ea [id number] 50 1 cap PO .COMPLEX PRN Headache #13 10/28/22 07/30/23 Unknown mg-325 mg-40 mg capsule caps triamcinolone acetonide 0.1 % 1 applic topical BID PRN Skin 05/06/23 07/30/23 Unknown topical cream Irritation #15 grams albuterol sulfate 90 mcg/actuation 2 inh inhalation Q4H PRN Shortness 05/21/23 07/30/23 Unknown aerosol inhaler Of Breath #8.5 grams gabapentin 600 mg tablet 600 mg PO BID #60 tabs 05/26/23 07/30/23 Unknown miscellaneous medical supply 1 ea miscellaneous DAILY shortness 05/26/23 07/21/23 Unknown of breath #1 ea prochlorperazine maleate 10 mg 10 mg PO Q6H PRN Nausea #90 tabs 05/26/23 07/30/23 Unknown tablet (Compazine) benzonatate 100 mg capsule 100 mg PO TID PRN cough #180 caps 06/10/23 07/30/23 U nknown fluticasone furoate 200 2 inh inhalation HS #60 ea 06/10/23 07/30/23 Unknown mcg-vilanterol 25 mcg/dose inhalation powder (Breo Ellipta) pantoprazole 40 mg tablet,delayed 40 mg PO DAILY 07/30/23 07/30/23 Unknown release terconazole 0.4 % vaginal cream 1 applic vaginal PM PRN Other 07/30/23 07/30/23 Unknown Active Medications Generic Name Dose Route Start Last Admin Trade Name Freq PRN Reason Stop Dose Admin Albuterol 2.5 mg 07/30/23 19:02 08/01/23 09:17 Albuterol 0.083% Nebu Soln 3 Ml Vial NEB 08/29/23 19:01 2.5 mg Q6R PRN Administration wheeze, dyspnea with cough Protocol Fluticasone/Vilanterol 1 puffs 07/31/23 21:00 07/31/23 20:37 Fluticasone/Vilanterol 200/25mcg 14 Puffs/Inhaler INH 08/29/23 20:59 Not Given HS MICHA Gabapentin 600 mg 07/31/23 21:00 08/01/23 07:55 Gabapentin 600 Mg Tab PO 08/30/23 20:59 Not Given BID MICHA Heparin Sodium (Porcine) 5,000 units 07/30/23 21:00 08/01/23 07:54 Heparin Sod 5,000 Unit/0.5 Ml Vial SQ 08/29/23 20:59 5,000 units Q12 MICHA Administration Doxycycline Hyclate 100 mg/ 110 mls @ 50 mls/hr 07/30/23 20:00 08/01/23 09:44 Dextrose IV 08/14/23 19:59 Infused Q12H MICHA Infusion Piperacillin Sod/Tazobactam 120 mls @ 30 mls/hr 07/31/23 02:00 08/01/23 14:52 Sod 4.5 gm/ Dextrose IV 08/14/23 01:59 Infused Q8H MICHA Infusion Protocol Parenteral Electrolytes 1,000 mls @ 70 mls/hr 07/31/23 13:40 08/01/23 06:09 Plasma-Lyte A Ph 7.4 IV 08/30/23 13:39 70 mls/hr .[id number] MICHA Administration Pantoprazole Sodium 40 mg/ 10 mls @ 5 mls/min 08/01/23 11:00 08/01/23 10:53 Syringe IV 08/31/23 10:59 5 mls/min DAILY@1100 MICHA Administration Norepinephrine Bitartrate 4 mg in 250 mls @ 0 mls/hr 07/31/23 16:00 08/01/23 14:47 Levophed/D5w IV 08/30/23 15:59 0 mcg/kg/min .Q0M MICHA 0 mls/hr Titration Protocol 0 MCG/KG/MIN Dexmedetomidine/Sodium Chloride 200 mcg in 50 mls @ 1.905 mls/hr 07/31/23 23:15 08/01/23 14:48 Precedex IV 08/04/23 23:14 0.2 mcg/kg/hr .Q24H MICHA 1.9 mls/hr Titration Protocol 0.2 MCG/KG/HR Insulin Aspart 0 units 08/01/23 00:00 08/01/23 11:11 Insulin Aspart Per Unit Charge SC 08/31/23 00:00 Not Given Q6 MICHA Miscellaneous 1 each 07/31/23 08:59 08/01/23 07:55 Remove Nicoderm Patch N/A 08/30/23 08:58 1 each DAILY@0859 MICHA Administration Nicotine 7 mg 07/30/23 19:15 08/01/23 07:54 Nicotine 7 Mg/24 Hr Tdsy TD 08/29/23 19:14 7 mg QAM MICHA Administration Coding Level of Care Code 01666 CRITICAL CARE 1ST 30-74M Diagnoses Abnormal CT scan of lung R91.8 Small cell lung cancer C34.90 Tobacco abuse Z72.0 Shortness of breath R06.02 COPD (chronic obstructive pulmonary disease) J44.9 Necrotizing pneumonia J85.0
--- NOTE | 2023-08-01 17:01 | Hospitalist Progress Note ---
Date of Service August 01, 2023 Assessment & Plan (1) Abnormal CT scan of lung: Plan: Patient presents with worsening of cough and shortness of breath in previously treated pneumonia as well as in the setting of maintenance therapy with Tecentriq and chemo/radiation for Small Cell Lung Cancer. CT CHest with extensive bilateral necrotizing PNA vs tumor burden - Concern at this time is for necrotizing pneumonia, myoplasm pneumonia/myoplasm TB vs. Worsening of underlying cancer vs. pulmonary toxicity from Tecentriq - She is with Leucocytosis, opacities, biapical necrotizing lesions, PCT 1.02 and increased oxygen use- favoring infectious etiology s/p bronchoscopy 07/31 and had post-procedure respiratory failure requiring intubation and mechanical ventilation--> transferred to ICU. Extubated today 08/01 - Sputum with gram stain and culture, bronch lavages and AFB all collected- follow - Blood cultures x2 NGTD-follow - currently on cefepime and doxycycline - Respiratory isolation for cavitary lesions- Quantiferon gold pending Pulmonology on board (2) Small cell lung cancer: Plan: Small Cell lung cancer from path review- metastatic noted on previous path has had chemo and radiation, then on Tecentriq for 2 years (3) Acute respiratory failure with hypoxia: Plan: Acute on Chronic hypoxia , now off of ventilator (4) COPD (chronic obstructive pulmonary disease): Plan: Hx of - not acute exacerbation at this time - Continue home inhalers and nebulizer as needed (5) Dysphagia: Plan: Previously evaluated in May 2023 admission - IDDSI 7 Moist diet, alternate solids and liquids once tolerating po (6) Hypomagnesemia: Plan: repleted Plan DVT proph- SQ heparin, SCDs Dispo- still in ICU. Remains on TB precautions Admission and Anticipated Discharge Date Admission Date: July 30, 2023 Subjective patient got extubated today! titrating off of the norepinephrine drip. Still on Precedex drip. On 4 to 5 L of oxygen. Review of Systems Review of Systems: All systems reviewed & are unremarkable except as noted in Subjective Physical Exam Physical Exam: General: Awake. Very cachectic with intercostal and bitemporal muscle wasti ng. Frail looking Heart: S1, S2/regular rate and rhythm, no murmur rubs or gallops Lungs: diminished breath sounds bilaterally. Normal effort Abdomen: Soft/nontender/nondistended. No hepatosplenomegaly Extremities: No clubbing/cyanosis. No edema Behavior: Appropriate, cooperative Results & Data Results & Data Vital Signs (Past 12 Hours) Vital Signs Pulse Resp BP Pulse Ox Pulse Ox O2 Del Method O2 Del Method 08/01/23 14:00 78 16 97 08/01/23 14:00 99/54 L 08/01/23 13:45 76 18 99 08/01/23 13:45 99/56 L 08/01/23 13:30 90 22 97 08/01/23 13:30 114/64 08/01/23 13:15 91 H 26 H 93 08/01/23 13:15 111/62 08/01/23 13:00 75 13 99 08/01/23 13:00 100/56 L 08/01/23 12:45 73 15 100 08/01/23 12:45 99/59 L 08/01/23 12:30 75 14 98 08/01/23 12:30 94/54 L 08/01/23 12:15 74 19 99 08/01/23 12:15 103/56 L 08/01/23 12:00 79 19 97 08/01/23 12:00 111/58 L 08/01/23 11:45 86 16 93 08/01/23 11:45 111/63 08/01/23 11:30 81 17 93 08/01/23 11:30 101/58 L 08/01/23 11:15 84 20 95 08/01/23 11:15 112/59 L 08/01/23 11:00 92 H 26 H 96 08/01/23 11:00 114/68 08/01/23 10:45 93 H 20 99 08/01/23 10:45 117/57 L 08/01/23 10:30 89 20 94 08/01/23 10:30 109/58 L 08/01/23 10:15 76 16 100 08/01/23 10:15 96/56 L 08/01/23 10:00 78 13 98 08/01/23 10:00 102/57 L 08/01/23 09:45 84 20 91 08/01/23 09:45 90/53 L 08/01/23 09:30 80 20 100 08/01/23 09:30 104/58 L 08/01/23 09:15 84 16 95 08/01/23 09:15 100/56 L 08/01/23 09:00 84 18 95 08/01/23 09:00 109/63 08/01/23 08:45 83 17 94 08/01/23 08:45 122/68 08/01/23 08:39 107/71 08/01/23 08:39 85 23 96 08/01/23 08:32 81/52 L 08/01/23 08:32 70 12 93 08/01/23 08:30 70 12 93 08/01/23 08:30 84/48 L 08/01/23 08:16 68 14 94 08/01/23 08:16 80/50 L 08/01/23 08:15 65 12 94 08/01/23 08:15 79/49 L 08/01/23 08:00 82 20 95 08/01/23 08:00 125/76 08/01/23 07:45 65 20 98 08/01/23 07:45 93/54 L 08/01/23 07:30 86 23 97 08/01/23 07:30 117/68 08/01/23 07:15 65 20 99 08/01/23 07:00 65 20 99 08/01/23 09:13 85 95 08/01/23 08:00 08/01/23 08:00 Mechanical Vent 08/01/23 08:00 76 08/01/23 08:00 100 Mechanical Vent 08/01/23 08:06 76 17 95 08/01/23 07:00 FiO2 08/01/23 14:00 08/01/23 14:00 08/01/23 13:45 08/01/23 13:45 08/01/23 13:30 08/01/23 13:30 08/01/23 13:15 08/01/23 13:15 08/01/23 13:00 08/01/23 13:00 08/01/23 12:45 08/01/23 12:45 08/01/23 12:30 08/01/23 12:30 08/01/23 12:15 08/01/23 12:15 08/01/23 12:00 08/01/23 12:00 08/01/23 11:45 08/01/23 11:45 08/01/23 11:30 08/01/23 11:30 08/01/23 11:15 08/01/23 11:15 08/01/23 11:00 08/01/23 11:00 08/01/23 10:45 08/01/23 10:45 08/01/23 10:30 08/01/23 10:30 08/01/23 10:15 08/01/23 10:15 08/01/23 10:00 08/01/23 10:00 08/01/23 09:45 08/01/23 09:45 08/01/23 09:30 08/01/23 09:30 08/01/23 09:15 08/01/23 09:15 08/01/23 09:00 08/01/23 09:00 08/01/23 08:45 08/01/23 08:45 08/01/23 08:39 08/01/23 08:39 08/01/23 08:32 08/01/23 08:32 08/01/23 08:30 08/01/23 08:30 08/01/23 08:16 08/01/23 08:16 08/01/23 08:15 08/01/23 08:15 08/01/23 08:00 08/01/23 08:00 08/01/23 07:45 08/01/23 07:45 08/01/23 07:30 08/01/23 07:30 08/01/23 07:15 08/01/23 07:00 08/01/23 09:13 08/01/23 08:00 40 08/01/23 08:00 08/01/23 08:00 08/01/23 08:00 08/01/23 08:06 40 08/01/23 07:00 50 PG Care Time/CCT Total # of Minutes Spent Total Time Spent with Patient: Total time spent is greater than 50% in coordination of care (as documented) at patient's floor/unit and/or counseling patient: Coding Level of Care Code 46544 SUB INP/OBS CARE 2/35MIN Diagnoses Abnormal CT scan of lung R91.8 Small cell lung cancer C34.90 Acute respiratory failure with hypoxia J96.01 COPD (chronic obstructive pulmonary disease) J44.9 Dysphagia R13.10 Hypomagnesemia E83.42
[2023-08-01] MEDS ORDERED: Nursing to Pharmacy Communication SCH (19:45)
[2023-08-02] MEDS: FLUTICASONE/VILANTEROL 200/25MCG 14 PUFFS/INHALER INH SCH ×2 (00:39→20:41)
[2023-08-02] MEDS: PIPERACILLIN/TAZOBACTAM 4.5 GM in DEXTROSE 5% 100 ML IV SCH ×2 (02:41→10:14)
[2023-08-02 04:50] LABS: Basophils # (auto) 0.01 K/uL (0.00-0.20); Basophils % (auto) 0.1 %; Eosinophils # (auto) 0.26 K/uL (0.00-0.50); Eosinophils % (auto) 2.9 %; Hematocrit (blood only) 24.2 % (37.0-47.0); Hemoglobin 7.9 g/dl (12.0-16.0); Immature Granulocytes # (auto) 0.04 K/uL (0.01-0.20); Immature Granulocytes % (auto) 0.5 %; Lymphocytes # (auto) 0.15 K/uL (1.20-3.40); Lymphocytes % (auto) 1.7 %; Mean Corpuscular Hemoglobin 29.7 pg (25.0-34.0); Mean Corpuscular Hgb Conc 32.6 g/dL (32.0-36.0); Mean Platelet Volume 9.4 fL (9.4-12.4); Monocytes # (auto) 0.62 K/uL (0.11-0.59); Neutrophils # (auto) 7.77 K/uL (1.40-6.50); Neutrophils % (auto) 87.8 %; Platelet Count 316 K/uL (130-400); RDW Coefficient of Variation 14.6 % (11.5-14.5); RDW Standard Deviation 49.1 fL (36.4-46.3); Red Blood Count 2.66 M/uL (4.20-5.40); White Blood Count 8.85 K/ul (4.8-10.8)
[2023-08-02 05:09] LABS: Albumin Level 2.5 gm/dl (3.4-5.0); Bilirubin Direct 0.1 mg/dl (0-0.2); Bilirubin,Total 0.3 mg/dl (0.2-1.0); Creatinine Clr Calc Pharmacy 32.2 ml/min; Est GFR (African American) 61.9 ml/min; Est GFR (Non-African American) 53.5 ml/min; Total Protein 5.1 gm/dl (6.0-8.3)
[2023-08-02 05:10] LABS: Polychromasia 1+
[2023-08-02] MEDS: DOXYCYCLINE HYCLATE 100 MG in DEXTROSE 5% 100 ML IV SCH ×2 (07:39→20:41)
[2023-08-02] MEDS: dexMEDEtomidine 200 MCG/50 ML BAG IV SCH (07:40)
[2023-08-02] MEDS: INSULIN ASPART PER UNIT CHARGE SC SCH ×4 (07:54→20:43)
[2023-08-02] MEDS: NICOTINE 7 MG/24 HR TDSY TD SCH (08:02)
[2023-08-02] MEDS: GABAPENTIN 600 MG TAB PO SCH ×2 (08:02→20:42)
[2023-08-02] MEDS: HEPARIN SOD 5,000 UNIT/0.5 ML VIAL SQ SCH ×2 (08:02→20:42)
--- NOTE | 2023-08-02 10:35 | Critical Care Progress Note ---
Date of Service August 02, 2023 Assessment & Plan (1) Abnormal CT scan of lung: Plan: Patient presents with worsening of cough and shortness of breath in previously treated pneumonia as well as in the setting of maintenance therapy with Tecentriq and chemo/radiation for Small Cell Lung Cancer. - Concern at this time is for necrotizing pneumonia, myoplasm pneumonia/myoplasm TB vs. Worsening of underlying cancer vs. pulmonary toxicity from Tecentriq - She is with Leucocytosis, opacities, biapical necrotizing lesions, PCT 1.02 and increased oxygen use- favoring infectious etiology - Sputum with gram stain and culture - Blood cultures x2 already done - Zosyn 4.5 GM IV q8m, Vancomycin, Doxycycline 100mg IV q12 - Respiratory isolation for cavitary lesions- Quantiferon gold pending, Bronchoscopy for AFB in AM - Pulmonary consultation for bronchoscopy appreciated- Anesthesia consultation placed as well - Her oxygen demand is at her baseline currently, however reports increase to 5LNC with activity. (2) Small cell lung cancer: (3) Tobacco abuse: (4) Shortness of breath: (5) COPD (chronic obstructive pulmonary disease): (6) Necrotizing pneumonia: Plan Assessment/plan: 1. Abnormal Chest CT scan -progressive multiple cavities throughout right lung -severe emphysematous changes -stable 4.8 cm density to KASSIE -Consider: mycobacterial, fungal, malignancy progression, aspiration -cefepime/doxycycline -bronchoscopy performed yesterday on 07/31/2023 -Results of brushing and transbronchial biopsies did not reveal any evidence of malignancy at this time. AFB and fungal stains are also negative. -Bronchial culture is now growing Klebsiella pneumonia therefore we will switch the antibiotics from Zosyn to Unasyn and continue with doxycycline at this time. 1a. Acute respiratory distress post bronchoscopy -Patient required reintubation on 07/31/2023 -Neurologic status intact, head CT scan negative -Extubated today on 08/01/2023 -Continue DuoNebs and antibiotics -Oxygen saturation improved therefore will wean her 5 L/min nasal cannula. -Patient's respiratory status has stabilized therefore we will arrange for downgrade and transfer to PCU/telemetry 2. Lung Cancer-small cell type -completed chemo/XRT -Tencetriq -serial PET/CT scans -followed by Oncology 3. Severe Emphysema -tobacco Abuse -Duonebs -Resume any inhaler she was on from home or could start Breo Ellipta inhaler -smoking cessation -flutter valve -expectorant (i.e. Mucinex) 4. Tobacco Abuse -consider nicotine patch -smoking cessation 5. PCM -dietary evaluation -May benefit from nutritional supplements with her meals 6. CKD -continue home medications -avoid nephrotoxic agents CRITICAL CARE TIME - I have personally spent 48 minutes of critical care time in the direct management of this patient. This is a life/limb threatening event. This includes time spent evaluating patient, direct bedside care, chart review, placing orders, interpretation of diagnostic studies, discussion with consultants, patient, and family members, as well as other required patient management activities. This time is exclusive of all separately billable procedures, and teaching time and separate from and in addition to any other critical care service time. Admission and Anticipated Discharge Date Admission Date: July 30, 2023 Subjective Patient now extubated and on a diet, using supplemental oxygen at 5 L/min but is totally awake alert asking to transfer out of ICU at this time. She has no new complaints and there were no problems with her respiratory status or cardiac status for that matter overnight. Thus far all of her transbronchial biopsies have been negative for malignancy as we await the cultures from her bronchial lavage and brushing along with AFB cultures and other fungal cultures. Review of Systems Review of Systems: All systems reviewed & are unremarkable except as noted in Subjective Unable to perform due to patient being intubated. Physical Exam Constitutional: WD/WN, vitals as above Very thin and cachectic although states patient has always been this then since he has known her and there has been no recent weight loss. Eyes: PERRL, conjunctivae normal, anicteric sclerae ENMT: external ear and nose normal, oropharynx normal Neck: trachea midline, no thyromegaly Respiratory: Improved aeration to right base although patient still has some mild scattered crackles to the right posterior thorax. She has no cough at this time. No hemoptysis. Cardiovascular: Rate/Rhythm: regular rate and regular rhythm Gastrointestinal (Abdomen): normal bowel sounds, soft, nontender, no hepatosplenomegaly Skin: no rashes, warm and dry Neurologic: patellar DTR's 2+ bilat, sensation intact and PERRL, EOMI, accommodation nl, no face palsy, no dysarthria Psychiatric: A+Ox3, euthymic affect Rather flat affect at times although in speaking to her he states that her affect has always been flat with a somewhat monotone voice she carries no mental health diagnoses and is not taking any medications which would cause her to have such a flat affect. Results & Data Results & Data Vital Signs (Past 12 Hours) Vital Signs Temp Pulse Pulse Resp BP BP Pulse Ox 08/02/23 09:57 96 08/02/23 08:00 111 H 08/02/23 08:00 08/02/23 05:30 36.8 C 103 H 19 125/70 96 08/02/23 04:30 36.8 C 101 H 18 125/72 96 08/02/23 03:30 36.8 C 98 H 19 117/66 97 08/02/23 02:30 36.8 C 100 H 19 127/66 93 08/02/23 04:00 08/02/23 01:30 36.8 C 103 H 19 125/70 96 08/02/23 00:45 117/82 08/02/23 00:45 106 H 31 H 99 08/02/23 00:30 104 H 31 H 99 08/02/23 00:30 127/72 08/02/23 00:15 128/71 08/02/23 00:15 107 H 30 H 94 08/02/23 00:00 109 H 21 94 08/02/23 00:00 132/74 08/01/23 23:45 126/75 08/01/23 23:45 108 H 18 96 08/01/23 23:30 110 H 21 96 08/01/23 23:30 112/69 08/01/23 23:15 131/74 08/01/23 23:15 112 H 28 H 96 08/01/23 23:00 106 H 29 H 97 08/01/23 23:00 104/65 08/01/23 22:45 109 H 33 H 97 08/01/23 22:45 123/68 08/01/23 22:30 124/93 08/01/23 22:30 110 H 30 H 96 08/02/23 00:00 36.9 C 08/02/23 00:00 08/02/23 00:00 108 H Pulse Ox O2 Del Method O2 Del Method O2 Flow Rate O2 Flow Rate 08/02/23 09:57 Nasal Cannula 5 08/02/23 08:00 08/02/23 08:00 Nasal Cannula 6 08/02/23 05:30 Free Flow/Blow-by 6 08/02/23 04:30 Free Flow/Blow-by 6 08/02/23 03:30 Nasal Cannula 6 08/02/23 02:30 Free Flow/Blow-by 6 08/02/23 04:00 95 Free Flow/Blow-by 6 08/02/23 01:30 Free Flow/Blow-by 6 08/02/23 00:45 08/02/23 00:45 08/02/23 00:30 08/02/23 00:30 08/02/23 00:15 08/02/23 00:15 08/02/23 00:00 08/02/23 00:00 08/01/23 23:45 08/01/23 23:45 08/01/23 23:30 08/01/23 23:30 08/01/23 23:15 08/01/23 23:15 08/01/23 23:00 08/01/23 23:00 08/01/23 22:45 08/01/23 22:45 08/01/23 22:30 08/01/23 22:30 08/02/23 00:00 08/02/23 00:00 95 Free Flow/Blow-by 6 08/02/23 00:00 Laboratory Results Laboratory Results WBC 8.85 K/ul (4.8-10.8) 08/02/23 04:28 RBC 2.66 M/uL (4.20-5.40) L 08/02/23 04:28 Hgb 7.9 g/dl (12.0-16.0) L 08/02/23 04:28 POC Hgb 8.5 g/dl (12.0-16.0) L 08/01/23 08:48 Hct 24.2 % (37.0-47.0) L 08/02/23 04:28 POC Hct 25 % (37-47) L 08/01/23 08:48 MCV 91.0 fL (80.0-100.0) 08/02/23 04:28 MCH 29.7 pg (25.0-34.0) 08/02/23 04:28 MCHC 32.6 g/dL (32.0-36.0) 08/02/23 04:28 RDW Std Deviation 49.1 fL (36.4-46.3) H 08/02/23 04:28 RDW Coeff of Kiara 14.6 % (11.5-14.5) H 08/02/23 04:28 Plt Count 316 K/uL (130-400) 08/02/23 04:28 MPV 9.4 fL (9.4-12.4) 08/02/23 04:28 Immature Gran % (Auto) 0.5 % 08/02/23 04:28 Neut % (Auto) 87.8 % 08/02/23 04:28 Lymph % (Auto) 1.7 % 08/02/23 04:28 [place] % (Auto) 7.0 % 08/02/23 04:28 Eos % (Auto) 2.9 % 08/02/23 04:28 Baso % (Auto) 0.1 % 08/02/23 04:28 Neut # (Auto) 7.77 K/uL (1.40-6.50) H 08/02/23 04:28 Lymph # (Auto) 0.15 K/uL (1.20-3.40) L 08/02/23 04:28 [place] # (Auto) 0.62 K/uL (0.11-0.59) H 08/02/23 04:28 Eos # (Auto) 0.26 K/uL (0.00-0.50) 08/02/23 04:28 Baso # (Auto) 0.01 K/uL (0.00-0.20) 08/02/23 04:28 Immature Gran # (Auto) 0.04 K/uL (0.01-0.20) 08/02/23 04:28 RBC Morphology Unremarkable 08/01/23 04:35 Polychromasia 1+ 08/02/23 04:28 D-Dimer 6160 ug/L FEU (0-500) H* 07/30/23 11:30 Sample Site L Radial 08/01/23 08:48 POC pH 7.31 (7.35-7.45) L 08/01/23 08:48 POC pCO2 49 mmHg (35-46) H 08/01/23 08:48 POC pO2 55 mmHg (80-95) L 08/01/23 08:48 POC HCO3 25 cathy/L (19-24) H 08/01/23 08:48 POC Total CO2 26 mmol/L (24-31) 08/01/23 08:48 POC Base Excess -1.0 cathy/L (-9-1.8) 08/01/23 08:48 ABG pH (Temp Correct) 7.310 (7.35-7.45) L 08/01/23 08:48 ABG pCO2 (Temp Corrct 50 mmHg (35-46) H 08/01/23 08:48 POC ABG pO2 at Pt Temp 56 08/01/23 08:48 POC ABG O2 Sat 85.0 % (90-95) L 08/01/23 08:48 Cristian Test Pass 08/01/23 08:48 VBG pH 7.37 (7.36-7.41) 07/30/23 11:30 VBG pCO2 50 mmHg (38-50) 07/30/23 11:30 VBG pO2 33 mmHg 07/30/23 11:30 VBG HCO3 29 mmol/L 07/30/23 11:30 VBG O2 Saturation < 60.0 % 07/30/23 11:30 VBG Base Excess 2.9 mEq/L 07/30/23 11:30 O2 Delivery Device Ventilator 08/01/23 08:48 POC O2 Rate 18 08/01/23 04:28 POC FiO2 40 % 08/01/23 08:48 Tidal Volume 315 08/01/23 04:28 PEEP 5 08/01/23 08:48 POC Sodium 129 mmol/L (135-144) L 08/01/23 08:48 Sodium 130 mmol/L (136-145) L 08/01/23 04:35 POC Potassium 4.5 mmol/L (3.3-5.0) 08/01/23 08:48 Potassium 4.6 mmol/L (3.5-5.1) 08/01/23 04:35 Chloride 95 mmol/L (98-107) L 08/01/23 04:35 Carbon Dioxide 24 mmol/L (21-32) 08/01/23 04:35 Anion Gap 11 (3-11) 08/01/23 04:35 BUN 30 mg/dl (6-23) H 08/01/23 04:35 Creatinine 1.08 mg/dl (0.6-1.2) 08/02/23 04:28 Est Cr Clr Drug Dosing 32.2 ml/min 08/02/23 04:28 Est GFR ( Amer) 61.9 ml/min 08/02/23 04:28 Est GFR (Non-Af Amer) 53.5 ml/min 08/02/23 04:28 BUN/Creatinine Ratio 24.2 (10-20) H 08/01/23 04:35 Glucose 100 mg/dl (70-99(Fasting)) H 08/01/23 04:35 POC Glucose 103 mg/dl (70-99) H 08/02/23 07:45 Lactate 1.6 mmol/L (0.4-2.0) 07/30/23 11:30 Calcium 8.4 mg/dl (8.6-10.3) L 08/01/23 04:35 Magnesium 2.3 mg/dl (1.7-2.4) 07/31/23 07:08 Total Bilirubin 0.3 mg/dl (0.2-1.0) 08/02/23 04:28 Direct Bilirubin 0.1 mg/dl (0-0.2) 08/02/23 04:28 AST 12 U/L (13-39) L 08/02/23 04:28 ALT 14 U/L (7-52) 08/02/23 04:28 Alkaline Phosphatase 97 U/L (34-104) 08/02/23 04:28 Troponin I High Sens 10.6 pg/ml (0-14) 07/30/23 11:30 Total Protein 5.1 gm/dl (6.0-8.3) L 08/02/23 04:28 Albumin 2.5 gm/dl (3.4-5.0) L 08/02/23 04:28 Globulin 3.8 gm/dl (2.5-4.0) 07/30/23 11:30 Albumin/Globulin Ratio 0.8 (0.9-2) L 07/30/23 11:30 Lipase < 3 U/L (11-82) L 07/30/23 11:30 Procalcitonin 1.02 ng/ml (0-0.5) H 07/30/23 15:17 Fluid Neutrophils % 97 % 07/31/23 13:30 Fluid Lymphocytes % 1 % 07/31/23 13:30 Fluid Eosinophils % 1 % 07/31/23 13:30 Fl Monocyt/Macrophag % 1 % 07/31/23 13:30 Fluid Comment 07/31/23 13:30 Nasal Screen MRSA (PCR) Negative (Negative) 07/30/23 16:07 Random Vancomycin 16.2 mcg/ml (10-20) 07/31/23 14:35 Adenovirus (PCR) Not Detected (NotDetected) 07/30/23 12:00 B. pertussis DNA (PCR) Not Detected (NotDetected) 07/30/23 12:00 B.parapertussis DNA PCR Not Detected (NotDetected) 07/30/23 12:00 C. pneumoniae DNA (PCR) Not Detected (NotDetected) 07/30/23 12:00 Coronavirus OC43 (PCR) Not Detected (NotDetected) 07/30/23 12:00 Coronavirus HKU1 (PCR) Not Detected (NotDetected) 07/30/23 12:00 Coronavirus 229E (PCR) Not Detected (NotDetected) 07/30/23 12:00 SARS-CoV-2 (PCR) Not Detected (NotDetected) 07/30/23 12:00 Coronavirus NL63 (PCR) Not Detected (NotDetected) 07/30/23 12:00 Human Metapneumovir PCR Not Detected (NotDetected) 07/30/23 12:00 Influenza Type A (PCR) Not Detected (NotDetected) 07/30/23 12:00 Influenza Type B (PCR) Not Detected (NotDetected) 07/30/23 12:00 Legionella Source Cancelled 07/31/23 13:30 Legionella Culture Cancelled 07/31/23 13:30 Urine Legionella Ag SEE NOTE 07/31/23 02:08 M. pneumoniae (PCR) Not Detected (NotDetected) 07/30/23 12:00 Parainfluenza 1 (PCR) Not Detected (NotDetected) 07/30/23 12:00 Parainfluenza 2 (PCR) Not Detected (NotDetected) 07/30/23 12:00 Parainfluenza 3 (PCR) Not Detected (NotDetected) 07/30/23 12:00 Parainfluenza 4 (PCR) Not Detected (NotDetected) 07/30/23 12:00 RSV (PCR) Not Detected (NotDetected) 07/30/23 12:00 Resp Virus Cult Rapid Cancelled 07/31/23 13:30 Entero/Rhino (PCR) Not Detected (NotDetected) 07/30/23 12:00 Viral Specimen Source Cancelled 07/31/23 13:30 Impressions Chest CTA 07/30/23 11:56 CT ANGIOGRAPHY OF THE CHEST, PULMONARY EMBOLUS PROTOCOL CLINICAL HISTORY: Chest pain and cough. Lung cancer. COMPARISON STUDY: Chest CT June 24, 2023 and chest radiograph July 30, 2023. PET/CT March 27, 2023. TECHNIQUE: Following IV administration of 118 mL of Optiray, helical axial images of the chest were obtained utilizing the pulmonary embolus protocol. Maximal intensity projections and sagittal and coronal reformats were viewed on an independent 3D workstation. IV contrast was administered without complication. Automated exposure control was utilized for the study. A dose lowering technique was utilized adhering to the principles of ALARA. CT DOSE: 243.52 mGy.cm FINDINGS: No pulmonary emboli are identified. No pathologically enlarged thoracic lymph nodes are present. There is no pericardial effusion. Severe emphysema is again noted. There is no pneumothorax. A small loculated right pleural effusion has increased in size since exam of June 24, 2023. A 4.8 cm mass-like density within left upper lobe on image 190 of 235 is similar to prior chest CT and PET/CT. This remains indeterminate. Left apical cavitary opacity has slightly progressed. Extensive multifocal cavitary opacities within the right lung have significantly progressed since chest CT of June 24, 2023. There is suspected necrotizing pneumonia within the right lung apex as well as within the superior segment of the right lower lobe. Extensive secretions within the right bronchial tree are noted. No central obstructing mass is identified. Visualized portions of the upper abdomen are unremarkable. IMPRESSION: 1. No pulmonary emboli identified. 2. Progression of extensive multifocal cavitary opacities, greater within the right lung, since chest CT of June 24, 2023. The findings suggest necrotizing pneumonia, possibly related to aspiration. 3. Increase in size of a small, loculated right pleural effusion. 4. Severe emphysema. 5. No change in a 4.8 cm mass-like density within the left upper lobe since PET/CT of March 27, 2023. This remains indeterminate and can be assessed on follow-up exams. ACT 112: Negative or not required by law. Electronically signed by: Kaiden Cortes M.D. 07/30/2023 1:57 PM Chest X-Ray 07/31/23 12:04 XR chest 1V portable CLINICAL HISTORY: s/p bronch - currently in PACU 19 TECHNIQUE: Single frontal radiograph of the chest was obtained. Comparison: Comparison is made to right chest radiograph 07/30/2023 FINDINGS: Endotracheal tube tip is 3.7 cm from the olimpia. The cardiomediastinal silho uette is normal. Right lung opacities are seen with left airspace opacities, unchanged from prior exam. There is a moderate right pleural effusion, increased from prior exam. IMPRESSION: Interval increase in right pleural effusion, parenchymal abnormalities are unchanged from prior exam. Within the limits of a supine exam, no evidence of pneumothorax. ACT 112: Negative or not required by law. Electronically signed by: Eduardo Ford M.D. 07/31/2023 1:[address] 07/31/23 17:51 CT head/brain wo con CLINICAL HISTORY: unresponsive post res distress Technique: Contiguous axial CT images of the head were acquired from the base of the skull to the vertex without intravenous contrast administration. Images were viewed in brain, subdural and bone windows. Automated dose lowering techniques and/or adjustment according to patient size were utilized for this exam. Comparison: Comparison is made to CT radiation therapy 04/09/2021 Findings: Areas of decreased attenuation are present in the periventricular and subcortical white matter bilaterally consistent with small vessel ischemic disease. Generalized cerebral atrophy with commensurate enlargement of the ventricles, sulci, and cisterns is also present. There is no acute intracranial hemorrhage or evidence of acute territorial infarction. No shift of the midline structures, mass effect, or extra-axial abnormalities are shown. Atherosclerotic calcifications are present in the intracranial segments of the internal carotid arteries. Imaged portions of the paranasal sinuses and mastoid air cells are clear. The orbits appear normal. There are no acute fractures of the calvaria or scalp swelling. Impression: No acute intracranial hemorrhage, no evidence of acute territorial infarction or other acute intracranial disease process. ACT 112: Negative or not required by law. Electronically signed by: Eduardo Ford M.D. 07/31/2023 6:43 PM Medications Administered Home Medications Medication Instructions Recorded Confirmed Last Taken fluticasone propionate 50 2 spray intranasal BID 11/03/20 07/30/23 03/02/21 mcg/actuation nasal spray,suspension Flutter Valve See Rx Instructions .Route 04/13/21 07/30/23 Unknown .COMPLEX #1 ea ovnumpqyuz-wyywrht-[id number] 50 1 cap PO .COMPLEX PRN Headache #13 10/28/22 07/30/23 Unknown mg-325 mg-40 mg capsule caps triamcinolone acetonide 0.1 % 1 applic topical BID PRN Skin 05/06/23 07/30/23 Unknown topical cream Irritation #15 grams albuterol sulfate 90 mcg/actuation 2 inh inhalation Q4H PRN Shortness 05/21/23 07/30/23 Unknown aerosol inhaler Of Breath #8.5 grams gabapentin 600 mg tablet 600 mg PO BID #60 tabs 05/26/23 07/30/23 Unknown miscellaneous medical supply 1 ea miscellaneous DAILY shortness 05/26/23 07/21/23 Unknown of breath #1 ea prochlorperazine maleate 10 mg 10 mg PO Q6H PRN Nausea #90 tabs 05/26/23 07/30/23 Unknown tablet (Compazine) benzonatate 100 mg capsule 100 mg PO TID PRN cough #180 caps 06/10/23 07/30/23 Unknown fluticasone furoate 200 2 inh inhalation HS #60 ea 06/10/23 07/30/23 Unknown mcg-vilanterol 25 mcg/dose inhalation powder (Breo Ellipta) pantoprazole 40 mg tablet,delayed 40 mg PO DAILY 07/30/23 07/30/23 Unknown release terconazole 0.4 % vaginal cream 1 applic vaginal PM PRN Other 07/30/23 07/30/23 Unknown Active Medications Generic Name Dose Route Start Last Admin Trade Name Freq PRN Reason Stop Dose Admin Albuterol 2.5 mg 07/30/23 19:02 08/01/23 09:17 Albuterol 0.083% Nebu Soln 3 Ml Vial NEB 08/29/23 19:01 2.5 mg Q6R PRN Administration wheeze, dyspnea with cough Protocol Fluticasone/Vilanterol 1 puffs 07/31/23 21:00 08/02/23 00:39 Fluticasone/Vilanterol 200/25mcg 14 Puffs/Inhaler INH 08/29/23 20:59 Not Given HS MICHA Gabapentin 600 mg 07/31/23 21:00 08/02/23 08:02 Gabapentin 600 Mg Tab PO 08/30/23 20:59 600 mg BID MICHA Administration Heparin Sodium (Porcine) 5,000 units 07/30/23 21:00 08/02/23 08:02 Heparin Sod 5,000 Unit/0.5 Ml Vial SQ 08/29/23 20:59 5,000 units Q12 MICHA Administration Doxycycline Hyclate 100 mg/ 110 mls @ 55 mls/hr 07/30/23 20:00 08/02/23 10:14 Dextrose IV 08/14/23 19:59 Infused Q12H MICHA Infusion Parenteral Electrolytes 1,000 mls @ 70 mls/hr 07/31/23 13:40 08/02/23 07:39 Plasma-Lyte A Ph 7.4 IV 08/30/23 13:39 70 mls/hr .[id number] MICHA Infusion Pantoprazole Sodium 40 mg/ 10 mls @ 5 mls/min 08/01/23 11:00 08/01/23 10:53 Syringe IV 08/31/23 10:59 5 mls/min DAILY@1100 MICHA Administration Norepinephrine Bitartrate 4 mg in 250 mls @ 0 mls/hr 07/31/23 16:00 08/01/23 14:47 Levophed/D5w IV 08/30/23 15:59 0 mcg/kg/min .Q0M MICHA 0 mls/hr Titration Protocol 0 MCG/KG/MIN Dexmedetomidine/Sodium Chloride 200 mcg in 50 mls @ 1.905 mls/hr 07/31/23 23:15 08/02/23 07:40 Precedex IV 08/04/23 23:14 Not Given .Q24H MICHA Protocol 0.2 MCG/KG/HR Insulin Aspart 0 units 08/01/23 21:00 08/02/23 07:54 Insulin Aspart Per Unit Charge SC 08/31/23 20:59 Not Given ACHS MICHA Miscellaneous 1 each 07/31/23 08:59 08/02/23 08:02 Remove Nicoderm Patch N/A 08/30/23 08:58 1 each DAILY@0859 MICHA Administration Nicotine 7 mg 07/30/23 19:15 08/02/23 08:02 Nicotine 7 Mg/24 Hr Tdsy TD 08/29/23 19:14 7 mg QAM MICHA Administration Coding Level of Care Code 38521 CRITICAL CARE 1ST 30-74M Diagnoses Abnormal CT scan of lung R91.8 Small cell lung cancer C34.90 Tobacco abuse Z72.0 Shortness of breath R06.02 COPD (chronic obstructive pulmonary disease) J44.9 Necrotizing pneumonia J85.0
[2023-08-02] MEDS: AMPICILLIN/SULBACTAM SOD 3,000 MG in 0.9 % SODIUM CHLORIDE 100 ML IV SCH ×4 (11:40→20:44)
[2023-08-02] MEDS: PANTOprazole 40 MG in SYRINGE 0 ML IV SCH (11:40)
[2023-08-02] MEDS: PLASMA-LYTE A 1,000 ML IV SCH (12:13)
--- NOTE | 2023-08-02 13:35 | Hospitalist Progress Note ---
Date of Service August 02, 2023 Assessment & Plan (1) Abnormal CT scan of lung: Plan: Patient presents with worsening of cough and shortness of breath in previously treated pneumonia as well as in the setting of maintenance therapy with Tecentriq and chemo/radiation for Small Cell Lung Cancer. CT CHest with extensive bilateral necrotizing PNA vs tumor burden - Concern at this time is for necrotizing pneumonia, myoplasm pneumonia/myoplasm TB vs. Worsening of underlying cancer vs. pulmonary toxicity from Tecentriq - She is with Leucocytosis, opacities, biapical necrotizing lesions, PCT 1.02 and increased oxygen use- favoring infectious etiology s/p bronchoscopy 07/31 and had post-procedure respiratory failure requiring intubation and mechanical ventilation--> transferred to ICU. Extubated 08/01 - Sputum with gram stain and culture, bronch lavages and AFB all collected- follow - Blood cultures x2 NGTD-follow bronchial lavage culture growing Klebsiella, awaiting sensitivities - currently on Unasyn and doxycycline - Respiratory isolation for cavitary lesions- Quantiferon gold pending Pulmonology on board Patient is clinically improving (2) Small cell lung cancer: Plan: Small Cell lung cancer from path review- metastatic noted on previous path has had chemo and radiation, then on Tecentriq for 2 years (3) Acute respiratory failure with hypoxia: Plan: Acute on Chronic hypoxia , now off of ventilator Today on 5 L of oxygen At baseline, uses 4 L (4) COPD (chronic obstructive pulmonary disease): Plan: Hx of - not acute exacerbation at this time - Continue home inhalers and nebulizer as needed (5) Dysphagia: Plan: Previously evaluated in May 2023 admission - IDDSI 7 Moist diet, alternate solids and liquids once tolerating po (6) Hypomagnesemia: Plan: repleted Plan DVT proph- SQ heparin, SCDs Dispo- downgrade to PCU. Remains on TB isolation Admission and Anticipated Discharge Date Admission Date: July 30, 2023 Subjective The patient is sitting on the bedside chair. She is looking at her phone. She is able to hold a conversation today. She says she feels better overall. Review of Systems Review of Systems: All systems reviewed & are unremarkable except as noted in Subjective Physical Exam Physical Exam: General: Awake. Very cachectic with intercostal and bitemporal muscle wasting. Frail looking Heart: S1, S2/regular rate and rhythm, no murmur rubs or gallops Lungs: diminished breath sounds bilaterally. Normal effort Abdomen: Soft/nontender/nondistended. No hepatosplenomegaly Extremities: No clubbing/cyanosis. No edema Behavior: Appropriate, cooperative Results & Data Results & Data Vital Signs (Past 12 Hours) Vital Signs Temp Pulse Pulse Resp BP BP Pulse Ox 08/02/23 12:00 36.4 C L 08/02/23 08:00 36.6 C 08/02/23 09:00 99 H 18 154/89 H 95 08/02/23 08:00 111 H 20 138/88 90 08/02/23 12:00 99 H 23 97 08/02/23 11:30 94 H 24 96 08/02/23 11:00 96 H 29 H 132/82 96 08/02/23 10:30 98 H 17 113/70 96 08/02/23 10:15 101 H 28 H 127/84 95 08/02/23 07:00 102 H 20 132/75 93 08/02/23 09:57 96 08/02/23 08:00 111 H 08/02/23 08:00 08/02/23 05:30 36.8 C 103 H 19 125/70 96 08/02/23 04:30 36.8 C 101 H 18 125/72 96 08/02/23 03:30 36.8 C 98 H 19 117/66 97 08/02/23 02:30 36.8 C 100 H 19 127/66 93 08/02/23 04:00 Pulse Ox O2 Del Method O2 Del Method O2 Flow Rate O2 Flow Rate 08/02/23 12:00 08/02/23 08:00 08/02/23 09:00 Nasal Cannula 5 08/02/23 08:00 Nasal Cannula 6 08/02/23 12:00 08/02/23 11:30 08/02/23 11:00 08/02/23 10:30 08/02/23 10:15 08/02/23 07:00 Nasal Cannula 6 08/02/23 09:57 Nasal Cannula 5 08/02/23 08:00 08/02/23 08:00 Nasal Cannula 6 08/02/23 05:30 Free Flow/Blow-by 6 08/02/23 04:30 Free Flow/Blow-by 6 08/02/23 03:30 Nasal Cannula 6 08/02/23 02:30 Free Flow/Blow-by 6 08/02/23 04:00 95 Free Flow/Blow-by 6 Laboratory Results Abnormal lab results 08/01/23 08/01/23 08/02/23 Range/Units 15:26 20:55 04:28 RBC (4.20-5.40) M/uL Hgb (12.0-16.0) g/dl Hct (37.0-47.0) % RDW Std Deviation (36.4-46.3) fL RDW Coeff of Kiara (11.5-14.5) % Neut # (Auto) (1.40-6.50) K/uL Lymph # (Auto) (1.20-3.40) K/uL Mcdonough # (Auto) (0.11-0.59) K/uL POC Glucose 117 H 111 H (70-99) mg/dl AST 12 L (13-39) U/L Total Protein 5.1 L (6.0-8.3) gm/dl Albumin 2.5 L (3.4-5.0) gm/dl 08/02/23 08/02/23 08/02/23 Range/Units 04:28 07:45 11:43 RBC 2.66 L (4.20-5.40) M/uL Hgb 7.9 L (12.0-16.0) g/dl Hct 24.2 L (37.0-47.0) % RDW Std Deviation 49.1 H (36.4-46.3) fL RDW Coeff of Kiara 14.6 H (11.5-14.5) % Neut # (Auto) 7.77 H (1.40-6.50) K/uL Lymph # (Auto) 0.15 L (1.20-3.40) K/uL Mcdonough # (Auto) 0.62 H (0.11-0.59) K/uL POC Glucose 103 H 109 H (70-99) mg/dl AST (13-39) U/L Total Protein (6.0-8.3) gm/dl Albumin (3.4-5.0) gm/dl PG Care Time/CCT Total # of Minutes Spent Total Time Spent with Patient: Total time spent is greater than 50% in coordination of care (as documented) at patient's floor/unit and/or counseling patient: Coding Level of Care Code 32260 SUB INP/OBS CARE 2/35MIN Diagnoses Abnormal CT scan of lung R91.8 Small cell lung cancer C34.90 Acute respiratory failure with hypoxia J96.01 COPD (chronic obstructive pulmonary disease) J44.9 Dysphagia R13.10 Hypomagnesemia E83.42
[2023-08-02] MEDS: ACETAMINOPHEN 325 MG TAB PO PRN (17:33)
[2023-08-03] MEDS: AMPICILLIN/SULBACTAM SOD 3,000 MG in 0.9 % SODIUM CHLORIDE 100 ML IV SCH ×4 (03:46→21:37)
[2023-08-03 04:54] LABS: Albumin Level 2.9 gm/dl (3.4-5.0); Bilirubin Direct 0.1 mg/dl (0-0.2); Bilirubin,Total 0.3 mg/dl (0.2-1.0); Total Protein 6.1 gm/dl (6.0-8.3)
[2023-08-03 07:22] LABS: Basophils # (auto) 0.03 K/uL (0.00-0.20); Basophils % (auto) 0.3 %; Eosinophils # (auto) 0.19 K/uL (0.00-0.50); Eosinophils % (auto) 1.7 %; Hematocrit (blood only) 31.4 % (37.0-47.0); Immature Granulocytes # (auto) 0.06 K/uL (0.01-0.20); Immature Granulocytes % (auto) 0.5 %; Lymphocytes # (auto) 0.23 K/uL (1.20-3.40); Mean Corpuscular Hemoglobin 29.2 pg (25.0-34.0); Mean Corpuscular Hgb Conc 31.8 g/dL (32.0-36.0); Mean Corpuscular Volume 91.8 fL (80.0-100.0); Mean Platelet Volume 9.4 fL (9.4-12.4); Monocytes # (auto) 0.63 K/uL (0.11-0.59); Monocytes % (auto) 5.5 %; Neutrophils # (auto) 10.34 K/uL (1.40-6.50); Platelet Count 406 K/uL (130-400); RDW Coefficient of Variation 14.5 % (11.5-14.5); RDW Standard Deviation 48.6 fL (36.4-46.3); Red Blood Count 3.42 M/uL (4.20-5.40); White Blood Count 11.48 K/ul (4.8-10.8)
[2023-08-03] MEDS: DOXYCYCLINE HYCLATE 100 MG in DEXTROSE 5% 100 ML IV SCH ×2 (07:36→19:32)
[2023-08-03] MEDS: ACETAMINOPHEN 325 MG TAB PO PRN ×2 (07:37→19:31)
[2023-08-03] MEDS: GABAPENTIN 600 MG TAB PO SCH ×2 (07:38→19:33)
[2023-08-03] MEDS: HEPARIN SOD 5,000 UNIT/0.5 ML VIAL SQ SCH ×2 (07:38→19:33)
[2023-08-03] MEDS: NICOTINE 7 MG/24 HR TDSY TD SCH (07:38)
--- NOTE | 2023-08-03 08:23 | Electrocardiogram Report ---
Test Reason : Blood Pressure : / mmHG Vent. Rate : 105 BPM Atrial Rate : 105 BPM P-R Int : 140 ms QRS Dur : 072 ms QT Int : 338 ms P-R-T Axes : 083 073 084 degrees QTc Int : 446 ms Sinus tachycardia Otherwise normal ECG When compared with ECG of 01-MAY-2023 11:39, Premature atrial complexes are no longer Present Confirmed by Sebastian Quiñones ([id number] on 08/03/2023 8:23:18 AM Referred By: Confirmed By:Sebastian Quiñones
[2023-08-03] MEDS: INSULIN ASPART PER UNIT CHARGE SC SCH ×4 (08:26→19:48)
[2023-08-03] MEDS ORDERED: IBUPROFEN 200 MG TAB PO STA ×2 (08:49→20:48)
--- NOTE | 2023-08-03 10:46 | Pulmonology Progress Note ---
Date of Service August 03, 2023 Assessment & Plan (1) Abnormal CT scan of lung: Plan: Patient presents with worsening of cough and shortness of breath in previously treated pneumonia as well as in the setting of maintenance therapy with Tecentriq and chemo/radiation for Small Cell Lung Cancer. - Concern at this time is for necrotizing pneumonia, myoplasm pneumonia/myoplasm TB vs. Worsening of underlying cancer vs. pulmonary toxicity from Tecentriq - She is with Leucocytosis, opacities, biapical necrotizing lesions, PCT 1.02 and increased oxygen use- favoring infectious etiology - Sputum with gram stain and culture - Blood cultures x2 already done -Unasyn and doxycycline 100mg IV q12 - Respiratory isolation for cavitary lesions- Quantiferon gold pending, Bronchoscopy for AFB in AM - Pulmonary consultation for bronchoscopy appreciated- Anesthesia consultation placed as well - Her oxygen demand is at her baseline currently, however reports increase to 5LNC with activity. (2) Small cell lung cancer: (3) Tobacco abuse: (4) Shortness of breath: (5) COPD (chronic obstructive pulmonary disease): (6) Necrotizing pneumonia: Plan Assessment/plan: 1. Abnormal Chest CT scan -progressive multiple cavities throughout right lung -severe emphysematous changes -stable 4.8 cm density to KASSIE -Consider: mycobacterial, fungal, malignancy progression, aspiration -cefepime/doxycycline -bronchoscopy performed yesterday on 07/31/2023 -Results of brushing and transbronchial biopsies did not reveal any evidence of malignancy at this time. AFB and fungal stains are also negative. -Bronchial culture is now growing Klebsiella pneumonia therefore we will switch the antibiotics from Zosyn to Unasyn and continue with doxycycline at this time. 1a. Acute respiratory distress post bronchoscopy -Patient required reintubation on 07/31/2023 -Neurologic status intact, head CT scan negative -Extubated today on 08/01/2023 -Continue DuoNebs and antibiotics -Oxygen saturation improved therefore will wean her 5 L/min nasal cannula. - downgraded for transfer to PCU/telemetry 2. Lung Cancer-small cell type -completed chemo/XRT -Tencetriq-this has been held -serial PET/CT scans -followed by Oncology 3. Severe Emphysema -tobacco Abuse -Duonebs -Resume any inhaler she was on from home or could start Breo Ellipta inhaler -smoking cessation -flutter valve -expectorant (i.e. Mucinex) 4. Tobacco Abuse -consider nicotine patch -smoking cessation 5. PCM -dietary evaluation -May benefit from nutritional supplements with her meals 6. CKD -continue home medications -avoid nephrotoxic agents PULMONARYTIME - I have spent approximately 51 minutes today speaking to and examining patient, reviewing all of her diagnostic studies and developing a new pulmonary management plan discussed with the bedside nursing staff exclusive any invasive procedures or family conferences today. Admission and Anticipated Discharge Date Admission Date: July 30, 2023 Subjective Yesterday patient downgraded with orders for PCU or telemetry, also continue to wean her oxygen which is now 4 L nasal cannula with oxygen saturation of 95%. A ppetite is relatively poor. Waiting for the remaining results of her bronchoscopic lavage and brushing samples but she reports no new problems overnight or this morning. We will suggest to increase her activity and continue her pulmonary hygiene. Review of Systems Review of Systems: All systems reviewed & are unremarkable except as noted in Subjective Unable to perform due to patient being intubated. Physical Exam Constitutional: WD/WN, vitals as above Eyes: PERRL, conjunctivae normal, anicteric sclerae ENMT: external ear and nose normal, oropharynx normal Neck: trachea midline, no thyromegaly Respiratory: Some coarse scattered rhonchi to the bases most prominent in the left base, no wheezing, no significant cough or hemoptysis. Cardiovascular: Rate/Rhythm: regular rate and regular rhythm Gastrointestinal (Abdomen): normal bowel sounds, soft, nontender, no hepatosplenomegaly Musculoskeletal: Bony deformities to upper and lower extremities consistent with arthritis Skin: no rashes, warm and dry Neurologic: patellar DTR's 2+ bilat, sensation intact and PERRL, EOMI, accommodation nl, no face palsy, no dysarthria Psychiatric: A+Ox3, euthymic affect Results & Data Results & Data Vital Signs (Past 12 Hours) Vital Signs Temp Pulse Resp BP BP Pulse Ox Pulse Ox 08/03/23 08:30 113 H 45 H 95 08/03/23 07:38 111 H 40 H 142/90 H 95 08/03/23 07:00 116 H 44 H 92 08/03/23 08:00 37 C 08/03/23 08:00 08/03/23 08:00 116 H 08/03/23 07:30 08/03/23 06:30 106 H 32 H 97 08/03/23 06:00 112 H 21 96 08/03/23 05:30 112 H 42 H 95 08/03/23 05:00 109 H 33 H 95 08/03/23 04:30 100 H 37 H 98 08/03/23 04:00 98 H 43 H 98 08/03/23 03:30 103 H 43 H 96 08/03/23 03:00 99 H 31 H 94 08/03/23 02:30 101 H 38 H 92 08/03/23 02:00 101 H 38 H 93 08/03/23 01:30 89 21 97 08/03/23 01:00 86 19 99 08/03/23 00:30 90 28 H 99 08/03/23 00:00 93 H 38 H 97 08/02/23 23:38 100 H 27 H 97 08/02/23 23:38 158/93 H 08/02/23 23:30 96 H 38 H 97 08/03/23 04:00 36.8 C 158/93 H 08/03/23 04:00 92 08/03/23 00:00 36.9 C 08/03/23 00:00 92 08/02/23 23:05 105 H 08/02/23 23:00 111 H 28 H 93 O2 Del Method O2 Del Method O2 Flow Rate O2 Flow Rate 08/03/23 08:30 08/03/23 07:38 Nasal Cannula 4 08/03/23 07:00 08/03/23 08:00 08/03/23 08:00 Nasal Cannula 4 08/03/23 08:00 08/03/23 07:30 Nasal Cannula 4 08/03/23 06:30 08/03/23 06:00 08/03/23 05:30 08/03/23 05:00 08/03/23 04:30 08/03/23 04:00 08/03/23 03:30 08/03/23 03:00 08/03/23 02:30 08/03/23 02:00 08/03/23 01:30 08/03/23 01:00 08/03/23 00:30 08/03/23 00:00 08/02/23 23:38 08/02/23 23:38 08/02/23 23:30 08/03/23 04:00 08/03/23 04:00 Nasal Cannula 4 08/03/23 00:00 08/03/23 00:00 Nasal Cannula 4 08/02/23 23:05 08/02/23 23:00 Laboratory Results Laboratory Results WBC 11.48 K/ul (4.8-10.8) H 08/03/23 06:56 RBC 3.42 M/uL (4.20-5.40) L 08/03/23 06:56 Hgb 10.0 g/dl (12.0-16.0) L 08/03/23 06:56 POC Hgb 8.5 g/dl (12.0-16.0) L 08/01/23 08:48 Hct 31.4 % (37.0-47.0) L 08/03/23 06:56 POC Hct 25 % (37-47) L 08/01/23 08:48 MCV 91.8 fL (80.0-100.0) 08/03/23 06:56 MCH 29.2 pg (25.0-34.0) 08/03/23 06:56 MCHC 31.8 g/dL (32.0-36.0) L 08/03/23 06:56 RDW Std Deviation 48.6 fL (36.4-46.3) H 08/03/23 06:56 RDW Coeff of Kiara 14.5 % (11.5-14.5) 08/03/23 06:56 Plt Count 406 K/uL (130-400) H 08/03/23 06:56 MPV 9.4 fL (9.4-12.4) 08/03/23 06:56 Immature Gran % (Auto) 0.5 % 08/03/23 06:56 Neut % (Auto) 90.0 % 08/03/23 06:56 Lymph % (Auto) 2.0 % 08/03/23 06:56 Burnett % (Auto) 5.5 % 08/03/23 06:56 Eos % (Auto) 1.7 % 08/03/23 06:56 Baso % (Auto) 0.3 % 08/03/23 06:56 Neut # (Auto) 10.34 K/uL (1.40-6.50) H 08/03/23 06:56 Lymph # (Auto) 0.23 K/uL (1.20-3.40) L 08/03/23 06:56 Burnett # (Auto) 0.63 K/uL (0.11-0.59) H 08/03/23 06:56 Eos # (Auto) 0.19 K/uL (0.00-0.50) 08/03/23 06:56 Baso # (Auto) 0.03 K/uL (0.00-0.20) 08/03/23 06:56 Immature Gran # (Auto) 0.06 K/uL (0.01-0.20) 08/03/23 06:56 Absolute Nucleated RBC Cancelled 08/03/23 04:01 Nucleated RBC % (auto) Cancelled 08/03/23 04:01 Neutrophils % (Manual) Cancelled 08/03/23 04:01 Band Neutrophils % Cancelled 08/03/23 04:01 Lymphocytes % (Manual) Cancelled 08/03/23 04:01 Prolymphocyte % Cancelled 08/03/23 04:01 Reactive Lymphs % (Man) Cancelled 08/03/23 04:01 Monocytes % (Manual) Cancelled 08/03/23 04:01 Eosinophils % (Manual) Cancelled 08/03/23 04:01 Basophils % (Manual) Cancelled 08/03/23 04:01 Metamyelocytes % (Man) Cancelled 08/03/23 04:01 Myelocytes % (Man) Cancelled 08/03/23 04:01 Promyelocytes % (Man) Cancelled 08/03/23 04:01 Blast Cells % (Manual) Cancelled 08/03/23 04:01 Plasma Cell % (Manual) Cancelled 08/03/23 04:01 Other Cells % Cancelled 08/03/23 04:01 Nucleated RBC % Cancelled 08/03/23 04:01 Neutrophils # (Manual) Cancelled 08/03/23 04:01 Band Neutrophils # Cancelled 08/03/23 04:01 Total Absolute Neuts Cancelled 08/03/23 04:01 Lymphocytes # (Manual) Cancelled 08/03/23 04:01 Prolymphocyte # Cancelled 08/03/23 04:01 Reactive Lymphs # Cancelled 08/03/23 04:01 Total Abs Lymphocytes Cancelled 08/03/23 04:01 Monocytes # (Manual) Cancelled 08/03/23 04:01 Eosinophils # (Manual) Cancelled 08/03/23 04:01 Basophils # (Manual) Cancelled 08/03/23 04:01 Metamyelocytes # (Man) Cancelled 08/03/23 04:01 Myelocytes # (Manual) Cancelled 08/03/23 04:01 Promyelocytes # (Man) Cancelled 08/03/23 04:01 Blast Cells # (Man) Cancelled 08/03/23 04:01 Plasma Cell # (Manual) Cancelled 08/03/23 04:01 Other Cells # Cancelled 08/03/23 04:01 Nucleated RBCs # (Man) Cancelled 08/03/23 04:01 Hypersegmented Neuts Cancelled 08/03/23 04:01 Hyposegmented Neuts Cancelled 08/03/23 04:01 Hypogranular Neuts Cancelled 08/03/23 04:01 Large Granular Lymphs Cancelled 08/03/23 04:01 # Lrg Granular Lymphs Cancelled 08/03/23 04:01 Hairy Cells Cancelled 08/03/23 04:01 Smudge Cells Cancelled 08/03/23 04:01 Toxic Granulation Cancelled 08/03/23 04:01 Toxic Vacuolation Cancelled 08/03/23 04:01 Dohle Bodies Cancelled 08/03/23 04:01 Antony Rods Cancelled 08/03/23 04:01 Platelet Estimate Cancelled 08/03/23 04:01 Hypogranular Platelets Cancelled 08/03/23 04:01 Giant Platelets Cancelled 08/03/23 04:01 Platelet Satelliting Cancelled 08/03/23 04:01 RBC Morphology Cancelled 08/03/23 04:01 Polychromasia Cancelled 08/03/23 04:01 Hypochromasia Cancelled 08/03/23 04:01 Poikilocytosis Cancelled 08/03/23 04:01 Basophilic Stippling Cancelled 08/03/23 04:01 Anisocytosis Cancelled 08/03/23 04:01 Microcytosis Cancelled 08/03/23 04:01 Macrocytosis Cancelled 08/03/23 04:01 Spherocytes Cancelled 08/03/23 04:01 Pappenheimer Bodies Cancelled 08/03/23 04:01 Sickle Cells Cancelled 08/03/23 04:01 Target Cells Cancelled 08/03/23 04:01 Tear Drop Cells Cancelled 08/03/23 04:01 Ovalocytes Cancelled 08/03/23 04:01 Stomatocytes Cancelled 08/03/23 04:01 Miranda-Jellico Bodies Cancelled 08/03/23 04:01 Echinocytes Cancelled 08/03/23 04:01 Acanthocytes (Spur) Cancelled 08/03/23 04:01 Rouleaux Cancelled 08/03/23 04:01 RBC Agglutinates Cancelled 08/03/23 04:01 Schistocytes Cancelled 08/03/23 04:01 Sezary Cell Cancelled 08/03/23 04:01 D-Dimer 6160 ug/L FEU (0-500) H* 07/30/23 11:30 Sample Site L Radial 08/01/23 08:48 POC pH 7.31 (7.35-7.45) L 08/01/23 08:48 POC pCO2 49 mmHg (35-46) H 08/01/23 08:48 POC pO2 55 mmHg (80-95) L 08/01/23 08:48 POC HCO3 25 cathy/L (19-24) H 08/01/23 08:48 POC Total CO2 26 mmol/L (24-31) 08/01/23 08:48 POC Base Excess -1.0 cathy/L (-9-1.8) 08/01/23 08:48 ABG pH (Temp Correct) 7.310 (7.35-7.45) L 08/01/23 08:48 ABG pCO2 (Temp Corrct 50 mmHg (35-46) H 08/01/23 08:48 POC ABG pO2 at Pt Temp 56 08/01/23 08:48 POC ABG O2 Sat 85.0 % (90-95) L 08/01/23 08:48 Cristian Test Pass 08/01/23 08:48 VBG pH 7.37 (7.36-7.41) 07/30/23 11:30 VBG pCO2 50 mmHg (38-50) 07/30/23 11:30 VBG pO2 33 mmHg 07/30/23 11:30 VBG HCO3 29 mmol/L 07/30/23 11:30 VBG O2 Saturation < 60.0 % 07/30/23 11:30 VBG Base Excess 2.9 mEq/L 07/30/23 11:30 O2 Delivery Device Ventilator 08/01/23 08:48 POC O2 Rate 18 08/01/23 04:28 POC FiO2 40 % 08/01/23 08:48 Tidal Volume 315 08/01/23 04:28 PEEP 5 08/01/23 08:48 POC Sodium 129 mmol/L (135-144) L 08/01/23 08:48 Sodium 130 mmol/L (136-145) L 08/01/23 04:35 POC Potassium 4.5 mmol/L (3.3-5.0) 08/01/23 08:48 Potassium 4.6 mmol/L (3.5-5.1) 08/01/23 04:35 Chloride 95 mmol/L (98-107) L 08/01/23 04:35 Carbon Dioxide 24 mmol/L (21-32) 08/01/23 04:35 Anion Gap 11 (3-11) 08/01/23 04:35 BUN 30 mg/dl (6-23) H 08/01/23 04:35 Creatinine 1.08 mg/dl (0.6-1.2) 08/02/23 04:28 Est Cr Clr Drug Dosing 32.2 ml/min 08/02/23 04:28 Est GFR ( Amer) 61.9 ml/min 08/02/23 04:28 Est GFR (Non-Af Amer) 53.5 ml/min 08/02/23 04:28 BUN/Creatinine Ratio 24.2 (10-20) H 08/01/23 04:35 Glucose 100 mg/dl (70-99(Fasting)) H 08/01/23 04:35 POC Glucose 125 mg/dl (70-99) H 08/03/23 07:44 Lactate 1.6 mmol/L (0.4-2.0) 07/30/23 11:30 Calcium 8.4 mg/dl (8.6-10.3) L 08/01/23 04:35 Magnesium 2.3 mg/dl (1.7-2.4) 07/31/23 07:08 Total Bilirubin 0.3 mg/dl (0.2-1.0) 08/03/23 04:01 Direct Bilirubin 0.1 mg/dl (0-0.2) 08/03/23 04:01 AST 14 U/L (13-39) 08/03/23 04:01 ALT 14 U/L (7-52) 08/03/23 04:01 Alkaline Phosphatase 115 U/L (34-104) H 08/03/23 04:01 Troponin I High Sens 10.6 pg/ml (0-14) 07/30/23 11:30 Total Protein 6.1 gm/dl (6.0-8.3) 08/03/23 04:01 Albumin 2.9 gm/dl (3.4-5.0) L 08/03/23 04:01 Globulin 3.8 gm/dl (2.5-4.0) 07/30/23 11:30 Albumin/Globulin Ratio 0.8 (0.9-2) L 07/30/23 11:30 Lipase < 3 U/L (11-82) L 07/30/23 11:30 Procalcitonin 1.02 ng/ml (0-0.5) H 07/30/23 15:17 Fluid Neutrophils % 97 % 07/31/23 13:30 Fluid Lymphocytes % 1 % 07/31/23 13:30 Fluid Eosinophils % 1 % 07/31/23 13:30 Fl Monocyt/Macrophag % 1 % 07/31/23 13:30 Fluid Comment 07/31/23 13:30 Nasal Screen MRSA (PCR) Negative (Negative) 07/30/23 16:07 Random Vancomycin 16.2 mcg/ml (10-20) 07/31/23 14:35 Adenovirus (PCR) Not Detected (NotDetected) 07/30/23 12:00 B. pertussis DNA (PCR) Not Detected (NotDetected) 07/30/23 12:00 B.parapertussis DNA PCR Not Detected (NotDetected) 07/30/23 12:00 C. pneumoniae DNA (PCR) Not Detected (NotDetected) 07/30/23 12:00 Coronavirus OC43 (PCR) Not Detected (NotDetected) 07/30/23 12:00 Coronavirus HKU1 (PCR) Not Detected (NotDetected) 07/30/23 12:00 Coronavirus 229E (PCR) Not Detected (NotDetected) 07/30/23 12:00 SARS-CoV-2 (PCR) Not Detected (NotDetected) 07/30/23 12:00 Coronavirus NL63 (PCR) Not Detected (NotDetected) 07/30/23 12:00 Human Metapneumovir PCR Not Detected (NotDetected) 07/30/23 12:00 Influenza Type A (PCR) Not Detected (NotDetected) 07/30/23 12:00 Influenza Type B (PCR) Not Detected (NotDetected) 07/30/23 12:00 Legionella Source Cancelled 07/31/23 13:30 Legionella Culture Cancelled 07/31/23 13:30 Urine Legionella Ag SEE NOTE 07/31/23 02:08 M. pneumoniae (PCR) Not Detected (NotDetected) 07/30/23 12:00 Parainfluenza 1 (PCR) Not Detected (NotDetected) 07/30/23 12:00 Parainfluenza 2 (PCR) Not Detected (NotDetected) 07/30/23 12:00 Parainfluenza 3 (PCR) Not Detected (NotDetected) 07/30/23 12:00 Parainfluenza 4 (PCR) Not Detected (NotDetected) 07/30/23 12:00 RSV (PCR) Not Detected (NotDetected) 07/30/23 12:00 Resp Virus Cult Rapid Cancelled 07/31/23 13:30 Entero/Rhino (PCR) Not Detected (NotDetected) 07/30/23 12:00 Viral Specimen Source Cancelled 07/31/23 13:30 Blood Parasites ID Cancelled 08/03/23 04:01 Impressions Chest CTA 07/30/23 11:56 CT ANGIOGRAPHY OF THE CHEST, PULMONARY EMBOLUS PROTOCOL CLINICAL HISTORY: Chest pain and cough. Lung cancer. COMPARISON STUDY: Chest CT June 24, 2023 and chest radiograph July 30, 2023. PET/CT March 27, 2023. TECHNIQUE: Following IV administration of 118 mL of Optiray, helical axial images of the chest were obtained utilizing the pulmonary embolus protocol. Maximal intensity projections and sagittal and coronal reformats were viewed on an independent 3D workstation. IV contrast was administered without complication. Automated exposure control was utilized for the study. A dose lowering technique was utilized adhering to the principles of ALARA. CT DOSE: 243.52 mGy.cm FINDINGS: No pulmonary emboli are identified. No pathologically enlarged thoracic lymph nodes are present. There is no pericardial effusion. Severe emphysema is again noted. There is no pneumothorax. A small loculated right pleural effusion has increased in size since exam of June 24, 2023. A 4.8 cm mass-like density within left upper lobe on image 190 of 235 is similar to prior chest CT and PET/CT. This remains indeterminate. Left apical cavitary opacity has slightly progressed. Extensive multifocal cavitary opacities within the right lung have significantly progressed since chest CT of June 24, 2023. There is suspected necrotizing pneumonia within the right lung apex as well as within the superior segment of the right lower lobe. Extensive secretions within the right bronchial tree are noted. No central obstructing mass is identified. Visualized portions of the upper abdomen are unremarkable. IMPRESSION: 1. No pulmonary emboli identified. 2. Progression of extensive multifocal cavitary opacities, greater within the right lung, since chest CT of June 24, 2023. The findings suggest necrotizing pneumonia, possibly related to aspiration. 3. Increase in size of a small, loculated right pleural effusion. 4. Severe emphysema. 5. No change in a 4.8 cm mass-like density within the left upper lobe since PET/CT of March 27, 2023. This remains indeterminate and can be assessed on follow-up exams. ACT 112: Negative or not required by law. Electronically signed by: Kaiden Cortes M.D. 07/30/2023 1:57 PM Chest X-Ray 07/31/23 12:04 XR chest 1V portable CLINICAL HISTORY: s/p bronch - currently in PACU 19 TECHNIQUE: Single frontal radiograph of the chest was obtained. Comparison: Comparison is made to right chest radiograph 07/30/2023 FINDINGS: Endotracheal tube tip is 3.7 cm from the olimpia. The cardiomediastinal silhouette is normal. Right lung opacities are seen with left airspace opacities, unchanged from prior exam. There is a moderate right pleural effusion, increased from prior exam. IMPRESSION: Interval increase in right pleural effusion, parenchymal abnormalities are unchanged from prior exam. Within the limits of a supine exam, no evidence of pneumothorax. ACT 112: Negative or not required by law. Electronically signed by: Eduardo Ford M.D. 07/31/2023 1:[address] 07/31/23 17:51 CT head/brain wo con CLINICAL HISTORY: unresponsive post res distress Technique: Contiguous axial CT images of the head were acquired from the base of the skull to the vertex without intravenous contrast administration. Images were viewed in brain, subdural and bone windows. Automated dose lowering techniques and/or adjustment according to patient size were utilized for this exam. Comparison: Comparison is made to CT radiation therapy 04/09/2021 Findings: Areas of decreased attenuation are present in the periventricular and subcortical white matter bilaterally consistent with small vessel ischemic disease. Generalized cerebral atrophy with commensurate enlargement of the ventricles, sulci, and cisterns is also present. There is no acute intracranial hemorrhage or evidence of acute territorial infarction. No shift of the midline structures, mass effect, or extra-axial abnormalities are shown. Atherosclerotic calcifications are present in the intracranial segments of the internal carotid arteries. Imaged portions of the paranasal sinuses and mastoid air cells are clear. The orbits appear normal. There are no acute fractures of the calvaria or scalp swelling. Impression: No acute intracranial hemorrhage, no evidence of acute territorial infarction or other acute intracranial disease process. ACT 112: Negative or not required by law. Electronically signed by: Eduardo Ford M.D. 07/31/2023 6:43 PM Medications Administered Home Medications Medication Instructions Recorded Confirmed Last Taken fluticasone propionate 50 2 spray intranasal BID 11/03/20 07/30/23 03/02/21 mcg/actuation nasal spray,suspension Flutter Valve See Rx Instructions .Route 04/13/21 07/30/23 Unknown .COMPLEX #1 ea [id number] 50 1 cap PO .COMPLEX PRN Headache #13 10/28/22 07/30/23 Unknown mg-325 mg-40 mg capsule caps triamcinolone acetonide 0.1 % 1 applic topical BID PRN Skin 05/06/23 07/30/23 Unknown topical cream Irritation #15 grams albuterol sulfate 90 mcg/actuation 2 inh inhalation Q4H PRN Shortness 05/21/23 07/30/23 Unknown aerosol inhaler Of Breath #8.5 grams gabapentin 600 mg tablet 600 mg PO BID #60 tabs 05/26/23 07/30/23 Unknown miscellaneous medical supply 1 ea miscellaneous DAILY shortness 05/26/23 07/21/23 Unknown of breath #1 ea prochlorperazine maleate 10 mg 10 mg PO Q6H PRN Nausea #90 tabs 05/26/23 07/30/23 Unknown tablet (Compazine) benzonatate 100 mg capsule 100 mg PO TID PRN cough #180 caps 06/10/23 07/30/23 Unknown fluticasone furoate 200 2 inh inhalation HS #60 ea 06/10/23 07/30/23 Unknown mcg-vilanterol 25 mcg/dose inhalation powder (Breo Ellipta) pantoprazole 40 mg tablet,delayed 40 mg PO DAILY 07/30/23 07/30/23 Unknown release terconazole 0.4 % vaginal cream 1 applic vaginal PM PRN Other 07/30/23 07/30/23 Unknown Active Medications Generic Name Dose Route Start Last Admin Trade Name Freq PRN Reason Stop Dose Admin Acetaminophen 650 mg 08/02/23 17:07 08/03/23 07:37 Acetaminophen 325 Mg Tab PO 09/01/23 17:06 650 mg Q8H PRN Administration Pain or Fever Albuterol 2.5 mg 07/30/23 19:02 08/01/23 09:17 Albuterol 0.083% Nebu Soln 3 Ml Vial NEB 08/29/23 19:01 2.5 mg Q6R PRN Administration wheeze, dyspnea with cough Protocol Fluticasone/Vilanterol 1 puffs 07/31/23 21:00 08/02/23 20:41 Fluticasone/Vilanterol 200/25mcg 14 Puffs/Inhaler INH 08/29/23 20:59 1 puffs HS MICHA Administration Gabapentin 600 mg 08/02/23 21:00 08/03/23 07:38 Gabapentin 600 Mg Tab PO 09/01/23 20:59 600 mg BID MICHA Administration Heparin Sodium (Porcine) 5,000 units 07/30/23 21:00 08/03/23 07:38 Heparin Sod 5,000 Unit/0.5 Ml Vial SQ 08/29/23 20:59 5,000 units Q12 MICHA Administration Doxycycline Hyclate 100 mg/ 110 mls @ 55 mls/hr 07/30/23 20:00 08/03/23 10:08 Dextrose IV 08/14/23 19:59 Infused Q12H MICHA Infusion Pantoprazole Sodium 40 mg/ 10 mls @ 5 mls/min 08/01/23 11:00 08/02/23 11:40 Syringe IV 08/31/23 10:59 5 mls/min DAILY@1100 MICHA Administration Ampicillin Sodium/Sulbactam 108 mls @ 216 mls/hr 08/02/23 10:15 08/03/23 10:07 Sodium 3,000 mg/ Sodium IV 08/14/23 10:14 216 mls/hr Chloride Q6H MICHA Administration Insulin Aspart 0 units 08/01/23 21:00 08/03/23 08:26 Insulin Aspart Per Unit Charge SC 08/31/23 20:59 Not Given [facility] Miscellaneous 1 each 07/31/23 08:59 08/03/23 07:37 Remove Nicoderm Patch N/A 08/30/23 08:58 1 each DAILY@0859 MICHA Administration Nicotine 7 mg 07/30/23 19:15 08/03/23 07:38 Nicotine 7 Mg/24 Hr Tdsy TD 08/29/23 19:14 7 mg QAM MICHA Administration PG Care Time/CCT Total # of Minutes Spent Total Time Spent with Patient: Total time spent is greater than 50% in coordination of care (as documented) at patient's floor/unit and/or counseling patient: Coding Level of Care Code 29471 SUB INP/OBS CARE 3/50MIN Diagnoses Abnormal CT scan of lung R91.8 Small cell lung cancer C34.90 Tobacco abuse Z72.0 Shortness of breath R06.02 COPD (chronic obstructive pulmonary disease) J44.9 Necrotizing pneumonia J85.0
[2023-08-03] MEDS: PANTOprazole 40 MG in SYRINGE 0 ML IV SCH (12:14)
--- NOTE | 2023-08-03 12:35 | Hospitalist Progress Note ---
Date of Service August 03, 2023 Assessment & Plan (1) Abnormal CT scan of lung: Plan: Patient presents with worsening of cough and shortness of breath in previously treated pneumonia as well as in the setting of maintenance therapy with Tecentriq and chemo/radiation for Small Cell Lung Cancer. CT CHest with extensive bilateral necrotizing PNA vs tumor burden - Concern at this time is for necrotizing pneumonia, myoplasm pneumonia/myoplasm TB vs. Worsening of underlying cancer vs. pulmonary toxicity from Tecentriq - She is with Leucocytosis, opacities, biapical necrotizing lesions, PCT 1.02 and increased oxygen use- favoring infectious etiology s/p bronchoscopy 07/31 and had post-procedure respiratory failure requiring intubation and mechanical ventilation--> transferred to ICU. Extubated 08/01 - Sputum with gram stain and culture, bronch lavages and AFB all collected- follow - Blood cultures x2 NGTD-follow bronchial lavage culture growing Klebsiella - currently on Unasyn and doxycycline - Respiratory isolation for cavitary lesions- Quantiferon gold pending Pulmonology on board Patient is clinically improving (2) Small cell lung cancer: Plan: Small Cell lung cancer from path review- metastatic noted on previous path has had chemo and radiation, then on Tecentriq for 2 years (3) Acute respiratory failure with hypoxia: Plan: Acute on Chronic hypoxia , now off of ventilator Today on 5 L of oxygen At baseline, uses 4 L (4) COPD (chronic obstructive pulmonary disease): Plan: Hx of - not acute exacerbation at this time - Continue home inhalers and nebulizer as needed (5) Dysphagia: Plan: Previously evaluated in May 2023 admission - IDDSI 7 Moist diet, alternate solids and liquids once tolerating po (6) Hypomagnesemia: Plan: repleted (7) Severe protein-calorie malnutrition: Plan: Consult dietitian Plan DVT proph- SQ heparin, SCDs Dispo- downgrade to PCU. Remains on TB isolation Admission and Anticipated Discharge Date Admission Date: July 30, 2023 Subjective Patient is feeling better overall. Her oxygen need is back to her usual baseline she says. Review of Systems Review of Systems: All systems reviewed & are unremarkable except as noted in Subjective Physical Exam Physical Exam: General: Awake. Very cachectic with intercostal and bitemporal muscle wasting. Frail looking Heart: S1, S2/regular rate and rhythm, no murmur rubs or gallops Lungs: diminished breath sounds bilaterally. Normal effort Abdomen: Soft/nontender/nondistended. No hepatosplenomegaly Extremities: No clubbing/cyanosis. No edema Behavior: Appropriate, cooperative Results & Data Results & Data Vital Signs (Past 12 Hours) Vital Signs Temp Pulse Resp BP BP Pulse Ox Pulse Ox 08/03/23 08:30 113 H 45 H 95 08/03/23 07:38 111 H 40 H 142/90 H 95 08/03/23 07:00 116 H 44 H 92 08/03/23 08:00 37 C 08/03/23 08:00 08/03/23 08:00 116 H 08/03/23 07:30 08/03/23 06:30 106 H 32 H 97 08/03/23 06:00 112 H 21 96 08/03/23 05:30 112 H 42 H 95 08/03/23 05:00 109 H 33 H 95 08/03/23 04:30 100 H 37 H 98 08/03/23 04:00 98 H 43 H 98 08/03/23 03:30 103 H 43 H 96 08/03/23 03:00 99 H 31 H 94 08/03/23 02:30 101 H 38 H 92 08/03/23 02:00 101 H 38 H 93 08/03/23 01:30 89 21 97 08/03/23 01:00 86 19 99 08/03/23 00:30 90 28 H 99 08/03/23 04:00 36.8 C 158/93 H 08/03/23 04:00 92 O2 Del Method O2 Del Method O2 Flow Rate O2 Flow Rate 08/03/23 08:30 08/03/23 07:38 Nasal Cannula 4 08/03/23 07:00 08/03/23 08:00 08/03/23 08:00 Nasal Cannula 4 08/03/23 08:00 08/03/23 07:30 Nasal Cannula 4 08/03/23 06:30 08/03/23 06:00 08/03/23 05:30 08/03/23 05:00 08/03/23 04:30 08/03/23 04:00 08/03/23 03:30 08/03/23 03:00 08/03/23 02:30 08/03/23 02:00 08/03/23 01:30 08/03/23 01:00 08/03/23 00:30 08/03/23 04:00 08/03/23 04:00 Nasal Cannula 4 Laboratory Results Abnormal lab results 08/02/23 08/02/23 08/03/23 Range/Units 16:29 20:35 04:01 WBC (4.8-10.8) K/ul RBC (4.20-5.40) M/uL Hgb (12.0-16.0) g/dl Hct (37.0-47.0) % MCHC (32.0-36.0) g/dL RDW Std Deviation (36.4-46.3) fL Plt Count (130-400) K/uL Neut # (Auto) (1.40-6.50) K/uL Lymph # (Auto) (1.20-3.40) K/uL [place] # (Auto) (0.11-0.59) K/uL POC Glucose 155 H 131 H (70-99) mg/dl Alkaline Phosphatase 115 H (34-104) U/L Albumin 2.9 L (3.4-5.0) gm/dl 08/03/23 08/03/23 08/03/23 Range/Units 06:56 07:44 11:33 WBC 11.48 H (4.8-10.8) K/ul RBC 3.42 L (4.20-5.40) M/uL Hgb 10.0 L (12.0-16.0) g/dl Hct 31.4 L (37.0-47.0) % MCHC 31.8 L (32.0-36.0) g/dL RDW Std Deviation 48.6 H (36.4-46.3) fL Plt Count 406 H (130-400) K/uL Neut # (Auto) 10.34 H (1.40-6.50) K/uL Lymph # (Auto) 0.23 L (1.20-3.40) K/uL [place] # (Auto) 0.63 H (0.11-0.59) K/uL POC Glucose 125 H 148 H (70-99) mg/dl Alkaline Phosphatase (34-104) U/L Albumin (3.4-5.0) gm/dl PG Care Time/CCT Total # of Minutes Spent Total Time Spent with Patient: Total time spent is greater than 50% in coordination of care (as documented) at patient's floor/unit and/or counseling patient: Coding Level of Care Code 04116 SUB INP/OBS CARE 2/35MIN Diagnoses Abnormal CT scan of lung R91.8 Small cell lung cancer C34.90 Acute respiratory failure with hypoxia J96.01 COPD (chronic obstructive pulmonary disease) J44.9 Dysphagia R13.10 Hypomagnesemia E83.42 Severe protein-calorie malnutrition E43
[2023-08-03 14:32] LABS: Quantiferon Mitogen-NIL 0.21 IU/mL; Quantiferon NIL 0.07 IU/mL; Quantiferon TB Gold Plus INDETERMINATE (NEGATIVE); Quantiferon TB1-NIL 0.01 IU/mL
[2023-08-03] MEDS: IBUPROFEN 200 MG TAB PO PRN (18:22)
[2023-08-03] MEDS: FLUTICASONE/VILANTEROL 200/25MCG 14 PUFFS/INHALER INH SCH (19:33)
[2023-08-04] MEDS: AMPICILLIN/SULBACTAM SOD 3,000 MG in 0.9 % SODIUM CHLORIDE 100 ML IV SCH ×4 (04:37→22:03)
[2023-08-04] MEDS: HEPARIN SOD 5,000 UNIT/0.5 ML VIAL SQ SCH ×2 (08:05→20:06)
[2023-08-04] MEDS: GABAPENTIN 600 MG TAB PO SCH ×2 (08:05→20:01)
[2023-08-04] MEDS: DOXYCYCLINE HYCLATE 100 MG in DEXTROSE 5% 100 ML IV SCH ×2 (08:06→20:00)
[2023-08-04] MEDS: NICOTINE 7 MG/24 HR TDSY TD SCH (08:06)
[2023-08-04] MEDS: INSULIN ASPART PER UNIT CHARGE SC SCH ×4 (08:06→19:55)
[2023-08-04] MEDS: IBUPROFEN 200 MG TAB PO PRN (09:05)
[2023-08-04] MEDS: ACETAMINOPHEN 325 MG TAB PO PRN (09:50)
[2023-08-04] MEDS: PANTOprazole 40 MG in SYRINGE 0 ML IV SCH (10:31)
[2023-08-04] MEDS ORDERED: MoRPHine SULFATE 2 MG/ML CARP IV STA (11:34)
--- NOTE | 2023-08-04 12:40 | Pulmonology Progress Note ---
Date of Service August 04, 2023 Assessment & Plan (1) Abnormal CT scan of lung: (2) Shortness of breath: (3) Necrotizing pneumonia: (4) Sepsis: (5) Acute respiratory failure with hypoxia: (6) Small cell lung cancer: Plan Impression: 68-year-old female with small cell lung cancer status post concurrent chemoradiation therapy. She has had persistent destructive changes in the right lung and was readmitted after completing a third course of antimicrobial therapy with CT scan showing progression. She underwent bronchoscopy with brushings showing no evidence of malignancy however Klebsiella did grow from the cultures. She developed postprocedural respiratory failure re quiring intubation mechanical ventilation. She is now been liberated from mechanical ventilator and is improving on Unasyn and doxycycline. Recommendations: 1. Cavitary lung lesions: Favor necrotizing infectious process. Would continue with Unasyn and doxycycline for now with plans to complete a 21-day course of antimicrobial therapy. Can potentially transition to oral antibiotics depending on clinical course but given the necrotizing nature and the structural abnormality of the lungs would favor longer course of therapy. Follow-up CT scan in 3 to 4 weeks recommended. Her AFB stains are negative. Can discontinue respiratory isolation at this point time. 2. COPD: Continue Breo and as needed albuterol for now. 3. Small cell lung cancer: Holding additional chemo/immunotherapy for now 4. Hypoxemia: Continue supplemental oxygen titrated to keep saturations at or above 90%. Out of bed to chair as tolerated. We will add incentive spirometry and flutter valve to her regiment. 5. Patient needs to increase her caloric intake. Consultation with dietary may be beneficial. An appetite stimulant may be a consideration. We will continue to follow with you. Feel free to contact us with questions or concerns Admission and Anticipated Discharge Date Admission Date: July 30, 2023 Subjective Patient seen and examined. EMR reviewed. Discussed with off going international recruiter. The patient's thinks that she is getting better from a respiratory standpoint. She is coughing and expectorating some phlegm. She has not had any hemoptysis. Her appetite remains poor. She is not feel very hungry. She is not having any dysphagia. She denies chest pain or palpitations. Review of Systems Review of Systems: All systems reviewed & are unremarkable except as noted in Subjective Physical Exam Constitutional: well developed, + ill appearing (chronically ill appearing), + well hydrated, + thin and + frail appearing; no acute distress Very Pleasant white female. Neck: normal visual inspection and trachea midline; neck nontender Respiratory: normal respiratory effort, lungs clear to auscultation + cough, able to speak in complete sentences and + prolonged expiratory phase Auscultation: no crackles, no rhonchi and no wheezes Cardiovascular: Rate/Rhythm: regular rate and regular rhythm Heart Sounds: normal S1 and normal S2; no gallop, no murmur and no cardiac rub Vessels: no JVD and no carotid bruit Extremities: no edema Skin: no rashes, warm and dry (no visible rashes) no lesions (no visible lesions) Results & Data Results & Data Vital Signs (Past 12 Hours) Vital Signs Temp Pulse Pulse Resp BP BP BP 08/04/23 12:00 08/04/23 12:00 36.8 C 104 H 20 132/95 08/04/23 08:00 08/04/23 08:00 97 H 08/04/23 08:00 08/04/23 07:30 36.8 C 110 H 20 123/82 08/04/23 06:14 123/82 08/04/23 06:14 97 H 19 08/04/23 06:00 97 H 27 H 08/04/23 04:14 98 H 27 H 08/04/23 04:14 115/74 08/04/23 04:00 100 H 28 H 08/04/23 02:14 98 H 28 H 08/04/23 02:14 122/82 08/04/23 02:00 103 H 17 08/04/23 04:00 08/04/23 04:00 36.9 C Pulse Ox Pulse Ox O2 Del Method O2 Del Method O2 Flow Rate O2 Flow Rate 08/04/23 12:00 95 Nasal Cannula 4 08/04/23 12:00 92 Nasal Cannula 4 08/04/23 08:00 95 Nasal Cannula 4 08/04/23 08:00 08/04/23 08:00 Nasal Cannula 4 08/04/23 07:30 90 Nasal Cannula 2 08/04/23 06:14 08/04/23 06:14 95 08/04/23 06:00 95 08/04/23 04:14 98 08/04/23 04:14 08/04/23 04:00 98 08/04/23 02:14 97 08/04/23 02:14 08/04/23 02:00 96 08/04/23 04:00 95 Nasal Cannula 4 08/04/23 04:00 Laboratory Results 08/03/23 06:56 08/02/23 04:28 Diagnostic Findings No new imaging PG Care Time/CCT Total # of Minutes Spent Total Time Spent with Patient: Total time spent is greater than 50% in coordination of care (as documented) at patient's floor/unit and/or counseling patient: Coding Level of Care Code 90904 SUB INP/OBS CARE 3/50MIN Diagnoses Abnormal CT scan of lung R91.8 Shortness of breath R06.02 Necrotizing pneumonia J85.0 Sepsis A41.9 Acute respiratory failure with hypoxia J96.01 Small cell lung cancer C34.90
--- NOTE | 2023-08-04 15:27 | Hospitalist Progress Note ---
Date of Service August 04, 2023 Assessment & Plan (1) Abnormal CT scan of lung: Plan: cavitary lung lesions are mostly related to necrotizing infectious process. bronchial wash came back positive for Klebsiella. AFB stains are negative. Pulmonology discontinued respiratory isolation. Plan to continue Unasyn and doxycycline. We will switch to p.o. antibiotics in near future. (2) Small cell lung cancer: Plan: Small Cell lung cancer from path review- metastatic noted on previous path has had chemo and radiation, then on Tecentriq for 2 years (3) Acute respiratory failure with hypoxia: Plan: Acute on Chronic hypoxia , now off of ventilator Today on 5 L of oxygen At baseline, uses 4 L (4) COPD (chronic obstructive pulmonary disease): Plan: Hx of - not acute exacerbation at this time - Continue home inhalers and nebulizer as needed (5) Dysphagia: Plan: Previously evaluated in May 2023 admission - IDDSI 7 Moist diet, alternate solids and liquids once tolerating po (6) Hypomagnesemia: Plan: repleted (7) Severe protein-calorie malnutrition: Plan: Consult dietitian Plan DVT proph- SQ heparin, SCDs Consult PT and OT Admission and Anticipated Discharge Date Admission Date: July 30, 2023 Subjective patient has been complaining of back pain. She normally takes ibuprofen for back pain. The ibuprofen did not help and thus a dose of morphine was given. Review of Systems Review of Systems: All systems reviewed & are unremarkable except as noted in Subjective Physical Exam Physical Exam: General: Sleeping, arousable. Very cachectic with intercostal and bitemporal muscle wasting. Frail looking Heart: S1, S2/regular rate and rhythm, no murmur rubs or gallops Lungs: diminished breath sounds bilaterally. Normal effort Abdomen: Soft/nontender/nondistended. No hepatosplenomegaly Extremities: No clubbing/cyanosis. No edema Behavior: Appropriate, cooperative Results & Data Results & Data Vital Signs (Past 12 Hours) Vital Signs Temp Pulse Pulse Resp BP BP BP 08/04/23 12:00 08/04/23 12:00 36.8 C 104 H 20 132/95 08/04/23 08:00 08/04/23 08:00 97 H 08/04/23 08:00 08/04/23 07:30 36.8 C 110 H 20 123/82 08/04/23 06:14 123/82 08/04/23 06:14 97 H 19 08/04/23 06:00 97 H 27 H 08/04/23 04:14 98 H 27 H 08/04/23 04:14 115/74 08/04/23 04:00 100 H 28 H 08/04/23 04:00 08/04/23 04:00 36.9 C Pulse Ox Pulse Ox O2 Del Method O2 Del Method O2 Flow Rate O2 Flow Rate 08/04/23 12:00 95 Nasal Cannula 4 08/04/23 12:00 92 Nasal Cannula 4 08/04/23 08:00 95 Nasal Cannula 4 08/04/23 08:00 08/04/23 08:00 Nasal Cannula 4 08/04/23 07:30 90 Nasal Cannula 2 08/04/23 06:14 08/04/23 06:14 95 08/04/23 06:00 95 08/04/23 04:14 98 08/04/23 04:14 08/04/23 04:00 98 08/04/23 04:00 95 Nasal Cannula 4 08/04/23 04:00 Laboratory Results Abnormal lab results 08/03/23 08/03/23 08/04/23 Range/Units 16:59 19:43 07:34 POC Glucose 185 H 132 H 172 H (70-99) mg/dl 08/04/23 Range/Units 10:35 POC Glucose 173 H (70-99) mg/dl PG Care Time/CCT Total # of Minutes Spent Total Time Spent with Patient: Total time spent is greater than 50% in coordination of care (as documented) at patient's floor/unit and/or counseling patient: Coding Level of Care Code 17569 SUB INP/OBS CARE 2/35MIN Diagnoses Abnormal CT scan of lung R91.8 Small cell lung cancer C34.90 Acute respiratory failure with hypoxia J96.01 COPD (chronic obstructive pulmonary disease) J44.9 Dysphagia R13.10 Hypomagnesemia E83.42 Severe protein-calorie malnutrition E43
[2023-08-04 18:22] LABS: Aspergillus Ag Index 0.23 (<0.50); Aspergillus Antigen, Serum Not Detected (Not Detected)
[2023-08-04] MEDS: FLUTICASONE/VILANTEROL 200/25MCG 14 PUFFS/INHALER INH SCH (20:02)
[2023-08-05] MEDS: AMPICILLIN/SULBACTAM SOD 3,000 MG in 0.9 % SODIUM CHLORIDE 100 ML IV SCH ×4 (04:33→20:53)
[2023-08-05 04:42] LABS: BUN Creatinine Ratio 34.1 (10-20); Calcium 8.6 mg/dl (8.6-10.3); Creatinine Clr Calc Pharmacy 37.8 ml/min; Est GFR (African American) 79.4 ml/min; Est GFR (Non-African American) 68.5 ml/min; Potassium 3.2 mmol/L (3.5-5.1)
[2023-08-05] MEDS: ACETAMINOPHEN 325 MG TAB PO PRN (06:08)
[2023-08-05] MEDS: IBUPROFEN 200 MG TAB PO PRN ×2 (06:59→13:04)
[2023-08-05] MEDS: INSULIN ASPART PER UNIT CHARGE SC SCH ×4 (08:07→20:49)
[2023-08-05] MEDS ORDERED: POTASSIUM CHLORIDE CRTAB 20 MEQ TABCR PO STA (08:17)
[2023-08-05] MEDS ORDERED: ALBUT/IPRATROP 3MG/0.5MG NEB 3 ML VIAL NEB STA (08:20)
--- NOTE | 2023-08-05 08:26 | Pulmonology Progress Note ---
Date of Service August 05, 2023 Assessment & Plan (1) Abnormal CT scan of lung: (2) Shortness of breath: (3) Necrotizing pneumonia: (4) Sepsis: (5) Acute respiratory failure with hypoxia: (6) Small cell lung cancer: Plan Impression: 68-year-old female with small cell lung cancer status post concurrent chemoradiation therapy. She has had persistent destructive changes in the right lung and was readmitted after completing a third course of antimicrobial therapy with CT scan showing progression. She underwent bronchoscopy with brushings showing no evidence of malignancy however Klebsiella did grow from the cultures. She developed postprocedural respiratory failure re quiring intubation mechanical ventilation. She is now been liberated from mechanical ventilator and is improving on Unasyn and doxycycline. Recommendations: 1. Cavitary lung lesions: Favor necrotizing infectious process. Would continue with Unasyn and doxycycline for now with plans to complete a 21-day course of antimicrobial therapy. Can potentially transition to oral antibiotics depending on clinical course but given the necrotizing nature and the structural abnormality of the lungs would favor longer course of therapy. Follow-up CT scan in 3 to 4 weeks recommended. Her AFB stains are negative. 2. COPD: Continue Breo. Add Incruse. DuoNebs as needed 3. Small cell lung cancer: Holding additional chemo/immunotherapy for now 4. Hypoxemia: Continue supplemental oxygen titrated to keep saturations at or above 90%. Out of bed to chair as tolerated. Continue incentive spirometry and flutter valve to her regiment. 5. Patient needs to increase her caloric intake. Consultation with dietary may be beneficial. An appetite stimulant may be a consideration. We will continue to follow with you. Feel free to contact us with questions or concerns Admission and Anticipated Discharge Date Admission Date: July 30, 2023 Subjective Patient seen and examined. EMR reviewed. Patient feels a little more short of breath this morning. She is able to tolerate a diet. She is not coughing. She does report some wheezing. Her oxygen level remained stable. She slept reasonably well Review of Systems Review of Systems: All systems reviewed & are unremarkable except as noted in Subjective Physical Exam Constitutional: well developed, + ill appearing (chronically ill appearing), + well hydrated, + thin and + frail appearing; no acute distress Neck: normal visual inspection and trachea midline; neck nontender Respiratory: normal respiratory effort, lungs clear to auscultation + cough, able to speak in complete sentences and + prolonged expiratory phase Auscultation: no crackles, no rhonchi and no wheezes Cardiovascular: Rate/Rhythm: regular rate and regular rhythm Heart Sounds: normal S1 and normal S2; no gallop, no murmur and no cardiac rub Vessels: no JVD and no carotid bruit Extremities: no edema Skin: no rashes, warm and dry (no visible rashes) no lesions (no visible lesions) Results & Data Results & Data Vital Signs (Past 12 Hours) Vital Signs Temp Pulse Resp BP Pulse Ox 08/05/23 04:30 37 C 08/05/23 04:32 108 H 26 H 96 08/05/23 04:32 134/91 08/05/23 04:00 108 H 24 94 08/05/23 02:00 117 H 27 H 97 08/05/23 00:00 101 H 24 97 08/04/23 23:06 117 H 93 08/04/23 23:06 137/84 08/04/23 23:07 37 C 08/04/23 22:00 102 H 24 99 08/04/23 20:43 131/87 08/04/23 20:43 111 H 31 H 94 Laboratory Results 08/03/23 06:56 08/05/23 03:55 Diagnostic Findings No new imaging PG Care Time/CCT Total # of Minutes Spent Total Time Spent with Patient: Total time spent is greater than 50% in coordination of care (as documented) at patient's floor/unit and/or counseling patient: Coding Level of Care Code 01040 SUB INP/OBS CARE 2/35MIN Diagnoses Abnormal CT scan of lung R91.8 Shortness of breath R06.02 Necrotizing pneumonia J85.0 Sepsis A41.9 Acute respiratory failure with hypoxia J96.01 Small cell lung cancer C34.90
[2023-08-05] MEDS: NICOTINE 7 MG/24 HR TDSY TD SCH (09:00)
[2023-08-05] MEDS: HEPARIN SOD 5,000 UNIT/0.5 ML VIAL SQ SCH ×2 (09:00→20:54)
[2023-08-05] MEDS: GABAPENTIN 600 MG TAB PO SCH ×2 (09:00→20:53)
[2023-08-05] MEDS: UMECLIDINIUM BROMIDE 62.5MCG/BLISTER 7 PUFFS/INHALER INH SCH (09:01)
[2023-08-05] MEDS: DOXYCYCLINE HYCLATE 100 MG in DEXTROSE 5% 100 ML IV SCH ×2 (09:02→20:52)
[2023-08-05] MEDS: POTASSIUM CHLORIDE / WTR 10 MEQ/100 ML PLCT IV SCH ×2 (09:02→09:32)
[2023-08-05] MEDS: PANTOprazole 40 MG in SYRINGE 0 ML IV SCH (09:32)
--- NOTE | 2023-08-05 17:12 | Hospitalist Progress Note ---
Date of Service August 05, 2023 Assessment & Plan (1) Abnormal CT scan of lung: Plan: Pneumonia with cavitary lesions, sepsis Present on admission cavitary lung lesions are mostly related to necrotizing infectious process. bronchial wash came back positive for Klebsiella. AFB stains are negative. Plan to continue Unasyn and doxycycline. We will switch to p.o. antibiotics in near future. PT/OT recommended home (2) Small cell lung cancer: Plan: Small Cell lung cancer from path review- metastatic noted on previous path has had chemo and radiation, then on Tecentriq for 2 years (3) Acute respiratory failure with hypoxia: Plan: Acute on Chronic hypoxia , now off of ventilator Today on 5 L of oxygen At baseline, uses 4 L (4) COPD (chronic obstructive pulmonary disease): Plan: Hx of - not acute exacerbation at this time - Continue home inhalers and nebulizer as needed (5) Dysphagia: Plan: Previously evaluated in May 2023 admission - IDDSI 7 Moist diet, alternate solids and liquids once tolerating po (6) Hypomagnesemia: Plan: repleted (7) Severe protein-calorie malnutrition: Plan: Consult dietitian Plan DVT proph- SQ heparin, SCDs discharge to home likely tomorrow Admission and Anticipated Discharge Date Admission Date: July 30, 2023 Subjective patient feels well. No significant shortness of breath. She complains of back pain. She says that she uses ibuprofen at home but that is not helping at this time as she has been laying in bed. Review of Systems Review of Systems: All systems reviewed & are unremarkable except as noted in Subjective Physical Exam Physical Exam: General: awake, conversant. Very cachectic with intercostal and bitemporal muscle wasting. Frail looking Heart: S1, S2/regular rate and rhythm, no murmur rubs or gallops Lungs: diminished breath sounds bilaterally With bilateral wheezing. Normal effort Abdomen: Soft/nontender/nondistended. No hepatosplenomegaly Extremities: No clubbing/cyanosis. No edema Behavior: Appropriate, cooperative Results & Data Results & Data Vital Signs (Past 12 Hours) Vital Signs Temp Pulse Pulse Resp BP Pulse Ox Pulse Ox 08/05/23 16:34 102 H 25 H 93 08/05/23 16:34 129/85 08/05/23 16:00 99 H 28 H 95 08/05/23 14:00 100 H 27 H 94 08/05/23 12:00 112 H 28 H 94 08/05/23 16:00 36.7 C 08/05/23 15:18 84 L 08/05/23 11:13 08/05/23 08:00 08/05/23 10:57 36.7 C 08/05/23 10:52 116/76 96 08/05/23 10:52 88 22 08/05/23 10:00 92 H 24 95 08/05/23 08:00 36.8 C 08/05/23 10:17 97 H 48 H 96 08/05/23 08:43 108 H 33 H 91 08/05/23 08:43 134/86 08/05/23 08:00 108 H 29 H 94 08/05/23 07:00 108 H 28 H 93 O2 Del Method O2 Flow Rate O2 Flow Rate 08/05/23 16:34 08/05/23 16:34 08/05/23 16:00 08/05/23 14:00 08/05/23 12:00 08/05/23 16:00 08/05/23 15:18 4 08/05/23 11:13 Nasal Cannula 08/05/23 08:00 Nasal Cannula 3 08/05/23 10:57 08/05/23 10:52 08/05/23 10:52 08/05/23 10:00 08/05/23 08:00 08/05/23 10:17 Nasal Cannula 4 08/05/23 08:43 08/05/23 08:43 08/05/23 08:00 08/05/23 07:00 Laboratory Results Abnormal lab results 08/04/23 08/05/23 08/05/23 Range/Units 19:54 03:55 10:53 Potassium 3.2 L (3.5-5.1) mmol/L Chloride 96 L (98-107) mmol/L BUN 30 H (6-23) mg/dl BUN/Creatinine Ratio 34.1 H (10-20) Glucose 108 H (70-99(Fasting)) mg/dl POC Glucose 124 H 122 H (70-99) mg/dl 08/05/23 Range/Units 16:33 Potassium (3.5-5.1) mmol/L Chloride (98-107) mmol/L BUN (6-23) mg/dl BUN/Creatinine Ratio (10-20) Glucose (70-99(Fasting)) mg/dl POC Glucose 170 H (70-99) mg/dl PG Care Time/CCT Total # of Minutes Spent Total Time Spent with Patient: Total time spent is greater than 50% in coordination of care (as documented) at patient's floor/unit and/or counseling patient: Coding Level of Care Code 89174 SUB INP/OBS CARE 2/35MIN Diagnoses Abnormal CT scan of lung R91.8 Small cell lung cancer C34.90 Acute respiratory failure with hypoxia J96.01 COPD (chronic obstructive pulmonary disease) J44.9 Dysphagia R13.10 Hypomagnesemia E83.42 Severe protein-calorie malnutrition E43
[2023-08-05] MEDS: FLUTICASONE/VILANTEROL 200/25MCG 14 PUFFS/INHALER INH SCH (20:53)
[2023-08-06] MEDS: AMPICILLIN/SULBACTAM SOD 3,000 MG in 0.9 % SODIUM CHLORIDE 100 ML IV SCH (03:54)
[2023-08-06 08:29] LABS: BUN Creatinine Ratio 34.9 (10-20); Calcium 8.7 mg/dl (8.6-10.3); Creatinine Clr Calc Pharmacy 44.6 ml/min; Est GFR (African American) 81.6 ml/min; Est GFR (Non-African American) 70.4 ml/min; Potassium 4.2 mmol/L (3.5-5.1)
[2023-08-06] MEDS ORDERED: DOXYCYCLINE HYCLATE 100 MG CAP PO SCH (09:00)
[2023-08-06] MEDS ORDERED: AMOXICILLIN 875 MG TAB PO SCH (09:00)
[2023-08-06] MEDS: INSULIN ASPART PER UNIT CHARGE SC SCH ×2 (09:13→12:16)
[2023-08-06] MEDS: NICOTINE 7 MG/24 HR TDSY TD SCH (09:22)
[2023-08-06] MEDS: UMECLIDINIUM BROMIDE 62.5MCG/BLISTER 7 PUFFS/INHALER INH SCH (09:25)
[2023-08-06] MEDS: GABAPENTIN 600 MG TAB PO SCH (09:25)
[2023-08-06] MEDS: HEPARIN SOD 5,000 UNIT/0.5 ML VIAL SQ SCH (09:25)
[2023-08-06] MEDS: DOXYCYCLINE HYCLATE 100 MG in DEXTROSE 5% 100 ML IV SCH (09:30)
[2023-08-06] MEDS ORDERED: PANTOprazole 40 MG TAB PO SCH (11:00)
--- NOTE | 2023-08-06 11:10 | Discharge Summary ---
Date of Service August 06, 2023 Admission HPI Per Admitting Provider 68 YOF with medical history of: Smoking (continues 1/2-12/04 ppd), home oxygen use, COPD, Lung Cancer- [facility], bi-apical cavitary lung lesions. Patient presents with worsening cough and dyspnea in the setting of hx of lung cancer. Patient had previously been treated with Levauin in March noting cavitary lesions/nodules- concern was for necrotizing pneumonia/abscess or worsening of disease. She completed chemo/radiation in March and was on Tecentriq. Patient was recently admitted in May 2023 for a pneumonia that was initially thought to be aspiration- she had a CT scan performed by [facility] in May 2023 that noted worsening infiltrates with concern of some necrotizing areas in the right > left upper lobes. At that time her Tecentriq was held as well as she continued course of Augmentin. She was evaluated by Pulmonology at that time, where she was improving in symptoms as well as was on antibiotics- so bronchoscopy was deferred, she was to follow up in 6 weeks for repeat imaging. As above she returned to EMD today for worsening cough and hypoxia- she denies fevers or chest pain. She is coughing up thick green sputum without blood. In the EMD the patient had repeat CTA as well as routine labs to include blood cultures and PCT, and respiratory BIOfire/COVID 19. Her BIOfire was negative. Her CTA of the chest was negative for PE, but has show on progression of cavitary opacities as above RT>LT, as well as 4.8 CM density in [facility]. Patient was given dose of Cefepime in the EMD and Vancomycin. Patient will be brought in for evaluation of her pneumonia, will keep on respiratory isolation until myoplasm TB ruled out, place on Zosyn, Vancomycin, and Doxycycline. Appreciate Pulmonary evaluation for consideration of bronchoscopy. CODE: FULL COVID19 NEGATIVE Admission Exam Per Admitting Provider General:In no acute distress, older than stated age, malnourished and ill appearing but non-toxic HEENT:Normocephalic, atraumatic, no scleral icterus, pupils around round, symmetrical, and reactive to light, moist mucus membranes, trachea midline, no thyromegaly Chest/Pulm:No respiratory distress, symmetrical chest expansion, rhonchi noted in the RLL and RLM, otherwise CTA throughout Cardiac:RRR, no murmurs noted Abdomen:Negative for ascites and bruising, normoactive bowel sounds, soft, non-tender to palpation throughout Musculoskeletal:Symmetrical and without signs of acute trauma, upper and lower extremities with full ROM, no atrophy, spasticity, or flaccidity Extremities:Radial, dorsalis pedis, and posterior tibial pulses are intact and symmetrical, no edema noted in the BL LE's Skin:Warm, dry, no rashes , lesions, or scars noted Neuro:Alert and oriented to person, place, month, year, and president, no focal defects, no tremors noted Psych:No acute distress, calm and cooperative during the exam Principal Diagnosis Necrotizing cavitating pneumonia secondary to Klebsiella Severe protein calorie malnutrition Acute respiratory failure with hypoxia requiring ventilator support Discharge Exam General: awake, conversant. Very cachectic with intercostal and bitemporal muscle wasting. Frail looking Heart: S1, S2/regular rate and rhythm, no murmur rubs or gallops Lungs: diminished breath sounds bilaterally With bilateral wheezing. Normal effort Abdomen: Soft/nontender/nondistended. No hepatosplenomegaly Extremities: No clubbing/cyanosis. No edema Behavior: Appropriate, cooperative Discharge Data Allergies Allergy/AdvReac Type Severity Reaction Status Date / Time budesonide Allergy Severe SHORTNESS Verified 07/21/23 15:25 OF BREATH formoterol Allergy Severe SHORTNESS Verified 07/21/23 15:25 OF BREATH Sulfa (Sulfonamide Allergy Severe HIVES Verified 07/21/23 15:25 Antibiotics) erythromycin base Allergy Intermediate CAUSES HER Verified 07/21/23 15:25 EYES TO BURN Penicillins Allergy Unknown HAPPENED Verified 07/21/23 15:25 A CHILD magnesium AdvReac Severe severe Verified 07/21/23 15:25 diarrhea thimerosol Allergy burning Uncoded 07/21/23 15:25 eyes Consultations 07/30/23 15:53 ED Decision to Admit Stat 07/30/23 19:02 Consult Anesthesiology Routine Consult Pulmonology Routine 07/31/23 13:40 Consult Tile And Marble Setter Routine Procedures Performed Operation Date: 07/31/23 14:10 Actual Procedures p Bronchoscopy with lavage, lung biopsy.(Not Applicable) - Jeffrey Pablo DO Ordered Studies 07/30/23 11:56 CT for pulmonary embolism PE [CT angio chest PE protocol] Stat 07/31/23 17:51 CT head/brain wo con Stat Hospital Course (1) Abnormal CT scan of lung: Pneumonia with cavitary lesions, sepsis Present on admission The patient presented with cavitary lung lesions which is thought to be due to a necrotizing infectious process. Bronchial wash came back positive for Klebsiella. She was treated with IV antibiotics, switched to p.o. Augmentin and doxycycline. Plan is to continue with the antibiotic course for a total of 21 days. She will follow-up with pulmonology. She will follow-up with PCP. (2) Small cell lung cancer: Small Cell lung cancer from path review- metastatic noted on previous path has had chemo and radiation, then on Tecentriq for 2 years (3) Acute respiratory failure with hypoxia: Acute on Chronic hypoxia , now off of ventilator She needed ventilator support soon after the bronchoscopy. Now off of ventilator She is now back to her usual baseline oxygen needs. (4) COPD (chronic obstructive pulmonary disease): Hx of - not acute exacerbation at this time - Continue home inhalers and nebulizer as needed (5) Dysphagia: Previously evaluated in May 2023 admission - IDDSI 7 Moist diet, alternate solids and liquids once tolerating po (6) Hypomagnesemia: repleted (7) Severe protein-calorie malnutrition: Consult dietitian Plan DVT proph- SQ heparin, SCDs Discharge to home today Total Time Total Time Spent Total Time Spent (In Minutes): 35 Discharge Plan Discharge Items Patient Disposition: Home - Self-Care Reason For Visit: PNEUMONIA Discharge Diagnosis: Klebsiella pneumonia With cavitary lung lesions with sepsis Acute hypoxic respiratory failure requiring mechanical ventilation Activity: Resume your previous activity Non-emergency contact: Primary Care Provider and Applications Systems Analyst Call non-emergency contact if: you have any medication questions and your symptoms worsen Follow-up/Referrals: Gali Cruz MD [Primary Care Provider] - 08/14/23 9:20 am (Follow up scheduled on 08/14/23 @ 9:20 with Adi Perrin) Michael Lwas MD [Physician] - 08/12/23 11:30 am (Please keep appointment scheduled on 08/12/23 @ 11:30) Diet: Regular Addtl Attending Provider Instructions: Advised to follow-up with PCP in 1 week Advised to follow-up with correctional officer chief in 2 weeks Advised to note that you will need a follow-up CT scan done in 3 to 4 weeks. It will need to be arranged by your PCP or your correctional officer chief. Advised to note that you are being discharged on oral antibiotics for 2 more weeks. Pending Studies at Discharge: No Stand-Alone Forms: My [facility], Smoking Cessation Medications and DC Order Prescriptions: New amoxicillin-pot clavulanate 875-125 mg Tablet 1 tab PO BID 14 Days Qty: 28 0RF doxycycline hyclate 100 mg Capsule 100 mg PO BID 14 Days Qty: 28 0RF Incruse Ellipta 62.5 mcg/actuation Blister With Device 1 inh inhalation DAILY 30 Days Qty: 30 0RF Continued vnxgslrnqn-iwlpuby-jjaaoect 50-325-40 mg capsule 1 cap PO .COMPLEX PRN (Reason: Headache) Qty: 13 0RF Rx Instructions: 1 cap orally every other day x 2wks, then 1 cap 3 times a wk x 2 wks. PRN; triamcinolone acetonide 0.1 % cream 1 applic topical BID PRN (Reason: Skin Irritation) Qty: 15 2RF albuterol sulfate 90 mcg/actuation HFA aerosol inhaler 2 inh inhalation Q4H PRN (Reason: Shortness Of Breath) Qty: 8.5 2RF gabapentin 600 mg tablet 600 mg PO BID Qty: 60 5RF miscellaneous medical supply Misc 1 ea miscellaneous DAILY Qty: 1 0RF Rx Instructions: Portable o2 concentrator Length of Need: 99 years prochlorperazine maleate [Compazine] 10 mg tablet 10 mg PO Q6H PRN (Reason: Nausea) Qty: 90 3RF benzonatate 100 mg capsule 100 mg PO TID PRN (Reason: cough) Qty: 180 1RF Rx Instructions: One or two pearls three times a day as needed. fluticasone furoate-vilanterol [Breo Ellipta] 200-25 mcg/dose blister with device 2 inh inhalation HS Qty: 60 5RF Flutter Valve Device See Rx Instructions .ROUTE .COMPLEX Qty: 1 0RF Rx Instructions: Use 10 to 15 x 2 to 3 times a day; fluticasone propionate 50 mcg/actuation spray,suspension 2 spray intranasal BID Rx Instructions: administer into each nostril pantoprazole 40 mg tablet,delayed release (DR/EC) 40 mg PO DAILY terconazole 0.4 % cream 1 applic vaginal PM PRN (Reason: Other) Discharge Orders: Discharge Order (Routine); Ordered 08/06/23 Ordered By: Oskar Dunbar/Mary Patient Handouts: COPD and Heart Disease, Preventing Pneumonia Admission Data Admit Date/Time: 07/30/23 17:00 Attending Provider: Oskar Rosales Admit Provider: Rolan Rosario Primary Care Provider: Gali Cruz Other Providers: Jeffrey Pablo ; Rolan Rosario ; Kristy Muro ; America Stark ; Lynne Morales ; Beatriz Power ; Ramon Wayne ; Laci Masterson ; Denis Estes ; Gerardo Flor ; Cassie Flor ; Jared Farrell ; Brittany Walls ; Stan Hanson ; Adebayo Coyle ; Rico Murcia ; Aj Godoy ; Bhavana Caballero ; Juarez Veras ; Jesenia Avles ; Hannah Veras ; Evelio Rinaldi ; Marlene Milton ; Brant Garay ; Sarah Benson ; Karen Poe ; Julio Martins ; Ileana Baker ; Joanne Arteaga ; Maddie Wahl ; Humaira Shea ; Foreign Shea V ; Austin Rider ; America Sow ; Dank Olvera ; Dayana Fenton ; Foreign Fernandez ; Adryan Caballero ; Eduardo Echols ; Debbie De Anda ; Rita Blank ; Foreign Berger ; Kevin Evans ; Kiera Snyder ; Rickey Quach ; Sanjana Rubin ; Natalie Thayer ; Nav Palomino ; Jeffrey Godoy ; [place] Bundy ; Jose Polanco ; Jayce Maldonado ; Laurent Walters ; Ramon Schaffer Jr ; Stella Leyva ; Laurence Rene ; Bobbi Hillman ; Julio De Leon ; Lea Granado ; Gerardo Wilcox ; Samir Jo I. ; Bekah Zuniga ; Laurence Colunga ; Kerry Yates ; Jimenez Bradshaw ; Freddy Boateng ; Chandler Angela ; Osman Hodges V. ; Tawanda Cifuentes ; Nissa Carey ; Ilana Singh ; Ariana Hassan ; Linn Stevens Other Interventions: Discharge Summary Assessment (RN) Last Done: 08/06/23 12:07 Coding Level of Care Code 14554 INP/OBS DISCH >[address] scan of lung R91.8 Small cell lung cancer C34.90 Acute respiratory failure with hypoxia J96.01 COPD (chronic obstructive pulmonary disease) J44.9 Dysphagia R13.10 Hypomagnesemia E83.42 Severe protein-calorie malnutrition E43
[2023-08-06 11:31] VITALS: BP 137/91; TEMP 97.5; O2SAT 93
[2023-08-06 11:57] LABS: Quantiferon Mitogen-NIL 0.63 IU/mL; Quantiferon NIL 0.04 IU/mL; Quantiferon TB Gold Plus NEGATIVE (NEGATIVE)
[2023-08-06 12:10] VITALS: PULSE 112
[2023-08-06] MEDS ORDERED: AMOXICILLIN/CLAVULANATE 875 MG TAB PO SCH ×3 (17:00)
[2023-08-13 13:52] LABS: Source BAL RLL
== END 2023-08-06 13:10 | disposition home or self-care (01) | DRG 853 ==
LOC: ED 10:41 → SUATTDRO 17:00 → 2S 17:00 → 1E 07-31 13:25 → 4W 08-05 21:53